=== PATIENT | female | born 1935 | race Caucasian/White ===

== ENCOUNTER → 2018-01-02 14:50 | Outpatient (CLI) | payer MEDICARE, SELFPAY ==
--- NOTE | 2018-01-02 14:55 | RAD_ITS ---
STUDY: X-RAY CHEST REASON FOR EXAM: Female, 82 years old. Weight loss. TECHNIQUE: 2 views COMPARISON: Prior PA and lateral chest August 14, 2013. FINDINGS: Pectus excavatum. The lung gray are mildly to moderately hyperexpanded without consolidation, focal atelectasis or a substantial pleural effusion. Negative for pulmonary mass or nodules. Normal size heart. Normal mediastinum and agata. Normal visualized pulmonary arteries. There is atherosclerotic calcification of the aortic arch with tortuosity. There are diffuse degenerative changes of the visualized thoracic spine with demineralized osseous structures. Normal visualized ribs, clavicles, and shoulders. There is no demonstrated abnormality of the visualized soft tissue structures of the upper abdomen. RAD/Chest PA and Lateral IMPRESSION: Mild to moderate hyperexpansion without other acute findings or changes. Negative for major consolidation, focal atelectasis or a substantial pleural effusion. Negative for pulmonary masses or nodules. Normal cardiac size. Atherosclerosis. Demineralized osseous structures with mild degenerative changes. Electronically Signed: Saira Estevez MD at 16:42 EST , Service support ,
== END ==
PROVIDERS: Family Provider Nurse Practitioner; PCP Nurse Practitioner; Visit Provider Nurse Practitioner
DX: R63.4 Abnormal weight loss (principal)
CPT/HCPCS: 71046

== ENCOUNTER → 2018-10-23 12:46 | Outpatient (CLI) | payer MEDICARE, SELFPAY ==
--- NOTE | 2018-10-23 13:00 | BI_ITS ---
MAMMOGRAPHY - BILATERAL SCREENING REASON FOR EXAM: Female, 83 years old. Routine annual screening examination. PERTINENT HISTORY: Non-contributory. TECHNIQUE: Digital bilateral breast jae (3D mammographic acquisition) in the CC and MLO projections. 2-D mediolateral oblique (MLO) and craniocaudad (CC) views of both breasts were obtained. CAD: Full Field Digital Mammography with Computer Added Detection was performed. COMPARISON: Comparison is made with prior study dated September 10, 2017 and August 14, 2016. FINDINGS: Breast Composition: The breasts are heterogeneously dense, which may obscure small masses. There are no dominant masses or suspicious calcifications. No other significant abnormalities are identified. There has been no significant change since the prior study. BI/SCREEN MAMM (CAD) W/JAE BILAT IMPRESSION: Stable bilateral screening mammogram. Yearly follow-up mammogram recommended. (A) ASSESSMENT CATEGORY: BIRADS Category 1: Negative. A letter regarding these results will be sent to the patient by the facility within 30 days. Approximately 10% of breast cancers are not detected by mammography. A normal mammogram should not delay biopsy of a clinically suspicious abnormality. [id number] Electronically Signed: Hayder Bustamante MD at 14:28 EST Tel [phone], Service support ,
--- OUTSIDE RECORDS SUMMARY | 2019-01-24 18:01 | XMS RPT_ITS | Continuity of Care Document ---
:1935 Author Organization [facility] Address [address] [facility] [address] [place] [address] Phone Care Team Providers Name Role Phone Ifeanyi HEENALuiza Unavailable Dr. Vitaly Pettit Unavailable Dr. Melchor Schaefer Unavailable Kapil Whittington Unavailable Unavailable Gisselle Morrissey LPN Unavailable Unavailable Valerie Kumari Unavailable Unavailable Kristina Carr Unavailable Unavailable Unavailable Unavailable Problems Name Dates Details Abnormal urine (R82.90, 791.9) Status: Active Allergic rhinitis (J30.9, 477.9) Status: Active Benign essential HTN (I10, 401.1) Comments: chronic stable-continue present regimenEKG: No acute changes , NSR as compared to 01/15/15on lisinopril with cough so stopped lisinopril on losartan Status: Active BMI 20.0-20.9, adult (Z68.20, V85.1) Status: Active Body mass index (BMI) of 19.0-19.9 in adult (Z68.1, V85.1) Status: Active Cervical radiculopathy, chronic (M54.12, 723.4) Status: Active Deliveries (Parity) Comments: 4 Status: Active Ectopic atrial tachycardia (I47.1, 427.89) Comments: monitor Status: Active Encounter for screening mammogram for breast cancer (Renamed from Screening mammogram, encounter for) (Z12.31, V76.12) Status: Active History of tobacco abuse (Z87.891, V15.82) Status: Active Hypercholesteremia (E78.00, 272.0) Comments: chronic stable-continue present regimen, continue crestor 5mg qod Status: Active Insomnia (G47.00, 780.52) Comments: tylenol pm not helping, try melatonin Status: Active Low back pain potentially associated with radiculopathy (M54.5, 724.2) Status: Active Need for prophylactic vaccination and inoculation against influenza (Renamed from Need for immunization against influenza) (Z23, V04.81) Status: Active Nonsmoker (Z78.9, V49.89) Status: Active Nonsmoker (Z78.9, V49.89) Status: Active Osteoarthritis (M19.90, 715.90) Status: Active Osteopenia (M85.80, 733.90) Comments: not using prolia .Used boniva and evista in the pastBD 08/19 Osteopeniatook 3 shots of prolia.01/18: hives and itching right after recieved prolia. diffrent places in body have hives. Status: Active Paresthesia (R20.2, 782.0) Status: Active Pregnancies () Comments: 4 Status: Active PVC (premature ventricular contraction) (I49.3, 427.69) Status: Active Screening mammogram, encounter for (Z12.31, V76.12) Status: Active Skin lesion (L98.9, 709.9) Status: Active Vitamin D deficiency, unspecified (E55.9, 268.9) Comments: will back down a bit to one daily and repeat next Ov Status: Active Weight loss (R63.4, 783.21) Comments: wt loss continues despite being off of crestor which she thought was problem will work upCBC, labs, all good, chest 01-02-18 normal, mammogram 09-10-17 normal, 15 normal Status: Active Weight Loss (Renamed from Decreased body weight) (R63.4, 783.21) Comments: she adding protein back in this has stablized her past all her cancer screening up to date- thyroid normal Status: Active Medications Name Dates Details Caltrate 600+D 600-400 MG-UNIT Oral Tablet Chewable 2 (two) Tablet Chewable qd for 0 days Quantity: 30 {Tablet} Refills: 3 Ordered:18-Jul-2016 Eugene Vides MD Start : 18-Jul-2016 Active Crestor 5 MG Oral Tablet 1 (one) Tablet qod for 30 days Quantity: 30 {Tablet} Refills: 5 Ordered:14-May-2018 Goldiekrysta NAIK, Luiza Allredkrysta NAIK, Luiza Centeno Start : 14-May-2018 Active FLONASE, 50MCG/ACT (Nasal Suspension) 2 (two) sprays sprays each nostril qd for 0 days Quantity: 1 {Suspension} Refills: 3 Ordered:19-Jan-2016 Anthony Joann TORRES Start : 19-Jan-2016 Active Losartan Potassium 25 MG Oral Tablet 1 (one) Tablet Tablet daily for 0 days Quantity: 90 {Tablet} Refills: 3 Ordered:06-Mar-2018 Ifeanyi NAIK, Luiza MELVINautumn NAIK, Luiza Centeno Start : 06-Mar-2018 Active MULTIVITAMIN (PO Chew Tab) 1 tab qd for 0 days Refills: 0 Ordered:24-Oct-2011 Myah WarrenActive ProAir HFA 108 (90 Base) MCG/ACT Inhalation Aerosol Solution 2 puffs Aerosol Soln qid, prn for 30 days Quantity: 1 {Inhaler} Refills: 3 Ordered:18-Jul-2016 Eugene Vides MD Start : 18-Jul-2016 Active Vitamin D3 1000 UNIT Oral Capsule 1 cap Capsule daily for 0 days Quantity: 90 {Capsule} Refills: 2 Ordered:26-Dec-2017 Ifeanyi NAIK, Luiza Allredkrysta NAIK, Luiza Centeno Start : 26-Dec-2017 Active AVELOX, 400MG (Oral Tablet) 1 (one) Tablet qd for 0 days Quantity: 5 {Tablet} Refills: 0 Ordered:24-Aug-2010 Myah Warren Start : 14-Sep-2009 End : 24-Aug-2010 Inactive CALCIUM, 500MG (Oral Tablet) 1 tab bid for 0 days Refills: 0 Ordered:20-Feb-2012 Long CHIP BIN CONVEYOR TENDER, Rody L End : 20-Feb-2012 Inactive CLARINEX, 5MG (Oral Tablet) 1 tab qd,prn for 0 days Refills: 0 Ordered:24-Aug-2010 Myah Warren End : 24-Aug-2010 Inactive ERGOCALCIFEROL, [id number] (Oral Capsule) 1 (one) Capsule q week for 0 days Quantity: 12 {Capsule} Refills: 0 Ordered:24-Aug-2010 Myah Warren Start : 17-May-2009 End : 24-Aug-2010 Inactive EVISTA, 60MG (Oral Tablet) 1 (one) Tablet qd for 0 days Quantity: 90 {Tablet} Refills: 3 Ordered:20-Feb-2012 Rody Alejandre LPN Start : 24-Aug-2010 End : 20-Feb-2012 Inactive Lisinopril 10 MG Oral Tablet 1 (one) Tablet daily for 90 days Quantity: 90 {Tablet} Refills: 1 Ordered:25-Jun-2017 Gisselle Morrissey LPN Start : 22-Nov-2016 End : 25-Jun-2017 Inactive Melatonin 2.5 MG Oral Capsule 1-2 Capsule qhs prn for insomnia for 0 days Quantity: 60 {Capsule} Refills: 0 Ordered:26-Dec-2017 Gisselle Morrissey LPN Start : 25-Jun-2017 End : 26-Dec-2017 Inactive NASACORT AQ, 55MCG/ACT (Nasal Aerosol Solution) 2 sprays Aerosol Soln qd for 0 days Quantity: 1 {Aerosol_Soln} Refills: 3 Ordered:04-Aug-2013 Rody Alejandre LPN Start : 26-Mar-2013 End : 04-Aug-2013 Inactive NASONEX, 50MCG/ACT (Nasal Suspension) 2 (two) Suspension each nostril qd for 0 days Quantity: 1 {Suspension} Refills: 3 Ordered:04-Aug-2013 Rody Alejandre LPN Start : 28-Jul-2013 End : 04-Aug-2013 Inactive NIASPAN, 500MG (Oral Tablet Extended Release) 1 Tablet ER qhs for 0 days Quantity: 30 {Tablet_ER} Refills: 3 Ordered:20-Feb-2012 Rody Alejandre LPN Start : 06-Feb-2011 End : 20-Feb-2012 Inactive Prolia 60 MG/ML Subcutaneous Solution 1 (one) Milliliter Milliliter SC q 6 months for 0 days Quantity: 1 {Pre-filled_Pen_Syringe} Refills: 1 Ordered:22-Nov-2016 Rody Alejandre LPN Start : 18-Jul-2016 End : 22-Nov-2016 Inactive Pulmicort Flexhaler 180 MCG/ACT Inhalation Aerosol Powder Breath Activated 1 puff Aero Pow Br Act qd for 0 days Quantity: 1 {Inhaler} Refills: 3 Ordered:18-Jul-2016 Long Rody DOWELL Start : 08-Jul-2014 End : 18-Jul-2016 Inactive SIMVASTATIN, 20MG (Oral Tablet) 1/2 tab Tablet qhs / HS for 90 days Quantity: 45 {Tablet} Refills: 3 Ordered:15-Nov-2011 Myah Warren Start : 24-Oct-2011 End : 15-Nov-2011 Inactive Tylenol PM Extra Strength 500-25 MG Oral Tablet 1/2 (one half) Tablet hs prn for 0 days Quantity: 30 {Tablet} Refills: 0 Ordered:25-Jun-2017 Slarb Gisselle DOWELL Start : 21-Feb-2017 End : 25-Jun-2017 Inactive VICODIN, 5-300MG (ORAL TABLET), 5-300mgmg (Oral Tablet) (Free Text) 1 (one) Tablet Tablet q 6 hours prn for 0 days Quantity: 45 {Tablet} Refills: 0 Ordered:08-Sep-2015 ANATOLY Joshua Start : 06-Jan-2014 End : 08-Sep-2015 Inactive Comments:forty five VITAMIN D, 400UNIT (Oral Tablet) 1 tab qd for 0 days Refills: 0 Ordered:08-Sep-2015 ANATOLY Joshua End : 08-Sep-2015 Inactive ALBUTEROL SULFATE HFA, 108 (90 Base)MCG/ACT (Inhalation Aerosol Solution) 2 puffs Aerosol Soln qid, prn for 0 days Quantity: 3 {Aerosol_Soln} Refills: 3 Ordered:23-Aug-2009 Myah Warren Start : 23-Aug-2009 End : 18-May-2010 Discontinued Comments:This order discontinued per [facility]. ALBUTEROL SULFATE HFA, 108MCG/ACT (Inhalation Aerosol Soln) 2 (two) Aerosol Soln 4x a day as needed for 0 days Quantity: 1 {Aerosol_Soln} Refills: 3 Ordered:10-Nov-2008 Fast DO, Joann A Start : 10-Nov-2008 End : 10-Nov-2008 Discontinued Comments:Medication taken as needed. This order discontinued per [facility]. BONIVA, 150MG (Oral Tablet) 1 (one) Tablet Tablet q month for 0 days Quantity: 3 {Tablet} Refills: 4 Ordered:21-Apr-2014 Long Rody DOWELL Start : 15-Dec-2013 End : 21-Apr-2014 Discontinued NIACIN, 500MG (Oral Tablet) 1 (one) Tablet q hs for 30 days Quantity: 30 {Tablet} Refills: 3 Ordered:24-Oct-2011 Anthony Joann TORRES Start : 24-Oct-2011 End : 24-Oct-2011 Discontinued PULMICORT TURBUHALER, 200MCG/INH (Inhalation Aerosol Powder Breath Activated) 2 (two) Aero Pow Br Act qd for 0 days Quantity: 1 {Aero_Pow_Br_Act} Refills: 3 Ordered:05-Jan-2010 Myah Warren Start : 17-Jun-2007 End : 24-Aug-2010 Discontinued Comments:This order discontinued per [facility]. PULMICORT, 0.5MG/2ML (Inhalation Suspension) 2 QD for 0 days Refills: 0 Ordered:11-Dec-2007 Rox Marcus End : 17-Jun-2007 Discontinued ZETIA, 10MG (Oral Tablet) 1 (one) Tablet Daily for 0 days Quantity: 30 {Tablet} Refills: 6 Ordered:17-May-2009 Joann Motley DO Start : 17-May-2009 End : 17-May-2009 Discontinued Allergies and Adverse Reactions Name Dates Details Augmentin (Allergy) Status: Active Boniva *ENDOCRINE AND METABOLIC AGENTS - Reaction: Nausea, Abdominal pain MISC.* (Allergy) Status: Active Comments: body aches Erythromycins (Allergy) Status: Active Niacin (Antihyperlipidemic) Status: Active *ANTIHYPERLIPIDEMICS* (Allergy) Comments: itching Penicillins (Allergy) Status: Active Sulfa Drugs (Allergy) Status: Active Vibramycin (Allergy) Status: Active Past Medical History Name Dates Details Abdominal pain, acute, right lower quadrant (R10.31, 789.03) 24-Aug-2010 Status: Resolved as of 06-Feb-2011 Abdominal ultrasound, abnormal (R93.5, 793.6) Status: Inactive as of 21-Feb-2017 Asthma (J45.909, 493.90) Comments: chronic stable-continue present regimen Status: Inactive as of 21-Feb-2017 biopsy site infection Status: Resolved as of 06-Feb-2011 BMI 20.0-20.9, adult (Z68.20, V85.1) Status: Inactive as of 26-Dec-2017 Body mass index (BMI) of 20 to 24 (V85.1) Status: Inactive as of 26-Dec-2017 Chest pain (R07.9, 786.59) Status: Resolved as of 17-May-2009 Chest X-Ray Comments: PPD pos,multiple chest x-ray neg Status: Inactive as of 25-Jun-2017 Cough (R05, 786.2) Comments: from lisnopril change to losartan Status: Inactive as of 25-Jun-2017 Depression (F32.9, 311) Comments: chronic stable-continue present regimenPHQ 9: 1(07/20/16) Status: Inactive as of 21-Feb-2017 Elevated blood-pressure reading without diagnosis of hypertension (R03.0, 796.2) Status: Inactive as of 23-Aug-2009 Fibromyalgia (M79.7, 729.1) Comments: chronic stable-continue present regimen Status: Inactive as of 21-Feb-2017 Gastroesophageal reflux disease without esophagitis (K21.9, 530.81) Comments: no gerd Status: Inactive as of 21-Feb-2017 Lesion (238.2) Status: Inactive as of 21-Jan-2016 lesion left cheek Status: Inactive as of 21-Jan-2016 Medicare annual wellness visit, initial (Z00.00, V70.0) Status: Inactive as of 21-Jan-2016 Nausea (R11.0, 787.02) Status: Resolved as of 23-Aug-2009 Need for prophylactic vaccination and inoculation against influenza (Z23, V04.81) Status: Inactive as of 15-Dec-2013 Osteopenia (M85.80, 733.90) Status: Inactive as of 21-Jan-2016 Other seborrheic keratosis (L82.1, 702.19) Comments: reassurance Status: Resolved as of 23-Aug-2009 Pharyngitis, acute (J02.9, 462) Status: Resolved as of 23-Aug-2009 Pneumococcal vaccination administered during current admission (Z23, V03.82) Status: Inactive as of 28-Jul-2013 screening Status: Inactive as of 21-Jan-2016 screening Status: Inactive as of 21-Jan-2016 screening Status: Inactive as of 28-Jul-2013 screening Status: Inactive as of 15-May-2011 screening Status: Inactive as of 15-Dec-2013 screening Status: Inactive as of 06-Feb-2011 Screening for breast cancer (Z12.39, V76.10) Status: Inactive as of 28-Jul-2013 Unspecified Diagnosis Status: Inactive as of 15-Dec-2013 Unspecified Diagnosis Status: Inactive as of 06-Feb-2011 Unspecified Diagnosis Status: Inactive as of 15-Dec-2013 Procedures Date Value Details 02-Jan-2018 Chest PA and Lateral Result: Comments: See Note; NOTES: [facility] Imaging Services [address] [place] [address] Chest PA and Lateral MR#: [id number] Acct: [id number] Name: DANNIE VILLASENOR Rep #: [id number] : 1935 F 82 From: Saira Estevez MD PCP: Luiza Suggs NP Status: REG CLI Study: Chest PA and Lateral Date of Exam: 01/02/18 Exam# [id number] Ordering Dr: Luiza Suggs STUDY: X-RAY CHEST REASON FOR EXAM: Female, 82 years old. Weight loss. TECHNIQUE: 2 views COMPARISON: Prior PA and lateral chest August 14, 2013. FINDINGS: Pectus excavatum. The l rashid gray are mildly to moderately hyperexpanded without consolidation, focal atelectasis or a substantial pleural effusion. Negative for pulmonary mass or nodules. Normal size heart. Normal mediastin um and agata. Normal visualized pulmonary arteries. There is atherosclerotic calcification of the aortic arch with tortuosity. There are diffuse degenerative changes of the visualized thoracic spine wit h demineralized osseous structures. Normal visualized ribs, clavicles, and shoulders. There is no demonstrated abnormality of the visualized soft tissue structures of the upper abdomen. RAD/Chest PA and Lateral IMPRESSION: Mild to moderate hyperexpansion without other acute findings or changes. Negative for major consolidation, focal atelectasi s or a substantial pleural effusion. Negative for pulmonary masses or nodules. Normal cardiac size. Atherosclerosis. Demineralized osseous structures with mild degenerative changes. Electronically Sig alexis: Saira Estevez MD at 16:42 EST , Service support , CC: Luiza Suggs WATER RESOURCES PROGRAM DIRECTOR Wind Turbine Engineer: Signed 10-Sep-2017 SCREENING MAMM (CAD), BILAT Result: Comments: See Note; NOTES: [facility] Imaging Services [address] [place] [address] SCREENING MAMM (CAD), BILAT MR#: [id number] Acct: [id number] Name: DANNIE VILLASENOR Rep #: [id number] : 1935 F 81 From: Hayder Elkins MD PCP: Luiza Suggs Status: REG CLI Study: SCREENING MAMM (CAD), BILAT Date of Exam: 09/10/17 Exam# [id number] Ordering Dr: Luiza Suggs MAMM OGRAPHY - BILATERAL SCREENING REASON FOR EXAM: Female, 81 years old. Routine annual screening examination. PERTINENT HISTORY: Non-contributory. TECHNIQUE: Digital bilateral breast scar (3D mammograph ic acquisition) in the CC and MLO projections. 2-D mediolateral oblique (MLO) and craniocaudad (CC) views of both breasts were obtained. CAD: Full Field Digital Mammography with Computer Added Detection was performed. COMPARISON: Comparison is made with prior study dated August 14, 2016 and August 10, 2015. FINDINGS: Breast Composition: The breasts are heterogene ously dense, which may obscure small masses. There are no dominant masses or suspicious calcifications. No other significant abnormalities are identified. There has been no significant change since prior study. HPBI/SCREENING MAMM (CAD), BILAT IMPRESSION: Stable bilateral screening mammogram. Yearly follow-up mammogram recommended. (A) __ ASSESSMENT CATEGORY: BIRADS Category 1: Negative. A letter regarding these results will be sent to the patient by the facility within 30 days. Approximately 10% of br east cancers are not detected by mammography. A normal mammogram should not delay biopsy of a clinically suspicious abnormality. [id number] Electronically Signed: Hayder Elkins MD at 15:3 3 EST Tel [phone], Service support , CC: Luiza Suggs Wind Turbine Engineer: Signed 14-Aug-2016 Bilat Scrn Digital AND CAD Result: Comments: See Note; NOTES: [facility] Imaging Services [address] [place] [id number] Verdana 4d Bilat Scrn Digital AND CAD MR#: [id number] Acct: [id number] Name: MONSERRAT VILLASENOR Rep #: [id number] : 1935 F 80 From: Celena Sierra MD PCP: Eugene Vides Status: REG CLI Study: Bilat Scrn Digital AND CAD Date of Exam: 08/14/16 Exam# [id number] Ordering Dr: Eugene Vides MAMMOGRAPHY - BILATERAL SCREENING REASON FOR EXAM: Female, 80 years old. Routine annual screening examination. PERTINENT HISTORY: NO FM HX, LT HEMANGIOMA AND MOLE MARKED MARKED TECHNIQUE: Digital bilateral breast scar (3D mammographic acquisition) in the CC and MLO projections. 2-D mediolateral oblique (MLO) and craniocaudad (CC) views of both breasts were obtained. CAD: Full Field Digital Mammo graphy with Computer Added Detection was performed. COMPARISON: MG - Breast Bilateral - 11:00, MG - Breast Bilateral - 13:59 FINDINGS: Breast Composition: The breasts are heterogeneously dense, which may obscure small masses. There are no dominant masses or suspicious calcifications. No other significant abnormalities are identified. HPBI/Bilat Scrn Digital AND CAD IMPRESSION: Stable bilateral screening mammogram. Yearly follow-up mammogram recommended. (A) ASSESSMENT CATEGORY: BIRADS Category 2: Benign. A letter regarding these results will be sent to the patient by the facility within 30 days. Approximately 10% of breast cancers are not d etected by mammography. A normal mammogram should not delay biopsy of a clinically suspicious abnormality. [id number] Electronically Signed: Celena Sierra MD at 17:07 EDT Tel , S peggy support [phone], CC: Eugene Vides Wind Turbine Engineer: Signed 10-Aug-2015 Bilat Scrn Digital AND CAD Result: Comments: See Note; NOTES: [facility] Imaging Services [address] [place] [id number] Breast Imaging Report MR#: [id number] Acct: [id number] Name: DANNIE VILLASENOR Jere Wagner p #: [id number] : 1935 F 79 From: Hayder Elkins MD PCP: Joann Motley DO Status: REG CLI Study: Bilat Scrn Digital AND CAD Date of Exam: 08/10/15 Exam# [id number] Ordering Dr: Joann Motley DO MAMMOGRAPHY - BILATERAL SCREENING REASON FOR EXAM: Female, 79 years old. Routine annual screening examination. PERTINENT HISTORY: Non-contributory. TECHNIQUE: Digital examination. Mediolat eral oblique (MLO) and craniocaudad (CC) views of both breasts were obtained. CAD: CAD was performed on this study. COMPARISON: Comparison is made with prior study dated November 27, 2013 and June 25, 2012 FINDINGS: Breast Composition: The breasts are heterogeneously dense, which may obscure small masses. There are no dominant masses or suspicious calci fications. No other significant abnormalities are identified. There has been no significant change since the prior study. IMPRESSION: Stable bilateral screenin g mammogram. Yearly follow-up recommended. (A) ASSESSMENT CATEGORY: BIRADS Category 1: Negative. A letter regarding these results will be sent to the patient by the facility within 30 days. Approximately 10% of breast cancers are not detected by mammography. A normal mammogram should not delay biopsy of a clinically suspicious abnormality. Electronically Signed: Hayder Elkins MD at 11:05 EDT Tel [phone], Service support [phone], CC: Joann Motley DO Wind Turbine Engineer: Signed 10-Aug-2015 Dexa Bone Density Study (HP) Result: Comments: See Note; NOTES: [facility] Imaging Services [address] [place] [address] Bone Density Report MR#: [id number] Acct: [id number] Name: DANNIE VILLASENOR Rep #: [id number] : 1935 F 79 From: Hayder Elkins MD PCP: Joann Motley DO Status: [facility] CLI Study: Dexa Bone Density Study (HP) Date of Exam: 08/10/15 Exam# [id number] Ordering Dr: Joann Motley DO STUDY: DUAL ENERGY X-RAY ABSORPTIOMETRY / DXA REASON FOR EXAM: Female, 79 years old. The patient is postmenopausal. Loss of height. TECHNIQUE: Bone Mineral Density (BMD) measurements of lumb ar spine and bilateral hips were obtained. COMPARISON: Comparison is made with prior study dated June 10, 2013. FINDINGS: Lumbar Spine (L1-L4): g/cm2 (0.978) / T-score (-1.7) / Z-score (0.1) Findings are suggestive of osteopenia with a moderate fracture risk. Left Femur Total: g/cm2 (0.841) / T-score (-1.3) / Z-score (0.6) Left Femoral Neck: g/cm2 (0.77 4) / T-score (-1.9) / Z-score (0.1) Right Femur Total: g/cm2 (0.764) / T-score (-1.9) / Z-score (-0.1) Right Femoral Neck: g/cm2 (0.724) / T-score (-2.3) / Z-score (-0.2) The T-Scores on the most re cent prior examination were: Lumbar Spine (L1-L4): There has been improvement of bone density since the previous examination. Left Femur Total: which represents an improvement of 1.9%. Right Femur Total: which represents a worsening of 0.8%. IMPRESSION: The patient is considered osteopenic as outlined below according to World Edwin Organization (WHO) rajat steel with a moderate fracture risk. There has been improvement of bone density since the previous examination. Reference Information: The T-score is the number of standard deviations above or below the standard which is normal for young adults at their peak bone mineral density. The World Health Organization (WHO) interprets the T-scores as follows: Above -1 Normal bone density Between -1 and -2.5 Osteopenia Equal to / or below - 2.5 Osteoporosis As a practical clinical guideline, osteopenia may be graded as follows: Mild -1 through -1.5 Moderate - 1.6 through -2.0 Severe -2.1 through -2.4 The Z-score is the number of standard deviations above or below age-matched controls. A Z-score of less than -1.5 would be considered abnormal. References : 1. NIH Osteoporosis and Related Bone Diseases http://www.osteo.org 2. International Society for Clinical Densitometry http://www.iscd.org 3. National Osteoporosis Foundation http://www.nof.org El ectronically Signed: Hayder Elkins MD at 11:21 EDT Tel [phone], Service support [phone], CC: Joann Motley DO Wind Turbine Engineer: Signed 02-Mar-2015 Echocardiogram Complete Result: Comments: See Note; NOTES: [facility] Cardiovascular Services [address] [place] [address] Echo Complete 03/02/15 1057 MR#: [id number] Acct: [id number] Name: DANNIE VILLASENOR Rep #: [id number] : 1935 79 From: Neal Lr MD Attending Dr: Joann Motley DO Status: REG CLI Ordering Dr: Joann Motley DO Date: 03/02/15 Location: [facility] Sex: F C Admitted: P [facility] This was a 2D Doppler, Color Flow transthoracic echocardiogram. The exam was of fair technical quality due to diminished acoustic windows. Exam performed in department. Left Ventricle Norm al LV size. Left ventricular systolic function is normal. The estimated ejection fraction is 60 %. No regional wall motion abnormalities noted. Right Ventricle Normal RV size. Normal systolic funct ion. Atria Normal left atrium. Normal right atrium. No doppler evidence for ASD. Mitral Valve There is no mitral annular calcification. Normal mitral valve. Trivial mitral valve insufficiency. Tricuspid Valve Normal tricuspid valve. Mild tricuspid valve insufficiency. Right ventricular systolic pressure estimated to be 29 mmHg. Aortic Valve Trisinus/trileaflet aortic valve. Mild focal a ortic valve thickening. Pulmonic Valve The pulmonic valve is not well visualized. Great Vessels Normal sized aortic root. Pericardium/Pleural No pericardial effusion. MMode/2D Measurements AN D Calculations LVIDd: 3.2 cm IVSd: 1.1 cm Ao root diam: 2.9 cm LAV(MOD-bp): 20.4 ml LVIDs: 2.2 cm LVPWd: 1.1 cm Ao root area: 6.7 cm2 LAV(MOD-bp) Indexed: 13.0 ml/m2 RVDd: 2.6 cm FS: 29.9 % LA dime nsion: 2.8 cm LAV(MOD-sp2): 13.3 ml LAV(MOD-sp4): 23.4 ml LA A4 area: 11.1 cm2 RA A4 area: 9.7 cm2 Doppler Whit urements AND Calculations MV E max juan daniel: Lat Peak E' Juan Daniel: Med Peak E' Juan Daniel: Ao V2 max: 60.3 cm/sec 7.5 cm/sec 7.8 cm/sec 124.1 cm/sec MV A max juan daniel: Ao max P.2 mmHg 77.0 cm/sec MV E/A: 0.78 ___ LV V1 max: 94.8 cm/sec PA V2 max: 86.4 cm/sec TR max juan daniel: 242.7 cm/sec E/ E' lat: 8.1 LV V1 max P.6 mmHg PA max P.0 mmHg TR max P.6 mmHg E/E' med: 7.7 Interpretation Summary Left ventricular systolic function is normal. The estimated ejection fraction is 60 %. Trivial mitral valve insufficiency. Mild tricuspid valve insufficiency. Mild focal aortic valve thickening. Right ventricular systolic pressure estimated t o be 29 mmHg. Echolucency measuring approximately 4.6 cm x 5.3 cm potentially c/w an hepatic cyst: consider further evaluation with additonal radiologic studies as clinically indicated. Ordering Physician: Joann Motley Performed By: Carolyne Solano RVT 03/02/151837 Date Neal Lr MD CC: Joann Motley DO Date Dictated: 03/02/151056 Date Transcribed: 03/02/151837 Wind Turbine Engineer: Signed 15-Feb-2015 12 Lead Electrocardiogram Result: Comments: See Note; NOTES: [facility] Cardiovascular Services [address] [place] [address] 12 Lead EKG 02/12/15 1220 MR#: [id number] Acct: [id number] Name: LEYDI VILLASENOR RGARET C Rep #: [id number] : 1935 79 From: Kyler Carroll MD Attending Dr: Status: DEP ER Ordering Dr: Joselo Henning MD Date: 02/12/15 Location: ED Sex: F C Admitted: Test Reason : Bloo d Pressure : / mmHG Vent. Rate : 081 BPM Atrial Rate : 081 BPM P-R Int : 166 ms QRS Dur : 088 ms QT Int : 378 ms P-R-T Axes : 079 056 063 degrees QTc Int : 439 ms Sinus rhythm with freque nt Premature ventricular complexes Otherwise normal ECG Confirmed by KYLER CARROLL ([id number]), offline editor PROSPER QUINONES ([id number]) on 02/15/2015 12 :01:17 PM Referred By: SHERRY Confirmed By:KYLER CARROLL 02/15 1201 Date Kyler Carroll MD CC: Joann DO Date Dictated: 02/12/15 1220 Date Transcribed: 02/12/151219 Wind Turbine Engineer: Signed 15-Feb-2015 12 Lead Electrocardiogram Result: Comments: See Note; NOTES: [facility] Cardiovascular Services [address] [place] [address] 12 Lead EKG 02/12/151203 MR#: [id number] Acct: [id number] Name: LEYDI VILLASENOR RGARET C Rep #: [id number] : 1935 79 From: Kyler Carroll MD Attending Dr: Status: DEP ER Ordering Dr: Joselo Henning MD Date: 02/12/15 Location: ED Sex: F C Admitted: Test Reason : CP B lood Pressure : / mmHG Vent. Rate : 071 BPM Atrial Rate : 071 BPM P-R Int : 168 ms QRS Dur : 094 ms QT Int : 394 ms P-R-T Axes : 086 081 078 degrees QTc Int : 428 ms Normal sinus rhythm Normal ECG Confirmed by KYLER CARROLL ([id number]), offline editor PROSPER QUINONES ([id number]) on 02/15/2015 12 :01:27 PM Referred By: SHERRY Confirmed By:KYLER CARROLL 02/15/15 1201 Date Kyler Carroll MD CC: Joann Motley DO Date Dictated: 02/12/15 1204 Date Transcribed: 02/12/15 1204 Wind Turbine Engineer: Signed 13-Feb-2015 Emergency Department Summary Result: Comments: See Note; NOTES: [facility] Medical Records Department [address] [place] [address] Emergency Department Summary MR#: [id number] Acct: [id number] Name: DANNIE BOSTON Rep #: [id number] : 1935 79 From: Joselo Henning MD PCP: Joann Motley DO Status: [facility] ER DATE OF SERVICE: 02/12/2015 METHOD OF ARRIVAL: By private car. CHIEF COMPLAINT: Palp itations. PRIMARY CARE: Joann Motley D.O. LANG HISTORY: This is a 79-year-old female with a history of hypertension, high cholesterol. The patient comes in with palpitations going on for about 2 h ours, has been continuous. She describes as skipping sensation. She states she took her blood pressure at home , which showed a low heart rate in the 40s. She got concerned and came in. She denies c hest pain, shortness of breath, nausea, vomiting, or dizziness or syncope symptoms. She does state she feels a little bit weak. REVIEW OF SYSTEMS: Otherwise, unremarkable. ALLERGIES: Include Me rrem. She states this was years ago related to treatment with her asthma that she had when she was younger and was on antibiotic. PHYSICAL EXAMINATION: VITAL SIGNS: Stable. Heart rate in triage rec orded 46. My exam, she is in the 70s to 80s. HEENT: Unremarkable. NECK: Supple. HEART: Regular. She is showing frequent PVCs on monitor. No murmur, rub, or gallop. LUNGS: Clear. ABDOMEN: Soft, no ntender. NEUROLOGIC: She is awake and alert with no focal findings. TESTS: Chest x-ray shows a COPD like pattern. EKG is sinus at 71. Initial EKG did not show any PVCs. Repeat EKG continues to be s inus, but shows PVCs. At times on monitor, she will go into bigeminy, but other times just be PVCs like every 7-8 beats. CBC: Her white count is normal, hemoglobin is stable, 77% neutrophils. Chemis try panel is unremarkable. Troponin is negative. TSH is normal. EMERGENCY DEPARTMENT COURSE: The patient was started on IV fluids and monitor. The patient was simply observed here. At this time, the patient continues to have the PVCs. I spoke with Dr. Carroll. He recommended placing the patient on Toprol 25 mg and have her followup with Dr. Motley. The patient is agreeable with this plan. She was given precautions about the Toprol with side effects. CLINICAL IMPRESSION: 1. Palpitations. 2. PVCs. DISPOSITION: Home. MD Jere Garcia C: Joann Motley DO T: NTS JOB: [id number] <Electronically signed by Joselo Henning MD> Date Joselo Henning MD CC: Joann Motley DO Date Dictated: 02/12/15 134 Date Transcribed: 02/12/151340 Wind Turbine Engineer: Signed 12-Feb-2015 Discharge Instruction Result: Comments: See Note; NOTES: [facility] Medical Records Department [address] [place] [address] Discharge Instruction 02/12/151335 MR#: [id number] Acct: [id number] Name: DANNIE VILLASENOR Rep #: [id number] : 1935 79 From: Joselo Henning MD PCP: Joann Motley DO Status: REG ER ED Disposition - Plan for ED Patient: Disposition: Home Chief Complaint: Palpit ations Instructions: ED Palpitations, Premature Ventricular Contractions Prescriptions: Metoprolol(XL)Succ [Toprol Xl (Beta Amarilis)] 25 mg PO DAILY #30 tablet Referrals: Joann Motley DO [Primary Ca re Provider] - 3-5 Days Additional Instructions: follow up with Dr Motley. return with problems/worsening. avoid caffeine. What to do if you have Problems For any increased pain, shortness of suzy th, bleeding, nausea or vomiting, chest pain, or any unexpected problems, contact your doctor. Call [facility] ) or report to the closest Emergency Room. Call 911 if necessary. 02/12/158 <Electronically signed by Joselo Henning MD> Date Joselo Henning MD Cosigner Signature (If Indicated): Date CC: Joann Motley DO 12-Feb-2015 Chest 1 View (Portable) Result: Comments: See Note; NOTES: [facility] Imaging Services [address] [place] [address] Radiology Report MR#: [id number] Acct: [id number] Name: DANNIE VILLASENOR Rep #: [id number] : 1935 F 79 From: Ross Robert DO PCP: Joann Motley DO Status: REG ER Study: Chest 1 View (Portable) Date of Exam: 02/12/15 Exam# [id number] Ordering Dr: Joselo Henning MD STUDY: X- RAY CHEST REASON FOR EXAM: Female, 79 years old. Palpitations TECHNIQUE: Single AP portable view of the chest. COMPARISON: August 14, 2013. FINDINGS: Telem etry wires overlie the chest. There is hyperinflation of the lungs consistent with chronic obstructive lung disease (COPD). There is no demonstrated pleural abnormality. Normal size heart. Normal m ediastinum and agata. Normal visualized pulmonary arteries. Normal visualized aortic arch and descending thoracic aorta. No visualized osseous changes. There is no demonstrated abnormality of the v isualized soft tissue structures of the upper abdomen. IMPRESSION: Question COPD. There is no acute cardiopulmonary disease or change from the prior study. El ectronically Signed: Ross Robert DO at 12:40 EDT Tel [phone], Service support [phone], RAD/Chest 1 View (Portable) IMPRESSION: Question C OPD. There is no acute cardiopulmonary disease or change from the prior study. Electronically Signed: Ross Robert DO at 12:40 EDT Tel [phone], Service support [phone], Fax CC: Joann Motley DO; Joselo Henning MD Wind Turbine Engineer: Signed 27-Nov-2013 [facility] Result: Comments: See Note; NOTES: [facility] Imaging Services [address] [place] [address] Breast Imaging Report MR#: [id number] Acct: [id number] Name: DANNIE VILLASENOR Rep #: [id number] : 1935 F 78 From: Hayder Elkins MD PCP: Joann Motley DO Status: REG CLI Exam# [id number] Ordering Dr: Joann Motley DO MAMMOGRAPHY - BILATERAL SCREENING REASON FOR EXAM : Female, 78 years old. Routine annual screening examination. PERTINENT HISTORY: Non-contributory. TECHNIQUE: Digital examination. Mediolateral oblique (MLO) and craniocaudad (CC) views of both br easts were obtained. CAD: CAD was performed on this study. COMPARISON: Comparison is made with prior examination dated June 25, 2012 and May 04, 2011. FINDI NGS: The breast composition is heterogeneously dense - ranging from 51% to 75% of the breast tissue. There are no dominant masses or suspicious calcifications. No other significant abnormalities a re identified. There has been no significant change since the prior study. IMPRESSION: Stable bilateral screening mammogram. Yearly follow-up recommended. (A) _ ASSESSMENT CATEGORY: BIRADS Category 2: Benign finding(s). A letter regarding these results will be sent to the patient by the facility within 30 days. Approxima tely 10% of breast cancers are not detected by mammography. A normal mammogram should not delay biopsy of a clinically suspicious abnormality. Electronically Signed: Hayder Elkins M.D. 11/28 at 7:55 EST , Service support [phone], CC: Joann Motley DO Wind Turbine Engineer: Signed 14-Aug-2013 Chest PA and Lateral Result: Comments: See Note; NOTES: [facility] Imaging Services [address] [place] [address] Radiology Report MR#: [id number] Acct: [id number] Name: DANNIE VILLASENOR Rep #: [id number] : 1935 F 77 From: Ross Robert DO PCP: Joann Motley DO Status: REG CLI Study: Chest PA and Lateral Date of Exam: 08/14/13 Exam# [id number] Ordering Dr: Joann Motley DO STUDY: X-RAY CHEST REASON FOR EXAM: Female, 77 years old. Asthma. TECHNIQUE: PA and lateral views of the chest. COMPARISON: None. FINDINGS: Lungs are hyperexpanded but without mass or infiltrate. There is no demonstrated pleural abnormality. Normal size heart. Normal mediastinum and agata. Normal visualized pulmonary arteries. Normal visualized aortic arch and felisha cending thoracic aorta. There are very mild degenerative changes of the upper thoracic spine. There is degenerative osteoarthritis of the bilateral shoulders. There is no demonstrated abnormality of the visualized soft tissue structures of the upper abdomen. IMPRESSION: No acute cardiopulmonary disease. Signed: Ross Robert D.O. August 14, 2013 at 7: 14:19 PM EDT [phone] Electronically Signed HH/HH If you are the referring physician and would like to consult with the radiologist who provided this interpretation, please contact Ross lilly D.O. at [phone]. If this radiologist is unavailable, you will be directed to another radiologist to assist. If you are a patient with a question regarding this report, please contact your [facility] physician directly. Professional Interpretation Provided By: [place], Phone , These documents contain legally protected and confidential health informati on intended only for the use of the individual or entity named above. If you are not the intended recipient, you are hereby notified that any disclosure, copying, distribution, or other use of these d ocuments is strictly prohibited. If you have received this information in error, please notify the sender immediately and arrange for the return or destruction of these documents. CC: Joann Motley DO Wind Turbine Engineer: Signed Family History Unknown Family Member Name Dates Details Father Comments: Father choked at 80 Status: Active Mother Comments: Thyroid disease & DM, at 57 from kind of female cancer Status: Active Social History Name Dates Details Caffeine Use Status: Active No Drug Use Status: Active Non Drinker/No Alcohol Use Status: Active Non Smoker/No Tobacco Use Status: Active Tobacco use: Former smoker. Status: Active Smoking Status Name Dates Details Former smoker Vital Signs Date Test Result Details :03 Temperature 97 f Pulse 70 /min Comments: Pattern: Regular Respiration Rate 17 /min Comments: Pattern: Unlabored O2 SAT 98 % Comments: Room air BP Systolic 102 mm[Hg] Comments: Patient Position: Sitting; Cuff Location: Left Arm; Cuff Size: Standard BP Diastolic 74 mm[Hg] Comments: Patient Position: Sitting; Cuff Location: Left Arm; Cuff Size: Standard Weight 111 lb Height 63.25 in Body Mass Index Calculated 19.51 kg/m2 Body Surface Area Calculated 1.51 m2 [id number]:15 Temperature 97.5 f Pulse 71 /min Comments: Pattern: Regular Respiration Rate 18 /min Comments: Pattern: Unlabored O2 SAT 99 % Comments: Room air BP Systolic 122 mm[Hg] Comments: Patient Position: Sitting; Cuff Location: Left Arm; Cuff Size: Standard BP Diastolic 78 mm[Hg] Comments: Patient Position: Sitting; Cuff Location: Left Arm; Cuff Size: Standard Weight 115.25 lb Height 63.25 in Body Mass Index Calculated 20.25 kg/m2 Body Surface Area Calculated 1.53 m2 :04 Temperature 97.6 f Pulse 91 /min Comments: Pattern: Regular Respiration Rate 16 /min Comments: Pattern: Unlabored O2 SAT 94 % Comments: Room air BP Systolic 122 mm[Hg] Comments: Patient Position: Sitting; Cuff Location: Left Arm; Cuff Size: Standard BP Diastolic 78 mm[Hg] Comments: Patient Position: Sitting; Cuff Location: Left Arm; Cuff Size: Standard Weight 115 lb Height 63.25 in Body Mass Index Calculated 20.21 kg/m2 Body Surface Area Calculated 1.53 m2 :13 Temperature 97.5 f Pulse 76 /min Comments: Pattern: Regular Respiration Rate 17 /min Comments: Pattern: Unlabored O2 SAT 98 % Comments: Room air BP Systolic 112 mm[Hg] Comments: Patient Position: Sitting; Cuff Location: Left Arm; Cuff Size: Standard BP Diastolic 72 mm[Hg] Comments: Patient Position: Sitting; Cuff Location: Left Arm; Cuff Size: Standard Weight 118.25 lb Height 63.25 in Body Mass Index Calculated 20.78 kg/m2 Body Surface Area Calculated 1.55 m2 :35 Temperature 98.4 f Pulse 91 /min Comments: Pattern: Regular Respiration Rate 17 /min Comments: Pattern: Unlabored O2 SAT 97 % Comments: Room air BP Systolic 114 mm[Hg] Comments: Patient Position: Sitting; Cuff Location: Left Arm; Cuff Size: Standard BP Diastolic 72 mm[Hg] Comments: Patient Position: Sitting; Cuff Location: Left Arm; Cuff Size: Standard Weight 118.25 lb Height 63.25 in Body Mass Index Calculated 20.78 kg/m2 Body Surface Area Calculated 1.55 m2 :35 Temperature 98.1 f Comments: Method: Temporal Pulse 70 /min Comments: Pattern: Regular Respiration Rate 16 /min Comments: Pattern: Unlabored BP Systolic 120 mm[Hg] Comments: Patient Position: Sitting; Cuff Location: Left Arm; Cuff Size: Standard BP Diastolic 72 mm[Hg] Comments: Patient Position: Sitting; Cuff Location: Left Arm; Cuff Size: Standard Weight 117 lb Height 63.25 in Body Mass Index Calculated 20.56 kg/m2 Body Surface Area Calculated 1.54 m2 :51 Temperature 97.1 f Comments: Method: Temporal Pulse 60 /min Comments: Pattern: Regular Respiration Rate 16 /min Comments: Pattern: Unlabored BP Systolic 122 mm[Hg] Comments: Patient Position: Sitting; Cuff Location: Left Arm; Cuff Size: Standard BP Diastolic 70 mm[Hg] Comments: Patient Position: Sitting; Cuff Location: Left Arm; Cuff Size: Standard Weight 118 lb Height 63.25 in Body Mass Index Calculated 20.74 kg/m2 Body Surface Area Calculated 1.55 m2 :05 Temperature 98.8 f Comments: Method: Temporal Pulse 56 /min Comments: Pattern: Regular Respiration Rate 15 /min Comments: Pattern: Unlabored O2 SAT 97 % Comments: Room air BP Systolic 128 mm[Hg] Comments: Patient Position: Sitting; Cuff Location: Left Arm; Cuff Size: Standard BP Diastolic 70 mm[Hg] Comments: Patient Position: Sitting; Cuff Location: Left Arm; Cuff Size: Standard Weight 117 lb Height 63.25 in Body Mass Index Calculated 20.56 kg/m2 Body Surface Area Calculated 1.54 m2 :39 Temperature 99.1 f Comments: Method: Temporal Pulse 74 /min Comments: Pattern: Regular Respiration Rate 16 /min Comments: Pattern: Unlabored O2 SAT 97 % Comments: Room air BP Systolic 114 mm[Hg] Comments: Patient Position: Sitting; Cuff Location: Left Arm; Cuff Size: Standard BP Diastolic 64 mm[Hg] Comments: Patient Position: Sitting; Cuff Location: Left Arm; Cuff Size: Standard Weight 123 lb Height 63.25 in Body Mass Index Calculated 21.62 kg/m2 Body Surface Area Calculated 1.58 m2 :43 BP Systolic 138 mm[Hg] Comments: Patient Position: Sitting BP Diastolic 78 mm[Hg] Comments: Patient Position: Sitting Weight 119 lb :05 Temperature 98.3 f Comments: Method: Temporal Pulse 68 /min Comments: Pattern: Regular Respiration Rate 16 /min Comments: Pattern: Unlabored O2 SAT 96 % Comments: Room air BP Systolic 152 mm[Hg] Comments: Patient Position: Sitting; Cuff Location: Left Arm; Cuff Size: Standard BP Diastolic 76 mm[Hg] Comments: Patient Position: Sitting; Cuff Location: Left Arm; Cuff Size: Standard Weight 116 lb Height 63.25 in Body Mass Index Calculated 20.39 kg/m2 Body Surface Area Calculated 1.54 m2 :51 Temperature 97.9 f Comments: Method: Oral Pulse 70 /min Comments: Pattern: Regular Respiration Rate 16 /min Comments: Pattern: Unlabored BP Systolic 110 mm[Hg] Comments: Patient Position: Sitting; Cuff Location: Left Arm; Cuff Size: Standard BP Diastolic 74 mm[Hg] Comments: Patient Position: Sitting; Cuff Location: Left Arm; Cuff Size: Standard Weight 119 lb Height 63.25 in Body Mass Index Calculated 20.91 kg/m2 Body Surface Area Calculated 1.56 m2 :02 Temperature 97.7 f Comments: Method: Oral Pulse 54 /min Comments: Pattern: Regular Respiration Rate 16 /min Comments: Pattern: Unlabored BP Systolic 122 mm[Hg] Comments: Patient Position: Sitting; Cuff Location: Left Arm; Cuff Size: Standard BP Diastolic 66 mm[Hg] Comments: Patient Position: Sitting; Cuff Location: Left Arm; Cuff Size: Standard Weight 120 lb Height 63.25 in Body Mass Index Calculated 21.09 kg/m2 Body Surface Area Calculated 1.56 m2 :08 Temperature 97.9 f Pulse 48 /min Comments: Pattern: Regular Respiration Rate 16 /min Comments: Pattern: Unlabored BP Systolic 124 mm[Hg] Comments: Patient Position: Sitting; Cuff Location: Left Arm; Cuff Size: Standard BP Diastolic 70 mm[Hg] Comments: Patient Position: Sitting; Cuff Location: Left Arm; Cuff Size: Standard Weight 118 lb Height 63.25 in Body Mass Index Calculated 20.74 kg/m2 Body Surface Area Calculated 1.55 m2 :28 Temperature 97.9 f Pulse 76 /min Comments: Pattern: Regular Respiration Rate 16 /min Comments: Pattern: Unlabored BP Systolic 128 mm[Hg] Comments: Patient Position: Sitting; Cuff Location: Left Arm; Cuff Size: Standard BP Diastolic 64 mm[Hg] Comments: Patient Position: Sitting; Cuff Location: Left Arm; Cuff Size: Standard Weight 119 lb Height 63.25 in Body Mass Index Calculated 20.91 kg/m2 Body Surface Area Calculated 1.56 m2 :45 Temperature 97.4 f Pulse 84 /min Comments: Pattern: Regular Respiration Rate 18 /min Comments: Pattern: Unlabored BP Systolic 120 mm[Hg] Comments: Patient Position: Sitting; Cuff Location: Left Arm; Cuff Size: Standard BP Diastolic 76 mm[Hg] Comments: Patient Position: Sitting; Cuff Location: Left Arm; Cuff Size: Standard Weight 118 lb Height 63.25 in Body Mass Index Calculated 20.74 kg/m2 Body Surface Area Calculated 1.55 m2 :00 Temperature 98.2 f Pulse 68 /min Comments: Pattern: Regular Respiration Rate 16 /min Comments: Pattern: Unlabored BP Systolic 128 mm[Hg] Comments: Patient Position: Sitting; Cuff Location: Left Arm; Cuff Size: Standard BP Diastolic 64 mm[Hg] Comments: Patient Position: Sitting; Cuff Location: Left Arm; Cuff Size: Standard Weight 119 lb Height 63.25 in Body Mass Index Calculated 20.91 kg/m2 Body Surface Area Calculated 1.56 m2 :43 Temperature 96.1 f Pulse 60 /min Comments: Pattern: Regular Respiration Rate 16 /min Comments: Pattern: Unlabored BP Systolic 140 mm[Hg] Comments: Patient Position: Sitting; Cuff Location: Left Arm; Cuff Size: Large BP Diastolic 64 mm[Hg] Comments: Patient Position: Sitting; Cuff Location: Left Arm; Cuff Size: Large Weight 122 lb Height 63.25 in Body Mass Index Calculated 21.44 kg/m2 Body Surface Area Calculated 1.57 m2 :06 Temperature 96.5 f Pulse 60 /min Comments: Pattern: Regular Respiration Rate 16 /min Comments: Pattern: Unlabored BP Systolic 122 mm[Hg] Comments: Patient Position: Sitting; Cuff Location: Left Arm; Cuff Size: Standard BP Diastolic 82 mm[Hg] Comments: Patient Position: Sitting; Cuff Location: Left Arm; Cuff Size: Standard Weight 123 lb Height 63.25 in Body Mass Index Calculated 21.62 kg/m2 Body Surface Area Calculated 1.58 m2 :04 Temperature 97.5 f Pulse 52 /min Comments: Pattern: Regular Respiration Rate 16 /min Comments: Pattern: Unlabored BP Systolic 140 mm[Hg] Comments: Patient Position: Sitting; Cuff Location: Left Arm; Cuff Size: Standard BP Diastolic 76 mm[Hg] Comments: Patient Position: Sitting; Cuff Location: Left Arm; Cuff Size: Standard Weight 125 lb Height 63.25 in Body Mass Index Calculated 21.97 kg/m2 Body Surface Area Calculated 1.59 m2 :57 Temperature 98.3 f Pulse 76 /min Comments: Pattern: Regular Respiration Rate 16 /min Comments: Pattern: Unlabored BP Systolic 100 mm[Hg] Comments: Patient Position: Sitting; Cuff Location: Left Arm; Cuff Size: Standard BP Diastolic 70 mm[Hg] Comments: Patient Position: Sitting; Cuff Location: Left Arm; Cuff Size: Standard Weight 123 lb Height 63.25 in Body Mass Index Calculated 21.62 kg/m2 Body Surface Area Calculated 1.58 m2 :01 Temperature 98.2 f Comments: Method: Oral Pulse 62 /min Comments: Pattern: Regular Respiration Rate 16 /min Comments: Pattern: Unlabored BP Systolic 130 mm[Hg] Comments: Patient Position: Sitting; Cuff Location: Left Arm; Cuff Size: Standard BP Diastolic 60 mm[Hg] Comments: Patient Position: Sitting; Cuff Location: Left Arm; Cuff Size: Standard Weight 126 lb Height 63.25 in Body Mass Index Calculated 22.14 kg/m2 Body Surface Area Calculated 1.59 m2 :33 Temperature 97.8 f Pulse 72 /min Comments: Pattern: Regular Respiration Rate 16 /min Comments: Pattern: Unlabored BP Systolic 112 mm[Hg] Comments: Patient Position: Sitting; Cuff Location: Left Arm; Cuff Size: Large BP Diastolic 80 mm[Hg] Comments: Patient Position: Sitting; Cuff Location: Left Arm; Cuff Size: Large Weight 126 lb Height 63.25 in Body Mass Index Calculated 22.14 kg/m2 Body Surface Area Calculated 1.59 m2 :21 Temperature 98.5 f Pulse 66 /min Comments: Pattern: Regular Respiration Rate 16 /min Comments: Pattern: Unlabored BP Systolic 128 mm[Hg] Comments: Patient Position: Sitting; Cuff Location: Left Arm; Cuff Size: Standard BP Diastolic 82 mm[Hg] Comments: Patient Position: Sitting; Cuff Location: Left Arm; Cuff Size: Standard Weight 125 lb Height 63.25 in Body Mass Index Calculated 21.97 kg/m2 Body Surface Area Calculated 1.59 m2 :50 Temperature 97 f Pulse 66 /min Comments: Pattern: Regular Respiration Rate 16 /min Comments: Pattern: Unlabored BP Systolic 140 mm[Hg] Comments: Patient Position: Sitting; Cuff Location: Left Arm; Cuff Size: Standard BP Diastolic 80 mm[Hg] Comments: Patient Position: Sitting; Cuff Location: Left Arm; Cuff Size: Standard Weight 127 lb Height 63.25 in Body Mass Index Calculated 22.32 kg/m2 Body Surface Area Calculated 1.6 m2 :19 Temperature 98.6 f Pulse 72 /min Comments: Pattern: Regular Respiration Rate 16 /min Comments: Pattern: Unlabored BP Systolic 134 mm[Hg] Comments: Patient Position: Sitting; Cuff Location: Left Arm; Cuff Size: Large BP Diastolic 74 mm[Hg] Comments: Patient Position: Sitting; Cuff Location: Left Arm; Cuff Size: Large Weight 126 lb Height 63.25 in Body Mass Index Calculated 22.14 kg/m2 Body Surface Area Calculated 1.59 m2 :20 Temperature 97.9 f Pulse 68 /min Comments: Pattern: Regular Respiration Rate 18 /min Comments: Pattern: Unlabored BP Systolic 146 mm[Hg] Comments: Patient Position: Sitting; Cuff Location: Left Arm; Cuff Size: Standard BP Diastolic 78 mm[Hg] Comments: Patient Position: Sitting; Cuff Location: Left Arm; Cuff Size: Standard Weight 126 lb Height 63.5 in Body Mass Index Calculated 21.97 kg/m2 Body Surface Area Calculated 1.6 m2 :31 Temperature 98.4 f Pulse 56 /min Comments: Pattern: Regular Respiration Rate 16 /min Comments: Pattern: Unlabored BP Systolic 138 mm[Hg] Comments: Patient Position: Sitting; Cuff Location: Left Arm; Cuff Size: Large BP Diastolic 78 mm[Hg] Comments: Patient Position: Sitting; Cuff Location: Left Arm; Cuff Size: Large Weight 129 lb :41 Temperature 98.1 f Comments: Method: Undefined Pulse 68 /min Comments: Pattern: Regular Respiration Rate 16 /min Comments: Pattern: Undefined BP Systolic 138 mm[Hg] Comments: Patient Position: Sitting; Cuff Location: Right Arm; Cuff Size: Standard BP Diastolic 78 mm[Hg] Comments: Patient Position: Sitting; Cuff Location: Right Arm; Cuff Size: Standard Weight 0 lb Height 0 in Head Circumference 0.00 cm :06 Pulse 68 /min Comments: Pattern: Regular Respiration Rate 16 /min Comments: Pattern: Undefined BP Systolic 134 mm[Hg] Comments: Patient Position: Sitting; Cuff Location: Right Arm; Cuff Size: Standard BP Diastolic 80 mm[Hg] Comments: Patient Position: Sitting; Cuff Location: Right Arm; Cuff Size: Standard Weight 0 lb Height 0 in Head Circumference 0.00 cm :07 Temperature 98 f Comments: Method: Undefined Pulse 68 /min Comments: Pattern: Regular Respiration Rate 18 /min Comments: Pattern: Undefined BP Systolic 144 mm[Hg] Comments: Patient Position: Sitting; Cuff Location: Left Arm; Cuff Size: Standard BP Diastolic 82 mm[Hg] Comments: Patient Position: Sitting; Cuff Location: Left Arm; Cuff Size: Standard Weight 128 lb Height 0 in Head Circumference 0.00 cm :42 Pulse 60 /min Comments: Pattern: Regular Respiration Rate 16 /min Comments: Pattern: Unlabored BP Systolic 140 mm[Hg] Comments: Patient Position: Supine; Cuff Location: Right Leg; Cuff Size: Standard BP Diastolic 84 mm[Hg] Comments: Patient Position: Supine; Cuff Location: Right Leg; Cuff Size: Standard Weight 127.25 lb Height 64 in Body Mass Index Calculated 21.84 kg/m2 Body Surface Area Calculated 1.61 m2 Head Circumference 0.00 cm :08 Pulse 60 /min Comments: Pattern: Regular Respiration Rate 16 /min Comments: Pattern: Unlabored BP Systolic 154 mm[Hg] Comments: Patient Position: Supine; Cuff Location: Left Arm; Cuff Size: Standard BP Diastolic 88 mm[Hg] Comments: Patient Position: Supine; Cuff Location: Left Arm; Cuff Size: Standard Weight 125 lb Height 64 in Body Mass Index Calculated 21.46 kg/m2 Body Surface Area Calculated 1.6 m2 Head Circumference 0.00 cm :05 Temperature 97.5 f Comments: Method: Undefined Pulse 76 /min Comments: Pattern: Regular Respiration Rate 16 /min Comments: Pattern: Undefined BP Systolic 138 mm[Hg] Comments: Patient Position: Sitting; Cuff Location: Right Arm; Cuff Size: Standard BP Diastolic 86 mm[Hg] Comments: Patient Position: Sitting; Cuff Location: Right Arm; Cuff Size: Standard Weight 131 lb Height 0 in Head Circumference 0.00 cm :04 Temperature 98.1 f Comments: Method: Oral Pulse 76 /min Comments: Pattern: Regular Respiration Rate 18 /min Comments: Pattern: Unlabored BP Systolic 138 mm[Hg] Comments: Patient Position: Sitting; Cuff Location: Right Arm; Cuff Size: Standard BP Diastolic 80 mm[Hg] Comments: Patient Position: Sitting; Cuff Location: Right Arm; Cuff Size: Standard Weight 135.125 lb Height 64 in Body Mass Index Calculated 23.19 kg/m2 Body Surface Area Calculated 1.66 m2 Head Circumference 0.00 cm :01 Temperature 97.8 f Comments: Method: Oral Pulse 64 /min Comments: Pattern: Regular Respiration Rate 16 /min Comments: Pattern: Unlabored BP Systolic 124 mm[Hg] Comments: Patient Position: Sitting; Cuff Location: Right Arm; Cuff Size: Standard BP Diastolic 72 mm[Hg] Comments: Patient Position: Sitting; Cuff Location: Right Arm; Cuff Size: Standard Weight 127 lb Height 0 in Head Circumference 0.00 cm :25 Temperature 96.5 f Comments: Method: Oral Pulse 64 /min Comments: Pattern: Regular Respiration Rate 16 /min Comments: Pattern: Unlabored BP Systolic 142 mm[Hg] Comments: Patient Position: Sitting; Cuff Location: Right Arm; Cuff Size: Standard BP Diastolic 80 mm[Hg] Comments: Patient Position: Sitting; Cuff Location: Right Arm; Cuff Size: Standard Weight 130 lb Height 0 in Head Circumference 0.00 cm :33 Temperature 98.4 f Comments: Method: Oral Pulse 68 /min Comments: Pattern: Regular Respiration Rate 16 /min Comments: Pattern: Unlabored BP Systolic 144 mm[Hg] Comments: Patient Position: Sitting; Cuff Location: Left Arm; Cuff Size: Standard BP Diastolic 82 mm[Hg] Comments: Patient Position: Sitting; Cuff Location: Left Arm; Cuff Size: Standard Weight 131.5 lb Height 0 in Head Circumference 0.00 cm :26 Temperature 98.4 f Comments: Method: Oral Pulse 68 /min Comments: Pattern: Regular Respiration Rate 18 /min Comments: Pattern: Unlabored BP Systolic 130 mm[Hg] Comments: Patient Position: Sitting; Cuff Location: Right Arm; Cuff Size: Standard BP Diastolic 82 mm[Hg] Comments: Patient Position: Sitting; Cuff Location: Right Arm; Cuff Size: Standard Weight 131 lb Height 0 in Head Circumference 0.00 cm :20 Temperature 97.6 f Comments: Method: Oral Pulse 68 /min Comments: Pattern: Regular Respiration Rate 16 /min Comments: Pattern: Unlabored BP Systolic 140 mm[Hg] Comments: Patient Position: Sitting; Cuff Location: Right Arm; Cuff Size: Standard BP Diastolic 76 mm[Hg] Comments: Patient Position: Sitting; Cuff Location: Right Arm; Cuff Size: Standard Weight 132 lb Height 63 in Body Mass Index Calculated 23.38 kg/m2 Body Surface Area Calculated 1.62 m2 Head Circumference 0.00 cm :48 Temperature 96.9 f Comments: Method: Oral Pulse 68 /min Comments: Pattern: Regular Respiration Rate 16 /min Comments: Pattern: Unlabored BP Systolic 146 mm[Hg] Comments: Patient Position: Standing; Cuff Location: Left Arm; Cuff Size: Standard BP Diastolic 84 mm[Hg] Comments: Patient Position: Standing; Cuff Location: Left Arm; Cuff Size: Standard Weight 135 lb Height 63 in Body Mass Index Calculated 23.91 kg/m2 Body Surface Area Calculated 1.64 m2 Head Circumference 0.00 cm Results Date Description Value Details :15 Microscopic Examination Comments: PATIENT NOT FASTINGPERFORMED BY: [facility] [id number] Bacteria Few (Normal) Epithelial Cells (non renal) None seen {/hpf} (Normal) Range: 0 - 10 RBC None seen {/hpf} (Normal) Range: 0 - 2 WBC 0-5 {/hpf} (Normal) Range: 0 - 5 98-Atk-833680:15 URINALYSIS, W/ MICRO (37788) Comments: PATIENT NOT FASTINGPERFORMED BY: [facility] [id number] Microscopic Examination See below: (Normal) Comments: Microscopic was indicated and was performed. Microscopic Examination MICRON (Normal) Comments: Microscopic follows if indicated. Nitrite, Urine Negative (Normal) Urobilinogen,Semi-Qn 0.2 mg/dL (Normal) Range: 0.2-1.0 Bilirubin Negative (Normal) Occult Blood Negative (Normal) Ketones Negative (Normal) Glucose Negative (Normal) Protein Negative (Normal) WBC Esterase Negative (Normal) Appearance Clear (Normal) Urine-Color Yellow (Normal) pH 7.5 (Normal) Range: 5.0-7.5 Specific [place] 1.007 (Normal) Range: 1.005-1.030 36-Bxg-260635:15 MICROALBUMIN: CREATININE RATIO Comments: PATIENT NOT FASTINGPERFORMED BY: [employer] Meedja6988 [facility] [id number] ([id number]) AND (54376) Alb/Creat Ratio <19.0 {mg/g_creat} (Normal) Range: 0.0-30.0 Albumin, Urine <3.0 ug/mL (Normal) Creatinine, Urine 15.8 mg/dL (Normal) 73-Bum-933365:15 T4, FREE (THYROXINE) (88188) Comments: PATIENT NOT FASTINGPERFORMED BY: [employer] [facility] [id number] T4,Free(Direct) 1.12 ng/dL (Normal) Range: 0.82-1.77 55-Pgc-557062:15 T3, FREE (TRIDOTHYRONINE) (69596) Comments: PATIENT NOT FASTINGPERFORMED BY: [facility] [id number] Triiodothyronine (T3), Free 2.7 pg/mL (Normal) Range: 2.0-4.4 92-Mck-745167:15 TSH (THYROID STIMULATING Comments: PATIENT NOT FASTINGPERFORMED BY: [facility] [id number] HORMONE) (78134) TSH 2.650 {uIU/mL} (Normal) Range: 0.450-4.500 41-Zlo-180325:59 FECAL OCCULT- Tubes sent home (65010) FECAL OCCULT HGB ASSAY, QUAL, 1-3 SIMULTANEOU negative (Normal) 6-Uvg-566309:10 CBC, Platelet, No Differential Comments: PATIENT WAS FASTINGPERFORMED BY: [facility] [id number] Platelets 218 {x10E3/uL} (Normal) Range: 150-379 RDW 14.0 % (Normal) Range: 12.3-15.4 MCHC 33.3 g/dL (Normal) Range: 31.5-35.7 MCH 29.5 pg (Normal) Range: 26.6-33.0 MCV 89 fL (Normal) Range: 79-97 Hematocrit 36.3 % (Normal) Range: 34.0-46.6 Hemoglobin 12.1 g/dL (Normal) Range: 11.1-15.9 RBC 4.10 {x10E6/uL} (Normal) Range: 3.77-5.28 WBC 5.1 {x10E3/uL} (Normal) Range: 3.4-10.8 2-Vqs-862547:10 LIPID PANEL (92220) Comments: PATIENT WAS FASTINGPERFORMED BY: [facility] [id number] LDL/HDL Ratio 2.2 {ratio} (Normal) Range: 0.0-3.2 Comments: LDL/HDL Ratio Men Women 1/2 Avg.Risk 1.0 1.5 Av g.Risk 3.6 3.2 2X Avg.Risk 6.2 5.0 3X Avg.Risk 8.0 6.1 LDL Cholesterol Calc 114 mg/dL (Abnormal) Range: 0-99 VLDL Cholesterol Jorge 14 mg/dL (Normal) Range: 5-40 HDL Cholesterol 52 mg/dL (Normal) Triglycerides 71 mg/dL (Normal) Range: 0-149 Cholesterol, Total 180 mg/dL (Normal) Range: 100-199 9-Exh-105222:10 METABOLIC PANEL, COMPREHENSIVE Comments: PATIENT WAS FASTINGPERFORMED BY: [facility]CoSh[facility] HospitalRgpsfa7889 [facility] [id number]; OV 05/13 (16730) ALT (SGPT) 14 [iU]/L (Normal) Range: 0-32 AST (SGOT) 28 [iU]/L (Normal) Range: 0-40 Alkaline Phosphatase 65 [iU]/L (Normal) Range: 39-117 Bilirubin, Total 0.8 mg/dL (Normal) Range: 0.0-1.2 A/G Ratio 1.9 (Normal) Range: 1.2-2.2 Globulin, Total 2.3 g/dL (Normal) Range: 1.5-4.5 Albumin 4.3 g/dL (Normal) Range: 3.5-4.7 Protein, Total 6.6 g/dL (Normal) Range: 6.0-8.5 Calcium 9.0 mg/dL (Normal) Range: 8.7-10.3 Carbon Dioxide, Total 26 mmol/L (Normal) Range: 20-29 Comments: Please note reference interval change Chloride 103 mmol/L (Normal) Range: 96-106 Potassium 4.3 mmol/L (Normal) Range: 3.5-5.2 Sodium 141 mmol/L (Normal) Range: 134-144 BUN/Creatinine Ratio 22 (Normal) Range: 12-28 eGFR If Africn Am 75 mL/min/1.73 (Normal) eGFR If NonAfricn Am 65 mL/min/1.73 (Normal) Creatinine 0.85 mg/dL (Normal) Range: 0.57-1.00 BUN 19 mg/dL (Normal) Range: 8-27 Glucose 81 mg/dL (Normal) Range: 65-99 93-Uux-600593:31 CALCIFEDIOL (21415) Comments: PATIENT WAS FASTINGPERFORMED BY: [facility]10[facility] [id number] Vitamin D, 25-Hydroxy 87.7 ng/mL (Normal) Range: 30.0-100.0 Comments: Vitamin D deficiency has been defined by the Angie ofUpper [facility] Medical Centercine and an Endocrine Society practice guideline as alevel of serum 25-OH vitamin D less than 20 ng/mL (1,2).The Endocrine Society went on to further define vitamin Dinsufficiency as a level between 21 and 29 ng/mL (2).1. IOM (Angie of Medicine). 2010. Dietary reference intakes for calcium and D. [place]: The National Academies Press.2. Maria Isabel MF, [place] MANSFIELD, Fredy TUCKER, et al. Evaluation, treatment, and prevention of vitamin D deficiency: an Endocrine Society clinical practice guideline. JCEM. 2010; 96(7):1911-30. 06-Lmh-813550:31 METABOLIC PANEL, COMPREHENSIVE Comments: PATIENT WAS FASTINGPERFORMED BY: LabC[facility]6370 [facility] [id number] ([id number]) ALT (SGPT) 9 [iU]/L (Normal) Range: 0-32 AST (SGOT) 24 [iU]/L (Normal) Range: 0-40 Alkaline Phosphatase, S 67 [iU]/L (Normal) Range: 39-117 Bilirubin, Total 0.8 mg/dL (Normal) Range: 0.0-1.2 A/G Ratio 2.0 (Normal) Range: 1.2-2.2 Globulin, Total 2.2 g/dL (Normal) Range: 1.5-4.5 Albumin, Serum 4.5 g/dL (Normal) Range: 3.5-4.7 Protein, Total, Serum 6.7 g/dL (Normal) Range: 6.0-8.5 Calcium, Serum 9.2 mg/dL (Normal) Range: 8.7-10.3 Carbon Dioxide, Total 25 mmol/L (Normal) Range: 18-29 Chloride, Serum 101 mmol/L (Normal) Range: 96-106 Potassium, Serum 4.4 mmol/L (Normal) Range: 3.5-5.2 Sodium, Serum 143 mmol/L (Normal) Range: 134-144 BUN/Creatinine Ratio 23 (Normal) Range: 12-28 eGFR If Africn Am 78 mL/min/1.73 (Normal) eGFR If NonAfricn Am 68 mL/min/1.73 (Normal) Creatinine, Serum 0.82 mg/dL (Normal) Range: 0.57-1.00 BUN 19 mg/dL (Normal) Range: 8-27 Glucose, Serum 87 mg/dL (Normal) Range: 65-99 49-Efn-295431:31 CBC, PLATELETS & MANUAL DIFF Comments: PATIENT WAS FASTINGPERFORMED BY: [facility]CoSh[facility] HospitalIpsuol2457 [facility] [id number] ([id number]) Immature Grans (Abs) 0.0 {x10E3/uL} (Normal) Range: 0.0-0.1 Immature Granulocytes 0 % (Normal) Baso (Absolute) 0.0 {x10E3/uL} (Normal) Range: 0.0-0.2 Eos (Absolute) 0.1 {x10E3/uL} (Normal) Range: 0.0-0.4 Monocytes(Absolute) 0.4 {x10E3/uL} (Normal) Range: 0.1-0.9 Lymphs (Absolute) 1.0 {x10E3/uL} (Normal) Range: 0.7-3.1 Neutrophils (Absolute) 3.7 {x10E3/uL} (Normal) Range: 1.4-7.0 Basos 0 % (Normal) Eos 2 % (Normal) Monocytes 7 % (Normal) Lymphs 20 % (Normal) Neutrophils 71 % (Normal) Platelets 220 {x10E3/uL} (Normal) Range: 150-379 RDW 14.3 % (Normal) Range: 12.3-15.4 MCHC 34.7 g/dL (Normal) Range: 31.5-35.7 MCH 30.4 pg (Normal) Range: 26.6-33.0 MCV 88 fL (Normal) Range: 79-97 Hematocrit 39.2 % (Normal) Range: 34.0-46.6 Hemoglobin 13.6 g/dL (Normal) Range: 11.1-15.9 RBC 4.47 {x10E6/uL} (Normal) Range: 3.77-5.28 WBC 5.2 {x10E3/uL} (Normal) Range: 3.4-10.8 39-Nvu-868645:04 Urinalysis, Office (26818) UA - LEUKOCYTE ESTERASE Negative (Normal) UA - NITRITE Negative (Normal) URINE UROBILINGN IVAN TIMED Normal mg/dL (Normal) UA - PROTEIN Negative mg/dL (Normal) UA - PH 6.5 (Normal) UA - BLOOD Negative (Normal) UA - SPECIFIC GRAVITY 1.010 (Normal) UA - KETONES Negative mg/dL (Normal) UA - BILIRUBIN Negative (Normal) UA - GLUCOSE Negative (Normal) 5-Akt-366808:59 Comprehensive Metabolic Profil Comments: [facility] [address] [place], [address] ; OV 06/25 GAP 6 (Normal) Range: 5-15 CO2 30.0 mmol/L (Normal) Range: 21.0-32.0 CL 103 mmol/L (Normal) Range: 98-107 K 4.1 mmol/L (Normal) Range: 3.5-5.1 NA 139 mmol/L (Normal) Range: 136-145 T BILI 1.00 mg/dL (Normal) Range: 0.20-1.00 ALT 19 U/L (Normal) Range: 12-78 ALK P 75 U/L (Normal) Range: 45-117 AST 28 U/L (Normal) Range: 15-37 CA 9.0 mg/dL (Normal) Range: 8.5-10.1 A/G 1.2 {RATIO} (Normal) Range: 0.9-2.4 GLOB 3.3 g/dL (Normal) Range: 2.3-3.5 ALB 3.9 g/dL (Normal) Range: 3.4-5.0 T PROT 7.2 g/dL (Normal) Range: 6.4-8.2 BUN/CRE 24.9 {RATIO} (Abnormal) Range: 10-20 EST GFR - AA 94 mL/min (Normal) Comments: GFR Calc EST GFR 77 mL/min (Normal) Comments: Non- GFR Calc CREAT,SERUM 0.76 mg/dL (Normal) Range: 0.55-1.02 Comments: The validity of the calculated GFR AND GFRAA in patients over70 years has not been determined. Clinical correlation isessential. BUN 19 mg/dL (Abnormal) Range: 7-18 GLU 82 mg/dL (Normal) Range: 70-110 0-Hfa-746169:59 Microalb:Creat Ratio,Random UR Comments: [facility] [address] [place], [address] MALB:CREAT 6.9 {mg/g_CRE} (Normal) MICROALBUMIN,UR 10.0 mg/L (Normal) UR CREAT 144.00 mg/dL (Normal) 9-Rcs-473829:59 Thyroid Stim Hormone (TSH) Comments: [facility] [address] [place], [address] TSH 2.20 {uIU/mL} (Normal) Range: 0.358-3.74 8-Nyt-818541:59 Urinalysis, Routine (Dipstick) Comments: How was Urine Obtained? CLEAN [facility] [address] [place], [address] LEUK ESTERASE 25 /ul (Abnormal) OCCULT BLOOD-UR 10 /ul (Abnormal) NITRITE UR Negative (Normal) UROBILI Normal mg/dL (Normal) PROT DIPSTX Negative mg/dL (Normal) pH UR 6.0 (Normal) Range: 5.0 - 8.0 SP.GR. DIPSTX 1.020 (Normal) Range: 1.002-1.030 KETONE UR Negative mg/dL (Normal) BILIRUBIN URINE Negative mg/dL (Normal) GLUCOSE, UR Normal mg/dL (Normal) CLARITY Clear (Normal) COLOR Yellow (Normal) 9-Lhk-877340:59 Vitamin D,25 Hydroxy Comments: [facility] [address] [place], [address] Vitamin D 25-OH 55.4 ng/mL (Normal) Comments: Vitamin D 25(OH) Status Range Deficiency <20 ng/mL (50nmol/L) Insuffciency 20 - 30 ng/mL (50 - 75 nmol/L) Sufficiency 30 - 100 ng/mL (75 - 250 nmol/L) Toxicity >100 ng/mL (>250 nmol/L); ADDENDA: OV 13-Feb-201710:33 LIPID PANEL (18373) Comments: PATIENT WAS FASTINGPERFORMED BY: EmpowrNetGallup Indian Medical CenterDzdcsm2898 [facility] [id number]; fu 4-19 [facility] LDL/HDL Ratio 1.7 {ratio_units} (Normal) Range: 0.0-3.2 Comments: LDL/HDL Ratio Men Women 1/2 Avg.Risk 1.0 1.5 Av g.Risk 3.6 3.2 2X Avg.Risk 6.2 5.0 3X Avg.Risk 8.0 6.1 LDL Cholesterol Calc 96 mg/dL (Normal) Range: 0-99 VLDL Cholesterol Jorge 13 mg/dL (Normal) Range: 5-40 HDL Cholesterol 58 mg/dL (Normal) Triglycerides 67 mg/dL (Normal) Range: 0-149 Cholesterol, Total 167 mg/dL (Normal) Range: 100-199 86-Btx-609228:29 MICROALBUMIN: CREATININE RATIO Comments: PATIENT WAS FASTINGPERFORMED BY: [employer] [facility] [id number] ([id number]) AND (03900) Microalb/Creat Ratio <11.5 {mg/g_creat} (Normal) Range: 0.0-30.0 Microalbumin, Urine <3.0 ug/mL (Normal) Creatinine, Urine 26.2 mg/dL (Normal) 91-Thp-605074:29 VITAMIN B12 AND FOLATES Comments: PATIENT WAS FASTINGPERFORMED BY: [employer] Icntxg2039 [facility] [id number] (17330) Folate (Folic Acid), Serum 14.1 ng/mL (Normal) Comments: A serum folate concentration of less than 3.1 ng/mL isconsidered to represent clinical deficiency. Vitamin B12 610 pg/mL (Normal) Range: 211-946 :29 CALCIFEDIOL (02450) Comments: PATIENT WAS FASTINGPERFORMED BY: [employer] Fuvmqm2010 [facility] [id number] Vitamin D, 25-Hydroxy 78.3 ng/mL (Normal) Range: 30.0-100.0 Comments: Vitamin D deficiency has been defined by the Angie ofMedicine and an Endocrine Society practice guideline as alevel of serum 25-OH vitamin D less than 20 ng/mL (1,2).The Endocrine Society went on to further define vitamin Dinsufficiency as a level between 21 and 29 ng/mL (2).1. IOM (Angie of Medicine). 2010. Dietary reference intakes for calcium and D. [place]: The National Academies Press.2. Maria Isabel MF, [place] MANSFIELD, Fredy TUCKER, et al. Evaluation, treatment, and prevention of vitamin D deficiency: an Endocrine Society clinical practice guideline. JCEM. 2010; 96(7):1911-30. 99-Yje-513171:29 TSH (THYROID STIMULATING Comments: PATIENT WAS FASTINGPERFORMED BY: [employer]6370 [facility] [id number] HORMONE) (30516) TSH 2.630 {uIU/mL} (Normal) Range: 0.450-4.500 :29 METABOLIC PANEL, COMPREHENSIVE Comments: PATIENT WAS FASTINGPERFORMED BY: [employer] LabSOMNIUM Technologies6370 [facility] [id number] (27640) ALT (SGPT) 6 [iU]/L (Normal) Range: 0-32 AST (SGOT) 21 [iU]/L (Normal) Range: 0-40 Alkaline Phosphatase, S 49 [iU]/L (Normal) Range: 39-117 Bilirubin, Total 0.7 mg/dL (Normal) Range: 0.0-1.2 A/G Ratio 2.0 (Normal) Range: 1.1-2.5 Globulin, Total 2.3 g/dL (Normal) Range: 1.5-4.5 Albumin, Serum 4.5 g/dL (Normal) Range: 3.5-4.8 Protein, Total, Serum 6.8 g/dL (Normal) Range: 6.0-8.5 Calcium, Serum 9.6 mg/dL (Normal) Range: 8.7-10.3 Carbon Dioxide, Total 24 mmol/L (Normal) Range: 18-29 Chloride, Serum 100 mmol/L (Normal) Range: 96-106 Potassium, Serum 4.2 mmol/L (Normal) Range: 3.5-5.2 Sodium, Serum 141 mmol/L (Normal) Range: 134-144 BUN/Creatinine Ratio 29 (Abnormal) Range: 11-26 eGFR If Africn Am 92 mL/min/1.73 (Normal) eGFR If NonAfricn Am 80 mL/min/1.73 (Normal) Creatinine, Serum 0.72 mg/dL (Normal) Range: 0.57-1.00 BUN 21 mg/dL (Normal) Range: 8-27 Glucose, Serum 81 mg/dL (Normal) Range: 65-99 39-Dfi-063911:29 CBC, PLATELETS & AUT DIFF Comments: PATIENT WAS FASTINGPERFORMED BY: LabCoSh[facility] HospitalZgkyfw5989 [facility] [id number] ([id number]) Immature Grans (Abs) 0.0 {x10E3/uL} (Normal) Range: 0.0-0.1 Immature Granulocytes 0 % (Normal) Baso (Absolute) 0.0 {x10E3/uL} (Normal) Range: 0.0-0.2 Eos (Absolute) 0.2 {x10E3/uL} (Normal) Range: 0.0-0.4 Monocytes(Absolute) 0.4 {x10E3/uL} (Normal) Range: 0.1-0.9 Lymphs (Absolute) 0.9 {x10E3/uL} (Normal) Range: 0.7-3.1 Neutrophils (Absolute) 3.7 {x10E3/uL} (Normal) Range: 1.4-7.0 Basos 0 % (Normal) Eos 3 % (Normal) Monocytes 7 % (Normal) Lymphs 18 % (Normal) Neutrophils 72 % (Normal) Platelets 234 {x10E3/uL} (Normal) Range: 150-379 RDW 14.4 % (Normal) Range: 12.3-15.4 MCHC 34.4 g/dL (Normal) Range: 31.5-35.7 MCH 30.6 pg (Normal) Range: 26.6-33.0 MCV 89 fL (Normal) Range: 79-97 Hematocrit 38.1 % (Normal) Range: 34.0-46.6 Hemoglobin 13.1 g/dL (Normal) Range: 11.1-15.9 RBC 4.28 {x10E6/uL} (Normal) Range: 3.77-5.28 WBC 5.2 {x10E3/uL} (Normal) Range: 3.4-10.8 :35 Microscopic Examination Comments: PATIENT WAS FASTINGPERFORMED BY: [employer] Exnuzj5813 [facility] [id number] Bacteria Few (Normal) Mucus Threads Present (Normal) Epithelial Cells (non renal) None seen {/hpf} (Normal) Range: 0 - 10 RBC None seen {/hpf} (Normal) Range: 0 - 2 WBC 0-5 {/hpf} (Normal) Range: 0 - 5 :35 TSH (99250) Comments: PATIENT WAS FASTINGPERFORMED BY: [employer] Nvavnp4381 [facility] [id number] TSH 2.470 {uIU/mL} (Normal) Range: 0.450-4.500 :35 URINALYSIS, W/ MICRO (39294) Comments: PATIENT WAS FASTINGPERFORMED BY: [employer] Dgewoz9922 [facility] [id number] Microscopic Examination See below: (Normal) Comments: Microscopic was indicated and was performed. Microscopic Examination MICRON (Normal) Comments: Microscopic follows if indicated. Nitrite, Urine Negative (Normal) Urobilinogen,Semi-Qn 0.2 mg/dL (Normal) Range: 0.2-1.0 Bilirubin Negative (Normal) Occult Blood Negative (Normal) Ketones Negative (Normal) Glucose Negative (Normal) Protein Negative (Normal) WBC Esterase Negative (Normal) Appearance Clear (Normal) Urine-Color Yellow (Normal) pH 6.5 (Normal) Range: 5.0-7.5 Specific [place] 1.018 (Normal) Range: 1.005-1.030 :35 CBC W/AUTO DIFF WBC (22959) Comments: PATIENT WAS FASTINGPERFORMED BY: EmpowrNetShore Memorial HospitalQfzoje7736 [facility] [id number] Immature Grans (Abs) 0.0 {x10E3/uL} (Normal) Range: 0.0-0.1 Immature Granulocytes 0 % (Normal) Baso (Absolute) 0.0 {x10E3/uL} (Normal) Range: 0.0-0.2 Eos (Absolute) 0.2 {x10E3/uL} (Normal) Range: 0.0-0.4 Monocytes(Absolute) 0.3 {x10E3/uL} (Normal) Range: 0.1-0.9 Lymphs (Absolute) 0.9 {x10E3/uL} (Normal) Range: 0.7-3.1 Neutrophils (Absolute) 3.2 {x10E3/uL} (Normal) Range: 1.4-7.0 Basos 0 % (Normal) Eos 3 % (Normal) Monocytes 7 % (Normal) Lymphs 20 % (Normal) Neutrophils 70 % (Normal) Platelets 196 {x10E3/uL} (Normal) Range: 150-379 RDW 14.6 % (Normal) Range: 12.3-15.4 MCHC 34.3 g/dL (Normal) Range: 31.5-35.7 MCH 30.4 pg (Normal) Range: 26.6-33.0 MCV 89 fL (Normal) Range: 79-97 Hematocrit 37.0 % (Normal) Range: 34.0-46.6 Hemoglobin 12.7 g/dL (Normal) Range: 11.1-15.9 RBC 4.18 {x10E6/uL} (Normal) Range: 3.77-5.28 WBC 4.6 {x10E3/uL} (Normal) Range: 3.4-10.8 64-Djy-476725:35 METABOLIC PANEL, COMPREHENSIVE Comments: PATIENT WAS FASTINGPERFORMED BY: [facility]Co[facility] HospitalFnkrvh7877 [facility] [id number]; non- emergent till apt ([id number]) ALT (SGPT) 9 [iU]/L (Normal) Range: 0-32 AST (SGOT) 21 [iU]/L (Normal) Range: 0-40 Alkaline Phosphatase, S 37 [iU]/L (Abnormal) Range: 39-117 Bilirubin, Total 0.7 mg/dL (Normal) Range: 0.0-1.2 A/G Ratio 1.8 (Normal) Range: 1.1-2.5 Globulin, Total 2.4 g/dL (Normal) Range: 1.5-4.5 Albumin, Serum 4.2 g/dL (Normal) Range: 3.5-4.8 Protein, Total, Serum 6.6 g/dL (Normal) Range: 6.0-8.5 Calcium, Serum 9.0 mg/dL (Normal) Range: 8.7-10.3 Carbon Dioxide, Total 22 mmol/L (Normal) Range: 18-29 Chloride, Serum 102 mmol/L (Normal) Range: 97-108 Potassium, Serum 4.2 mmol/L (Normal) Range: 3.5-5.2 Sodium, Serum 141 mmol/L (Normal) Range: 134-144 BUN/Creatinine Ratio 27 (Abnormal) Range: 11-26 eGFR If Africn Am 84 mL/min/1.73 (Normal) eGFR If NonAfricn Am 73 mL/min/1.73 (Normal) Creatinine, Serum 0.78 mg/dL (Normal) Range: 0.57-1.00 BUN 21 mg/dL (Normal) Range: 8-27 Glucose, Serum 81 mg/dL (Normal) Range: 65-99 [id number] LIPID PANEL ([id number]) Comments: PATIENT WAS FASTINGPERFORMED BY: [employer] [id number] LDL/HDL Ratio 1.6 {ratio_units} (Normal) Range: 0.0-3.2 Comments: LDL/HDL Ratio Men Women 1/2 Avg.Risk 1.0 1.5 Av g.Risk 3.6 3.2 2X Avg.Risk 6.2 5.0 3X Avg.Risk 8.0 6.1 LDL Cholesterol Calc 85 mg/dL (Normal) Range: 0-99 VLDL Cholesterol Jorge 13 mg/dL (Normal) Range: 5-40 HDL Cholesterol 53 mg/dL (Normal) Comments: According to ATP-III Guidelines, HDL-C >59 mg/dL is considered anegative risk factor for CHD. Triglycerides 64 mg/dL (Normal) Range: 0-149 Cholesterol, Total 151 mg/dL (Normal) Range: 100-199 [id number] Vitamin D Hydroxy ([id number]) Comments: PATIENT WAS FASTINGPERFORMED BY: [employer]70 Smokazon.comFirst[facility] [place] [id number] Vitamin D, 25-Hydroxy 80.0 ng/mL (Normal) Range: 30.0-100.0 Comments: Vitamin D deficiency has been defined by the Angie ofMedicine and an Endocrine Society practice guideline as alevel of serum 25-OH vitamin D less than 20 ng/mL (1,2).The Endocrine Society went on to further define vitamin Dinsufficiency as a level between 21 and 29 ng/mL (2).1. IOM (Angie of Medicine). 2010. Dietary reference intakes for calcium and D. [place]: The National Academies Press.2. Maria Isabel MF, [place] MANSFIELD, Fredy TUCKER, et al. Evaluation, treatment, and prevention of vitamin D deficiency: an Endocrine Society clinical practice guideline. JCEM. 2010; 96(7):1911-30. 6-Zod-500011:05 CBC W/AUTO DIFF WBC Comments: PATIENT WAS FASTINGPERFORMED BY: [facility] Hjmxha6981 [facility] [id number] Information: [id number] ([id number]) Immature Grans (Abs) 0.0 {x10E3/uL} (Normal) Range: 0.0-0.1 Immature Granulocytes 0 % (Normal) Baso (Absolute) 0.0 {x10E3/uL} (Normal) Range: 0.0-0.2 Eos (Absolute) 0.2 {x10E3/uL} (Normal) Range: 0.0-0.4 Monocytes(Absolute) 0.5 {x10E3/uL} (Normal) Range: 0.1-0.9 Lymphs (Absolute) 1.0 {x10E3/uL} (Normal) Range: 0.7-3.1 Neutrophils (Absolute) 3.4 {x10E3/uL} (Normal) Range: 1.4-7.0 Basos 0 % (Normal) Eos 4 % (Normal) Monocytes 9 % (Normal) Lymphs 19 % (Normal) Neutrophils 68 % (Normal) Platelets 212 {x10E3/uL} (Normal) Range: 150-379 RDW 14.3 % (Normal) Range: 12.3-15.4 MCHC 34.2 g/dL (Normal) Range: 31.5-35.7 MCH 30.3 pg (Normal) Range: 26.6-33.0 MCV 89 fL (Normal) Range: 79-97 Hematocrit 38.6 % (Normal) Range: 34.0-46.6 Hemoglobin 13.2 g/dL (Normal) Range: 11.1-15.9 RBC 4.35 {x10E6/uL} (Normal) Range: 3.77-5.28 WBC 5.0 {x10E3/uL} (Normal) Range: 3.4-10.8 :05 METABOLIC PANEL, COMPREHENSIVE Comments: PATIENT WAS FASTINGPERFORMED BY: [facility]CoSh[facility] HospitalFnflrx8473 [facility] [id number] ([id number]) ALT (SGPT) 13 [iU]/L (Normal) Range: 0-32 AST (SGOT) 24 [iU]/L (Normal) Range: 0-40 Alkaline Phosphatase, S 40 [iU]/L (Normal) Range: 39-117 Bilirubin, Total 0.7 mg/dL (Normal) Range: 0.0-1.2 A/G Ratio 1.7 (Normal) Range: 1.1-2.5 Globulin, Total 2.4 g/dL (Normal) Range: 1.5-4.5 Albumin, Serum 4.1 g/dL (Normal) Range: 3.5-4.8 Protein, Total, Serum 6.5 g/dL (Normal) Range: 6.0-8.5 Calcium, Serum 9.2 mg/dL (Normal) Range: 8.7-10.3 Carbon Dioxide, Total 25 mmol/L (Normal) Range: 18-29 Chloride, Serum 102 mmol/L (Normal) Range: 97-108 Potassium, Serum 4.7 mmol/L (Normal) Range: 3.5-5.2 Sodium, Serum 142 mmol/L (Normal) Range: 134-144 BUN/Creatinine Ratio 24 (Normal) Range: 11-26 eGFR If Africn Am 82 mL/min/1.73 (Normal) eGFR If NonAfricn Am 71 mL/min/1.73 (Normal) Creatinine, Serum 0.80 mg/dL (Normal) Range: 0.57-1.00 BUN 19 mg/dL (Normal) Range: 8-27 Glucose, Serum 81 mg/dL (Normal) Range: 65-99 2-Fls-932069:05 Vitamin D Hydroxy (25588) Comments: PATIENT WAS FASTINGPERFORMED BY: [employer] [facility] Xvjost0856 [address] [facility] [place] [id number] Vitamin D, 25-Hydroxy 90.1 ng/mL (Normal) Range: 30.0-100.0 Comments: Vitamin D deficiency has been defined by the Angie ofMedicine and an Endocrine Society practice guideline as alevel of serum 25-OH vitamin D less than 20 ng/mL (1,2).The Endocrine Society went on to further define vitamin Dinsufficiency as a level between 21 and 29 ng/mL (2).1. IOM (Angie of Medicine). 2010. Dietary reference intakes for calcium and D. [place]: The National Academies Press.2. Maria Isabel MF, [place] MANSFIELD, Fredy TUCKER, et al. Evaluation, treatment, and prevention of vitamin D deficiency: an Endocrine Society clinical practice guideline. JCEM. 2010; 96(7):1911-30. 5-Sop-696998:05 LIPID PANEL (84197) Comments: PATIENT WAS FASTINGPERFORMED BY: CB [facility] Houitk0837 [address] [facility]in [place] [id number]; non-emergent till apt LDL/HDL Ratio 1.8 {ratio_units} (Normal) Range: 0.0-3.2 Comments: LDL/HDL Ratio Men Women 1/2 Avg.Risk 1.0 1.5 Av g.Risk 3.6 3.2 2X Avg.Risk 6.2 5.0 3X Avg.Risk 8.0 6.1 LDL Cholesterol Calc 101 mg/dL (Abnormal) Range: 0-99 VLDL Cholesterol Jorge 13 mg/dL (Normal) Range: 5-40 HDL Cholesterol 57 mg/dL (Normal) Comments: According to ATP-III Guidelines, HDL-C >59 mg/dL is considered anegative risk factor for CHD. Triglycerides 66 mg/dL (Normal) Range: 0-149 Cholesterol, Total 171 mg/dL (Normal) Range: 100-199 25-Zri-132208:23 CALCIFEDIOL (99354) Comments: PATIENT WAS FASTINGPERFORMED BY: [facility] Lgnlto8082 [address] [facility] [place] [id number] Vitamin D, 25-Hydroxy 83.0 ng/mL (Normal) Range: 30.0-100.0 Comments: Vitamin D deficiency has been defined by the Angie ofMedicine and an Endocrine Society practice guideline as alevel of serum 25-OH vitamin D less than 20 ng/mL (1,2).The Endocrine Society went on to further define vitamin Dinsufficiency as a level between 21 and 29 ng/mL (2).1. IOM (Angie of Medicine). 2010. Dietary reference intakes for calcium and D. [place]: The National Academies Press.2. Maria Isabel MF, [place] MANSFIELD, Fredy TUCKER, et al. Evaluation, treatment, and prevention of vitamin D deficiency: an Endocrine Society clinical practice guideline. JCEM. 2010; 96(7):1911-30. 18-Ejx-021045:23 URINALYSIS (66853) Comments: PATIENT WAS FASTINGPERFORMED BY: [employer] [place] [id number] Microscopic Examination MICNIP (Normal) Comments: Microscopic not indicated and not performed. Nitrite, Urine Negative (Normal) Urobilinogen,Semi-Qn 0.2 mg/dL (Normal) Range: 0.0-1.9 Bilirubin Negative (Normal) Occult Blood Negative (Normal) Ketones Negative (Normal) Glucose Negative (Normal) Protein Negative (Normal) WBC Esterase Negative (Normal) Appearance Clear (Normal) Urine-Color Yellow (Normal) pH 7.0 (Normal) Range: 5.0-7.5 Specific [place] 1.009 (Normal) Range: 1.005-1.030 80-Npy-187151:23 TSH (THYROID STIMULATING Comments: PATIENT WAS FASTINGPERFORMED BY: [facility]First[facility] [id number] HORMONE) ([id number]) TSH 2.240 {uIU/mL} (Normal) Range: 0.450-4.500 44-Jja-309299:23 LIPID PANEL (96981) Comments: PATIENT WAS FASTINGPERFORMED BY: [facility] [id number]; non-emergent till apt LDL/HDL Ratio 1.8 {ratio_units} (Normal) Range: 0.0-3.2 Comments: LDL/HDL Ratio Men Women 1/2 Avg.Risk 1.0 1.5 Av g.Risk 3.6 3.2 2X Avg.Risk 6.2 5.0 3X Avg.Risk 8.0 6.1 LDL Cholesterol Calc 101 mg/dL (Abnormal) Range: 0-99 VLDL Cholesterol Jorge 17 mg/dL (Normal) Range: 5-40 HDL Cholesterol 56 mg/dL (Normal) Comments: According to ATP-III Guidelines, HDL-C >59 mg/dL is considered anegative risk factor for CHD. Triglycerides 84 mg/dL (Normal) Range: 0-149 Cholesterol, Total 174 mg/dL (Normal) Range: 100-199 99-Ouu-671436:23 CBC, PLATELETS & MANUAL Comments: PATIENT WAS FASTINGPERFORMED BY: [facility]CoSh[facility] HospitalEhloci7845 [facility] [id number] Information: [id number] DIFF (28552) Immature Grans (Abs) 0.0 {x10E3/uL} (Normal) Range: 0.0-0.1 Immature Granulocytes 0 % (Normal) Baso (Absolute) 0.0 {x10E3/uL} (Normal) Range: 0.0-0.2 Eos (Absolute) 0.2 {x10E3/uL} (Normal) Range: 0.0-0.4 Monocytes(Absolute) 0.4 {x10E3/uL} (Normal) Range: 0.1-0.9 Lymphs (Absolute) 1.0 {x10E3/uL} (Normal) Range: 0.7-3.1 Neutrophils (Absolute) 3.5 {x10E3/uL} (Normal) Range: 1.4-7.0 Basos 0 % (Normal) Eos 4 % (Normal) Monocytes 8 % (Normal) Lymphs 19 % (Normal) Neutrophils 69 % (Normal) Platelets 198 {x10E3/uL} (Normal) Range: 150-379 RDW 14.2 % (Normal) Range: 12.3-15.4 MCHC 34.0 g/dL (Normal) Range: 31.5-35.7 MCH 30.0 pg (Normal) Range: 26.6-33.0 MCV 88 fL (Normal) Range: 79-97 Hematocrit 39.1 % (Normal) Range: 34.0-46.6 Hemoglobin 13.3 g/dL (Normal) Range: 11.1-15.9 RBC 4.44 {x10E6/uL} (Normal) Range: 3.77-5.28 WBC 5.1 {x10E3/uL} (Normal) Range: 3.4-10.8 :23 METABOLIC PANEL, BASIC Comments: PATIENT WAS FASTINGPERFORMED BY: [facility]CoSh[facility] HospitalZwzjvn2937 [facility] [id number] ([id number]) Calcium, Serum 8.9 mg/dL (Normal) Range: 8.7-10.3 Carbon Dioxide, Total 27 mmol/L (Normal) Range: 18-29 Chloride, Serum 101 mmol/L (Normal) Range: 97-108 Potassium, Serum 4.4 mmol/L (Normal) Range: 3.5-5.2 Sodium, Serum 141 mmol/L (Normal) Range: 134-144 BUN/Creatinine Ratio 26 (Normal) Range: 11-26 eGFR If Africn Am 81 mL/min/1.73 (Normal) eGFR If NonAfricn Am 70 mL/min/1.73 (Normal) Creatinine, Serum 0.81 mg/dL (Normal) Range: 0.57-1.00 BUN 21 mg/dL (Normal) Range: 8-27 Glucose, Serum 82 mg/dL (Normal) Range: 65-99 80-Qhh-214238:30 Basic Metabolic Profile (BMP) Comments: 'TROP' Serial specimen #1, #2, #3, or #4: 1Test performed at:[facility] [address] [place], [place] [id number] GAP 2 (Abnormal) Range: 5-15 CO2 30.0 mmol/L (Normal) Range: 21.0-32.0 CL 107 mmol/L (Normal) Range: 98-107 K 4.1 mmol/L (Normal) Range: 3.5-5.1 NA 139 mmol/L (Normal) Range: 136-145 CA 9.1 mg/dL (Normal) Range: 8.5-10.1 BUN/CRE 22.5 {RATIO} (Abnormal) Range: 10-20 Estimated CRCL 48.72 ml/min (Normal) CREAT,SERUM 0.8 mg/dL (Normal) Range: 0.6-1.0 BUN 18 mg/dL (Normal) Range: 7-18 GLU 83 mg/dL (Normal) Range: 70-110 02-Lym-491782:30 CBC W/Diff, Automated Comments: Test performed at:[facility] [address] [place] [address] Absolute Lymph 1.12 {X10_3/ul} (Normal) Range: 0.83-4.51 Absolute Neut 6.2 {X10_3/uL} (Normal) Range: 2.0-7.7 IM GRAN % 0.200 % (Normal) Range: 0.0-0.9 Comments: IG% - Immature Granulocytes (promyelocytes, myelocytes andmetamyelocytes) > 1% indicates that a LEFT SHIFT is Present. BASO% 0.2 % (Normal) Range: 0-1 EO% 1.5 % (Normal) Range: 0-5 MONO% 6.8 % (Normal) Range: 0-10 LY% 13.9 % (Abnormal) Range: 19-41 NEUT% 77.4 % (Abnormal) Range: 47-70 MPV 10.2 fL (Normal) Range: 6.2-12.0 PLT 232 K/mm3 (Normal) Range: 150-450 RDW SD 42.5 fL (Normal) Range: 35.1-43.9 RDW CV 13.3 % (Normal) Range: 11.6-14.6 MCHC 34.1 {g/gl} (Normal) Range: 32-36 MCH 29.5 pg (Normal) Range: 27.0-32.0 MCV 86.5 fL (Normal) Range: 81-99 HCT 40.5 % (Normal) Range: 37-47 HGB 13.8 g/dL (Normal) Range: 12.0-15.0 RBC 4.68 {M/mm3} (Normal) Range: 4.2-5.4 WBC 8.0 K/mm3 (Normal) Range: 4.4-11.0 44-Mic-848240:30 Thyroid Stim Hormone (TSH) Comments: 'TROP' Serial specimen #1, #2, #3, or #4: 1Test performed at:[facility] Ikdbotmlmo1717 [facility] [place] [address] TSH 2.61 {uIU/mL} (Normal) Range: 0.358-3.74 03-Hsb-567710:30 Troponin-I Comments: 'TROP' Serial specimen #1, #2, #3, or #4: 1Test performed at:[facility] [address] [place], [place] [address] TROPONIN-I < 0.02 ng/mL (Normal) Comments: TROPONIN-I EXPECTED VALUES <0.05 NEGATIVE 0.06 - 0.59 AT RISK OF [place] > OR = 0.60 SUGGEST [place] 19-Wvt-304494:51 C-REACTIVE PROTEIN (76445) Comments: PATIENT WAS FASTINGPERFORMED BY: [facility] Qnbzfs2821 [address] RoadDublin [place] [id number] C-Reactive Protein, Quant 0.8 mg/L (Normal) Range: 0.0-4.9 08-Kji-616246:51 SED RATE ERYTHROCYTE (33379) Comments: PATIENT WAS FASTINGPERFORMED BY: [facility] Ndeoii0025 [address]ieves RoadDublin [place] [id number] Sedimentation Rate-Westergren 2 mm/h (Normal) Range: 0-40 97-Ylt-072919:51 Vitamin D Hydroxy (27219) Comments: PATIENT WAS FASTINGPERFORMED BY: [facility] Byqpwp0083 [address] RoadDublin [place] [id number] Vitamin D, 25-Hydroxy 86.1 ng/mL (Normal) Range: 30.0-100.0 Comments: Vitamin D deficiency has been defined by the Angie ofUpper Valley Medical Centercine and an Endocrine Society practice guideline as alevel of serum 25-OH vitamin D less than 20 ng/mL (1,2).The Endocrine Society went on to further define vitamin Dinsufficiency as a level between 21 and 29 ng/mL (2).1. IOM (Angie of Medicine). 2010. Dietary reference intakes for calcium and D. [place]: The National Academies Press.2. Maria Isabel MF, [place] MANSFIELD, Fredy TUCKER, et al. Evaluation, treatment, and prevention of vitamin D deficiency: an Endocrine Society clinical practice guideline. JCEM. 2010; 96(7):1911-30. 49-Lmp-551453:51 CBC W/AUTO DIFF WBC Comments: PATIENT WAS FASTINGPERFORMED BY: [facility]CoSh[facility] HospitalBpjhmt6373 [facility] [id number] Information: [id number] (73857) Immature Grans (Abs) 0.0 {x10E3/uL} (Normal) Range: 0.0-0.1 Immature Granulocytes 0 % (Normal) Baso (Absolute) 0.0 {x10E3/uL} (Normal) Range: 0.0-0.2 Eos (Absolute) 0.1 {x10E3/uL} (Normal) Range: 0.0-0.4 Monocytes(Absolute) 0.4 {x10E3/uL} (Normal) Range: 0.1-0.9 Lymphs (Absolute) 0.9 {x10E3/uL} (Normal) Range: 0.7-3.1 Neutrophils (Absolute) 4.3 {x10E3/uL} (Normal) Range: 1.4-7.0 Basos 0 % (Normal) Eos 2 % (Normal) Monocytes 7 % (Normal) Lymphs 16 % (Normal) Neutrophils 75 % (Normal) Platelets 217 {x10E3/uL} (Normal) Range: 150-379 RDW 14.0 % (Normal) Range: 12.3-15.4 MCHC 33.7 g/dL (Normal) Range: 31.5-35.7 MCH 29.7 pg (Normal) Range: 26.6-33.0 MCV 88 fL (Normal) Range: 79-97 Hematocrit 39.2 % (Normal) Range: 34.0-46.6 Hemoglobin 13.2 g/dL (Normal) Range: 11.1-15.9 RBC 4.45 {x10E6/uL} (Normal) Range: 3.77-5.28 WBC 5.7 {x10E3/uL} (Normal) Range: 3.4-10.8 85-Qgf-366702:51 TSH (42284) Comments: PATIENT WAS FASTINGPERFORMED BY: LabCoSh[facility] HospitalKehhcl8671 [facility] [id number] TSH 3.080 {uIU/mL} (Normal) Range: 0.450-4.500 26-Rmb-361196:51 METABOLIC PANEL, COMPREHENSIVE Comments: PATIENT WAS FASTINGPERFORMED BY: [employer] Dazuzf7437 [facility] [id number] (19252) ALT (SGPT) 5 [iU]/L (Normal) Range: 0-32 AST (SGOT) 18 [iU]/L (Normal) Range: 0-40 Alkaline Phosphatase, S 49 [iU]/L (Normal) Range: 39-117 Bilirubin, Total 0.5 mg/dL (Normal) Range: 0.0-1.2 A/G Ratio 2.0 (Normal) Range: 1.1-2.5 Globulin, Total 2.3 g/dL (Normal) Range: 1.5-4.5 Albumin, Serum 4.5 g/dL (Normal) Range: 3.5-4.8 Protein, Total, Serum 6.8 g/dL (Normal) Range: 6.0-8.5 Calcium, Serum 9.3 mg/dL (Normal) Range: 8.6-10.2 Carbon Dioxide, Total 26 mmol/L (Normal) Range: 18-29 Chloride, Serum 101 mmol/L (Normal) Range: 97-108 Potassium, Serum 4.8 mmol/L (Normal) Range: 3.5-5.2 Sodium, Serum 141 mmol/L (Normal) Range: 134-144 BUN/Creatinine Ratio 23 (Normal) Range: 11-26 eGFR If Africn Am 80 mL/min/1.73 (Normal) eGFR If NonAfricn Am 70 mL/min/1.73 (Normal) Creatinine, Serum 0.82 mg/dL (Normal) Range: 0.57-1.00 BUN 19 mg/dL (Normal) Range: 8-27 Glucose, Serum 85 mg/dL (Normal) Range: 65-99 65-Sfg-862690:51 LIPID PANEL (61398) Comments: PATIENT WAS FASTINGPERFORMED BY: EmpowrNetShore Memorial HospitalRyngus7310 [facility] [id number] LDL/HDL Ratio 2.0 {ratio_units} (Normal) Range: 0.0-3.2 Comments: LDL/HDL Ratio Men Women 1/2 Avg.Risk 1.0 1.5 Av g.Risk 3.6 3.2 2X Avg.Risk 6.2 5.0 3X Avg.Risk 8.0 6.1 LDL Cholesterol Calc 118 mg/dL (Abnormal) Range: 0-99 VLDL Cholesterol Jorge 16 mg/dL (Normal) Range: 5-40 HDL Cholesterol 58 mg/dL (Normal) Comments: According to ATP-III Guidelines, HDL-C >59 mg/dL is considered anegative risk factor for CHD. Triglycerides 78 mg/dL (Normal) Range: 0-149 Cholesterol, Total 192 mg/dL (Normal) Range: 100-199 88-Clp-643145:40 Protein Electro, Random Urine Comments: PATIENT WAS FASTINGPERFORMED BY: [employer]70 [facility] [id number] Please note: SPRCS (Normal) Comments: Protein electrophoresis scan will follow via computer, mail, orcourier delivery. Gamma Globulin, U 16.3 % (Normal) M-Rl, % Not Observed % (Normal) Beta Globulin, U 38.3 % (Normal) Hvspa-1-Zktgexqd, U 1.7 % (Normal) Pdlph-2-Ftdfflsc, U 22.2 % (Normal) Albumin, U 21.6 % (Normal) Protein,Total,Urine 4.2 mg/dL (Normal) Range: 0.0-15.0 77-Wjy-683009:40 Protein Electro.,S Comments: PATIENT WAS FASTINGPERFORMED BY: [employer]70 [facility] [id number] Please note: SPRCS (Normal) Comments: Protein electrophoresis scan will follow via computer, mail, orcourier delivery. A/G Ratio 1.9 (Normal) Range: 0.7-2.0 Globulin, Total 2.4 g/dL (Normal) Range: 2.0-4.5 Gamma Globulin 1.0 g/dL (Normal) Range: 0.5-1.6 M-Rl Not Observed g/dL (Normal) Beta Globulin 0.8 g/dL (Normal) Range: 0.6-1.3 Byhry-2-Kmfsajpg 0.2 g/dL (Normal) Range: 0.1-0.4 Nwzje-6-Ogtizxfr 0.4 g/dL (Normal) Range: 0.4-1.2 Albumin 4.5 g/dL (Normal) Range: 3.2-5.6 51-Fdh-319519:37 METABOLIC PANEL, COMPREHENSIVE Comments: PATIENT WAS FASTINGPERFORMED BY: [facility] Ilxpce0173 [facility] [id number] ([id number]) ALT (SGPT) 8 [iU]/L (Normal) Range: 0-32 AST (SGOT) 17 [iU]/L (Normal) Range: 0-40 Alkaline Phosphatase, S 64 [iU]/L (Normal) Range: 39-117 A/G Ratio 2.0 (Normal) Range: 1.1-2.5 Bilirubin, Total 0.7 mg/dL (Normal) Range: 0.0-1.2 Globulin, Total 2.3 g/dL (Normal) Range: 1.5-4.5 Albumin, Serum 4.6 g/dL (Normal) Range: 3.5-4.8 Calcium, Serum 9.4 mg/dL (Normal) Range: 8.6-10.2 Protein, Total, Serum 6.9 g/dL (Normal) Range: 6.0-8.5 Carbon Dioxide, Total 25 mmol/L (Normal) Range: 19-28 Chloride, Serum 104 mmol/L (Normal) Range: 97-108 Potassium, Serum 4.1 mmol/L (Normal) Range: 3.5-5.2 Sodium, Serum 143 mmol/L (Normal) Range: 134-144 BUN/Creatinine Ratio 22 (Normal) Range: 11-26 eGFR If Africn Am 82 mL/min/1.73 (Normal) Creatinine, Serum 0.81 mg/dL (Normal) Range: 0.57-1.00 eGFR If NonAfricn Am 71 mL/min/1.73 (Normal) BUN 18 mg/dL (Normal) Range: 8-27 Glucose, Serum 88 mg/dL (Normal) Range: 65-99 48-Mjb-795843:37 LIPID PANEL (43518) Comments: PATIENT WAS FASTINGPERFORMED BY: [facility] Crsoqo8307 [facility] [id number] LDL/HDL Ratio 1.5 {ratio_units} (Normal) Range: 0.0-3.2 LDL Cholesterol Calc 92 mg/dL (Normal) Range: 0-99 VLDL Cholesterol Jorge 13 mg/dL (Normal) Range: 5-40 Cholesterol, Total 168 mg/dL (Normal) Range: 100-199 HDL Cholesterol 63 mg/dL (Normal) Comments: According to ATP-III Guidelines, HDL-C >59 mg/dL is considered anegative risk factor for CHD. Triglycerides 67 mg/dL (Normal) Range: 0-149 74-Upb-634029:37 Vitamin D Hydroxy (21880) Comments: PATIENT WAS FASTINGPERFORMED BY: [employer]63J[address] RoadDublin [place] [id number] Vitamin D, 25-Hydroxy 61.8 ng/mL (Normal) Range: 30.0-100.0 Comments: Vitamin D deficiency has been defined by the Angie ofMedicine and an Endocrine Society practice guideline as alevel of serum 25-OH vitamin D less than 20 ng/mL (1,2).The Endocrine Society went on to further define vitamin Dinsufficiency as a level between 21 and 29 ng/mL (2).1. IOM (Angie of Medicine). 2010. Dietary reference intakes for calcium and D. [place]: The National Academies Press.2. Maria Isabel MF, [place] MANSFIELD, Fredy TUCKER, et al. Evaluation, treatment, and prevention of vitamin D deficiency: an Endocrine Society clinical practice guideline. JCEM. 2010; 96(7):1911-30. 8-Zsk-848525:12 Calcium, 24Hr Urine Comments: PERFORMED BY: [facility]raFirst[facility] [id number] Information: 08/10@720AM 08/11@7AM Calcium, Urine 24hr 159.1 {mg/24_hr} (Normal) Range: 100.0-300.0 Calcium, Urine 7.4 mg/dL (Normal) 07-Afz-740982:37 PARATHORMONE (92812) Comments: PATIENT WAS FASTINGPERFORMED BY: [employer]6[address] [place] [id number] PTH, Intact 20 pg/mL (Normal) Range: 15-65 22-Vcq-578440:37 PHOSPHORUS (59672) Comments: PATIENT WAS FASTINGPERFORMED BY: [employer]6[address]combl[address] [place] [id number] Phosphorus, Serum 4.5 mg/dL (Normal) Range: 2.5-4.5 93-Muo-747248:37 TSH (39683) Comments: PATIENT WAS FASTINGPERFORMED BY: [facility]6370 [facility] [id number] TSH 2.910 {uIU/mL} (Normal) Range: 0.450-4.500 1-Vmi-269962:11 DEXA BONE DENSITY STUDY (HP) Radiology Report See Note Comments: PROCEDURE: DUAL ENERGY X-RAY ABSORPTIOMETRY / DXA REASON FOR EXAM: Female, 77 years old. Osteopenia. TECHNIQUE: Bone Mineral Density (BMD) measurements of lumbar spine andbilateral hips were obtai (Normal) alexis. COMPARISON: Comparison is made with prior examination dated September. FINDINGS: Lumbar Spine (L1-L4): g/cm2 (0.922) / T-score (-2.1) / Z-score (-0. 4)Findings are suggestive of osteopenia with a moderate fracture risk. Left Femur Total: g/cm2 (0.825) / T-score (-1.5) / Z-score (0.3)Left Femoral Neck: g/cm2 (0.716) / T-score (-2.3) / Z-sco re (-0.4)Right Femur Total: g/cm2 (0.770) / T-score (-1.9) / Z-score (-0.1)Right Femoral Neck: g/cm2 (0.713) / T-score (-2.3) / Z-score (-0.4) The T-Scores on the most recent prior examination were: Lumbar Spine (L1-L4): There has been worsening of bone density since theprevious examination. Left Femur Total: which represents a worsening of 9%.Right Femur Total: which represents a worsening of 5.6%. IMPRESSION:The patient is considered osteopenic as outlined below according to WorldHeath Organization (WHO) criteria with a moderate fracture risk . Therehasbeen worsening of bone density since the previous examination. Reference Information:The T-score is the number of standard deviations above or below thesta ndard which is normal for young adults at their peak bone mineraldensity. The World Health Organization (WHO) interprets the T-scores asfollows: Above -1 Normal bone densityBetween -1 and -2.5 OsteopeniaEqual to / or below -2.5 Osteoporosis As a practical clinical guideline, osteopenia may be graded as follows:Mild -1 through -1.5Moderate - 1.6 through -2.0Severe -2.1 through -2.4 The Z-score is the number of standard deviations above or below age-matchedcontrols. A Z-score of less than -1.5 would be considered abnormal. References:1. NIH Osteoporosis and Related Bone Diseases http: //www.osteo.org2. International Society for Clinical Densitometry http://www.iscd.org3. National Osteoporosis Foundation http://www.nof.org Signed:Hayder Elkins M.D.June 10, 2013 at 11:05:54 AM [id number] Signed GP/GP If you are the referring physician and would like to consult with theradiologist who provided this interpretation, please contact Caitlin Schmitz at . If this radiologist is unavailable, youwill be directed to another radiologist to assist. If you are a patient with a question regarding this report, pleasecontactyour referring physician neisha coppola. Professional Interpretation Provided By: [place], Phone , These documents contain legally protected and confidential healthinformation intended only for the us e of the individual or entity namedabove. If you are not the intended recipient, you are hereby notifiedthatany disclosure, copying, distribution, or other use of these documents isstrictly prohibited. If you have received this information in error,pleasenotify the sender immediately and arrange for the return or destructionofthese documents. Dictated on 06/10/13 1105 by Robby RO,Hollie ribed on 06/10/13 1355 by ITS IMPORTSign by Robby RO,Hayder on 06/10/13 1356 Sign by: Hayder Elkins MD [id number] Vitamin D Hydroxy (13574) Comments: PATIENT NOT FASTINGPERFORMED BY: [facility] [facility] [id number] Vitamin D, 25-Hydroxy 47.7 ng/mL (Normal) Range: 30.0-100.0 Comments: Vitamin D deficiency has been defined by the Ang[employer] ofMedicine and an Endocrine Society practice guideline as alevel of serum 25-OH vitamin D less than 20 ng/mL (1,2).The Endocrine Society went on to further define vitamin Dinsufficiency as a level between 21 and 29 ng/mL (2).1. IOM ([employer]gie of Medicine). 2010. Dietary reference intakes for calcium and D. [place]: The National Academies Press.2. Maria Isabel MF, [place], Rufina-Sawyer TUCKER, et al. Evaluation, treatment, and prevention of vitamin D deficiency: an Endocrine Society clinical practice guideline. JCEM. 2010; 96(7):1911-30. [id number] METABOLIC PANEL, Comments: PATIENT NOT FASTINGPERFORMED BY: [id number] [facility] [id number] Information: ADD [id number] AND DRAW FEE 99 1991 COMPREHENSIVE (98663) ALT (SGPT) 10 [iU]/L (Normal) Range: 0-32 AST (SGOT) 23 [iU]/L (Normal) Range: 0-40 Alkaline Phosphatase, S 68 [iU]/L (Normal) Range: 45-108 Bilirubin, Total 0.8 mg/dL (Normal) Range: 0.0-1.2 A/G Ratio 2.1 (Normal) Range: 1.1-2.5 Globulin, Total 2.1 g/dL (Normal) Range: 1.5-4.5 Albumin, Serum 4.4 g/dL (Normal) Range: 3.5-4.8 Protein, Total, Serum 6.5 g/dL (Normal) Range: 6.0-8.5 Calcium, Serum 9.1 mg/dL (Normal) Range: 8.6-10.2 Carbon Dioxide, Total 24 mmol/L (Normal) Range: 19-28 Chloride, Serum 105 mmol/L (Normal) Range: 97-108 Potassium, Serum 4.0 mmol/L (Normal) Range: 3.5-5.2 BUN/Creatinine Ratio 26 (Normal) Range: 11-26 Sodium, Serum 140 mmol/L (Normal) Range: 134-144 eGFR If Africn Am 82 mL/min/1.73 (Normal) eGFR If NonAfricn Am 71 mL/min/1.73 (Normal) BUN 21 mg/dL (Normal) Range: 8-27 Creatinine, Serum 0.81 mg/dL (Normal) Range: 0.57-1.00 Glucose, Serum 82 mg/dL (Normal) Range: 65-99 56-Gvn-940205:22 LIPID PANEL (24242) Comments: PATIENT NOT FASTINGPERFORMED BY: [facility] [id number] LDL/HDL Ratio 1.7 {ratio_units} (Normal) Range: 0.0-3.2 LDL Cholesterol Calc 96 mg/dL (Normal) Range: 0-99 VLDL Cholesterol Jorge 10 mg/dL (Normal) Range: 5-40 HDL Cholesterol 58 mg/dL (Normal) Comments: According to ATP-III Guidelines, HDL-C >59 mg/dL is considered anegative risk factor for CHD. Triglycerides 49 mg/dL (Normal) Range: 0-149 Cholesterol, Total 164 mg/dL (Normal) Range: 100-199 84-Rbd-168386:45 TSH (91634) Comments: PATIENT WAS FASTINGPERFORMED BY: [facility] [id number] TSH 3.910 {uIU/mL} (Normal) Range: 0.450-4.500 26-Nta-107217:45 Vitamin D Hydroxy (36577) Comments: PATIENT WAS FASTINGPERFORMED BY: [facility] [place] [id number] Vitamin D, 25-Hydroxy 54.3 ng/mL (Normal) Range: 30.0-100.0 Comments: Vitamin D deficiency has been defined by the Angie ofMedicine and an Endocrine Society practice guideline as alevel of serum 25-OH vitamin D less than 20 ng/mL (1,2).The Endocrine Society went on to further define vitamin Dinsufficiency as a level between 21 and 29 ng/mL (2).1. IOM (Angie of Medicine). 2010. Dietary reference intakes for calcium and D. [place]: The National Academies Press.2. Maria Isabel MF, [place] MANSFIELD, Fredy TUCKER, et al. Evaluation, treatment, and prevention of vitamin D deficiency: an Endocrine Society clinical practice guideline. JCEM. 2010; 96(7):1911-30. 06-Esa-094799:45 METABOLIC PANEL, Comments: PATIENT WAS FASTINGPERFORMED BY: [facility] HospitalAxdwqt2483 [facility] [id number] Information: [id number] COMPREHENSIVE (69179) ALT (SGPT) 9 [iU]/L (Normal) Range: 0-32 AST (SGOT) 21 [iU]/L (Normal) Range: 0-40 Alkaline Phosphatase, S 74 [iU]/L (Normal) Range: 25-165 Bilirubin, Total 0.6 mg/dL (Normal) Range: 0.0-1.2 A/G Ratio 1.8 (Normal) Range: 1.1-2.5 Globulin, Total 2.4 g/dL (Normal) Range: 1.5-4.5 Albumin, Serum 4.4 g/dL (Normal) Range: 3.5-4.8 Protein, Total, Serum 6.8 g/dL (Normal) Range: 6.0-8.5 Calcium, Serum 9.3 mg/dL (Normal) Range: 8.6-10.2 Carbon Dioxide, Total 22 mmol/L (Normal) Range: 20-32 Chloride, Serum 107 mmol/L (Normal) Range: 97-108 Potassium, Serum 4.6 mmol/L (Normal) Range: 3.5-5.2 Sodium, Serum 143 mmol/L (Normal) Range: 134-144 BUN/Creatinine Ratio 21 (Normal) Range: 11-26 eGFR If Africn Am 79 mL/min/1.73 (Normal) eGFR If NonAfricn Am 68 mL/min/1.73 (Normal) Creatinine, Serum 0.84 mg/dL (Normal) Range: 0.57-1.00 BUN 18 mg/dL (Normal) Range: 8-27 Glucose, Serum 91 mg/dL (Normal) Range: 65-99 36-Dik-052239:45 LIPID PANEL (96963) Comments: PATIENT WAS FASTINGPERFORMED BY: [employer]70 [facility] [id number] LDL Cholesterol Calc 84 mg/dL (Normal) Range: 0-99 LDL/HDL Ratio 1.4 {ratio_units} (Normal) Range: 0.0-3.2 HDL Cholesterol 61 mg/dL (Normal) Comments: According to ATP-III Guidelines, HDL-C >59 mg/dL is considered anegative risk factor for CHD. VLDL Cholesterol Jorge 8 mg/dL (Normal) Range: 5-40 Cholesterol, Total 153 mg/dL (Normal) Range: 100-199 Triglycerides 40 mg/dL (Normal) Range: 0-149 7-Vsm-980085:06 Vitamin D Hydroxy (77383) Comments: PATIENT WAS FASTINGPERFORMED BY: [employer] [facility] [id number] Vitamin D, 25-Hydroxy 58.0 ng/mL (Normal) Range: 30.0-100.0 Comments: Vitamin D deficiency has been defined by the Angie ofMedicine and an Endocrine Society practice guideline as alevel of serum 25-OH vitamin D less than 20 ng/mL (1,2).The Endocrine Society went on to further define vitamin Dinsufficiency as a level between 21 and 29 ng/mL (2).1. IOM (Angie of Medicine). 2010. Dietary reference intakes for calcium and D. [place]: The National Academies Press.2. Maria Isabel MF, [place] MANSFIELD, Fredy TUCKER, et al. Evaluation, treatment, and prevention of vitamin D deficiency: an Endocrine Society clinical practice guideline. JCEM. 2010; 96(7):1911-30. 0-Pgu-857485:06 LIPID PANEL (34312) Comments: PATIENT WAS FASTINGPERFORMED BY: [employer]6370 [facility] [id number] LDL Cholesterol Calc 99 mg/dL (Normal) Range: 0-99 LDL/HDL Ratio 1.7 {ratio_units} (Normal) Range: 0.0-3.2 HDL Cholesterol 60 mg/dL (Normal) Comments: According to ATP-III Guidelines, HDL-C >59 mg/dL is considered anegative risk factor for CHD. VLDL Cholesterol Jorge 15 mg/dL (Normal) Range: 5-40 Triglycerides 77 mg/dL (Normal) Range: 0-149 Cholesterol, Total 174 mg/dL (Normal) Range: 100-199 0-Clm-297860:06 METABOLIC PANEL, Comments: PATIENT WAS FASTINGPERFORMED BY: [facility] Vadtoc4900 [facility] [id number] Information: [id number] COMPREHENSIVE (03621) ALT (SGPT) 11 [iU]/L (Normal) Range: 0-32 Alkaline Phosphatase, S 69 [iU]/L (Normal) Range: 25-165 AST (SGOT) 26 [iU]/L (Normal) Range: 0-40 Bilirubin, Total 0.8 mg/dL (Normal) Range: 0.0-1.2 A/G Ratio 2.3 (Normal) Range: 1.1-2.5 Globulin, Total 2.0 g/dL (Normal) Range: 1.5-4.5 Albumin, Serum 4.5 g/dL (Normal) Range: 3.5-4.8 Protein, Total, Serum 6.5 g/dL (Normal) Range: 6.0-8.5 Calcium, Serum 9.5 mg/dL (Normal) Range: 8.6-10.2 Carbon Dioxide, Total 24 mmol/L (Normal) Range: 20-32 Chloride, Serum 104 mmol/L (Normal) Range: 97-108 Potassium, Serum 4.3 mmol/L (Normal) Range: 3.5-5.2 Sodium, Serum 139 mmol/L (Normal) Range: 134-144 BUN/Creatinine Ratio 20 (Normal) Range: 11-26 eGFR If Africn Am 82 mL/min/1.73 (Normal) eGFR If NonAfricn Am 71 mL/min/1.73 (Normal) Creatinine, Serum 0.81 mg/dL (Normal) Range: 0.57-1.00 BUN 16 mg/dL (Normal) Range: 8-27 Glucose, Serum 79 mg/dL (Normal) Range: 65-99 25-Fbg-873621:00 BILAT CHAD DIGITAL & CAD Radiology Report See Note (Normal) Comments: MAMMOGRAPHY - BILATERAL SCREENING REASON FOR EXAM: Female, 76 years old. Routine annual screeningexamination. PERTINENT HISTORY: TECHNIQUE: Digital examination. Mediolateral oblique ( MLO) andcran iocaudad (CC) views of both breasts were obtained. CAD: CAD wasperformed on this study. COMPARISON: May 04, 2011. FINDINGS:The breast composition is heterogeneously dense. There are no dominant fam s or suspicious calcifications. No other significant abnormalities are identified. IMPRESSION:Stable bilateral screening mammogram. Yearly follow-up recommended. (A) ASSESSMENT CATEGORY:BIRADS Catego ry 1: Negative. A letter regarding these results will besent to the patient by the facility within 30 days. Approximately 10% of breast cancers are not detected by mammography. Anormal mammogram shou ld not delay biopsy of a clinically suspiciousabnormality. Signed:Capri Royal M.D.June 26, 2012 at 8:47:04 AM [phone] Signed MV/MV If you are the referring physician and would like to consult with theradiologist who provided this interpretation, please contact Capri Bean M.D. at . If this radiologist is unavailable, youwillbe directed to another ra diologist to assist. If you are a patient with a question regarding this report, pleasecontactyour referring physician directly. Professional Interpretation Provided By: [place], Phone [phone], These documents contain legally protected and confidential healthinformation intended only for the use of the individual or entity namedabove. If you are not the intended recipient, y ou are hereby notifiedthatany disclosure, copying, distribution, or other use of these documents isstrictly prohibited. If you have received this information in error,pleasenotify the sender immediately and arrange for the return or destructionofthese documents. Dictated on 06/25/121599 by ELVIS ROMARYKhoaDreanscribed on 06/26/12 1629 by ITS IMPORTSign by ELVIS ROMARYKhoa on 06/26/12 1630 Sign by: ELVIS ROMARYPRIETO 88-Ygs-19089:14 Vitamin D Hydroxy (70739) Comments: PATIENT WAS FASTINGPERFORMED BY: [facility] HospitalXlwkpr3290 [facility] [id number] Vitamin D, 25-Hydroxy 44.4 ng/mL (Normal) Range: 30.0-100.0 Comments: Vitamin D deficiency has been defined by the Angie ofMedicine and an Endocrine Society practice guideline as alevel of serum 25-OH vitamin D less than 20 ng/mL (1,2).The Endocrine Society went on to further define vitamin Dinsufficiency as a level between 21 and 29 ng/mL (2).1. IOM (Angie of Medicine). 2010. Dietary reference intakes for calcium and D. [place]: The National Academies Press.2. Maria Isabel MF, [place] MANSFIELD, Fredy TUCKER, et al. Evaluation, treatment, and prevention of vitamin D deficiency: an Endocrine Society clinical practice guideline. JCEM. 2010; 96(7):1911-30. 94-Qot-78820:14 LIPID PANEL (20155) Comments: PATIENT WAS FASTINGPERFORMED BY: [facility] Arslfr5128 [facility] [id number] LDL/HDL Ratio 2.4 {ratio_units} (Normal) Range: 0.0-3.2 LDL Cholesterol Calc 141 mg/dL (Abnormal) Range: 0-99 Comments: Effective July 15, 2012, the reference interval for LDL Cholesterol Calc will be changing to: 0 - 19 years 0 - 109 20 - 24 years 0 - 119 > 24 years 0 - 99 VLDL Cholesterol Jorge 15 mg/dL (Normal) Range: 5-40 HDL Cholesterol 59 mg/dL (Normal) Comments: According to ATP-III Guidelines, HDL-C >59 mg/dL is considered anegative risk factor for CHD. Triglycerides 75 mg/dL (Normal) Range: 0-149 Comments: Effective July 15, 2012, the reference interval for Triglycerides will be changing to: 0 - 9 years 0 - 74 10 - 19 years 0 - 89 20 - 24 years 0 - 114 > 24 years 0 - 149 Cholesterol, Total 215 mg/dL (Abnormal) Range: 100-199 Comments: Effective July 15, 2012, the reference interval for Cholesterol, Total will be changing to: 0 - 19 years 100 - 169 20 - 24 years 100 - 189 > 24 years 100 - 199 74-Rwo-90516:14 CBC WITH MANUAL DIFF Comments: PATIENT WAS FASTINGPERFORMED BY: [facility] HospitalRwxcab7672 [facility] [id number] Information: [id number] (39504) Immature Grans (Abs) 0.0 {x10E3/uL} (Normal) Range: 0.0-0.1 Immature Granulocytes 0 % (Normal) Range: 0-2 Baso (Absolute) 0.0 {x10E3/uL} (Normal) Range: 0.0-0.2 Eos (Absolute) 0.1 {x10E3/uL} (Normal) Range: 0.0-0.4 Monocytes(Absolute) 0.3 {x10E3/uL} (Normal) Range: 0.1-1.0 Lymphs (Absolute) 1.0 {x10E3/uL} (Normal) Range: 0.7-4.5 Neutrophils (Absolute) 3.1 {x10E3/uL} (Normal) Range: 1.8-7.8 Basos 0 % (Normal) Range: 0-3 Eos 3 % (Normal) Range: 0-7 Monocytes 7 % (Normal) Range: 4-13 Lymphs 22 % (Normal) Range: 14-46 Neutrophils 68 % (Normal) Range: 40-74 Platelets 219 {x10E3/uL} (Normal) Range: 140-415 RDW 14.2 % (Normal) Range: 12.3-15.4 MCHC 34.5 g/dL (Normal) Range: 31.5-35.7 MCH 30.8 pg (Normal) Range: 26.6-33.0 MCV 89 fL (Normal) Range: 79-97 Hematocrit 38.0 % (Normal) Range: 34.0-46.6 Hemoglobin 13.1 g/dL (Normal) Range: 11.1-15.9 RBC 4.26 {x10E6/uL} (Normal) Range: 3.77-5.28 WBC 4.6 {x10E3/uL} (Normal) Range: 4.0-10.5 :14 METABOLIC PANEL, COMPREHENSIVE Comments: PATIENT WAS FASTINGPERFORMED BY: [facility] HospitalWiqzdn1009 [facility] [id number] ([id number]) ALT (SGPT) 9 [iU]/L (Normal) Range: 0-40 AST (SGOT) 18 [iU]/L (Normal) Range: 0-40 Alkaline Phosphatase, S 77 [iU]/L (Normal) Range: 25-165 Bilirubin, Total 0.6 mg/dL (Normal) Range: 0.0-1.2 A/G Ratio 2.0 (Normal) Range: 1.1-2.5 Globulin, Total 2.2 g/dL (Normal) Range: 1.5-4.5 Albumin, Serum 4.3 g/dL (Normal) Range: 3.5-4.8 Protein, Total, Serum 6.5 g/dL (Normal) Range: 6.0-8.5 Calcium, Serum 9.3 mg/dL (Normal) Range: 8.6-10.2 Carbon Dioxide, Total 25 mmol/L (Normal) Range: 20-32 Chloride, Serum 104 mmol/L (Normal) Range: 97-108 Potassium, Serum 4.6 mmol/L (Normal) Range: 3.5-5.2 Sodium, Serum 143 mmol/L (Normal) Range: 134-144 BUN/Creatinine Ratio 20 (Normal) Range: 11-26 eGFR If Africn Am 89 mL/min/1.73 (Normal) eGFR If NonAfricn Am 78 mL/min/1.73 (Normal) Creatinine, Serum 0.76 mg/dL (Normal) Range: 0.57-1.00 BUN 15 mg/dL (Normal) Range: 8-27 Glucose, Serum 90 mg/dL (Normal) Range: 65-99 9-Azg-867266:23 METABOLIC PANEL, COMPREHENSIVE Comments: PATIENT WAS FASTINGPERFORMED BY: [facility] HospitalNxyelg2890 [facility] [id number] ([id number]) ALT (SGPT) 11 [iU]/L (Normal) Range: 0-40 AST (SGOT) 21 [iU]/L (Normal) Range: 0-40 Alkaline Phosphatase, S 75 [iU]/L (Normal) Range: 25-165 Bilirubin, Total 0.7 mg/dL (Normal) Range: 0.0-1.2 A/G Ratio 1.8 (Normal) Range: 1.1-2.5 Globulin, Total 2.3 g/dL (Normal) Range: 1.5-4.5 Albumin, Serum 4.2 g/dL (Normal) Range: 3.5-4.8 Protein, Total, Serum 6.5 g/dL (Normal) Range: 6.0-8.5 Calcium, Serum 9.1 mg/dL (Normal) Range: 8.6-10.2 Carbon Dioxide, Total 25 mmol/L (Normal) Range: 20-32 Chloride, Serum 104 mmol/L (Normal) Range: 97-108 Potassium, Serum 4.0 mmol/L (Normal) Range: 3.5-5.2 Sodium, Serum 141 mmol/L (Normal) Range: 134-144 BUN/Creatinine Ratio 22 (Normal) Range: 11-26 eGFR If Africn Am 92 mL/min/1.73 (Normal) Comments: Note: A persistent eGFR <60 mL/min/1.73 m2 (3 months or more) mayindicate chronic kidney disease. An eGFR >59 mL/min/1.73 m2 with anelevated urine protein also may indicate chronic kidney disease.Calculated using CKD-EPI formula. eGFR If NonAfricn Am 80 mL/min/1.73 (Normal) Creatinine, Serum 0.74 mg/dL (Normal) Range: 0.57-1.00 BUN 16 mg/dL (Normal) Range: 8-27 Glucose, Serum 78 mg/dL (Normal) Range: 65-99 6-Kos-130310:23 CBC WITH MANUAL DIFF Comments: PATIENT WAS FASTINGPERFORMED BY: [facility] HospitalLkarpb9847 [facility] [id number] Information: [id number] ([id number]) Immature Grans (Abs) 0.0 {x10E3/uL} (Normal) Range: 0.0-0.1 Immature Granulocytes 0 % (Normal) Range: 0-2 Baso (Absolute) 0.0 {x10E3/uL} (Normal) Range: 0.0-0.2 Eos (Absolute) 0.1 {x10E3/uL} (Normal) Range: 0.0-0.4 Monocytes(Absolute) 0.3 {x10E3/uL} (Normal) Range: 0.1-1.0 Lymphs (Absolute) 1.1 {x10E3/uL} (Normal) Range: 0.7-4.5 Neutrophils (Absolute) 3.8 {x10E3/uL} (Normal) Range: 1.8-7.8 Basos 0 % (Normal) Range: 0-3 Eos 2 % (Normal) Range: 0-7 Monocytes 6 % (Normal) Range: 4-13 Lymphs 20 % (Normal) Range: 14-46 Neutrophils 72 % (Normal) Range: 40-74 Platelets 220 {x10E3/uL} (Normal) Range: 140-415 RDW 14.1 % (Normal) Range: 11.7-15.0 MCHC 34.5 g/dL (Normal) Range: 32.0-36.0 MCH 30.8 pg (Normal) Range: 27.0-34.0 MCV 89 fL (Normal) Range: 80-98 Hematocrit 37.1 % (Normal) Range: 34.0-44.0 Hemoglobin 12.8 g/dL (Normal) Range: 11.5-15.0 RBC 4.16 {x10E6/uL} (Normal) Range: 3.80-5.10 WBC 5.3 {x10E3/uL} (Normal) Range: 4.0-10.5 3-Ftl-564480:23 TSH (62708) Comments: PATIENT WAS FASTINGPERFORMED BY: [facility] Nyybpv8471 [facility] [place] [id number] TSH 2.860 {uIU/mL} (Normal) Range: 0.450-4.500 9-Gyo-115803:23 Vitamin D Hydroxy (88650) Comments: PATIENT WAS FASTINGPERFORMED BY: [facility] Psdqtb5184 [facility] [place] [id number] Vitamin D, 25-Hydroxy 51.4 ng/mL (Normal) Range: 30.0-100.0 Comments: Vitamin D deficiency has been defined by the Angie ofMedicine and an Endocrine Society practice guideline as alevel of serum 25-OH vitamin D less than 20 ng/mL (1,2).The Endocrine Society went on to further define vitamin Dinsufficiency as a level between 21 and 29 ng/mL (2).1. IOM (Angie of Medicine). 2010. Dietary reference intakes for calcium and D. [place]: The National Academraksul Press.2. Maria Isabel KABA, [place] MANSFIELD, Fredy TUCKER, et al. Evaluation, treatment, and prevention of vitamin D deficiency: an Endocrine Society clinical practice guideline. JCEM. 2010; 96(7):1911-30. 8-Ixx-594650:23 LIPID PANEL (53659) Comments: PATIENT WAS FASTINGPERFORMED BY: [employer]70 PPTV [facility] [id number] LDL/HDL Ratio 2.1 {ratio_units} (Normal) Range: 0.0-3.2 LDL Cholesterol Calc 119 mg/dL (Abnormal) Range: 0-99 HDL Cholesterol 56 mg/dL (Normal) Comments: According to ATP-III Guidelines, HDL-C >59 mg/dL is considered anegative risk factor for CHD. VLDL Cholesterol Jorge 15 mg/dL (Normal) Range: 5-40 Cholesterol, Total 190 mg/dL (Normal) Range: 100-199 Triglycerides 73 mg/dL (Normal) Range: 0-149 59-Pzs-144657:01 Vitamin D Hydroxy (22479) Comments: PATIENT WAS FASTINGPERFORMED BY: [employer] [facility] [id number]; appt 10/24/11 Vitamin D, 25-Hydroxy 50.9 ng/mL (Normal) Range: 30.0-100.0 Comments: Vitamin D deficiency has been defined by the Angie ofMedicine and an Endocrine Society practice guideline as alevel of serum 25-OH vitamin D less than 20 ng/mL (1,2).The Endocrine Society went on to further define vitamin Dinsufficiency as a level between 21 and 29 ng/mL (2).1. IOM (Angie of Medicine). 2010. Dietary reference intakes for calcium and D. [place]: The National Academraksul Press.2. [place] Camejo, Fredy TUCKER, et al. Evaluation, treatment, and prevention of vitamin D deficiency: an Endocrine Society clinical practice guideline. JCEM. 2010; 96(7): 1911-30. Please note reference interval change :01 CBC WITH MANUAL DIFF Comments: PATIENT WAS FASTINGPERFORMED BY: [facility] Lwvvid2552 [facility] [id number] Information: [id number] ([id number]) Immature Grans (Abs) 0.0 {x10E3/uL} (Normal) Range: 0.0-0.1 Immature Granulocytes 0 % (Normal) Range: 0-2 Baso (Absolute) 0.0 {x10E3/uL} (Normal) Range: 0.0-0.2 Eos (Absolute) 0.2 {x10E3/uL} (Normal) Range: 0.0-0.4 Monocytes(Absolute) 0.3 {x10E3/uL} (Normal) Range: 0.1-1.0 Lymphs (Absolute) 0.9 {x10E3/uL} (Normal) Range: 0.7-4.5 Neutrophils (Absolute) 4.2 {x10E3/uL} (Normal) Range: 1.8-7.8 Basos 1 % (Normal) Range: 0-3 Eos 3 % (Normal) Range: 0-7 Monocytes 5 % (Normal) Range: 4-13 Lymphs 16 % (Normal) Range: 14-46 Neutrophils 75 % (Abnormal) Range: 40-74 Platelets 215 {x10E3/uL} (Normal) Range: 140-415 RDW 13.9 % (Normal) Range: 11.7-15.0 MCHC 33.6 g/dL (Normal) Range: 32.0-36.0 MCH 31.4 pg (Normal) Range: 27.0-34.0 MCV 93 fL (Normal) Range: 80-98 Hematocrit 37.8 % (Normal) Range: 34.0-44.0 Hemoglobin 12.7 g/dL (Normal) Range: 11.5-15.0 RBC 4.05 {x10E6/uL} (Normal) Range: 3.80-5.10 WBC 5.5 {x10E3/uL} (Normal) Range: 4.0-10.5 :01 METABOLIC PANEL, COMPREHENSIVE Comments: PATIENT WAS FASTINGPERFORMED BY: [facility] HospitalAaqtnq0941 [facility] [id number] ([id number]) ALT (SGPT) 15 [iU]/L (Normal) Range: 0-40 AST (SGOT) 28 [iU]/L (Normal) Range: 0-40 Alkaline Phosphatase, S 69 [iU]/L (Normal) Range: 25-165 Bilirubin, Total 0.8 mg/dL (Normal) Range: 0.0-1.2 A/G Ratio 1.9 (Normal) Range: 1.1-2.5 Globulin, Total 2.3 g/dL (Normal) Range: 1.5-4.5 Albumin, Serum 4.3 g/dL (Normal) Range: 3.5-4.8 Protein, Total, Serum 6.6 g/dL (Normal) Range: 6.0-8.5 Calcium, Serum 9.1 mg/dL (Normal) Range: 8.6-10.2 Carbon Dioxide, Total 24 mmol/L (Normal) Range: 20-32 Chloride, Serum 104 mmol/L (Normal) Range: 97-108 Potassium, Serum 4.4 mmol/L (Normal) Range: 3.5-5.2 Sodium, Serum 143 mmol/L (Normal) Range: 135-145 Comments: Effective October 23, 2011 Sodium, Serum reference interval will be changing to: 134 - 144 mmol/L BUN/Creatinine Ratio 18 (Normal) Range: 11-26 eGFR If Africn Am 86 mL/min/1.73 (Normal) Comments: Note: A persistent eGFR <60 mL/min/1.73 m2 (3 months or more) mayindicate chronic kidney disease. An eGFR >59 mL/min/1.73 m2 with anelevated urine protein also may indicate chronic kidney disease.Calculated using CKD-EPI formula. eGFR If NonAfricn Am 74 mL/min/1.73 (Normal) Creatinine, Serum 0.79 mg/dL (Normal) Range: 0.57-1.00 BUN 14 mg/dL (Normal) Range: 8-27 Glucose, Serum 78 mg/dL (Normal) Range: 65-99 83-Epe-433491:01 LIPID PANEL (34849) Comments: PATIENT WAS FASTINGPERFORMED BY: [facility] Eahnqi6803 [address] [facility] [id number] LDL/HDL Ratio 1.3 {ratio_units} (Normal) Range: 0.0-3.2 LDL Cholesterol Calc 77 mg/dL (Normal) Range: 0-99 VLDL Cholesterol Jorge 12 mg/dL (Normal) Range: 5-40 HDL Cholesterol 61 mg/dL (Normal) Comments: According to ATP-III Guidelines, HDL-C >59 mg/dL is considered anegative risk factor for CHD. Triglycerides 58 mg/dL (Normal) Range: 0-149 Cholesterol, Total 150 mg/dL (Normal) Range: 100-199 :54 BILAT SCRN DIGITAL & CAD Radiology Report See Note (Normal) Comments: MAMMOGRAPHY - BILATERAL SCREENING REASON FOR EXAM: Female, 75 years old. Routine annual screeningexamination. PERTINENT HISTORY: Non-contributory. TECHNIQUE: Digital examination. Me diolateral o blique (MLO) andcraniocaudad (CC) views of both breasts were obtained. CAD: CAD wasperformed on this study. COMPARISON: Comparison is made with prior study dated November 22, 2009. FINDINGS:The breast composition is heterogeneously dense. There are no masses or suspicious microcalcifications. No other significant abnormalities are identified. There has been nosignificant change since the prior study . IMPRESSION:Normal bilateral screening mammogram. One year follow-up recommended. (A) ASSESSMENT CATEGORY:BIRADS Category 2: Benign finding(s). A letter regarding these resultswill be sent to the pa tient by the facility within 30 days. Approximately 10% of breast cancers are not detected by mammography. Anormal mammogram should not delay biopsy of a clinically suspiciousabnormality. Dictated o n 05/04/11 0709 by Suzette Elkins MDranscribed on 05/04/11 0856 by ITS IMPORTSign by Hayder Elkins MD on 05/04/11 0857 Sign by: Hayder Elkins MD 91-Jgu-287223:31 L/S SPINE,MIN 4 VIEWS Radiology Report See Note (Normal) Comments: CLINICAL:Female, 75 years old. The patient presents with chronic low back andrighthip pain. X-RAY EXAMINATION - LUMBAR SPINE TECHNIQUE:Five views of the lumbar spine were obtained. COMPARIS ON:None FIND INGS:Normal lumbar lordosis. There is a mild degree of dextroscoliosis of thelumbar spine. Normal lumbar vertebrae. There is a moderate degree of disk space narrowing at the L4, L5, and L5-Z5vtziva. 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 There is atherosclerotic calcification of the abdominal aorta. IMPRESSION:Degenerative ch anges of the spine, as detailed above. Dictated on 02/20/11 1640 by Robby RO,MunaeleTranscribed on 02/21/11 1258 by ITS IMPORTSign by Hayder Elkins MD on 02/21/111257 Sign by: Hayder Elkins MD :36 Vitamin D Hydroxy (37325) Comments: PATIENT WAS FASTINGPERFORMED BY: [facility] [id number] Vitamin D, 25-Hydroxy 48.5 ng/mL (Normal) Range: 32.0-100.0 Comments: Recent studies consider the lower limit of 32.0 ng/mL to be athreshold for optimal health.Mike CABAN. J Nutr. 2004;135(2):317-22. :36 METABOLIC PANEL, Comments: PATIENT WAS FASTINGPERFORMED BY: [employer] [facility] Oupcih1025 [facility] [id number] Information: ADD [id number] AND DRAW FEE 99 6020 COMPREHENSIVE (29145) Alkaline Phosphatase, S 73 [iU]/L (Normal) Range: 25-165 ALT (SGPT) 11 [iU]/L (Normal) Range: 0-40 AST (SGOT) 22 [iU]/L (Normal) Range: 0-40 Bilirubin, Total 0.7 mg/dL (Normal) Range: 0.0-1.2 A/G Ratio 1.9 (Normal) Range: 1.1-2.5 Albumin, Serum 4.4 g/dL (Normal) Range: 3.5-4.8 Globulin, Total 2.3 g/dL (Normal) Range: 1.5-4.5 Calcium, Serum 9.2 mg/dL (Normal) Range: 8.6-10.2 Carbon Dioxide, Total 26 mmol/L (Normal) Range: 20-32 Chloride, Serum 104 mmol/L (Normal) Range: 97-108 Protein, Total, Serum 6.7 g/dL (Normal) Range: 6.0-8.5 BUN/Creatinine Ratio 16 (Normal) Range: 11-26 Potassium, Serum 4.0 mmol/L (Normal) Range: 3.5-5.2 Sodium, Serum 142 mmol/L (Normal) Range: 135-145 eGFR If Africn Am 71 mL/min/1.73 (Normal) Comments: Note: A persistent eGFR <60 mL/min/1.73 m2 (3 months or more) mayindicate chronic kidney disease. An eGFR >59 mL/min/1.73 m2 with anelevated urine protein also may indicate chronic kidney disease.Calculated using CKD-EPI formula. eGFR If NonAfricn Am 62 mL/min/1.73 (Normal) BUN 15 mg/dL (Normal) Range: 8-27 Creatinine, Serum 0.92 mg/dL (Normal) Range: 0.57-1.00 Glucose, Serum 94 mg/dL (Normal) Range: 65-99 66-Zic-71539:36 LIPID PANEL (90393) Comments: PATIENT WAS FASTINGPERFORMED BY: [employer] Czrytw7820 [facility] [id number] LDL Cholesterol Calc 70 mg/dL (Normal) Range: 0-99 LDL/HDL Ratio 1.0 {ratio_units} (Normal) Range: 0.0-3.2 VLDL Cholesterol Jorge 11 mg/dL (Normal) Range: 5-40 Cholesterol, Total 148 mg/dL (Normal) Range: 100-199 HDL Cholesterol 67 mg/dL (Normal) Comments: According to ATP-III Guidelines, HDL-C >59 mg/dL is considered anegative risk factor for CHD. Triglycerides 57 mg/dL (Normal) Range: 0-149 65-Niz-706596:11 CBC+Platelet+Hem Review Comments: PATIENT WAS FASTINGPERFORMED BY: [employer]6370 [facility] [id number] Differential Comment RBC's appear normal. (Normal) Baso(Absolute) 0.0 {X10E3/uL} Range: 0.0-0.2 (Normal) Eos (Absolute Value) 0.0 {X10E3/uL} Range: 0.0-0.4 (Normal) Lymphs (Absolute) 0.5 {X10E3/uL} Range: 0.7-4.5 (Abnormal) Monocytes(Absolute) 0.4 {X10E3/uL} Range: 0.1-1.0 (Normal) Neutrophils Absolute 3.8 {X10E3/uL} Range: 1.8-7.8 (Normal) Basos 0 % (Normal) Range: 0-3 Eos 1 % (Normal) Range: 0-7 Lymphs 11 % (Abnormal) Range: 14-46 Monocytes 8 % (Normal) Range: 4-13 Neutrophils 80 % (Abnormal) Range: 40-74 Platelets 204 {x10E3/uL} Range: 140-415 (Normal) MCH 31.4 pg (Normal) Range: 27.0-34.0 MCHC 34.2 g/dL (Normal) Range: 32.0-36.0 RDW 14.3 % (Normal) Range: 11.7-15.0 MCV 92 fL (Normal) Range: 80-98 Hematocrit 40.4 % (Normal) Range: 34.0-44.0 Hemoglobin 13.8 g/dL (Normal) Range: 11.5-15.0 RBC 4.39 {x10E6/uL} Range: 3.80-5.10 (Normal) WBC 4.7 {x10E3/uL} Range: 4.0-10.5 (Normal) Written Authorization WAR (Normal) Comments: PATIENT WAS FASTINGPERFORMED BY: [facility]6370 [facility] [id number] 0:11 Comments: Written Authorization Received.Authorization received from DR MOTLEY [phone] by Alda Rosas 77-Xon-895197:11 CALCIFEDIOL ([id number]) Comments: PATIENT WAS FASTINGPERFORMED BY: [facility]6370 [facility] [id number] Vitamin D, 25-Hydroxy 54.9 ng/mL (Normal) Range: 32.0-100.0 Comments: Recent studies consider the lower limit of 32.0 ng/mL to be athreshold for optimal health.Mike CABAN. J Nutr. 2004;135(2):317-22. 21-Wra-336389:11 Metabolic Panel, Comprehensive Comments: PATIENT WAS FASTINGPERFORMED BY: [facility]CoSh[facility] HospitalMhwhby5886 [facility] [id number] (08076) ALT (SGPT) 9 [iU]/L (Normal) Range: 0-40 AST (SGOT) 23 [iU]/L (Normal) Range: 0-40 Alkaline Phosphatase, S 65 [iU]/L (Normal) Range: 25-165 Bilirubin, Total 0.7 mg/dL (Normal) Range: 0.0-1.2 A/G Ratio 1.8 (Normal) Range: 1.1-2.5 Albumin, Serum 4.4 g/dL (Normal) Range: 3.5-4.8 Globulin, Total 2.4 g/dL (Normal) Range: 1.5-4.5 Calcium, Serum 9.3 mg/dL (Normal) Range: 8.6-10.2 Carbon Dioxide, Total 25 mmol/L (Normal) Range: 20-32 Chloride, Serum 105 mmol/L (Normal) Range: 97-108 Protein, Total, Serum 6.8 g/dL (Normal) Range: 6.0-8.5 Potassium, Serum 4.4 mmol/L (Normal) Range: 3.5-5.2 BUN/Creatinine Ratio 18 (Normal) Range: 11-26 eGFR AfricanAmerican >59 mL/min/1.73 Comments: Note: Persistent reduction for 3 months or more in an eGFR<60 mL/min/1.73 m2 defines CKD. Patients with eGFR values>/=60 mL/min/1.73 m2 may also have CKD if evidence of persistentproteinuria is (Normal) present. Additional information may be found atwww.kdoqi.org. Sodium, Serum 142 mmol/L (Normal) Range: 135-145 BUN 16 mg/dL (Normal) Range: 8-27 Creatinine, Serum 0.88 mg/dL (Normal) Range: 0.57-1.00 eGFR >59 mL/min/1.73 (Normal) Glucose, Serum 94 mg/dL (Normal) Range: 65-99 39-Wsz-827160:11 Lipid Panel (59844) Comments: PATIENT WAS FASTINGPERFORMED BY: [facility]CoSh[facility] HospitalYiqtir3041 [facility] [id number] LDL Cholesterol Calc 136 mg/dL (Abnormal) Range: 0-99 LDL/HDL Ratio 2.2 {ratio_units} (Normal) Range: 0.0-3.2 HDL Cholesterol 63 mg/dL (Normal) Comments: According to ATP-III Guidelines, HDL-C >59 mg/dL is considered anegative risk factor for CHD. VLDL Cholesterol Jorge 13 mg/dL (Normal) Range: 5-40 Triglycerides 66 mg/dL (Normal) Range: 0-149 Cholesterol, Total 212 mg/dL (Abnormal) Range: 100-199 18-Aiw-68363:00 DEXA BONE DENSITY STUDY () Radiology Report See Note (Normal) Comments: CLINICAL:This is a 74-year-old female patient for a postmenopausal screening. EXAMINATION:DUAL ENERGY X-RAY ABSORPTIOMETRY / DEXA. TECHNIQUE: COMPARISON:Comparison is made with prior study dated 2007. FINDINGS: Lumbar Spine (L1-L4): g/cm2 (1.004) / T-score (- 1.5) / Z-score (0.5)Left Femur Total: g/cm2 (0.854) / T-score (-1.2) / Z- score (0.6)Right Femur Total: g/cm2 (0.832) / T-score (-1.4) / Z-score (0.4) Since prior examination, there has been a loss of 1% in the bonedensity. IMPRESSION: Reference Information: Above -1 Normal bone densityBetween -1 and -2.5 OsteopeniaEqual to / or below -2.5 Osteoporosis As a practical clinical guideline, osteopenia may be graded as follows:Mild -1 through - 1.5Moderate -1.6 through -2.0Severe -2.1 throu gh -2.4 References:1. NIH Osteoporosis and Related Bone Diseases http://www.osteo.org2. International Society for Clinical Densitometry http://www.iscd.org3. National Osteoporosis Foundation http ://www.nof.org Dictated on 09/20/10 153 by Muna ElkinseleTranscribed on 09/20/10 153 by BELINDA YIPSONSign by Hayder Elkins on 09/20/10 1732 Sign by: Hayder Elkins 40-Ffj-17544:00 DEXA BONE DENSITY STUDY (HP) Radiology Report See Note (Normal) Comments: CLINICAL:This is a 74-year-old female patient for a postmenopausal screening. EXAMINATION:DUAL ENERGY X-RAY ABSORPTIOMETRY / DEXA. TECHNIQUE:Bone Density Measurements (BMD) of lumbar spine and bilateral hips wereobtained using a TwentyFour6 scanner.. COMPARISON:Comparison is made with prior study dated August 04, 2008. FINDINGS: Lumbar Spine (L1- L4): g/cm2 (1.004) / T-score (-1.5) / Z-score (0.5)Left Femur Total: g/cm2 (0.854) / T-score (-1.2) / Z- score (0.6)Right Femur Total: g/cm2 (0.832) / T-score (-1.4) / Z-score (0.4) Since prior examination, there has been a loss of 1% in the bonedensity. IMPRESSION:The patient is considered osteopenic, as outlined above, according toWorldHealth Organization (WHO) criteria. Fracture risk is moderate. Reference Information:The T-score is the number of standard deviations above or below thestandard which is normal for young adults at their peak bone mineraldensity. The World Health Organization (WHO) interprets the T-scores as follows: Above -1 Normal bone densityBetween -1 and -2.5 OsteopeniaEqual to / or below -2.5 Osteoporosis As a practical clinical guideline, osteopenia may be graded as follows:Mild -1 through -1.5Moderate -1.6 through -2.0Severe -2.1 through -2.4 The Z-score is the number of standard deviations above or below age- matchedcontrols. A Z-score of less than -1.5 would be cons idered abnormal. References:1. NIH Osteoporosis and Related Bone Diseases http://www.osteo.org2. International Society for Clinical Densitometry http://www.iscd.org3. National Osteoporosis Foundation http://www.nof.org Dictated on 09/20/10 1532 by Muna ElkinseleTranscribed on 09/20/10 1532 by THEODORAMCKESSONSign by Hayder Elkins on 09/23/10 1437 Sign by: Hayder Elkins 60-Ddg-933536:27 ABDOMEN/PELVIS WITH CONTRAST Radiology Report See Note (Normal) Comments: Exam Number: [id number] LINICAL:This is a 74-year-old female patient with history of right lower quadrant tenderness and hypertension. CT ABDOMEN AND PELVIS WITH CONTRAST TECHNIQUE:Transaxial images wer e obtained from the dome of the diaphragm to the symphysis pubis with oral contrast. 100 ml of Isovue-300 contrast was administered intravenously. COMPARISON:Comparison is made with prior study dated N 2004. FINDINGS:There is evidence of scarring of both lung bases. There are multiple benign hepatic cysts. These are unchanged. Normal gallbladder and biliary system. Normal enhanced spleen. Normal pancreas. Normal bilateral adrenal glands. Normal size of the right kidney. There is no right renal mass. There are no right renal calculi. There is no right hydronephrosis. Normal visualize d right ureter. Normal size of the left kidney. There is no left renal mass. There are no left renal calculi. There is no left hydronephrosis. Normal visualized left ureter. Normal visualized stomac h. Normal small intestine. Normal colon. The appendix is visualized and appears normal. Normal retroperitoneum. There is diffuse atherosclerotic calcification of the abdominal aorta. Normal inferior vena cava. Normal urinary bladder. There is no pelvic fluid. There is evidence of an enlarged fibroid uterus. Normal abdominal wall. There are diffuse degenerative changes of the visualized lumbar sp ine. IMPRESSION:Multiple hepatic cysts. These are unchanged. Fibroid uterus. Reported By: HAYDER ELKINS 01-Cxs-641598:51 METABOLIC PANEL, Comments: PATIENT NOT FASTINGPERFORMED BY: [employer]6[address] [id number] Information: [id number] COMPREHENSIVE (25761) Alkaline Phosphatase, S 65 [iU]/L (Normal) Range: 25-165 ALT (SGPT) 10 [iU]/L (Normal) Range: 0-40 AST (SGOT) 22 [iU]/L (Normal) Range: 0-40 Bilirubin, Total 0.5 mg/dL (Normal) Range: 0.0-1.2 A/G Ratio 1.9 (Normal) Range: 1.1-2.5 Albumin, Serum 4.4 g/dL (Normal) Range: 3.5-4.8 Globulin, Total 2.3 g/dL (Normal) Range: 1.5-4.5 Calcium, Serum 8.8 mg/dL (Normal) Range: 8.6-10.2 Carbon Dioxide, Total 24 mmol/L (Normal) Range: 20-32 Protein, Total, Serum 6.7 g/dL (Normal) Range: 6.0-8.5 Chloride, Serum 103 mmol/L (Normal) Range: 97-108 Potassium, Serum 4.2 mmol/L (Normal) Range: 3.5-5.2 BUN/Creatinine Ratio 17 (Normal) Range: 8-27 eGFR AfricanAmerican >59 mL/min/1.73 Comments: Note: Persistent reduction for 3 months or more in an eGFR<60 mL/min/1.73 m2 defines CKD. Patients with eGFR values>/=60 mL/min/1.73 m2 may also have CKD if evidence of persistentproteinuria is (Normal) present. Additional information may be found atwww.kdoqi.org. Sodium, Serum 140 mmol/L (Normal) Range: 135-145 Creatinine, Serum 0.83 mg/dL (Normal) Range: 0.57-1.00 eGFR >59 mL/min/1.73 (Normal) BUN 14 mg/dL (Normal) Range: 5-26 Glucose, Serum 100 mg/dL (Abnormal) Range: 65-99 00-Pvy-202196:51 Vitamin D Hydroxy (70269) Comments: PATIENT NOT FASTINGPERFORMED BY: [employer]70 [facility] [id number] Vitamin D, 25-Hydroxy 29.6 ng/mL (Abnormal) Range: 32.0-100.0 Comments: Recent studies consider the lower limit of 32.0 ng/mL to be athreshold for optimal health.Mike CABAN. J Nutr. 2004;135(2):317-22. :47 LIPID PANEL (82201) Comments: PATIENT WAS FASTINGPERFORMED BY: LabCoGallup Indian Medical CenterDamwao2224 [facility] [id number] HDL Cholesterol 55 mg/dL (Normal) Comments: According to ATP-III Guidelines, HDL-C >59 mg/dL is considered anegative risk factor for CHD. LDL Cholesterol Calc 89 mg/dL (Normal) Range: 0-99 LDL/HDL Ratio 1.6 {ratio_units} (Normal) Range: 0.0-3.2 VLDL Cholesterol Jorge 14 mg/dL (Normal) Range: 5-40 Cholesterol, Total 158 mg/dL (Normal) Range: 100-199 Triglycerides 71 mg/dL (Normal) Range: 0-149 :47 METABOLIC PANEL, Comments: PATIENT WAS FASTINGPERFORMED BY: LabCoShore Memorial HospitalQateul8756 [facility] [id number] Information: [id number] COMPREHENSIVE (05023) Alkaline Phosphatase, S 63 [iU]/L (Normal) Range: 25-165 ALT (SGPT) 11 [iU]/L (Normal) Range: 0-40 AST (SGOT) 23 [iU]/L (Normal) Range: 0-40 A/G Ratio 2.0 (Normal) Range: 1.1-2.5 Bilirubin, Total 0.8 mg/dL (Normal) Range: 0.0-1.2 Globulin, Total 2.3 g/dL (Normal) Range: 1.5-4.5 Albumin, Serum 4.7 g/dL (Normal) Range: 3.5-4.8 Calcium, Serum 9.2 mg/dL (Normal) Range: 8.6-10.2 Protein, Total, Serum 7.0 g/dL (Normal) Range: 6.0-8.5 Carbon Dioxide, Total 25 mmol/L (Normal) Range: 20-32 Chloride, Serum 105 mmol/L (Normal) Range: 97-108 Potassium, Serum 4.5 mmol/L (Normal) Range: 3.5-5.2 Sodium, Serum 143 mmol/L (Normal) Range: 135-145 BUN/Creatinine Ratio 14 (Normal) Range: 8-27 eGFR >59 mL/min/1.73 (Normal) eGFR AfricanAmerican >59 mL/min/1.73 Comments: Note: Persistent reduction for 3 months or more in an eGFR<60 mL/min/1.73 m2 defines CKD. Patients with eGFR values>/=60 mL/min/1.73 m2 may also have CKD if evidence of persistentproteinuria is (Normal) present. Additional information may be found atwww.kdoqi.org. BUN 13 mg/dL (Normal) Range: 5-26 Creatinine, Serum 0.92 mg/dL (Normal) Range: 0.57-1.00 Glucose, Serum 89 mg/dL (Normal) Range: 65-99 :47 Vitamin D Hydroxy (26418) Comments: PATIENT WAS FASTINGPERFORMED BY: [employer]6370 [facility] [id number] Vitamin D, 25-Hydroxy 42.0 ng/mL (Normal) Range: 32.0-100.0 Comments: Recent studies consider the lower limit of 32.0 ng/mL to be athreshold for optimal health.Mike CABAN. J Nutr. 2004;135(2):317-22. :05 CBC With Differential/Platelet Comments: PATIENT WAS FASTINGPERFORMED BY: [employer]6370 [address] [id number] Baso (Absolute) 0.0 {x10E3/uL} (Normal) Range: 0.0-0.2 Eos (Absolute) 0.1 {x10E3/uL} (Normal) Range: 0.0-0.4 Basos 0 % (Normal) Range: 0-3 Eos 2 % (Normal) Range: 0-7 Lymphs (Absolute) 0.9 {x10E3/uL} (Normal) Range: 0.7-4.5 Monocytes(Absolute) 0.3 {x10E3/uL} (Normal) Range: 0.1-1.0 Neutrophils (Absolute) 2.8 {x10E3/uL} (Normal) Range: 1.8-7.8 Lymphs 23 % (Normal) Range: 14-46 Monocytes 7 % (Normal) Range: 4-13 Neutrophils 68 % (Normal) Range: 40-74 Platelets 175 {x10E3/uL} (Normal) Range: 140-415 MCH 32.3 pg (Normal) Range: 27.0-34.0 MCHC 35.3 g/dL (Normal) Range: 32.0-36.0 MCV 91 fL (Normal) Range: 80-98 RDW 14.2 % (Normal) Range: 11.7-15.0 Hematocrit 36.6 % (Normal) Range: 34.0-44.0 Hemoglobin 12.9 g/dL (Normal) Range: 11.5-15.0 RBC 4.01 {x10E6/uL} (Normal) Range: 3.80-5.10 WBC 4.1 {x10E3/uL} (Normal) Range: 4.0-10.5 69-Lwt-949053:05 Comp. Metabolic Panel (14) Comments: PATIENT WAS FASTINGPERFORMED BY: [facility] Xyeavl9464 [facility] [id number] ALT (SGPT) 10 [iU]/L (Normal) Range: 0-40 AST (SGOT) 26 [iU]/L (Normal) Range: 0-40 A/G Ratio 1.9 (Normal) Range: 1.1-2.5 Albumin, Serum 4.3 g/dL (Normal) Range: 3.5-4.8 Alkaline Phosphatase, S 61 [iU]/L (Normal) Range: 25-165 Bilirubin, Total 0.8 mg/dL (Normal) Range: 0.1-1.2 Globulin, Total 2.3 g/dL (Normal) Range: 1.5-4.5 Calcium, Serum 9.2 mg/dL (Normal) Range: 8.6-10.2 Carbon Dioxide, Total 26 mmol/L (Normal) Range: 20-32 Protein, Total, Serum 6.6 g/dL (Normal) Range: 6.0-8.5 BUN/Creatinine Ratio 18 (Normal) Range: 8-27 Chloride, Serum 106 mmol/L (Normal) Range: 97-108 eGFR AfricanAmerican >59 mL/min/1.73 Comments: Note: Persistent reduction for 3 months or more in an eGFR<60 mL/min/1.73 m2 defines CKD. Patients with eGFR values>/=60 mL/min/1.73 m2 may also have CKD if evidence of persistentproteinuria is (Normal) present. Additional information may be found atwww.kdoqi.org. Potassium, Serum 4.1 mmol/L (Normal) Range: 3.5-5.2 Sodium, Serum 143 mmol/L (Normal) Range: 135-145 eGFR >59 mL/min/1.73 (Normal) Creatinine, Serum 0.76 mg/dL (Normal) Range: 0.57-1.00 BUN 14 mg/dL (Normal) Range: 5-26 Glucose, Serum 90 mg/dL (Normal) Range: 65-99 37-Twr-332488:05 Hepatic Function Panel (7) Comments: PATIENT WAS FASTINGPERFORMED BY: LabSOMNIUM Technologies6370 [facility] [id number] Bilirubin, Direct 0.22 mg/dL (Normal) Range: 0.00-0.40 02-Tfl-739894:05 Lipid Panel With LDL/HDL Comments: PATIENT WAS FASTINGPERFORMED BY: [employer] LabSOMNIUM Technologies6370 [facility] [id number] Ratio LDL Cholesterol Calc 86 mg/dL (Normal) Range: 0-99 LDL/HDL Ratio 1.6 {ratio_units} (Normal) Range: 0.0-3.2 HDL Cholesterol 55 mg/dL (Normal) Comments: According to ATP-III Guidelines, HDL-C >59 mg/dL is considered anegative risk factor for CHD. Triglycerides 65 mg/dL (Normal) Range: 0-149 VLDL Cholesterol Jorge 13 mg/dL (Normal) Range: 5-40 Cholesterol, Total 154 mg/dL (Normal) Range: 100-199 10-Pyp-267249:21 KAZ ARRIAGA DIGITAL & CAD Radiology Report See Note (Normal) Comments: Exam Number: [id number] DIGITAL BILATERAL MAMMOGRAM HISTORYThis is a 74-year-old female patient with history of bilateral annualscreening. Digital oblique and craniocaudal views were obtained . Compariso n ismade with the prior examination dated August 04, 2008.Interpretation was made with the benefit of the CAD system. FINDINGSThere is a moderate degree of fibroglandular tissue. No dominant massles ion is seen. No cluster of microcalcification is present. Theoverlying skin is not thickened. There has been no change since priorexamination. IMPRESSION1. There has been no change since prior examin ation.2. Routine annual mammographic followup is suggested.3. BIRADS Category 1. Negative. A letter regarding the results has been sent to the patient. This interpretation was rendered by a radiologi st certified under theMammography Quality Standards Act of 1992 (MQSA). The mammograms werealso examined with computer-aided detection software (Trooval.). Reported By: HAYDER ELKINS 59-Fap-13137:12 BLANQUITA CULTURE-OTHER (92273) Comments: PATIENT NOT FASTINGClinical Information: SRC:[facility] [id number] PERFORMED BY: APRYL [employer] [facility] [id number] Result 1 CNSS (Normal) Comments: Coagulase negative Staphylococcus species.Scant growthSusceptibility or resistance of staphylococci to oxacillin predictssusceptibility or resistance to (a) other nfon-zftjybbkr-jznqvigvokfu llins such a s cloxacillin and dicloxacillin, (b) combinationsof a penicillin and a beta- lactamase inhibitor, and(c) anti-staphylococcal cephalosporins. Routine testing of otherpenicillins, beta-lactam/beta-lactamas e inhibitor combinations,cephems, and carbapenems is not advised by the CLSI Standards(J184-K21, 2005). S = Susceptible; I = Intermediate; R = Resistant P = Positive; N = Negative MICS are expressed in micrograms per mL Antibiotic RSLT#1 RSLT#2 RSLT#3 RSLT#4Ciprofloxacin SErythromycin RGentamicin SLevofloxacin SOxacillin SPenicillin RTrimethoprim/Sulfa SVancomycin S Upper Respiratory Final report Culture (Normal) 56-Hxn-014761:40 LIPID PANEL (38267) Comments: PATIENT WAS FASTINGPERFORMED BY: [facility]10[facility] Cxclak6813 [facility] [id number] Cholesterol, Total 154 mg/dL (Normal) Range: 100-199 HDL Cholesterol 53 mg/dL (Normal) Comments: According to ATP-III Guidelines, HDL-C >59 mg/dL is considered anegative risk factor for CHD. LDL Cholesterol Calc 88 mg/dL (Normal) Range: 0-99 LDL/HDL Ratio 1.7 {ratio_units} (Normal) Range: 0.0-3.2 Triglycerides 63 mg/dL (Normal) Range: 0-149 VLDL Cholesterol Jorge 13 mg/dL (Normal) Range: 5-40 62-Fjs-779600:40 HEPATIC FUNCTION PANEL Comments: PATIENT WAS FASTINGPERFORMED BY: [employer]70 [facility] [id number] (24367) Bilirubin, Direct 0.22 mg/dL (Normal) Range: 0.00-0.40 :40 Vitamin D Hydroxy (53227) Comments: PATIENT WAS FASTINGPERFORMED BY: [employer] Cpotek6429 [facility] [id number] Vitamin D, 25-Hydroxy 48.7 ng/mL (Normal) Range: 32.0-100.0 Comments: Recent studies consider the lower limit of 32.0 ng/mL to be athreshold for optimal health.Mike CABAN. J Nutr. 2004;135(2):317-22. 78-Qgj-247396:40 METABOLIC PANEL, COMPREHENSIVE Comments: PATIENT WAS FASTINGClinical Information: [id number] PERFORMED BY: Check[employer]10[employer] FateOeghcc1166 [facility] [id number] (69793) A/G Ratio 1.9 (Normal) Range: 1.1-2.5 Albumin, Serum 4.4 g/dL (Normal) Range: 3.5-4.8 Alkaline Phosphatase, S 59 [iU]/L Range: 25-165 (Normal) ALT (SGPT) 6 [iU]/L (Normal) Range: 0-40 AST (SGOT) 19 [iU]/L Range: 0-40 (Normal) Bilirubin, Total 0.8 mg/dL Range: 0.1-1.2 (Normal) BUN 15 mg/dL (Normal) Range: 5-26 BUN/Creatinine Ratio 18 (Normal) Range: 8-27 Calcium, Serum 9.6 mg/dL Range: 8.5-10.6 (Normal) Carbon Dioxide, Total 25 mmol/L Range: 20-32 (Normal) Chloride, Serum 106 mmol/L Range: 97-108 (Normal) Creatinine, Serum 0.85 mg/dL Range: 0.57-1.00 (Normal) eGFR >59 mL/min/1.73 (Normal) eGFR AfricanAmerican >59 mL/min/1.73 Comments: Note: Persistent reduction for 3 months or more in an eGFR<60 mL/min/1.73 m2 defines CKD. Patients with eGFR values>/=60 mL/min/1.73 m2 may also have CKD if evidence of persistentproteinuria is (Normal) present. Additional information may be found atwww.kdoqi.org. Globulin, Total 2.3 g/dL (Normal) Range: 1.5-4.5 Glucose, Serum 82 mg/dL (Normal) Range: 65-99 Potassium, Serum 4.3 mmol/L Range: 3.5-5.2 (Normal) Protein, Total, Serum 6.7 g/dL (Normal) Range: 6.0-8.5 Sodium, Serum 143 mmol/L Range: 135-145 (Normal) C-Reactive Protein, Quant 0.6 mg/L (Normal) Comments: PERFORMED BY: [employer] [facility] [id number] 5:25 Range: 0.0-4.9 5-Kqw-457436:25 CK, Total+Isoenzymes, Serum Comments: PERFORMED BY: [employer] [facility] [id number] CK-BB 0 % (Normal) CK-MB 0 % (Normal) Range: 0-3 CK-MM 100 % (Normal) Range: 97-100 Creatine Kinase,Total,Serum 91 U/L (Normal) Range: 24-173 Macro Type 1 0 % (Normal) Macro Type 2 0 % (Normal) 7-Bkx-540670:58 CBC With Differential/Platelet Comments: PATIENT WAS FASTINGPERFORMED BY: [employer] [facility] [id number] Baso (Absolute) 0.0 {x10E3/uL} (Normal) Range: 0.0-0.2 Basos 0 % (Normal) Range: 0-3 Eos 3 % (Normal) Range: 0-7 Eos (Absolute) 0.2 {x10E3/uL} (Normal) Range: 0.0-0.4 Hematocrit 37.1 % (Normal) Range: 34.0-44.0 Hemoglobin 13.3 g/dL (Normal) Range: 11.5-15.0 Lymphs 20 % (Normal) Range: 14-46 Lymphs (Absolute) 1.1 {x10E3/uL} (Normal) Range: 0.7-4.5 MCH 32.8 pg (Normal) Range: 27.0-34.0 MCHC 35.8 g/dL (Normal) Range: 32.0-36.0 MCV 91 fL (Normal) Range: 80-98 Monocytes 7 % (Normal) Range: 4-13 Monocytes(Absolute) 0.4 {x10E3/uL} (Normal) Range: 0.1-1.0 Neutrophils 70 % (Normal) Range: 40-74 Neutrophils (Absolute) 3.9 {x10E3/uL} (Normal) Range: 1.8-7.8 Platelets 232 {x10E3/uL} (Normal) Range: 140-415 Comments: Please note reference interval change RBC 4.06 {x10E6/uL} (Normal) Range: 3.80-5.10 RDW 15.0 % (Normal) Range: 11.7-15.0 WBC 5.6 {x10E3/uL} (Normal) Range: 4.0-10.5 3-Lzt-950066:58 Comp. Metabolic Panel (14) Comments: PATIENT WAS FASTINGPERFORMED BY: LabCoShore Memorial HospitalRzmllb1686 [facility] [id number] A/G Ratio 1.7 (Normal) Range: 1.1-2.5 Albumin, Serum 4.3 g/dL (Normal) Range: 3.5-4.8 Alkaline Phosphatase, S 71 [iU]/L (Normal) Range: 25-165 ALT (SGPT) 12 [iU]/L (Normal) Range: 0-40 AST (SGOT) 30 [iU]/L (Normal) Range: 0-40 Bilirubin, Total 0.7 mg/dL (Normal) Range: 0.1-1.2 BUN 15 mg/dL (Normal) Range: 5-26 BUN/Creatinine Ratio 18 (Normal) Range: 8-27 Calcium, Serum 9.4 mg/dL (Normal) Range: 8.5-10.6 Carbon Dioxide, Total 25 mmol/L (Normal) Range: 20-32 Chloride, Serum 104 mmol/L (Normal) Range: 97-108 Creatinine, Serum 0.83 mg/dL (Normal) Range: 0.57-1.00 eGFR >59 mL/min/1.73 (Normal) eGFR AfricanAmerican >59 mL/min/1.73 Comments: Note: Persistent reduction for 3 months or more in an eGFR<60 mL/min/1.73 m2 defines CKD. Patients with eGFR values>/=60 mL/min/1.73 m2 may also have CKD if evidence of persistentproteinuria is (Normal) present. Additional information may be found [email or web address].org. Globulin, Total 2.5 g/dL (Normal) Range: 1.5-4.5 Glucose, Serum 81 mg/dL (Normal) Range: 65-99 Potassium, Serum 4.2 mmol/L (Normal) Range: 3.5-5.2 Protein, Total, Serum 6.8 g/dL (Normal) Range: 6.0-8.5 Sodium, Serum 141 mmol/L (Normal) Range: 135-145 [id number] Lipid Panel With LDL/HDL Comments: PATIENT WAS FASTINGPERFORMED BY: [facility] [facility] [id number] Ratio Cholesterol, Total 215 mg/dL (Abnormal) Range: 100-199 Comment SPRCS (Normal) Comments: If initial LDL-cholesterol result is >100 mg/dL, assess forrisk factors. HDL Cholesterol 49 mg/dL (Normal) Comments: According to ATP-III Guidelines, HDL-C >59 mg/dL is considered anegative risk factor for CHD. LDL Cholesterol Calc 151 mg/dL (Abnormal) Range: 0-99 LDL/HDL Ratio 3.1 {ratio_units} Range: 0.0-3.2 (Normal) Triglycerides 75 mg/dL (Normal) Range: 0-149 VLDL Cholesterol Jorge 15 mg/dL (Normal) Range: 5-40 TSH 2.282 {uIU/mL} Comments: PATIENT WAS FASTINGPERFORMED BY: [facility] [facility] [id number] :58 (Normal) Range: 0.450-4.500 Vitamin D, 25-Hydroxy 26.6 ng/mL Comments: PATIENT WAS FASTINGPERFORMED BY: [facility] [facility] [id number] :58 (Abnormal) Range: 32.0-100.0 Comments: Recent studies consider the lower limit of 32.0 ng/mL to be athreshold for optimal health.Mike CABAN. J Nutr. 2004;135(2):317-22. 85-Cit-797626:26 Upper Respiratory Culture Comments: Clinical Information: SRC:TH PERFORMED BY: [facility] [facility] [id number] Result 1 RRF (Normal) Comments: Routine respiratory zuri Upper Respiratory Culture Final report (Normal) 85-Nfd-064831:15 Rapid Strep Test, Office (31153) Rapid Strep Test, Office Negative (Normal) 39-Qka-587920:42 BILAT SCRN DIGITAL & CAD Radiology Report See Note (Normal) Comments: Exam Number: [id number] MAMMOGRAM, BILATERAL SCREENING DIGITAL AND CAD HISTORYRoutine screening. Full field digital images were obtained in mediolateral oblique andcraniocaudal projections. CAD images w ere reviewed. The current study is compared to the examinations of Decemberand June 2006. There is moderately dense fibroglandular parenchyma present. There isno skin thickening or retraction, a rchitectural distortion, or clusterof suspicious microcalcifications. There is no dominant mass orsignificant interval change seen. Followup mammogram in 1 year isrecommended. IMPRESSIONThere is no radiographic evidence of malignancy identified. FINAL ASSESSMENTBenign findings. BIRADS Category 2. A letter regarding these results has been sent to the patient. This interpretation was rendered by a radiologist certified under theMammography Quality Standards Act of 1992 (MQSA). The mammograms werealso examined with computer-aided detection software (Trooval.). Reported By: HINA TURNER M.D. 67-Jyx-109046:42 DEXA BONE DENSITY STUDY (HP) Radiology Report See Note (Normal) Comments: Exam Number: [id number] BONE DENSITOMETRY HISTORYOsteopenia. TECHNIQUE Bone densitometry of the lumbar spine and left hip was performed. Thebest criteria for evaluation of osteoporosis is the T-valu e, whichrepresents the comparison of the patient's bone mass to an expectedpeak bone mass. For most patients, the mean T-value of L1 through L4is used to evaluate the lumbar spine. Based on the newest WorldHealth Organization classifications, the hip is evaluated by utilizingthe lower of the T-value of the total hip or the T-value of thefemoral neck. FINDINGSIn this patient, the mean T-value of L1 through L4 is -1.4. This isin the range of osteopenia. Bone mineral density is measured at 4%less than in 2006. Digital lateral view for evaluation of vertebraldeformity only demonstrates no obvious compression fractures.The T-value of the left femoral neck is -1.7 which is in the range ofosteopenia. The T-value of the total hip is -0.9 which is normal. Bone mineral density is measured at 4.5% less than in 2006. IMPRESSIONThere is osteopenia of the lumbar spine and left hip. Reported By: HINA TURNER M.D. :31 LIPID CHOL 185 mg/dL (Normal) Comments: <200 mg/dL Desirable 200-240 mg/dL Borderline >240 mg/dL High Risk HDL 47 mg/dL (Normal) Comments: Reference Range HDL <40 mg/dL Low HDL Cholesterol HDL >or= 60 mg/dL High HDL Cholesterol LDL 121 mg/dL (Normal) Range: 0-130 TRIG 83 mg/dL (Normal) Comments: Serum Triglycerides Reference Interval Normal <150 mg/dL Borderline high 150 - 199 mg/dL High 200 - 499 mg/dL Very High > or = 500 mg/dL VLDL 17 mg/dL (Normal) Range: 5-40 :55 LIPID CHOL 175 mg/dL (Normal) Comments: <200 mg/dL Desirable 200-240 mg/dL Borderline >240 mg/dL High Risk HDL 44 mg/dL (Normal) Comments: Reference Range HDL <40 mg/dL Low HDL Cholesterol HDL >or= 60 mg/dL High HDL Cholesterol LDL 118 mg/dL (Normal) Range: 0-130 TRIG 63 mg/dL (Normal) Comments: Serum Triglycerides Reference Interval Normal <150 mg/dL Borderline high 150 - 199 mg/dL High 200 - 499 mg/dL Very High > or = 500 mg/dL VLDL 13 mg/dL (Normal) Range: 5-40 :55 LIVER ALB 3.7 g/dL (Normal) Range: 3.4-5.0 ALK P 79 U/L (Normal) Range: 50-136 ALT 27 [iU]/L (Abnormal) Range: 30-65 AST 22 U/L (Normal) Range: 15-37 D BILI 0.11 mg/dL (Normal) Range: 0.00-0.30 T BILI 0.70 mg/dL (Normal) Range: 0.00-1.00 T PROT 6.5 g/dL (Normal) Range: 6.4-8.2 40-Hkz-151666:04 CHEST, PA AND LATERAL Radiology Report See Note (Normal) Comments: Exam Number: [id number] PA AND LATERAL CHEST CLINICAL STATEMENTChest pain. The lungs are clear without vascular congestion. There is no pleuralfluid. The heart, agata and mediastinum are not enlarged. I MPRESSIONNo evidence of acute cardiopulmonary disease. Reported By: NABIL STONE M.D. 23-Ulu-299875:01 LIPID CHOL 157 mg/dL (Normal) Comments: <200 mg/dL Desirable 200-240 mg/dL Borderline >240 mg/dL High Risk HDL 42 mg/dL (Normal) Comments: Reference Range HDL <40 mg/dL Low HDL Cholesterol HDL >or= 60 mg/dL High HDL Cholesterol LDL 101 mg/dL (Normal) Range: 0-130 TRIG 69 mg/dL (Normal) Comments: Serum Triglycerides Reference Interval Normal <150 mg/dL Borderline high 150 - 199 mg/dL High 200 - 499 mg/dL Very High > or = 500 mg/dL VLDL 14 mg/dL (Normal) Range: 5-40 9-Won-760817:08 LIVER ALB 3.9 g/dL (Normal) Range: 3.4-5.0 ALK P 84 U/L (Normal) Range: 50-136 ALT 29 [iU]/L (Abnormal) Range: 30-65 AST 25 U/L (Normal) Range: 15-37 D BILI 0.13 mg/dL (Normal) Range: 0.00-0.30 T BILI 0.84 mg/dL (Normal) Range: 0.00-1.00 T PROT 7.2 g/dL (Normal) Range: 6.4-8.2 7-Wfq-658935:08 PFLIP CHOL 230 mg/dL (Abnormal) Comments: <200 mg/dL Desirable 200-240 mg/dL Borderline >240 mg/dL High Risk HDL 39 mg/dL (Normal) Comments: Reference Range HDL <40 mg/dL Low HDL Cholesterol HDL >or= 60 mg/dL High HDL Cholesterol LDL 178 mg/dL (Abnormal) Range: 0-130 TRIG 66 mg/dL (Normal) Comments: Serum Triglycerides Reference Interval Normal <150 mg/dL Borderline high 150 - 199 mg/dL High 200 - 499 mg/dL Very High > or = 500 mg/dL VLDL 13 mg/dL (Normal) Range: 5-40 :42 LIVER ALB 3.7 g/dL (Normal) Range: 3.4-5.0 ALK P 80 U/L (Normal) Range: 50-136 ALT 34 [iU]/L (Normal) Range: 30-65 AST 21 U/L (Normal) Range: 15-37 D BILI 0.09 mg/dL (Normal) Range: 0.00-0.30 T BILI 0.66 mg/dL (Normal) Range: 0.00-1.00 T PROT 6.8 g/dL (Normal) Range: 6.4-8.2 Plan of Care Name Dates Details Instructions Nonsmoker : Eprescribed prescriptions (G8553) Indication: Nonsmoker Weight loss : Follow up if no improvement or if symptoms worsen Indication: Weight loss Weight loss : Reviewed Diagnostic Tests Indication: Weight loss Weight loss : Reviewed Lab Indication: Weight loss Weight loss : Eprescribed prescriptions (G8553) Indication: Weight loss BMI 20.0-20.9, adult : Follow up in 4 months Indication: BMI 20.0-20.9, adult Benign essential HTN : Eprescribed prescriptions (G8553) Indication: Benign essential HTN Osteopenia : Follow up in 4 months Indication: Osteopenia Abnormal urine : Eprescribed prescriptions (G8553) Indication: Abnormal urine Insomnia : Follow up in 4 months get labs a week beore apt Indication: Insomnia Osteopenia : Follow up in 3 months Indication: Osteopenia Nonsmoker : Eprescribed prescriptions (G8553) Indication: Nonsmoker Benign essential HTN : Follow up in 4 months Indication: Benign essential HTN Benign essential HTN : Eprescribed prescriptions (G8553) Indication: Benign essential HTN Osteopenia : fall reduction handout Indication: Osteopenia Medicare annual wellness visit, initial : advance planning information Indication: Medicare annual wellness visit, initial Medicare annual wellness visit, initial : Self breast exam Indication: Medicare annual wellness visit, initial Medicare annual wellness visit, initial : *Well Female Maintenance (KF) Indication: Medicare annual wellness visit, initial Benign essential HTN : Eprescribed prescriptions (G8553) Indication: Benign essential HTN PVC (premature ventricular contraction) : Eprescribed prescriptions (G8553) Indication: PVC (premature ventricular contraction) PVC (premature ventricular contraction) : Heart Palpitations *: heart palpitations Indication: PVC (premature ventricular contraction) Allergic rhinitis : Eprescribed prescriptions (G8553) Indication: Allergic rhinitis Benign essential HTN : Eprescribed prescriptions (G8553) Indication: Benign essential HTN Hypercholesteremia : Eprescribed prescriptions (G8553) Indication: Hypercholesteremia Osteopenia : *Bisphosphonate Education Indication: Osteopenia Allergic rhinitis : Allergic Rhinitis *: nasal allergies Indication: Allergic rhinitis Benign essential HTN : High Blood Pressure (Essential Hypertension) *: hypertension Indication: Benign essential HTN Asthma : Asthma: asthma Indication: Asthma Hypercholesteremia : *Cholesterol - Medication Side Effects Indication: Hypercholesteremia biopsy site infection : Antibiotic Usage Education - Female Indication: biopsy site infection Hypercholesteremia : Cholesterol - Medication Side Effects Indication: Hypercholesteremia Hypercholesteremia : FOLLOW UP IN 3 MONTHS Indication: Hypercholesteremia Hypercholesteremia : Diet and Exercise Indication: Hypercholesteremia Hypercholesteremia : Cholesterol - Medication Side Effects Indication: Hypercholesteremia Hypercholesteremia : FOLLOW UP IN 3 MONTHS Indication: Hypercholesteremia FOLLOW UP IN 4 MONTHS Well Female Maintenance (KF) Hypercholesteremia : Cholesterol - Nonprescription Treatment Indication: Hypercholesteremia Planned Observations CBC & PLATELETS (AUTO) (88151)Indication: Insomnia On: 88-Uyo-652321:37 Request Metabolic Panel, Comprehensive (59895)Indication: Weight loss On: 65-Pbp-588410:37 Request CALCIFEDIOL (09793)Indication: Vitamin D deficiency, unspecified On: 86-Gsv-796211:44 Request LIPID PANEL (46588)Indication: Hypercholesteremia On: 75-Wvs-443107:44 Request MICROALBUMIN: CREATININE RATIO (89719) AND (83689)Indication: Benign essential HTN On: :00 Request Comments: Jun 2017 URINALYSIS (61002)Indication: Benign essential HTN On: :00 Request Comments: Jun 2017 TSH (65263)Indication: Benign essential HTN On: 14-Mil-839807:00 Request Comments: Jun 2017 Metabolic Panel, Comprehensive (55577)Indication: Benign essential HTN On: :00 Request Comments: Jun 2017 CALCIFEDIOL (79470)Indication: Osteopenia On: 35-Cxk-063060:59 Request Comments: JUN 2017 Vitamin D Hydroxy (74748)Indication: Vitamin D deficiency, unspecified On: :51 Request LIPID PANEL (36903)Indication: Hypercholesteremia On: :51 Request URINALYSIS, W/ MICRO (80624)Indication: Benign essential HTN On: :51 Request CBC W/AUTO DIFF WBC (20435)Indication: Benign essential HTN On: :51 Request METABOLIC PANEL, COMPREHENSIVE (82900)Indication: Benign essential HTN On: :51 Request UPEP (25843)Indication: Osteopenia On: 42-Yme-097870:03 Request SPEP (89530)Indication: Osteopenia On: 73-Sld-943378:03 Request TSH (17814)Indication: Osteopenia On: 76-Ahw-739009:03 Request URINE CALCIUM IVAN TIMED 24 Hour (53030)Indication: Osteopenia On: 22-Elc-391023:02 Request WBC Count with manual diff (88439)Indication: Unspecified Diagnosis On: 46-Tsp-208239:13 Request LIPID PANEL (21719)Indication: Hypercholesteremia On: 71-Upx-634950:34 Request CBC WITH MANUAL DIFF (78093)Indication: Benign essential HTN On: 76-Bcx-096680:37 Request METABOLIC PANEL, COMPREHENSIVE (59598)Indication: Benign essential HTN On: :37 Request HEPATIC FUNCTION PANEL (87312)Indication: Hypercholesteremia On: :37 Request LIPID PANEL (14299)Indication: Hypercholesteremia On: :37 Request C-Reactive Protein (29665)Indication: Elevated blood-pressure reading without diagnosis of hypertension On: :11 Request CPK TOTAL & ISOENZYMES (62599)Indication: Elevated blood-pressure reading without diagnosis of hypertension On: 4-Vjo-088376:11 Request BLANQUITA CULTURE-OTHER (00687)Indication: Pharyngitis, acute On: 83-Gwa-676279:15 Request LIPID PANEL (50594)Indication: Hypercholesteremia On: :29 Request HEPATIC FUNCTION PANEL (83265)Indication: Hypercholesteremia On: :34 Request LIPID PANEL (30358)Indication: Hypercholesteremia On: :34 Request LIPID PANEL (41172)Indication: Hypercholesteremia On: 81-Yrc-913894:08 Request Comments: 3 mos LIPID PANEL (08226)Indication: Hypercholesteremia On: 02-Nhb-919533:25 Request HEPATIC FUNCTION PANEL (33105)Indication: Hypercholesteremia On: :25 Request HEPATIC FUNCTION PANEL (80423)Indication: Hypercholesteremia On: :33 Request LIPID PANEL (27500)Indication: Hypercholesteremia On: :33 Request Comments: 6 mos Planned Procedures MAMMOGRAM BREAST BILATERAL On: 03-Sep-2018 Intent SCREENING DIGITAL (33433)By: Luiza Suggs CNP, CNP, Mary E UPPER GI ENDOSCOPY, DIAGNOSTIC On: 22-May-2018 Intent (61470)By: Luiza Suggs CNP, CNP, Mary E Radiology - ChestBy: Ifeanyi NAIK, On: 02-Jan-2018 Intent Luiza Argueta CNP MAMMOGRAM BREAST BILATERAL On: 27-Aug-2017 Intent SCREENING DIGITAL (18499)By: Luiza Suggs CNP, CNP, Mary E MAMMOGRAM, SCREENING, BOTH BREAST On: 08-Aug-2016 Intent (89551)By: Eugene Vides MD ELECTROCARDIOGRAM, COMPLETE (ECG) On: 18-Jul-2016 Intent (42388)By: Eugene Vides MD Spirometry (51697)By: Peewee RO, On: 18-Jul-2016 Intent Eugene Flu Vaccine (Quadrivalent) 19017Gu: On: 18-Jul-2016 Intent Eugene Vides MD Comments: Lot:[id number]:05/04/17Dose:0.5mLRoute:IMSite:L DltdGiven By:KIRILL signed INJECTION, PROLIA (J0897)By: Anthony On: 26-Jan-2016 Intent DO, Joann A Comments: lot: [id number]: ite/route: L arm/SQamt: prefilled syringeVIS signed when applicableChelsea, INSPECTOR SUBASSEMBLIES Pelvic and Breast, Medicare On: 06-Sep-2015 Intent (G0101)By: Sherry Motley DOa A INJECTION, PROLIA (J0897)By: Anthony On: 30-Jul-2015 Intent DO Joann A Comments: Lot:[id number]:12/23Dose:60mgRoute:sub qSite:l armGiven By:KIRILL signed MAMMOGRAM, SCREENING, BOTH BREAST On: 21-Jul-2015 Intent (01060)By: Joann Motley DO DEXA SCAN AXIAL SKELETON (16419)By: On: 21-Jul-2015 Intent Anthony TORRES Joann A Flu Vaccine (Quadrivalent) 41340Aw: On: 21-Jul-2015 Intent Sherry Motley DOa A Comments: Lot #:[id number] date:04/2016Amount given:0.5mlRoute: IMSite given: left deltoidGiven by: LEYDI Aguayo ADMINISTRATION OF INFLUENZA VIRUS On: 21-Jul-2015 Intent VACCINE (G0008)By: Joann Motley DO Holter Monitor 24 hrsBy: Anthony TORRES, On: 22-Feb-2015 Intent Joann A Echo CompleteBy: Joann Motley DO On: 22-Feb-2015 Intent INJECTION, PROLIA (J0897)By: Anthony On: 27-Jan-2015 Intent DO Joann A Comments: lot:[id number]: 08/21site/route: L arm/SQamt: 60mgVIS signed when applicableChelsea, INSPECTOR SUBASSEMBLIES MAMMOGRAM, SCREENING, BOTH BREAST On: 15-Jan-2015 Intent (66537)By: Joann Motley DO DEXA SCAN AXIAL SKELETON (76162)By: On: 15-Jan-2015 Intent Joann Motley DO Comments: 06/19 due EKG (45426)By: Joann Motley DO On: 15-Jan-2015 Intent Comments: ekg showed normal sinus rhythym, normal axis, no acute st/t wave changes INJECTION, PROLIA (J0897)By: Anthony On: 28-Jul-2014 Intent Joann TORRES Comments: Lot:[id number]:11/2016Dose:1mLRoute:sub q Site: [facility] By:JSERGIO signed Eprescribed prescriptions On: 06-Jan-2014 Intent (G8553)By: Joann Motley DO EKG (56209)By: Myah Warren On: 15-Dec-2013 Intent Comments: ekg showed normal sinus rhythym, normal axis, no acute st/t wave changes Eprescribed prescriptions On: 15-Dec-2013 Intent (G8553)By: Myah Warren Spirometry (03807)By: Anthony TORRES, On: 28-Jul-2013 Intent Joann Peters Comments: good effort and curve mild obst Radiology - Chest- PA and LatBy: On: 28-Jul-2013 Intent Joann Motley DO MAMMOGRAM, SCREENING, BOTH BREASTS On: 28-Jul-2013 Intent (12400)By: Joann Motley DO FLU VAC, SPLIT, >3 YEARS, INTRAMUSC On: 28-Jul-2013 Intent (73848)By: Myah Warren Comments: Lot #:[id number] date:mount given:0.5mlRoute: IMSite given: L dltdVIS and ABN signedGiven by: LEYDI Aguayo ADMINISTRATION OF INFLUENZA VIRUS On: 28-Jul-2013 Intent VACCINE (G0008)By: Myah Warren Eprescribed prescriptions On: 28-Jul-2013 Intent (G8553)By: Myah Warren DXA, BONE DENSITY, AXIAL SKELETON On: 26-Mar-2013 Intent (31688)By: Joann Motley DO EKG (07691)By: Myah Warren On: 20-Nov-2012 Intent Comments: ekg showed normal sinus rhythym, normal axis, no acute st/t wave changes PNEUM VAC ADLT/IMUMNOSPR, SBC/INTRM On: 20-Nov-2012 Intent (19716)By: Myah Warren Comments: Lot #[id number]-left deltoidDose- 0.5mlgiven by: Belinda Blount LPN Eprescribed prescriptions On: 20-Nov-2012 Intent (G8553)By: Myah Warren ADMINISTRATION OF PNEUMOCOCCAL On: 20-Nov-2012 Intent VACCINE (G0009)By: Myah Warren Radiology - Cervical SpineBy: Fast On: 22-Jul-2012 Intent Joann TORRES Spirometry (97202)By: Briana, On: 22-Jul-2012 Intent Myah Comments: good effort and curve mild obst DXA, BONE DENSITY, AXIAL SKELETON On: 22-Jul-2012 Intent (54162)By: Joann Motley DO Comments: september FLU VAC, SPLIT, >3 YEARS, INTRAMUSC On: 22-Jul-2012 Intent (92074)By: Myah Warren Comments: Lot #:[id number] date:mount given:0.5mlRoute: IMSite given:left deltoidGiven by: LEYDI Aguayo ADMINISTRATION OF INFLUENZA VIRUS On: 22-Jul-2012 Intent VACCINE (G0008)By: Myah Warren Breast Screening - BilateralBy: On: 17-Jun-2012 Intent Joann Motley DO MAMMOGRAM, SCREENING, BOTH BREASTS On: 20-Feb-2012 Intent (20568)By: Joann Motley DO Comments: due in april TDAP VACCINE >7 IM (82265)By: Hill On: 20-Feb-2012 Intent Rody DOWELL Comments: [id number] 3/14 L arm, IM prefilled Rody EKG (00905)By: Myah Warren On: 24-Oct-2011 Intent Comments: ekg showed normal sinus rhythym, normal axis, no acute st/t wave changes low voltage no change FLU VAC, SPLIT, >3 YEARS, INTRAMUSC On: 24-Oct-2011 Intent (58042)By: Myah Warren Comments: health department Spirometry (63766)By: Anthony TORRES, On: 15-May-2011 Intent Joann A Comments: good effort and curve mild obst Ultrasound - AortaBy: Anthony TORRES, On: 11-Apr-2011 Intent Joann A Comments: xray showed calcification of abd aorta Radiology - Lumbar SpineBy: Fast On: 20-Feb-2011 Intent DO Joann A MAMMOGRAM, SCREENING, BOTH BREASTS On: 06-Feb-2011 Intent (56780)By: Sherry Motley DOa A FLU VAC, SPLIT, >3 YEARS, INTRAMUSC On: 24-Aug-2010 Intent (16513)By: Myah Warren Comments: Lot #:[id number] date:mount given:0.5mlRoute: IMSite given:left deltoidGiven by: LEYDI Aguayo CT - Abdomen & PelvisBy: Anthony TORRES, On: 24-Aug-2010 Intent Joann A EKG (66102)By: Myah Warren On: 24-Aug-2010 Intent Comments: ekg showed normal sinus rhythym, normal axis, no acute st/t wave changes DXA, BONE DENSITY, AXIAL SKELETON On: 24-Aug-2010 Intent (86296)By: Joann Motley DO ADMINISTRATION OF INFLUENZA VIRUS On: 24-Aug-2010 Intent VACCINE (G0008)By: Myah Warren MAMMOGRAM, SCREENING, BOTH BREASTS On: 23-Aug-2009 Intent (65482)By: Sherry Motley DOa A Echo CompleteBy: Ciesa HEENA Mahsa On: 12-May-2009 Intent Ciesa MANAGER STUDIO Mahsa EKG (52496)By: Tammy Lara On: 12-May-2009 Intent DXA, BONE DENSITY, AXIAL SKELETON On: 11-Dec-2007 Intent (78702)By: Anthony TORRES Joann A MAMMOGRAM, SCREENING, BOTH BREASTS On: 11-Dec-2007 Intent (45423)By: Anthony TORRES Joann A Echo CompleteBy: Anthony TORRES Joann A On: 13-May-2007 Intent Radiology - Chest- PA and LatBy: On: 13-May-2007 Intent Fast DO, Joann A Spirometry (49838)By: Fast DO, On: 13-May-2007 Intent Joann A Comments: good effort and curve- restart pulmicort EKG (54968)By: Myah Warren On: 13-May-2007 Intent Comments: done-jjp Pap Smear, Medicare (Q0091)By: Fast On: 24-Jul-2006 Intent DO, Joann A Pelvic and Breast, Medicare On: 24-Jul-2006 Intent (G0101)By: Fast DO, Joann A Planned Medications INJECTION, PROLIA Ordered: 28-Jul-2014 Pending Fast DO, Joann A INJECTION, PROLIA Ordered: 27-Jan-2015 Pending Fast DO, Joann A INJECTION, PROLIA Ordered: 30-Jul-2015 Pending Fast DO, Joann A INJECTION, PROLIA Ordered: 26-Jan-2016 Pending Fast DO, Joann A Instructions Name Dates Details Nonsmoker : How to access health information online Indication: Nonsmoker Nonsmoker : How to access health information online - Detail Indication: Nonsmoker Nonsmoker : Patient Instructions Indication: Nonsmoker Weight loss : How to access health information online Indication: Weight loss Weight loss : How to access health information online - Detail Indication: Weight loss Weight loss : Patient Instructions Indication: Weight loss Benign essential HTN : How to access health information online Indication: Benign essential HTN Benign essential HTN : How to access health information online - Detail Indication: Benign essential HTN Benign essential HTN : Patient Instructions Indication: Benign essential HTN Abnormal urine : How to access health information online Indication: Abnormal urine Abnormal urine : How to access health information online - Detail Indication: Abnormal urine Abnormal urine : Patient Instructions Indication: Abnormal urine Nonsmoker : Patient Instructions Indication: Nonsmoker Nonsmoker : How to access health information online Indication: Nonsmoker Nonsmoker : How to access health information online - Detail Indication: Nonsmoker Nonsmoker : Patient Instructions Indication: Nonsmoker Benign essential HTN : How to access health information online Indication: Benign essential HTN Benign essential HTN : How to access health information online - Detail Indication: Benign essential HTN Benign essential HTN : Patient Instructions Indication: Benign essential HTN Benign essential HTN : How to access health information online Indication: Benign essential HTN Benign essential HTN : How to access health information online - Detail Indication: Benign essential HTN Benign essential HTN : Patient Instructions Indication: Benign essential HTN Medicare annual wellness visit, initial : How to access health information online Indication: Medicare annual wellness visit, initial Medicare annual wellness visit, initial : How to access health information online - Detail Indication: Medicare annual wellness visit, initial Medicare annual wellness visit, initial : Patient Instructions Indication: Medicare annual wellness visit, initial Benign essential HTN : How to access health information online Indication: Benign essential HTN Benign essential HTN : How to access health information online - Detail Indication: Benign essential HTN Benign essential HTN : Patient Instructions Indication: Benign essential HTN PVC (premature ventricular contraction) : Patient Instructions Indication: PVC (premature ventricular contraction) Allergic rhinitis : Patient Instructions Indication: Allergic rhinitis Benign essential HTN : Patient Instructions Indication: Benign essential HTN Benign essential HTN : How to access health information online Indication: Benign essential HTN Benign essential HTN : How to access health information online - Detail Indication: Benign essential HTN Hypercholesteremia : Patient Instructions Indication: Hypercholesteremia Low back pain potentially associated with radiculopathy : Patient Instructions Indication: Low back pain potentially associated with radiculopathy Benign essential HTN : Patient Instructions Indication: Benign essential HTN Allergic rhinitis : Patient Instructions Indication: Allergic rhinitis Allergic rhinitis : Patient Instructions Indication: Allergic rhinitis Benign essential HTN : Patient Instructions Indication: Benign essential HTN Asthma : Patient Instructions Indication: Asthma Encounters Annotation/Addendum On: 03-Sep-2018 12:46 Encounter Diagnosis: Screening mammogram, encounter for End: 03-Sep-2018 12:47 [facility] Annotation/Addendum On: 12-Jun-2018 12:50 [facility] End: 12-Jun-2018 12:52 Phone Encounter On: 22-May-2018 15:09 Encounter Diagnosis: Weight loss End: 22-May-2018 15:13 [facility] Annotation/Addendum On: 14-May-2018 16:33 [facility] End: 14-May-2018 16:36 Office Visit On: 14-May-2018 14:59 Encounter Reason: Follow up for chronic medical issues - The patient feels well with minor complaints, has good energy level and is sleeping poorly (Taking care of ). Patient has been compliant with instructions. End: 14-May-2018 16:12 Current medication use: compliant with dosing regimen. Patient sleeps 4 (4-5) hours per night. Nutrition: balanced diet, supplemental vitamins and low salt diet. The medical issues the patient is follow ing up for include All identified problems below, asthma, depression, fibromyalgia, gastric reflux, high blood pressure, high cholesterol, osteoarthritis, osteoporosis/osteopenia and other (vitamin d de ficient). Note for Follow up for chronic medical issues: mostly concerned about weight loss. Appetite is good. Loss several pounds. Has not had flu symptoms., [ADDITIONAL REASON] Follow up tests - Diagnostic tests include other (labs). , [ADDITIONAL REASON] Rash - Symptoms include skin blistering. The skin rash is located on the left hand and right hand. Onset was 2 week(s) ago. Note for Rash: started when she was digging around a tree thinks it is poison ragini , [ADDITIONAL REASON] Weight Loss - Note for Weight loss: Has significant wt loss is occupied with and Mariann discussed that pt thought crestor was causing wt loss, but wt loss continues Encounter Diagnosis: Nonsmoker, Body mass index (BMI) of 19.0-19.9 in adult, Weight loss, Hypercholesteremia [facility] Lab Order On: 18-Feb-2018 8:40 Encounter Diagnosis: Hypercholesteremia End: 18-Feb-2018 8:41 [facility] Office Visit On: 02-Jan-2018 14:05 Encounter Reason: Weight Loss - Patient reports weight loss of between 10 and 19 pounds. Symptoms include weight loss. Onset was 10 year(s) ago. The patient describes this as worsening. Note for Weight loss: Worried ab End: 02-Jan-2018 14:40 out the crestor causing wt loss. Some am's waking up achy.Encounter Diagnosis: BMI 20.0-20.9, adult, Nonsmoker, Weight loss, Insomnia [facility] Office Visit On: 26-Dec-2017 10:57 Encounter Reason: Follow up for chronic medical issues - The patient is sleeping poorly (Taking care of ). Patient has been compliant with instructions. Current medication use: compliant with dosing regimen. Patie End: 26-Dec-2017 11:45 nt sleeps 3 hours per night. Nutrition: balanced diet, supplemental vitamins and low salt diet. The medical issues the patient is following up for include All identified problems below, asthma, depressi on, fibromyalgia, gastric reflux, high blood pressure, high cholesterol, osteoarthritis, osteoporosis/osteopenia and other (vitamin d deficient). Note for Follow up for chronic medical issues: mostly concerned about weight loss. Appetite is good. Loss several pounds. Has not had flu symptoms.Encounter Diagnosis: Nonsmoker, BMI 20.0-20.9, adult, Benign essential HTN, Hypercholesteremia, Weight Loss (Renamed from Decreased body weight), Vitamin D deficiency, unspecified [facility] Annotation/Addendum On: 27-Aug-2017 10:58 Encounter Diagnosis: Encounter for screening mammogram for breast cancer (Renamed from Screening mammogram, encounter for) End: 27-Aug-2017 11:07 [facility] Lab Order On: 25-Jun-2017 16:41 Encounter Diagnosis: Benign essential HTN, Vitamin D deficiency, unspecified End: 25-Jun-2017 16:50 [facility] Office Visit On: 25-Jun-2017 12:46 Encounter Reason: Follow up for chronic medical issues - The patient has good energy level and is sleeping poorly (caring for spouse, plus sciatica). Patient has been compliant with instructions. Current medication use: End: 25-Jun-2017 13:49 compliant with dosing regimen. Patient sleeps 3 hours per night. Nutrition: balanced diet, supplemental vitamins and low salt diet. The medical issues the patient is following up for include All identif ied problems below, asthma, depression, fibromyalgia, gastric reflux, high blood pressure, high cholesterol, osteoarthritis, osteoporosis/osteopenia and other (vitamin d deficient). Note for Follow up for chronic medical issues: mostly concerned about weight loss, [ADDITIONAL REASON] Follow up tests - Diagnostic tests include other (labs). , [ADDITIONAL REASON] Sciatica - The cause of the sciatica is unknown. Encounter Diagnosis: Nonsmoker, Abnormal urine, BMI 20.0-20.9, adult, Insomnia, Benign essential HTN, Osteopenia [facility] Office Visit On: 21-Feb-2017 12:51 Encounter Reason: Follow up for chronic medical issues - The patient has good energy level (depending on how sleeping and has had to resort to tylenol pm to sleep) and is sleeping poorly (caring for spouse). Patient has End: 21-Feb-2017 14:09 been compliant with instructions. Current medication use: compliant with dosing regimen. Patient sleeps 5 (5-7 but husbad needs a lot of care so it is broken ) hours per night. Nutrition: balanced diet, supplemental vitamins and low salt diet. The medical issues the patient is following up for include All identified problems below, asthma, depression, fibromyalgia, gastric reflux, high blood pressure, high cholesterol, osteoarthritis, osteoporosis/osteopenia and other (vitamin d deficient)., [ADDITIONAL REASON] Follow up tests - Diagnostic tests include other (labs). Date: (02/13/17). Encounter Diagnosis: Body mass index (BMI) of 20 to 24, Nonsmoker, Benign essential HTN, Cough, Hypercholesteremia, Fibromyalgia (729.1), Osteopenia, Insomnia [facility] Office Visit On: 22-Nov-2016 11:33 Encounter Reason: Follow up for chronic medical issues - The patient has good energy level (depending on how sleeping and has had to resort to tylenol pm to sleep) and is sleeping poorly (caring for spouse). Patient has End: 22-Nov-2016 17:13 been compliant with instructions. Current medication use: experiencing side effects (?? prolia - itching and stiff neckAlso, weight loss?could that be a medication?) and compliant with dosing regime n. Patient sleeps 5 [facility]5-7 but [facility] so it is broken ) hours per night. Nutrition: balanced diet, supplemental vitamins and low salt diet. The medical issues the patient is following up for include All identified problems below, asthma, depression, fibromyalgia, gastric reflux, high blood pressure, high cholesterol, osteoarthritis, osteoporosis/osteopenia and other (vitamin d deficient).Encounter Diagnosis: Nonsmoker, Body mass index (BMI) of 20 to 24, Osteopenia, Depression, Benign essential HTN, Vitamin D deficiency, unspecified, History of tobacco abuse, Asthma, PVC (premature ventricular contraction), Gastroesophageal reflux disease without esophagitis, Hypercholesteremia, Fibromyalgia (729.1), Allergic rhinitis, Osteoarthritis, Skin lesion [facility] Phone Encounter On: 08-Aug-2016 14:46 Encounter Diagnosis: Encounter for screening mammogram for breast cancer (Renamed from Screening mammogram, encounter for) End: 08-Aug-2016 14:50 [facility] Office Visit On: 18-Jul-2016 11:33 Encounter Reason: Follow up tests - Date: (07.05.16)., [ADDITIONAL REASON] Follow up for chronic medical issues - The patient has good energy level and is End: 20-Jul-2016 17:51 sleeping poorly. Patient has been compliant with instructions. Current medication use: experiencing side effects (?? prolia - itching and stiff neckAlso, weight loss?? could that be a medication?) and compliant with dosing regimen. Patient sleeps 6 (usually 6, but last night was 5. ??taking care of who is ill - asked about support system and says her children live in [place]. ??) hours per ni ght. Nutrition: balanced diet, supplemental vitamins and low salt diet. The medical issues the patient is following up for include All identified problems below, asthma, depression, fibromyalgia, gastri c reflux, high blood pressure, high cholesterol, osteoarthritis, osteoporosis/osteopenia and other (vitamin d deficient). blood pressure range : (100's/70's to 120's/70's) and weight : (122). Encounter Diagnosis: Need for prophylactic vaccination and inoculation against influenza (Renamed from Need for immunization against influenza), Asthma, Benign essential HTN, Body mass index (BMI) of 20 to 24, Nonsmoker, Osteopenia, Weight Loss (Renamed from Decreased body weight), Hypercholesteremia, Depression [facility] Office Visit On: 26-Jan-2016 13:40 Encounter Reason: Injections - The medication the patient is here to receive is other (prolia).Encounter Diagnosis: Osteopenia End: 26-Jan-2016 14:40 [facility] Office Visit On: 19-Jan-2016 12:59 Encounter Reason: Follow up for chronic medical issues - The patient feels well with minor complaints (trouble getting weight back on- is eating whey protein and boost again), has good energy level and is sleeping well. End: 19-Jan-2016 13:59 Patient has been compliant with instructions. Current medication use: no side effects and compliant with dosing regimen. Patient sleeps 7 hours per night. Nutrition: balanced diet, supplemental vitamins and low salt diet. The medical issues the patient is following up for include All identified problems below, asthma, depression, fibromyalgia, gastric reflux, high blood pressure, high cholesterol, ost eoarthritis, osteoporosis/osteopenia and other (vitamin d deficient). blood pressure range : (100's/70's to 120's/70's) and weight : (122). Note for Follow up for chronic medical issues: she did have stomach bug this winter and lost weight and thinks this why what happen now- she is eating well and bp is good- dad had thin build- trying to increase protien and bp is good - taking 2800 a day- so will go down to 1800- she tolerated prolia well and they called her yesterday and said they were sending - she doesnt use pulmicort she doesnt feel like needs it rarely uses proair, [ADDITIONAL REASON] Follow up, Laboratory Test Results - Date: (01/2016). Encounter Diagnosis: Benign essential hypertension (401.1), Allergic rhinitis, Vitamin D deficiency, unspecified, Weight Loss (Renamed from Decreased body weight), Gastroesophageal reflux disease without esophagitis, Hypercholesteremia, Asthma [facility] Office Visit On: 06-Sep-2015 13:27 Encounter Reason: Annual Medicare Exam - The patient had reviewed and updated the family history, medication/s, past medical history and social history. Yes the patient did have a mini mental status exam done today. The End: 06-Sep-2015 21:37 activities of daily living the patient needs help with are none. The patient has driven in past 6 months and put area rugs through house, but the patient has not had fecal incontinence, had urinary inco ntinence, missed or ran out of medications to soon, fallen in the past 6 months, gotten lost, has a medalert necklace or bracelet or put handrails in bathroom. The patient has completed the following pr eventative measures: PAP smear (long time ago), mammography (2014) and colonoscopy (2013). The patient does not have durable power of research attorney or living will. The patient has noticed nothing from the ge riatic depression scale. Other providers contributing to the patient's care are other: (Opthmologist- in [place]- Dr. Schmidt). Note for Annual Medicare Exam: we discussedc prevnar and shingles , [ADDITIONAL REASON] Well Women Exam - The patient feels well with no complaints, has good energy level and is sleeping well. Pap smear: date of last pap: (several years ago). Contraceptive history: The patient is not using any method of contraception at this time. Patient exercises a weekly. The patient's libido is absent. The patient reports that she performs monthly self breast exam (some times cantu snt). Calcium intake includes 1200 mg with Vit D daily supplement and 2 serving(s) milk daily. Previous evaluations: cervical treatment (unspecified) (tubal ligation). The patient denies the use of oral contraceptives or hormone replacement therapy. Menstruation: Last menstrual period date: (post-chacorta). Note for Well Women Exam: tasking prolia no side effects and bone density improving we talkeda mary ann ut her dense breasts and needs to do more freq breast exams to check for change she not notice anything Encounter Diagnosis: Medicare annual wellness visit, initial, History of tobacco abuse, Osteopenia (733.90), Benign essential hypertension (401.1) [facility] Office Visit On: 30-Jul-2015 13:11 Encounter Reason: Injections - The medication the patient is here to receive is other (prolia).Encounter Diagnosis: Osteopenia (733.90) End: 30-Jul-2015 13:31 [facility] Office Visit On: 21-Jul-2015 12:52 Encounter Reason: Follow up for chronic medical issues - The patient feels well with no complaints, has good energy level and is sleeping well. Patient has been compliant with instructions. Current medication use: no adelina End: 22-Jul-2015 23:09 e effects and compliant with dosing regimen. Patient sleeps 7 hours per night. Nutrition: balanced diet, supplemental vitamins and low salt diet. The medical issues the patient is following up for inclu de All identified problems below, asthma, depression, fibromyalgia, gastric reflux, high blood pressure, high cholesterol, osteoarthritis, osteoporosis/osteopenia and other (vitamin d deficient). blood pressure range : (100's/70's to 120's/70's) and weight : (122). Note for Follow up for chronic medical issues: she ran out of [employer] protein weight down 3 pounds very active - trying to eat healthy- bp up a little but checks at home and good- breathing is good - no gerd - no palptiastions , [ADDITIONAL REASON] Follow up, Laboratory Test Results - Date: (07/05/15). Encounter Diagnosis: Benign essential hypertension (401.1), Need for prophylactic vaccination and inoculation against influenza (Renamed from Need for immunization against influenza), Osteopenia (733.90), VITAMIN D DEFICIENCY, NOS (268.9), Hypercholesteremia (272.0), screening, GERD (530.81), Weight Loss (Renamed from Decreased body weight) [facility] Refill Request On: 20-Jul-2015 14:05 Encounter Diagnosis: Osteopenia (733.90) End: 20-Jul-2015 14:06 [facility] Phone Encounter On: 02-Jul-2015 15:11 Encounter Diagnosis: VITAMIN D DEFICIENCY, NOS (268.9), Benign essential hypertension (401.1) End: 02-Jul-2015 15:15 [facility] Office Visit On: 16-Mar-2015 13:51 Encounter Reason: Follow up tests - Diagnostic tests include ECHO and other (heart monitor). Date: (03/02/15). Current symptoms include other (palpitations continue off and on). Note for Discuss procedure results: maybe End: 16-Mar-2015 21:19 not as often as before doent take decongestants and has cut back caffeineEncounter Diagnosis: PVC (premature ventricular contraction), Ectopic atrial tachycardia [facility] Office Visit On: 22-Feb-2015 16:57 Encounter Reason: Follow up ER - Reason for hospitalization note: (palpitations/pvc's). Patient has been compliant with instructions. Current medication use: no side effects and compliant with dosing regimen. The patient End: 22-Feb-2015 21:25 feels well with minor complaints (continues to have occasional pvc's), has good energy level and is sleeping well. Patient sleeps 7 hours per night. Note for Follow up ER: - she has felt less since o n toprol- not much caffiene no cp sob dizzy- - no syncope- day went to er had alot in row and said pulse was 40Encounter Diagnosis: Allergic Rhinitis(477.9), PVC (premature ventricular contraction) [facility] Office Visit On: 27-Jan-2015 14:37 Encounter Reason: Injections - The medication the patient is here to receive is other (prolia).Encounter Diagnosis: Osteopenia (733.90) End: 27-Jan-2015 14:49 [facility] Office Visit On: 15-Jan-2015 13:00 Encounter Reason: Follow up for chronic medical issues - The patient feels well with no complaints, has good energy level and is sleeping well. Patient has been compliant with instructions. Current medication use: no adelina End: 17-Jan-2015 18:45 e effects and compliant with dosing regimen. Patient sleeps 7 hours per night. Nutrition: balanced diet, supplemental vitamins and low salt diet. The medical issues the patient is following up for inclu de All identified problems below, asthma, depression, fibromyalgia, gastric reflux, high blood pressure, high cholesterol, osteoarthritis, osteoporosis/osteopenia and other (vitamin d deficient). blood pressure range : (100's/70's to 120's/70's) and weight : (122). Note for Follow up for chronic medical issues: No routine labs done for todays visit.-no gerd no dizzy fatigue- her breathing is better with pulmicort and doesnt have to use rescue inhaler routnely - she is going to get next dose of prolia tolerated wellEncounter Diagnosis: Benign essential hypertension (401.1), VITAMIN D DEFICIENCY, NOS (268.9), Hypercholesteremia (272.0), Asthma (493.11), Osteopenia (733.90), screening [facility] Office Visit On: 28-Jul-2014 14:23 Encounter Reason: Injections - The medication the patient is here to receive is other (prolia). history: Patient is not currently .Encounter Diagnosis: Osteopenia (733.90) End: 28-Jul-2014 21:58 [facility] Office Visit On: 08-Jul-2014 13:24 Encounter Reason: Follow up for chronic medical issues - The patient feels well with minor complaints (concerned about being underweight- hx of weight loss. Wonders about an alternative to the pulmicort, irritated her th End: 08-Jul-2014 14:09 roat.), has good energy level and is sleeping well. Patient has been compliant with instructions. Current medication use: no side effects and compliant with dosing regimen. Patient sleeps 7 hours per ni ght. Nutrition: balanced diet, supplemental vitamins and low salt diet. The medical issues the patient is following up for include All identified problems below, asthma, depression, fibromyalgia, gastri c reflux, high blood pressure, high cholesterol, osteoarthritis, osteoporosis/osteopenia and other (vitamin d deficient). blood pressure range : (100's/70's to 120's/70's) and weight : (122). Note for Follow up for chronic medical issues: NO routine labs done for todays visit.- osteopenia not tolerating orals not due for bone density- but concern she near osteoprosis and worsening and encoruaged rou lacey walkign and is taking calcium and vit d and bp is good- had colonsocopy this year ok no egd - no gerd or trouble swallowing - pateint not wanting spirometry to see numbers going to try pulmicort on ce a day and see if tolerates and is rinsing afterEncounter Diagnosis: Hypercholesteremia (272.0), Osteopenia (733.90), Weight Loss (Renamed from Decreased body weight), VITAMIN D DEFICIENCY, NOS (268.9), GERD (530.81), Benign essential hypertension (401.1), Asthma (493.11) [facility] Office Visit On: 06-Jan-2014 13:45 Encounter Reason: Back pain - The onset of the pain has been sudden and has been occurring in a persistent pattern for 4 days. The course has been constant. The pain is characterized as stabbing. The pain is described as End: 06-Jan-2014 23:34 being located in the lower back. The pain is precipitated by heavy weight lifting (was shoveling snow couple weeks ago and thinks it could be from that). There has been no associated abdominal pain, ch ills, dysuria, fever, hip pain, incontinence of stool, incontinence of urine or leg weakness. Note for Pain: started in between shoulder blades sunday and now its all in lumbar sacral area and into ea ch buttock.- no radicular no weak or numb in leg no loss of bowel or bladder control hurts to sit or put alot of weigth on that sideEncounter Diagnosis: LOW BACK PAIN WITH RADICULOPATHY (724.4) [facility] Office Visit On: 15-Dec-2013 15:38 Encounter Reason: Follow up for chronic medical issues - The patient feels well with minor complaints (wants to talk about how much is too much of vit d to take? Concerned she is taking too much.), has good energy level End: 15-Dec-2013 20:21 and is sleeping well. Patient has been compliant with instructions. Current medication use: experiencing side effects (occasional cramps and aches from crestor) and compliant with dosing regimen. Patien t sleeps 7 hours per night. Nutrition: balanced diet, supplemental vitamins and low salt diet. The medical issues the patient is following up for include All identified problems below, asthma, depressio n, fibromyalgia, gastric reflux, high blood pressure, high cholesterol, osteoarthritis, osteoporosis/osteopenia and other (vitamin d deficient). blood pressure range : (100's/70's to 120's/70's) and barbara ght : (122). Note for Follow up for chronic medical issues: weight ??continues to go down - she feels well- bp is good and labs good and feels she is tolerating crestor ok - appetite good and not cut back - some abdomen cramping no blood in stool- matty paulien dailyin addition tomeals, [ADDITIONAL REASON] Follow up, Laboratory Test Results - Date: (12/03/13). Encounter Diagnosis: Benign essential hypertension (401.1), Osteopenia (733.90), VITAMIN D DEFICIENCY, NOS (268.9), GERD (530.81), Hypercholesteremia (272.0), Weight Loss (Renamed from Decreased body weight) [facility] Phone Encounter On: 04-Aug-2013 16:20 Encounter Diagnosis: Unspecified Diagnosis End: 04-Aug-2013 16:21 [facility] Phone Encounter On: 04-Aug-2013 15:51 Encounter Diagnosis: Unspecified Diagnosis End: 04-Aug-2013 15:54 [facility] Office Visit On: 28-Jul-2013 16:32 Encounter Reason: Follow up for chronic medical issues - The patient feels well with no complaints, has good energy level and is sleeping well. Patient has been compliant with instructions. Current medication use: no adelina End: 28-Jul-2013 20:26 e effects and compliant with dosing regimen. Patient sleeps 7 hours per night. Nutrition: balanced diet, supplemental vitamins and low salt diet. The medical issues the patient is following up for inclu de All identified problems below, asthma, depression, fibromyalgia, gastric reflux, high blood pressure, high cholesterol, osteoarthritis, osteoporosis/osteopenia and other (vitamin d deficient). blood pressure range : (100's/70's to 120's/70's) and weight : (122). Note for Follow up for chronic medical issues: she is checking bps at home 120/70 not usually this high- no gerd - not exercising more t hatn twice a week and not takign calcium- she isnt taking her pulmicort she needs to , [ADDITIONAL REASON] Follow up, Laboratory Test Results - Date: (07/18/13). Encounter Diagnosis: Allergic Rhinitis(477.9), Need for prophylactic vaccination and inoculation against influenza (V04.81), VITAMIN D DEFICIENCY, NOS (268.9), Benign essential hypertension (401.1), GERD (530.81), Asthma (493.11), Osteopenia (733.90), Hypercholesteremia (272.0), screening [facility] Office Visit On: 26-Mar-2013 15:57 Encounter Reason: Follow up for chronic medical issues - The patient feels well with no complaints, has good energy level and is sleeping well. Patient has been compliant with instructions. Current medication use: no adelina End: 27-Mar-2013 21:52 e effects and compliant with dosing regimen. Patient sleeps 7 hours per night. Nutrition: balanced diet, supplemental vitamins and low salt diet. The medical issues the patient is following up for inclu de All identified problems below, asthma, depression, fibromyalgia, gastric reflux, high blood pressure, high cholesterol, osteoarthritis, osteoporosis/osteopenia and other (vitamin d deficient). blood pressure range : (100's/70's to 120's/70's) and weight : (122). Note for Follow up for chronic medical issues: weight is down a few pounds- and bp is good - no gerd- no asthma issues - not needing resucue inhaler chol good and feeling good , [ADDITIONAL REASON] Follow up, Laboratory Test Results - Date: (03/17/13). Encounter Diagnosis: Allergic Rhinitis(477.9), VITAMIN D DEFICIENCY, NOS (268.9), Osteopenia (733.90), GERD (530.81), Asthma (493.11), Hypercholesteremia (272.0), Benign essential hypertension (401.1), Depression (311.) [facility] Office Visit On: 20-Nov-2012 15:45 Encounter Reason: Follow up for chronic medical issues - The patient feels well with minor complaints (should she be using the pulmicort inhaler daily when no problems?? Talk about crestor, causing myalgia), has good beth End: 21-Nov-2012 19:42 rgy level and is sleeping well. Patient has been compliant with instructions. Current medication use: experiencing side effects (crestor causing muscle aches) and compliant with dosing regimen. Patient sleeps 7 hours per night. Nutrition: balanced diet, supplemental vitamins and low salt diet. The medical issues the patient is following up for include All identified problems below, asthma, depression, fibromyalgia, gastric reflux, high blood pressure, high cholesterol, osteoarthritis, osteoporosis/osteopenia and other (vitamin d deficient). blood pressure range : (100's/70's to 120's/70's) and weigh t : (122). Note for Follow up for chronic medical issues: not having rotuine gerd at all pfeeling pretty good checking bps at home pretty good at home- she didnt get bone density or xray- she has had no asthma issues , [ADDITIONAL REASON] Follow up, Laboratory Test Results - Date: (11/11/12). Encounter Diagnosis: Benign essential hypertension (401.1), PREVENTION OF PNEUMONIA (V03.82), Hypercholesteremia (272.0), VITAMIN D DEFICIENCY, NOS (268.9), GERD (530.81), Asthma (493.11), Osteopenia (733.90) [facility] Office Visit On: 22-Jul-2012 14:45 Encounter Reason: Follow up for chronic medical issues - The patient feels well with minor complaints (neck pain/stiffness- associated with sleeping wrong she thinks...could be from OA or fibromyalgia??), has good energy End: 22-Jul-2012 15:31 level and is sleeping well. Patient has been compliant with instructions. Current medication use: no side effects and compliant with dosing regimen. Patient sleeps 7 hours per night. Nutrition: balance d diet, supplemental vitamins and low salt diet. The medical issues the patient is following up for include All identified problems below, asthma, depression, fibromyalgia, gastric reflux, high blood pr essure, high cholesterol, osteoarthritis, osteoporosis/osteopenia and other (vitamin d deficient). blood pressure range : (100's/70's to 120's/70's) and weight : (122). Note for Follow up for chronic m edical issues: she addeed in whey protein - maybe add more protein percent- she is very active weight down 3 pounds- bp is good- no gerd - appetitie is good and eats alot of veggies- and no gi sx, [ADDITIONAL REASON] Follow up, Laboratory Test Results - Date: (07/04/12). Encounter Diagnosis: Asthma (493.11), Need for prophylactic vaccination and inoculation against influenza (V04.81), Benign essential hypertension (401.1), Hypercholesteremia (272.0), GERD (530.81), VITAMIN D DEFICIENCY, NOS (268.9), Osteopenia (733.90), Cervical radiculopathy (723.4) [facility] Phone Encounter On: 17-Jun-2012 15:53 Encounter Diagnosis: Screening for breast cancer (V76.10) End: 17-Jun-2012 15:55 [facility] Office Visit On: 20-Feb-2012 14:54 Encounter Reason: Follow up, Laboratory Test Results - Date: (february 12, 2012)., [ADDITIONAL REASON] Follow up for chronic medical issues - The patient feels well with no complaints End: 20-Feb-2012 21:38 , has good energy level and is sleeping well. Patient has been compliant with instructions. Current medication use: no side effects and compliant with dosing regimen. Patient sleeps 6 hours per night. N utrition: balanced diet, supplemental vitamins and low salt diet. The medical issues the patient is following up for include All identified problems below, asthma, depression, fibromyalgia, gastric refl ux, high blood pressure, high cholesterol, osteoarthritis, osteoporosis/osteopenia and other (vitamin d deficient). blood pressure range : (100's/70's to 120's/70's) and weight : (home- 122). Note for Follow up for chronic medical issues: she doesnt wan to take statin wants to try fish oil and flax seed -- 4gms and 1 tbsp flax seed Encounter Diagnosis: Benign essential hypertension (401.1), GERD (530.81), Hypercholesteremia (272.0), screening , VITAMIN D DEFICIENCY, NOS (268.9), Asthma (493.11) [facility] Phone Encounter On: 15-Nov-2011 16:48 Encounter Diagnosis: Hypercholesteremia (272.0) End: 15-Nov-2011 16:50 [facility] Office Visit On: 24-Oct-2011 14:17 Encounter Reason: Follow up for chronic medical issues - The patient feels well with minor complaints (alot of muscle pain- fibro or simvastatin?), has good energy level and is sleeping well. Patient has been compliant w End: 24-Oct-2011 15:21 ith instructions. Current medication use: experiencing side effects (myalgia from statin? Niacin making her itch really bad) and compliant with dosing regimen. Patient sleeps 6 hours per night. Nutritio n: balanced diet, supplemental vitamins and low salt diet. The medical issues the patient is following up for include All identified problems below, asthma, depression, fibromyalgia, gastric reflux, hig h blood pressure, high cholesterol, osteoarthritis, osteoporosis/osteopenia and other (vitamin d deficient). blood pressure range : (100's/70's to 120's/70's) and weight : (home- 122). Note for Follow up for chronic medical issues: weight stable and bp is good but took a ??long driving trip to [place] and flared her back- she will wake in am and feel achey in shoulders and legs and legs feel not as strong- noissues with the asthma- rarely feels tight- and no gerd- her bone density up to date- mood is stable, [ADDITIONAL REASON] Follow up, Laboratory Test Results - Date: (10/18/11). Encounter Diagnosis: Need for prophylactic vaccination and inoculation against influenza (V04.81), Hypercholesteremia (272.0), Benign essential hypertension (401.1), GERD (530.81), VITAMIN D DEFICIENCY, NOS (268.9), Osteopenia (733.90), LOW BACK PAIN WITH RADICULOPATHY (724.4), Asthma (493.11), Fibromyalgia (729.1), Depression (311.) [facility] Office Visit On: 15-May-2011 16:21 Encounter Reason: Follow up for chronic medical issues - The patient feels well with no complaints, has good energy level and is sleeping well. Patient has been compliant with instructions. Current medication use: no adelina End: 15-May-2011 17:11 e effects and compliant with dosing regimen. Patient sleeps 6 hours per night. Nutrition: balanced diet, supplemental vitamins and low salt diet. The medical issues the patient is following up for inclu de All identified problems below, asthma, depression, fibromyalgia, gastric reflux, high blood pressure, high cholesterol, osteoarthritis, osteoporosis/osteopenia and other (vitamin d deficient). blood pressure range : (100's/70's to 120's/70's) and weight : (home- 122). Note for Follow up for chronic medical issues: back alot better with pt - trying to maintain - it - bp is good- and chol good- vit d level is good- no gerd- breathing doing pretty good- not using proair weekly, [ADDITIONAL REASON] Follow up, Laboratory Test Results - Date: (05/04/11). Encounter Diagnosis: Asthma (493.11), Hypercholesteremia (272.0), VITAMIN D DEFICIENCY, NOS (268.9), GERD (530.81), Osteopenia (733.90), Benign essential hypertension (401.1), LOW BACK PAIN WITH RADICULOPATHY (724.4) [facility] Phone Encounter On: 11-Apr-2011 12:51 Encounter Diagnosis: ABFND, RADIOLOGICAL, ABDOMINAL AREA (793.6) End: 11-Apr-2011 13:01 [facility] Office Visit On: 20-Feb-2011 15:46 Encounter Reason: sciatica - The leg pain began suddenly and has been occurring for 1 week. The symptoms have been occurring in a persistent pattern. The symptoms are described as a burning sensation, piercing pain and s End: 20-Feb-2011 16:18 harp, stabbing pain and are moderate to severe. The symptoms occur during the day. There is involvement of the right lower extremity and buttocks. Precipitating factors include exertion (slipped off be d last week). Aggravating factors include exertion. Relief is provided by rest. There has been no associated chest pain, dizziness, dyspnea, muscle weakness, numbness and tingling in toes, calf swelling , cough, fever or chills. There have been no previous evaluations. Note for sciatica: has had in past with no intervention- but not getting better this time- standing makes worse- not sitting- - pain radiates all the way down right leg- if pain really bad feels weak no numb- no loss f bowel or bladder control- worse to stand then wwalkEncounter Diagnosis: LOW BACK PAIN WITH RADICULOPATHY (724.4) [facility] Office Visit On: 06-Feb-2011 16:51 Encounter Reason: Follow up for chronic medical issues - The patient feels well with minor complaints (had an issue last week with elevated bp during a stressful time and wonders what she is to do to get it back down. ), End: 06-Feb-2011 23:15 has good energy level and is sleeping well. Patient has been compliant with instructions. Current medication use: no side effects and compliant with dosing regimen. Patient sleeps 6 hours per night. Nu trition: balanced diet, supplemental vitamins and low salt diet. The medical issues the patient is following up for include All identified problems below, asthma, depression, fibromyalgia, gastric reflu x, high blood pressure, high cholesterol, osteoarthritis, osteoporosis/osteopenia and other (vitamin d deficient). blood pressure range : (100's/70's to 120's/70's) and weight : (home- 122). Note for Scott oconnor up for chronic medical issues: she is only taking 10 mg of simvisitatin a dasy- higher dose made her ache- but chol up and she is watching diet meticulously- and exercising- but cant get down wi thout meds- no gerd- no issues with fibro and mood is ok, [ADDITIONAL REASON] Follow up, Laboratory Test Results - Date: (12/29/10). Encounter Diagnosis: Asthma (493.11), Hypercholesteremia (272.0), Benign essential hypertension (401.1), GERD (530.81), Osteopenia (733.90), Fibromyalgia (729.1), VITAMIN D DEFICIENCY, NOS (268.9), screening, lesion left cheek [facility] Phone Encounter On: 27-Dec-2010 11:12 Encounter Diagnosis: Unspecified Diagnosis End: 27-Dec-2010 11:18 [facility] Office Visit On: 24-Aug-2010 15:11 Encounter Reason: Follow up for chronic medical issues - The patient feels well with no complaints, has good energy level and is sleeping well. Patient has been compliant with instructions. Current medication use: no adelina End: 24-Aug-2010 22:49 e effects and compliant with dosing regimen. Patient sleeps 6 hours per night. Nutrition: balanced diet, supplemental vitamins and low salt diet. The medical issues the patient is following up for inclu de All identified problems below, asthma, depression, fibromyalgia, gastric reflux, high blood pressure, high cholesterol, osteoarthritis, osteoporosis/osteopenia and other (vitamin d deficient). blood pressure range : (100's/70's to 120's/70's) and weight : (home- 122). Note for Follow up for chronic medical issues: - she feels better cutting simvistatin in half- - her bp at home 120 usually or lo wer- - no gerd- the asthma has been good- not evven using the pulmicort- seems to be dogs that flare- paresthesia is gone , [ADDITIONAL REASON] Follow up, Laboratory Test Results - Date: (05/03/10). Encounter Diagnosis: Hypercholesteremia (272.0), Osteopenia (733.90), Need for prophylactic vaccination and inoculation against influenza (V04.81), Benign essential hypertension (401.1), Asthma (493.11), GERD (530.81), Abdominal Pain,RLQ (789.03) [facility] Historical Summary On: 18-May-2010 15:52 [facility] End: 18-May-2010 15:57 Office Visit On: 05-Jan-2010 15:31 Encounter Reason: Arm pain - The onset of the pain has been gradual and has been occurring in an intermittent pattern for 3 months. The course has been recurrent. The pain is described as mild (electrical feeling). The p End: 06-Jan-2010 21:08 ain is described as being located in the left shoulder ,left humerus ,left forearm and left wrist. The pain is relieved by nothing. Note for Arm pain: starts in shoulder- feels like tingle in arm whic h goes down wrist- not at night- notices most when sitting -no pain-- no weakness in arm-- lasts seconds-- no chest pain or sob- does have some pain in neck on left- hurts certain movements of head, [ADDITIONAL REASON] Follow up for chronic medical issues - The patient feels well with minor complaints (arm pain) ,has good energy level and is sleeping well. Patient has been compliant with instructi ons. Current medication use: no side effects and compliant with dosing regimen. Patient sleeps 7 hours per night. Nutrition: balanced diet ,supplemental vitamins and low salt diet. The medical issues th e patient is following up for include All identified problems below ,asthma ,depression ,fibromyalgia ,gastric reflux ,high blood pressure ,high cholesterol ,osteoarthritis ,osteoporosis/osteopenia and other (vitamin d deficient). blood pressure range : (120's/70's to 130's/80's) and weight :. Note for Follow up for chronic medical issues: sh ehasnt been taking evista- just hasnt renewed- but no adelina e effects on - bx site healed- no issues with the asthma- doesnt use albuterol weekly - rarely uses , [ADDITIONAL REASON] Follow up, Laboratory Test Results - Date: (12/27/09). Encounter Diagnosis: Allergic Rhinitis(477.9), Benign essential hypertension (401.1), Osteopenia (733.90), Hypercholesteremia (272.0), GERD (530.81), Asthma (493.11), Parasthesia (782.0) [facility] Office Visit On: 14-Sep-2009 15:41 Encounter Reason: Skin problems - The onset of the skin problem has been gradual and has been occurring in a persistent pattern for 2 weeks. The course has been constant. The skin problem is described as moderate. Note f End: 14-Sep-2009 23:27 or Skin problems: pt had mole removed on left upper chest and around the site of incision its red and inflamed. No oozing or puss. No fevers. Sore to touch.Encounter Diagnosis: biopsy site infection [facility] Office Visit On: 31-Aug-2009 10:54 Encounter Diagnosis: Lesion(238.2) End: 31-Aug-2009 23:02 [facility] Office Visit On: 23-Aug-2009 16:02 Encounter Reason: Follow up for chronic medical issues - The patient feels well with no complaints ,has good energy level and is sleeping well. Patient has been compliant with instructions. Current medication use: no adelina End: 23-Aug-2009 22:13 e effects and compliant with dosing regimen. Patient sleeps 7 hours per night. Nutrition: balanced diet ,supplemental vitamins and low salt diet. The medical issues the patient is following up for inclu de All identified problems below ,asthma ,depression ,fibromyalgia ,gastric reflux ,high blood pressure ,high cholesterol ,osteoarthritis ,osteoporosis/osteopenia and other (vitamin d deficient). Note f or Follow up for chronic medical issues: her vit d level is good and so is chol with out side effects- no gerd - her bps at home typically running 110-120 - she is doing fair amount caffeine so will s tart working on that- - no change in the fibromyalgia, [ADDITIONAL REASON] Follow up, Laboratory Test Results - Date: (08/18/09). Encounter Diagnosis: Osteopenia (733.90), Benign essential hypertension (401.1), Hypercholesteremia (272.0), Asthma (493.11), screening, Lesion(238.2) [facility] Office Visit On: 17-May-2009 14:35 Encounter Reason: Follow up for chronic medical issues - The patient feels well with no complaints. Patient has been compliant with instructions. Current medication use: no side effects. Patient sleeps 7 hours per night. End: 17-May-2009 15:26 Impact of disease: no overall impact. Nutrition: balanced diet. The medical issues the patient is following up for include All identified problems below ,depression ,high blood pressure ,high cholester ol ,osteoarthritis and other (fibromyalgia). blood pressure range : (05/13/09 7am 138/897/10/13 9:30pm 150/847/10/13 10:15Pm 135/767/18/07 7:20am 138/871/18/07 12:45Pm 138/82). Note for Follow up for chr onic medical issues: mood has been good- we think she shoiuld take something for her bp- she has been managing her mood- she is not having any gerd- --no hot flashes on the evista, [ADDITIONAL REASON] Follow up, Laboratory Test Results - Lab results: other (Lipid, CMP, CBC, TSH, CRP). Date: (05/13). Current symptoms/reason for visit include/s Symptoms include weakness. Encounter Diagnosis: Benign essential hypertension (401.1) , Osteopenia (733.90), GERD (530.81), Fibromyalgia (729.1), Depression (311.), Hypercholesteremia (272.0), Chest pain (786.59), Abdominal Pain,RLQ (789.03), VITAMIN D DEFICIENCY, NOS (268.9) [facility] Office Visit On: 12-May-2009 14:04 Encounter Diagnosis: Elevated Blood Pressure without diagnosis of Hypertension (796.2), Nausea (787.02) End: 12-May-2009 16:46 [facility] Historical Summary On: 10-Nov-2008 13:47 [facility] End: 10-Nov-2008 13:48 Office Visit On: 26-Aug-2008 15:05 Encounter Reason: Follow up for chronic medical issues - The patient feels well with minor complaints (sore throat) ,has good energy level and is sleeping well. Patient has been compliant with instructions. Current medic End: 27-Aug-2008 21:04 ation use: experiencing side effects (muscle aches from zetia) and compliant with dosing regimen. Patient sleeps 6 hours per night. Nutrition: balanced diet ,supplemental vitamins and low salt diet. The medical issues the patient is following up for include All identified problems below ,asthma ,depression ,fibromyalgia ,gastric reflux ,high cholesterol and osteoporosis/osteopenia. Note for Follow up for chronic medical issues: her mood is good-- she is not having much gerd- her - she didnt like actonel gave her gerd- is taking calcium and vitd, [ADDITIONAL REASON] Follow up, Diagnostic Procedure Results - Diagnostic tests include other (bone density). Date: (08/04/08). , [ADDITIONAL REASON] Sore throat - The onset of the sore throat has been gradual and has been occurri ng in an intermittent pattern for months. The course has been unchanged. The symptoms have been associated with difficulty in swallowing ,post-nasal drip and runny nose, while the symptoms have not been associated with change in voice ,chest pain ,chills ,cough ,ear pain ,fever or sinus pain. Note for Sore throat: left tonsil gets sensitive-- comes and goes- sometimes sinus drainage- she hasnt tried anything Encounter Diagnosis: Osteopenia (733.90), ACUTE PHARYNGITIS (462.), GERD (530.81), Depression (311.), Hypercholesteremia (272.0) [facility] Office Visit On: 11-Dec-2007 13:03 Encounter Reason: Follow up for chronic medical issues - The patient feels well with minor complaints ,has good energy level and is sleeping well. Patient has been compliant with instructions. Current medication use: no End: 11-Dec-2007 13:30 side effects. Patient sleeps 7 hours per night. Impact of disease: no overall impact. Nutrition: balanced diet and supplemental vitamins. The medical issues the patient is following up for include All i dentified problems below ,depression ,fibromyalgia ,gastric reflux ,high cholesterol ,osteoarthritis and osteoporosis/osteopenia. blood pressure range : (120- 130/80). Note for Follow up for chronic med ical issues: no issues with the gerd if she watches her diet -- and mood is stable, [ADDITIONAL REASON] Follow up, Laboratory Test Results - Date: (10/25/07). Encounter Diagnosis: Hypercholesteremia (272.0), Depression (311.), Osteopenia (733.90) , GERD (530.81), Fibromyalgia (729.1) [facility] Historical Summary On: 16-Sep-2007 8:25 [facility] End: 16-Sep-2007 8:27 Office Visit On: 17-Jun-2007 14:52 Encounter Reason: Follow up, Diagnostic Procedure Results - Diagnostic tests include chest X-ray (05/30/07- on face sheet) and ECHO (05/20/07- on paper chart). Note for Follow up, Diagnostic Procedure Results: her breath End: 17-Jun-2007 15:41 ing has really improved and chest sx improved and she is happy and no side effects of the medicine-- the echo was essentially normal-- -- we discussed avoidance of triggers-- Encounter Diagnosis: Hypercholesteremia (272.0), Asthma (493.11), Other seborrheic keratosis (702.19) [facility] Office Visit On: 13-May-2007 15:26 Encounter Reason: Follow up for chronic medical issues - The patient feels well with no complaints ,has good energy level and is sleeping well. Patient has been compliant with instructions. Current medication use: experi End: 13-May-2007 16:50 encing side effects (diarreha and fatigue from zetia) and non-compliant with dosing regimen (stopped taking the zetia ). Nutrition: balanced diet ,supplemental vitamins and low salt diet. The medical is sues the patient is following up for include All identified problems below ,asthma ,depression ,gastric reflux ,high cholesterol ,osteoarthritis ,osteoporosis/osteopenia and other (ddd, ibs). blood pres sure range : and weight :. Note for Follow up for chronic medical issues: intermittent diarrhea with the zetia and felt fatigue--- but not feel significant enough to stop and she wants to retry with f iber- she doesnt want anything for mood- she has made no decisions regarding her - this tenseness from her relationship issues does affect her rarely does she use meds for asthma- athough getting chest pressure- sometimes at night - sometimes after a meal- occasionally feels sob- no cough but tickle in throat on occ-- no wheezing- or fever-- feels tight in the chest- , [ADDITIONAL REASON] Follow up, Laboratory Test Results - Date: (05/01/07- on face sheet). Encounter Diagnosis: Hypercholesteremia (272.0), Asthma (493.11), Chest pain (786.59), Depression (311.) [facility] Office Visit On: 26-Dec-2006 14:33 Encounter Reason: Follow up, Laboratory Test Results - Date: (12/11/06- onnface sheet). Note for Follow up, Laboratory Test Results: is monitoring bp at home and tends to run 120- she is restricting for the diet and exercising routinely End: 26-Dec-2006 15:10 Encounter Diagnosis: Hypercholesteremia (272.0) [facility] Office Visit On: 24-Oct-2006 14:27 Encounter Reason: Follow up for chronic medical issues - The patient feels well with no complaints. Patient has been compliant with instructions. Current medication use: no side effects. Patient sleeps 6 hours per night. End: 24-Oct-2006 15:27 Nutrition: balanced diet. The medical issues the patient is following up for include All identified problems below ,high cholesterol ,osteoporosis/osteopenia and other (IBS). Note for Follow up for ch ronic medical issues: notes that she really isnt routinely bothered by the abd pain and therefore doesnt want intervention and there was a lab mix up so chol not done but she is working really hard on the diet and exercsisng routinely Encounter Diagnosis: Hypercholesteremia (272.0) [facility] Historical Summary On: 05-Oct-2006 7:49 [facility] End: 05-Oct-2006 7:52 Office Visit On: 24-Jul-2006 9:19 Encounter Reason: Well Women Exam - The patient feels well with no complaints ,has good energy level and is sleeping well. Pap smear: date of last pap: (2003). Contraceptive history: The current method of contraception i End: 24-Jul-2006 10:07 s condom-male ,diaphragm and oral contraceptives. Patient exercises 3 - 4 times per week. The patient's libido is absent. The patient reports that she performs monthly self breast exam. Calcium intake i ncludes 1200 mg with Vit D daily supplement. The patient denies the use of hormone replacement therapy. Encounter Diagnosis: Abdominal Pain,RLQ (789.03), well female, stool cards [facility] Office Visit On: 06-Jul-2006 7:48 Encounter Reason: Follow up, Diagnostic Procedure Results - Diagnostic tests include mammography (and bone density) and ultrasound (pelvic 05/30/06). Note for Follow up, Diagnostic Procedure Results: We discussed the mary ann End: 09-Jul-2006 20:13 ne density in detail and the risk of future fracture and increased morbidity and mortality, she didnt tolerate the actonel and discussed the other options like Evista and Boniva but at this point she un derstands the risks but doesnt wish to take and meds. We also discussed calcium and Vit D and wt bearing exercise. Mammo normal.Encounter Diagnosis: Hypercholesteremia (272.0), Osteopenia (733.90), Abdominal Pain,RLQ (789.03) [facility] Office Visit On: 05-Jul-2006 15:31 [facility] End: 06-Jul-2006 6:30 Payers Nain Villasenor; krysta guarantor
--- OUTSIDE RECORDS SUMMARY | 2019-01-24 18:03 | XMS RPT_ITS | Continuity of Care Document ---
:1935 Author Organization [facility] Address [address] [place] [address] Phone Care Team Providers Name Role Phone [...] days Quantity: 90 {Tablet} Refills: 3 Ordered:06-Mar-2018 Iefanyi NAIK, Luiza MELVINautumn NAIK, Luiza Centeno Start [...] for 0 days Refills: 0 Ordered:20-Feb-2012 Long LAY OUT DRAFTER, Rody L End : 20-Feb-2012 Inactive CLARINEX, 5MG (Oral Tablet) 1 tab qd,prn for 0 days Refills: 0 Ordered:24-Aug-2010 Myah Warren End : 24-Aug-2010 Inactive ERGOCALCIFEROL, 49314LQEG (Oral Capsule) 1 (one) Capsule q week [...] : 24-Aug-2010 Discontinued Comments:This order discontinued per [facility]. PULMICORT, 0.5MG/2ML (Inhalation Suspension) 2 QD [...] and Lateral Result: Comments: See Note; NOTES: [facility] Imaging Services [address] [place] [address] Chest PA and Lateral MR#: [id number] Acct: [id number] Name: DANNIE VILLASENOR Rep #: [id number] : 1935 F 82 From: Saira Estevez MD PCP: Luiza Suggs NP Status: REG CLI Study: Chest PA and Lateral Date of Exam: 01/02/18 Exam# [id number] Ordering Dr: Luiza Suggs STUDY: X-RAY CHEST [...] , Service support , CC: Luiza Suggs MACHINE GREASER Automotive Engineer: Signed 10-Sep-2017 SCREENING MAMM (CAD), BILAT Result: Comments: See Note; NOTES: [facility] Imaging Services [address] [place] [address] SCREENING MAMM (CAD), BILAT MR#: [id number] Acct: [id number] Name: DANNIE VILLASENOR Rep #: [id number] : 1935 F 81 From: Hayder Elkins MD PCP: Luiza Suggs Status: REG CLI Study: SCREENING MAMM (CAD), BILAT Date of Exam: 09/10/17 Exam# [id number] Ordering Dr: Luiza Suggs MAMM OGRAPHY - [...] delay biopsy of a clinically suspicious abnormality. [id number] Electronically Signed: Hayder Elkins MD at 15:3 3 EST Tel [phone], Service support , CC: Luiza Suggs Automotive Engineer: Signed 14-Aug-2016 Bilat Scrn Digital AND CAD Result: Comments: See Note; NOTES: [facility] Imaging Services [address] [place] [address] Verdana 4d Bilat Scrn Digital AND CAD MR#: [id number] Acct: [id number] Name: MONSERRAT VILLASENOR Rep #: [id number] : 1935 F 80 From: Celena Sierra MD PCP: Eugene Vides Status: REG CLI Study: Bilat Scrn Digital AND CAD Date of Exam: 08/14/16 Exam# [id number] Ordering Dr: Eugene Vides MAMMOGRAPHY - BILATERAL [...] delay biopsy of a clinically suspicious abnormality. [id number] Electronically Signed: Celena Sierra MD at 17:07 EDT Tel , S peggy support [phone], CC: Eugene Vides Automotive Engineer: Signed 10-Aug-2015 Bilat Scrn Digital AND CAD Result: Comments: See Note; NOTES: [facility] Imaging Services [address] [place] [address] Breast Imaging Report MR#: [id number] Acct: [id number] Name: DANNIE VILLASENOR Jere Wagner p #: [id number] : 1935 F 79 From: Hayder Elkins MD PCP: Joann Motley DO Status: REG CLI Study: Bilat Scrn Digital AND CAD Date of Exam: 08/10/15 Exam# [id number] Ordering Dr: Joann Motley DO MAMMOGRAPHY - [...] Hayder Elkins MD at 11:05 EDT Tel [phone], Service support [phone], CC: Joann Motley DO Automotive Engineer: Signed 10-Aug-2015 Dexa Bone Density Study (HP) Result: Comments: See Note; NOTES: [facility] Imaging Services [address] [place] [address] Bone Density Report MR#: [id number] Acct: [id number] Name: DANNIE VILLASENOR Rep #: [id number] : 1935 F 79 From: Hayder Elkins MD PCP: Joann Motley DO Status: [facility] CLI Study: Dexa Bone Density Study (HP) Date of Exam: 08/10/15 Exam# [id number] Ordering Dr: Joann Motley DO STUDY: DUAL [...] Hayder Elkins MD at 11:21 EDT Tel [phone], Service support [phone], CC: Joann Motley DO Automotive Engineer: Signed 02-Mar-2015 Echocardiogram Complete Result: Comments: See Note; NOTES: [facility] Cardiovascular Services [address] [place] [address] Echo Complete 03/02/15 1057 MR#: [id number] Acct: [id number] Name: DANNIE VILLASENOR Rep #: [id number] : 1935 79 From: Neal Lr MD Attending Dr: Joann Motley DO Status: REG CLI Ordering Dr: Joann Motley DO Date: 03/02/15 Location: [facility] Sex: F C Admitted: P [facility] This was a 2D Doppler, Color [...] DO Date Dictated: 03/02/151056 Date Transcribed: 03/02/151837 Automotive Engineer: Signed 15-Feb-2015 12 Lead Electrocardiogram Result: Comments: See Note; NOTES: [facility] Cardiovascular Services [address] [place] [address] 12 Lead EKG 02/12/15 1220 MR#: [id number] Acct: [id number] Name: LEYDI VILLASENOR RGARET C Rep #: [id number] : 1935 79 From: Kyler Carroll MD [...] normal ECG Confirmed by KYLER CARROLL ([id number]), science editor PROSPER QUINONES ([id number]) on 02/15/2015 12 :01:17 PM Referred By: SHERRY Confirmed By:KYLER CARROLL 02/15 1201 Date Kyler Carroll MD CC: Joann DO Date Dictated: 02/12/15 1220 Date Transcribed: 02/12/151219 Automotive Engineer: Signed 15-Feb-2015 12 Lead Electrocardiogram Result: Comments: See Note; NOTES: [facility] Cardiovascular Services [address] [place] [address] 12 Lead EKG 02/12/151203 MR#: [id number] Acct: [id number] Name: LEYDI VILLASENOR RGARET C Rep #: [id number] : 1935 79 From: Kyler Carroll MD [...] Normal ECG Confirmed by KYLER CARROLL ([id number]), science editor PROSPER QUINONES ([id number]) on 02/15/2015 12 :01:27 PM Referred By: SHERRY Confirmed By:KYLER CARROLL 02/15/15 1201 Date Kyler Carroll MD CC: Joann Motley DO Date Dictated: 02/12/15 1204 Date Transcribed: 02/12/15 1204 Automotive Engineer: Signed 13-Feb-2015 Emergency Department Summary Result: Comments: See Note; NOTES: [facility] Medical Records Department [address] [place] [address] Emergency Department Summary MR#: [id number] Acct: [id number] Name: DANNIE BOSTON Rep #: [id number] : 1935 79 From: Joselo Henning MD PCP: Joann Motley DO Status: [facility] ER DATE OF SERVICE: 02/12/2015 METHOD OF [...] C: Joann Motley DO T: NTS JOB: [id number] <Electronically signed by Joselo Henning MD> Date Joselo Henning MD CC: Joann Motley DO Date Dictated: 02/12/15 134 Date Transcribed: 02/12/151340 Automotive Engineer: Signed 12-Feb-2015 Discharge Instruction Result: Comments: See Note; NOTES: [facility] Medical Records Department [address] [place] [address] Discharge Instruction 02/12/151335 MR#: [id number] Acct: [id number] Name: DANNIE VILLASENOR Rep #: [id number] : 1935 79 From: Joselo Henning MD [...] View (Portable) Result: Comments: See Note; NOTES: [facility] Imaging Services [address] [place] [address] Radiology Report MR#: [id number] Acct: [id number] Name: DANNIE VILLASENOR Rep #: [id number] : 1935 F 79 From: Ross Robert DO PCP: Joann Motley DO Status: REG ER Study: Chest 1 View (Portable) Date of Exam: 02/12/15 Exam# [id number] Ordering Dr: Joselo Henning MD STUDY: X- [...] Ross Robert DO at 12:40 EDT Tel [phone], Service support [phone], RAD/Chest 1 View (Portable) IMPRESSION: Question C OPD. There is no acute cardiopulmonary disease or change from the prior study. Electronically Signed: Ross Robert DO at 12:40 EDT Tel [phone], Service support [phone], Fax CC: Joann Motley DO; Joselo Henning MD Automotive Engineer: Signed 27-Nov-2013 Kaz Arriaga Digital & CAD Result: Comments: See Note; NOTES: [facility] Imaging Services [address] [place] [address] Breast Imaging Report MR#: [id number] Acct: [id number] Name: DANNIE VILLASENOR Rep #: [id number] : 1935 F 78 From: Hayder Elkins MD PCP: Joann Motley DO Status: REG CLI Exam# [id number] Ordering Dr: Joann Motley DO MAMMOGRAPHY - [...] 11/28 at 7:55 EST , Service support [phone], CC: Joann Motley DO Automotive Engineer: Signed 14-Aug-2013 Chest PA and Lateral Result: Comments: See Note; NOTES: [facility] Imaging Services [address] [place] [address] Radiology Report MR#: [id number] Acct: [id number] Name: DANNIE VILLASENOR Rep #: [id number] : 1935 F 77 From: Ross Robert DO PCP: Joann Motley DO Status: REG CLI Study: Chest PA and Lateral Date of Exam: 08/14/13 Exam# [id number] Ordering Dr: Joann Motley DO STUDY: X-RAY [...] 14, 2013 at 7: 14:19 PM EDT [phone] Electronically Signed HH/HH If you are the referring physician and would like to consult with the radiologist who provided this interpretation, please contact Ross lilly D.O. at [phone]. If this radiologist is unavailable, you will be directed to another radiologist to assist. If you are a patient with a question regarding this report, please contact your [facility] directly. Professional Interpretation Provided By: [employer], Phone , These documents contain legally protected [...] of these documents. CC: Joann Motley DO Automotive Engineer: Signed Family History Unknown Family Member [...] kg/m2 Body Surface Area Calculated 1.51 m2 55-Neu-035662:15 Temperature 97.5 f Pulse 71 /min Comments: [...] Microscopic Examination Comments: PATIENT NOT FASTINGPERFORMED BY: [facility] [id number] Bacteria Few (Normal) Epithelial Cells (non renal) None seen {/hpf} (Normal) Range: 0 - 10 RBC None seen {/hpf} (Normal) Range: 0 - 2 WBC 0-5 {/hpf} (Normal) Range: 0 - 5 02-Wcb-811621:15 URINALYSIS, W/ MICRO (34460) Comments: PATIENT NOT FASTINGPERFORMED BY: [facility] [id number] Microscopic Examination See below: (Normal) Comments: Microscopic was indicated and was performed. Microscopic Examination MICRON (Normal) Comments: Microscopic follows if indicated. Nitrite, Urine Negative (Normal) Urobilinogen,Semi-Qn 0.2 mg/dL (Normal) Range: 0.2-1.0 Bilirubin Negative (Normal) Occult Blood Negative (Normal) Ketones Negative (Normal) Glucose Negative (Normal) Protein Negative (Normal) WBC Esterase Negative (Normal) Appearance Clear (Normal) Urine-Color Yellow (Normal) pH 7.5 (Normal) Range: 5.0-7.5 Specific [place] 1.007 (Normal) Range: 1.005-1.030 60-Ffz-272446:15 MICROALBUMIN: CREATININE RATIO Comments: PATIENT NOT FASTINGPERFORMED BY: [employer] Paceod0019 [facility] [id number] (99637) AND (75422) Alb/Creat Ratio <19.0 {mg/g_creat} (Normal) Range: 0.0-30.0 Albumin, Urine <3.0 ug/mL (Normal) Creatinine, Urine 15.8 mg/dL (Normal) 29-Hxy-322003:15 T4, FREE (THYROXINE) (87747) Comments: PATIENT NOT FASTINGPERFORMED BY: [employer] viseto [facility] [id number] T4,Free(Direct) 1.12 ng/dL (Normal) Range: 0.82-1.77 89-Tra-676091:15 T3, FREE (TRIDOTHYRONINE) (96722) Comments: PATIENT NOT FASTINGPERFORMED BY: [facility]6370 [facility] [id number] Triiodothyronine (T3), Free 2.7 pg/mL (Normal) Range: 2.0-4.4 20-Adc-324985:15 TSH (THYROID STIMULATING Comments: PATIENT NOT FASTINGPERFORMED BY: [facility] [id number] HORMONE) (75794) TSH 2.650 {uIU/mL} (Normal) Range: 0.450-4.500 48-Nkc-317611:59 FECAL OCCULT- Tubes sent home (51286) FECAL OCCULT HGB ASSAY, QUAL, 1-3 SIMULTANEOU negative (Normal) 1-Khz-276191:10 CBC, Platelet, No Differential Comments: PATIENT WAS FASTINGPERFORMED BY: [facility] [id number] Platelets 218 {x10E3/uL} (Normal) Range: 150-379 RDW 14.0 % (Normal) Range: 12.3-15.4 MCHC 33.3 g/dL (Normal) Range: 31.5-35.7 MCH 29.5 pg (Normal) Range: 26.6-33.0 MCV 89 fL (Normal) Range: 79-97 Hematocrit 36.3 % (Normal) Range: 34.0-46.6 Hemoglobin 12.1 g/dL (Normal) Range: 11.1-15.9 RBC 4.10 {x10E6/uL} (Normal) Range: 3.77-5.28 WBC 5.1 {x10E3/uL} (Normal) Range: 3.4-10.8 7-Ysn-844674:10 LIPID PANEL (81698) Comments: PATIENT WAS FASTINGPERFORMED BY: [facility] [id number] LDL/HDL Ratio 2.2 {ratio} (Normal) Range: 0.0-3.2 Comments: LDL/HDL Ratio Men Women 1/2 Avg.Risk 1.0 1.5 Av g.Risk 3.6 3.2 2X Avg.Risk 6.2 5.0 3X Avg.Risk 8.0 6.1 LDL Cholesterol Calc 114 mg/dL (Abnormal) Range: 0-99 VLDL Cholesterol Jorge 14 mg/dL (Normal) Range: 5-40 HDL Cholesterol 52 mg/dL (Normal) Triglycerides 71 mg/dL (Normal) Range: 0-149 Cholesterol, Total 180 mg/dL (Normal) Range: 100-199 6-Spr-784542:10 METABOLIC PANEL, COMPREHENSIVE Comments: PATIENT WAS FASTINGPERFORMED BY: [facility]CoSt[facility] HospitalDxxbrm2749 [facility] [id number]; OV 05/13 (66531) ALT (SGPT) 14 [iU]/L (Normal) Range: 0-32 [...] 8-27 Glucose 81 mg/dL (Normal) Range: 65-99 98-Gyu-625320:31 CALCIFEDIOL (23996) Comments: PATIENT WAS FASTINGPERFORMED BY: [place]ausesH[facility]6370 [facility] [id number] Vitamin D, 25-Hydroxy 87.7 ng/mL (Normal) Range: 30.0-100.0 Comments: Vitamin D deficiency has been defined by the Eleanor ofUniversity Hospitals Lake West Medical Centercine and an Endocrine Society practice guideline as alevel of serum 25-OH vitamin D less than 20 ng/mL (1,2).The Endocrine Society went on to further define vitamin Dinsufficiency as a level between 21 and 29 ng/mL (2).1. IOM (Eleanor of Medicine). 2010. Dietary reference intakes for calcium and D. [place]: The National Academies Press.2. Maria Isabel MF, [place] MANSFIELD, Fredy TUCKER, et al. Evaluation, treatment, and prevention of vitamin D deficiency: an Endocrine Society clinical practice guideline. JCEM. 2010; 96(7):1911-30. 22-Idm-702310:31 METABOLIC PANEL, COMPREHENSIVE Comments: PATIENT WAS FASTINGPERFORMED BY: [facility] Hospital6370 [facility] [id number] (63426) ALT (SGPT) 9 [iU]/L (Normal) Range: 0-32 [...] Glucose, Serum 87 mg/dL (Normal) Range: 65-99 89-Dvv-684374:31 CBC, PLATELETS & MANUAL DIFF Comments: PATIENT WAS FASTINGPERFORMED BY: LabCoSt. Luke[facility] Warren HospitalSibdvt9150 [facility] [id number] (13986) Immature Grans (Abs) 0.0 {x10E3/uL} (Normal) Range: [...] 3.77-5.28 WBC 5.2 {x10E3/uL} (Normal) Range: 3.4-10.8 08-Lgm-160745:04 Urinalysis, Office (90482) UA - LEUKOCYTE ESTERASE Negative (Normal) UA - NITRITE Negative (Normal) URINE UROBILINGN IVAN TIMED Normal mg/dL (Normal) UA - PROTEIN Negative mg/dL (Normal) UA - PH 6.5 (Normal) UA - BLOOD Negative (Normal) UA - SPECIFIC GRAVITY 1.010 (Normal) UA - KETONES Negative mg/dL (Normal) UA - BILIRUBIN Negative (Normal) UA - GLUCOSE Negative (Normal) 2-Tat-093844:59 Comprehensive Metabolic Profil Comments: [facility] [address] [place], [address] ; OV 06/25 GAP 6 (Normal) Range: [...] 7-18 GLU 82 mg/dL (Normal) Range: 70-110 4-Ooi-172467:59 Microalb:Creat Ratio,Random UR Comments: [facility] [address] [place], [address] MALB:CREAT 6.9 {mg/g_CRE} (Normal) MICROALBUMIN,UR 10.0 mg/L (Normal) UR CREAT 144.00 mg/dL (Normal) 1-Wkm-956833:59 Thyroid Stim Hormone (TSH) Comments: [facility] [address] [place], [address] TSH 2.20 {uIU/mL} (Normal) Range: 0.358-3.74 3-Zdo-041141:59 Urinalysis, Routine (Dipstick) Comments: How was Urine Obtained? CLEAN [facility] [address] [place], [address] LEUK ESTERASE 25 /ul (Abnormal) OCCULT BLOOD-UR 10 /ul (Abnormal) NITRITE UR Negative (Normal) UROBILI Normal mg/dL (Normal) PROT DIPSTX Negative mg/dL (Normal) pH UR 6.0 (Normal) Range: 5.0 - 8.0 SP.GR. DIPSTX 1.020 (Normal) Range: 1.002-1.030 KETONE UR Negative mg/dL (Normal) BILIRUBIN URINE Negative mg/dL (Normal) GLUCOSE, UR Normal mg/dL (Normal) CLARITY Clear (Normal) COLOR Yellow (Normal) 1-Gjr-604779:59 Vitamin D,25 Hydroxy Comments: [facility] [address] [place], [address] Vitamin D 25-OH 55.4 ng/mL (Normal) Comments: Vitamin D 25(OH) Status Range Deficiency <20 ng/mL (50nmol/L) Insuffciency 20 - 30 ng/mL (50 - 75 nmol/L) Sufficiency 30 - 100 ng/mL (75 - 250 nmol/L) Toxicity >100 ng/mL (>250 nmol/L); ADDENDA: OV 13-Feb-201710:33 LIPID PANEL (13540) Comments: PATIENT WAS FASTINGPERFORMED BY: [facility]eneChillZia Health ClinicTovuba5864 [facility] [id number]; fu 4-19 [facility] LDL/HDL Ratio 1.7 {ratio_units} (Normal) Range: 0.0-3.2 Comments: LDL/HDL Ratio Men Women 1/2 Avg.Risk 1.0 1.5 Av g.Risk 3.6 3.2 2X Avg.Risk 6.2 5.0 3X Avg.Risk 8.0 6.1 LDL Cholesterol Calc 96 mg/dL (Normal) Range: 0-99 VLDL Cholesterol Jorge 13 mg/dL (Normal) Range: 5-40 HDL Cholesterol 58 mg/dL (Normal) Triglycerides 67 mg/dL (Normal) Range: 0-149 Cholesterol, Total 167 mg/dL (Normal) Range: 100-199 16-Kux-830927:29 MICROALBUMIN: CREATININE RATIO Comments: PATIENT WAS FASTINGPERFORMED BY: [employer] viseto [facility] [id number] (12529) AND (94941) Microalb/Creat Ratio <11.5 {mg/g_creat} (Normal) Range: 0.0-30.0 Microalbumin, Urine <3.0 ug/mL (Normal) Creatinine, Urine 26.2 mg/dL (Normal) 38-Tgb-232126:29 VITAMIN B12 AND FOLATES Comments: PATIENT WAS FASTINGPERFORMED BY: [employer] Gfbazb3982 [facility] [id number] (46790) Folate (Folic Acid), Serum 14.1 ng/mL (Normal) Comments: A serum folate concentration of less than 3.1 ng/mL isconsidered to represent clinical deficiency. Vitamin B12 610 pg/mL (Normal) Range: 211-946 :29 CALCIFEDIOL (52525) Comments: PATIENT WAS FASTINGPERFORMED BY: [employer] Uaqvtd4002 [facility] [id number] Vitamin D, 25-Hydroxy 78.3 ng/mL (Normal) Range: 30.0-100.0 Comments: Vitamin D deficiency has been defined by the Eleanor ofMedicine and an Endocrine Society practice guideline as alevel of serum 25-OH vitamin D less than 20 ng/mL (1,2).The Endocrine Society went on to further define vitamin Dinsufficiency as a level between 21 and 29 ng/mL (2).1. IOM (Eleanor of Medicine). 2010. Dietary reference intakes for calcium and D. [place]: The National Academies Press.2. Maria Isabel MF, [place] MANSFIELD, Fredy TUCEKR, et al. Evaluation, treatment, and prevention of vitamin D deficiency: an Endocrine Society clinical practice guideline. JCEM. 2010; 96(7):1911-30. 28-Fqr-387845:29 TSH (THYROID STIMULATING Comments: PATIENT WAS FASTINGPERFORMED BY: [employer]6370 [facility] [id number] HORMONE) (89314) TSH 2.630 {uIU/mL} (Normal) Range: 0.450-4.500 :29 METABOLIC PANEL, COMPREHENSIVE Comments: PATIENT WAS FASTINGPERFORMED BY: [employer] [facility]6370 [facility] [id number] (81607) ALT (SGPT) 6 [iU]/L (Normal) Range: 0-32 [...] Glucose, Serum 81 mg/dL (Normal) Range: 65-99 46-Pre-519333:29 CBC, PLATELETS & AUT DIFF Comments: PATIENT WAS FASTINGPERFORMED BY: LabCoSt. Luke's Warren HospitalChzbib6020 [facility] [id number] (19944) Immature Grans (Abs) 0.0 {x10E3/uL} (Normal) Range: [...] Microscopic Examination Comments: PATIENT WAS FASTINGPERFORMED BY: [employer] Zwltnl9739 [facility] [id number] Bacteria Few (Normal) Mucus Threads Present (Normal) Epithelial Cells (non renal) None seen {/hpf} (Normal) Range: 0 - 10 RBC None seen {/hpf} (Normal) Range: 0 - 2 WBC 0-5 {/hpf} (Normal) Range: 0 - 5 :35 TSH (91072) Comments: PATIENT WAS FASTINGPERFORMED BY: [employer] Jsyrxv9910 [facility] [id number] TSH 2.470 {uIU/mL} (Normal) Range: 0.450-4.500 :35 URINALYSIS, W/ MICRO (24213) Comments: PATIENT WAS FASTINGPERFORMED BY: [employer] Yydpyg0779 [facility] [id number] Microscopic Examination See below: (Normal) Comments: Microscopic was indicated and was performed. Microscopic Examination MICRON (Normal) Comments: Microscopic follows if indicated. Nitrite, Urine Negative (Normal) Urobilinogen,Semi-Qn 0.2 mg/dL (Normal) Range: 0.2-1.0 Bilirubin Negative (Normal) Occult Blood Negative (Normal) Ketones Negative (Normal) Glucose Negative (Normal) Protein Negative (Normal) WBC Esterase Negative (Normal) Appearance Clear (Normal) Urine-Color Yellow (Normal) pH 6.5 (Normal) Range: 5.0-7.5 Specific [place] 1.018 (Normal) Range: 1.005-1.030 :35 CBC W/AUTO DIFF WBC (96510) Comments: PATIENT WAS FASTINGPERFORMED BY: BeneChillSt. Luke's Warren HospitalNyfaxu4376 [facility] [id number] Immature Grans (Abs) 0.0 {x10E3/uL} (Normal) Range: [...] 3.77-5.28 WBC 4.6 {x10E3/uL} (Normal) Range: 3.4-10.8 67-Pre-494909:35 METABOLIC PANEL, COMPREHENSIVE Comments: PATIENT WAS FASTINGPERFORMED BY: LabCoSt. Luke's Warren HospitalTussdy7501 [facility] [id number]; non- emergent till apt (46661) ALT (SGPT) 9 [iU]/L (Normal) Range: 0-32 [...] Glucose, Serum 81 mg/dL (Normal) Range: 65-99 50-Kcb-390043:35 LIPID PANEL (37254) Comments: PATIENT WAS FASTINGPERFORMED BY: [place] [id number] LDL/HDL Ratio 1.6 {ratio_units} (Normal) Range: 0.0-3.2 [...] Cholesterol, Total 151 mg/dL (Normal) Range: 100-199 23-Uwk-543807:35 Vitamin D Hydroxy (57911) Comments: PATIENT WAS FASTINGPERFORMED BY: [employer]70 [employer] SoftsystemsAt[facility] [id number] Vitamin D, 25-Hydroxy 80.0 ng/mL (Normal) Range: 30.0-100.0 Comments: Vitamin D deficiency has been defined by the Eleanor ofMedicine and an Endocrine Society practice guideline as alevel of serum 25-OH vitamin D less than 20 ng/mL (1,2).The Endocrine Society went on to further define vitamin Dinsufficiency as a level between 21 and 29 ng/mL (2).1. IOM (Eleanor of Medicine). 2010. Dietary reference intakes for calcium and D. [place]: The National Academies Press.2. Maria Isabel MF, [place] MANSFIELD, Fredy TUCKER, et al. Evaluation, treatment, and prevention of vitamin D deficiency: an Endocrine Society clinical practice guideline. JCEM. 2010; 96(7):1911-30. 9-Pxy-693447:05 CBC W/AUTO DIFF WBC Comments: PATIENT WAS FASTINGPERFORMED BY: [facility] Aivsfv4639 [facility] [id number] Information: [id number] (54698) Immature Grans (Abs) 0.0 {x10E3/uL} (Normal) Range: [...] PANEL, COMPREHENSIVE Comments: PATIENT WAS FASTINGPERFORMED BY: LabCoSt. Luke[facility] Warren HospitalRyluqr2726 [facility] [id number] (47604) ALT (SGPT) 13 [iU]/L (Normal) Range: 0-32 [...] Glucose, Serum 81 mg/dL (Normal) Range: 65-99 5-Icc-104771:05 Vitamin D Hydroxy (21414) Comments: PATIENT WAS FASTINGPERFORMED BY: [employer] [facility] Emlmrv[address] [facility]bl[facility] [place] [id number] Vitamin D, 25-Hydroxy 90.1 ng/mL (Normal) Range: 30.0-100.0 Comments: Vitamin D deficiency has been defined by the Eleanor ofMedicine and an Endocrine Society practice guideline as alevel of serum 25-OH vitamin D less than 20 ng/mL (1,2).The Endocrine Society went on to further define vitamin Dinsufficiency as a level between 21 and 29 ng/mL (2).1. IOM (Eleanor of Medicine). 2010. Dietary reference intakes for calcium and D. [place]: The National Academies Press.2. Maria Isabel MF, [place] MANSFIELD, Fredy TUCKER, et al. Evaluation, treatment, and prevention of vitamin D deficiency: an Endocrine Society clinical practice guideline. JCEM. 2010; 96(7):1911-30. 9-Gdd-648178:05 LIPID PANEL (13336) Comments: PATIENT WAS FASTINGPERFORMED BY: CB [facility] Kurjfu[address] [facility] [place] [id number]; non-emergent till apt LDL/HDL Ratio 1.8 {ratio_units} [...] Cholesterol, Total 171 mg/dL (Normal) Range: 100-199 76-Jwm-604222:23 CALCIFEDIOL (60641) Comments: PATIENT WAS FASTINGPERFORMED BY: [facility] Ukysmw[address] [facility] Hospitalbl[facility] [place] [id number] Vitamin D, 25-Hydroxy 83.0 ng/mL (Normal) Range: 30.0-100.0 Comments: Vitamin D deficiency has been defined by the Eleanor ofMedicine and an Endocrine Society practice guideline as alevel of serum 25-OH vitamin D less than 20 ng/mL (1,2).The Endocrine Society went on to further define vitamin Dinsufficiency as a level between 21 and 29 ng/mL (2).1. IOM (Eleanor of Medicine). 2010. Dietary reference intakes for calcium and D. [place]: The National Academies Press.2. Maria Isabel MF, [place] MANSFIELD, Fredy TUCKER, et al. Evaluation, treatment, and prevention of vitamin D deficiency: an Endocrine Society clinical practice guideline. JCEM. 2010; 96(7):1911-30. 08-Lfq-188034:23 URINALYSIS (85701) Comments: PATIENT WAS FASTINGPERFORMED BY: Kleer [place] [id number] Microscopic Examination MICNIP (Normal) Comments: Microscopic not indicated and not performed. Nitrite, Urine Negative (Normal) Urobilinogen,Semi-Qn 0.2 mg/dL (Normal) Range: 0.0-1.9 Bilirubin Negative (Normal) Occult Blood Negative (Normal) Ketones Negative (Normal) Glucose Negative (Normal) Protein Negative (Normal) WBC Esterase Negative (Normal) Appearance Clear (Normal) Urine-Color Yellow (Normal) pH 7.0 (Normal) Range: 5.0-7.5 Specific [place] 1.009 (Normal) Range: 1.005-1.030 69-Jjz-601428:23 TSH (THYROID STIMULATING Comments: PATIENT WAS FASTINGPERFORMED BY: [facility] [id number] HORMONE) (13994) TSH 2.240 {uIU/mL} (Normal) Range: 0.450-4.500 72-Sho-995601:23 LIPID PANEL (16701) Comments: PATIENT WAS FASTINGPERFORMED BY: [facility] [id number]; non-emergent till apt LDL/HDL Ratio 1.8 {ratio_units} [...] Cholesterol, Total 174 mg/dL (Normal) Range: 100-199 76-Rjq-617228:23 CBC, PLATELETS & MANUAL Comments: PATIENT WAS FASTINGPERFORMED BY: [facility]CoSt[facility] HospitalXuzais2312 [facility] [id number] Information: [id number] DIFF (27730) Immature Grans (Abs) 0.0 {x10E3/uL} (Normal) Range: [...] PANEL, BASIC Comments: PATIENT WAS FASTINGPERFORMED BY: [facility]CoSt. [facility] HospitalPeretj1920 [facility] [id number] (78345) Calcium, Serum 8.9 mg/dL (Normal) Range: 8.7-10.3 [...] Glucose, Serum 82 mg/dL (Normal) Range: 65-99 08-Xjp-808112:30 Basic Metabolic Profile (BMP) Comments: 'TROP' Serial specimen #1, #2, #3, or #4: 1Test performed at:[facility] [address] [place], [place] [id number] GAP 2 (Abnormal) Range: 5-15 CO2 30.0 [...] 7-18 GLU 83 mg/dL (Normal) Range: 70-110 21-Ium-916849:30 CBC W/Diff, Automated Comments: Test performed at:[facility] [address] [place] [address] Absolute Lymph 1.12 {X10_3/ul} (Normal) [...] 4.2-5.4 WBC 8.0 K/mm3 (Normal) Range: 4.4-11.0 62-Orx-322926:30 Thyroid Stim Hormone (TSH) Comments: 'TROP' Serial specimen #1, #2, #3, or #4: 1Test performed at:[facility] Eeeimrpuxb4149 [facility] [place] [address] TSH 2.61 {uIU/mL} (Normal) Range: 0.358-3.74 50-Zqo-394822:30 Troponin-I Comments: 'TROP' Serial specimen #1, #2, #3, or #4: 1Test performed at:[facility] Honkrcfcwb[address] [place], [place] [address] TROPONIN-I < 0.02 ng/mL (Normal) Comments: TROPONIN-I EXPECTED VALUES <0.05 NEGATIVE 0.06 - 0.59 AT RISK OF NM > OR = 0.60 SUGGEST NM 87-Ypy-604817:51 C-REACTIVE PROTEIN (20431) Comments: PATIENT WAS FASTINGPERFORMED BY: [facility] Mtohgx1801 [address] RoadDublin [place] [id number] C-Reactive Protein, Quant 0.8 mg/L (Normal) Range: 0.0-4.9 92-Nkc-403023:51 SED RATE ERYTHROCYTE (85644) Comments: PATIENT WAS FASTINGPERFORMED BY: [facility] Xxotvw5891 [address] RoadDublin [place] [id number] Sedimentation Rate-Westergren 2 mm/h (Normal) Range: 0-40 96-Cxf-314493:51 Vitamin D Hydroxy (35732) Comments: PATIENT WAS FASTINGPERFORMED BY: [facility] Mtivke5230 [address] RoadDublin [place] [id number] Vitamin D, 25-Hydroxy 86.1 ng/mL (Normal) Range: 30.0-100.0 Comments: Vitamin D deficiency has been defined by the Eleanor ofUniversity [facility] Medical Centercine and an Endocrine Society practice guideline as alevel of serum 25-OH vitamin D less than 20 ng/mL (1,2).The Endocrine Society went on to further define vitamin Dinsufficiency as a level between 21 and 29 ng/mL (2).1. IOM (Eleanor of Medicine). 2010. Dietary reference intakes for calcium and D. [place]: The National Academies Press.2. Maria Isabel MF, [place] MANSFIELD, Fredy TUCKER, et al. Evaluation, treatment, and prevention of vitamin D deficiency: an Endocrine Society clinical practice guideline. JCEM. 2010; 96(7):1911-30. 93-Kmd-233063:51 CBC W/AUTO DIFF WBC Comments: PATIENT WAS FASTINGPERFORMED BY: [facility]CoSt. [facility] HospitalIrhdnk5608 [facility] [id number] Information: [id number] (28113) Immature Grans (Abs) 0.0 {x10E3/uL} (Normal) Range: [...] 3.77-5.28 WBC 5.7 {x10E3/uL} (Normal) Range: 3.4-10.8 20-Csr-937355:51 TSH (94103) Comments: PATIENT WAS FASTINGPERFORMED BY: LabCoSt. [facility] HospitalZdupgw8572 [facility] [id number] TSH 3.080 {uIU/mL} (Normal) Range: 0.450-4.500 52-Vzb-234105:51 METABOLIC PANEL, COMPREHENSIVE Comments: PATIENT WAS FASTINGPERFORMED BY: [employer] Fxjnwg5408 [facility] [id number] (07362) ALT (SGPT) 5 [iU]/L (Normal) Range: 0-32 [...] Glucose, Serum 85 mg/dL (Normal) Range: 65-99 43-Dxn-851198:51 LIPID PANEL (25265) Comments: PATIENT WAS FASTINGPERFORMED BY: BeneChillSt. Luke's Warren HospitalEtzmex7022 [facility] [id number] LDL/HDL Ratio 2.0 {ratio_units} (Normal) Range: 0.0-3.2 [...] Cholesterol, Total 192 mg/dL (Normal) Range: 100-199 75-Rco-482826:40 Protein Electro, Random Urine Comments: PATIENT WAS FASTINGPERFORMED BY: [employer]70 [facility] [id number] Please note: SPRCS (Normal) Comments: Protein electrophoresis scan will follow via computer, mail, orcourier delivery. Gamma Globulin, U 16.3 % (Normal) M-Rl, % Not Observed % (Normal) Beta Globulin, U 38.3 % (Normal) Hqbpu-3-Jvtcwnpr, U 1.7 % (Normal) Xmawm-6-Cswktzmd, U 22.2 % (Normal) Albumin, U 21.6 % (Normal) Protein,Total,Urine 4.2 mg/dL (Normal) Range: 0.0-15.0 23-Vjl-626558:40 Protein Electro.,S Comments: PATIENT WAS FASTINGPERFORMED BY: [employer]70 [facility] [id number] Please note: SPRCS (Normal) Comments: Protein electrophoresis scan will follow via computer, mail, orcourier delivery. A/G Ratio 1.9 (Normal) Range: 0.7-2.0 Globulin, Total 2.4 g/dL (Normal) Range: 2.0-4.5 Gamma Globulin 1.0 g/dL (Normal) Range: 0.5-1.6 M-Rl Not Observed g/dL (Normal) Beta Globulin 0.8 g/dL (Normal) Range: 0.6-1.3 Nqvtm-8-Aczaiaqt 0.2 g/dL (Normal) Range: 0.1-0.4 Srnsr-7-Ajmcfvnl 0.4 g/dL (Normal) Range: 0.4-1.2 Albumin 4.5 g/dL (Normal) Range: 3.2-5.6 99-Qkl-433541:37 METABOLIC PANEL, COMPREHENSIVE Comments: PATIENT WAS FASTINGPERFORMED BY: [facility] Idpwtk2721 [facility] [id number] (57627) ALT (SGPT) 8 [iU]/L (Normal) Range: 0-32 [...] Glucose, Serum 88 mg/dL (Normal) Range: 65-99 31-Icv-568459:37 LIPID PANEL (90874) Comments: PATIENT WAS FASTINGPERFORMED BY: [facility] Uytjrn9965 [facility] [id number] LDL/HDL Ratio 1.5 {ratio_units} (Normal) Range: 0.0-3.2 LDL Cholesterol Calc 92 mg/dL (Normal) Range: 0-99 VLDL Cholesterol Jorge 13 mg/dL (Normal) Range: 5-40 Cholesterol, Total 168 mg/dL (Normal) Range: 100-199 HDL Cholesterol 63 mg/dL (Normal) Comments: According to ATP-III Guidelines, HDL-C >59 mg/dL is considered anegative risk factor for CHD. Triglycerides 67 mg/dL (Normal) Range: 0-149 24-Zkx-706998:37 Vitamin D Hydroxy (01093) Comments: PATIENT WAS FASTINGPERFORMED BY: [employer]63Supramed RoadDublin [place] [id number] Vitamin D, 25-Hydroxy 61.8 ng/mL (Normal) Range: 30.0-100.0 Comments: Vitamin D deficiency has been defined by the Eleanor ofMedicine and an Endocrine Society practice guideline as alevel of serum 25-OH vitamin D less than 20 ng/mL (1,2).The Endocrine Society went on to further define vitamin Dinsufficiency as a level between 21 and 29 ng/mL (2).1. IOM (Eleanor of Medicine). 2010. Dietary reference intakes for calcium and D. [place]: The National Academies Press.2. Maria Isabel MF, [place] MANSFIELD, Fredy TUCKER, et al. Evaluation, treatment, and prevention of vitamin D deficiency: an Endocrine Society clinical practice guideline. JCEM. 2010; 96(7):1911-30. 3-Nlk-304660:12 Calcium, 24Hr Urine Comments: PERFORMED BY: [facility]At[facility] [id number] Information: 08/10@720AM 08/11@7AM Calcium, Urine 24hr 159.1 {mg/24_hr} (Normal) Range: 100.0-300.0 Calcium, Urine 7.4 mg/dL (Normal) 39-Wxm-948116:37 PARATHORMONE (69849) Comments: PATIENT WAS FASTINGPERFORMED BY: [employer]bl[address] [place] [id number] PTH, Intact 20 pg/mL (Normal) Range: 15-65 43-Zsn-835015:37 PHOSPHORUS (92830) Comments: PATIENT WAS FASTINGPERFORMED BY: [employer] [place] [id number] Phosphorus, Serum 4.5 mg/dL (Normal) Range: 2.5-4.5 19-Gjj-408633:37 TSH (28008) Comments: PATIENT WAS FASTINGPERFORMED BY: [facility]6370 [facility] [id number] TSH 2.910 {uIU/mL} (Normal) Range: 0.450-4.500 9-Ths-648278:11 DEXA BONE DENSITY STUDY (HP) Radiology Report [...] Elkins M.D.June 10, 2013 at 11:05:54 AM [id number] Signed GP/GP If you are the referring physician and would like to consult with theradiologist who provided this interpretation, please contact Caitlin Schmitz at . If this radiologist is unavailable, youwill be directed to another radiologist to assist. If you are a patient with a question regarding this report, pleasecontactyour referring physician neisha coppola. Professional Interpretation Provided By: [employer], Phone , These documents contain legally protected [...] 06/10/13 1356 Sign by: Hayder Elkins MD 08-Ewv-061069:22 Vitamin D Hydroxy (05916) Comments: PATIENT NOT FASTINGPERFORMED BY: [facility]wy[facility]6370 [facility] [id number] Vitamin D, 25-Hydroxy 47.7 ng/mL (Normal) Range: 30.0-100.0 Comments: Vitamin D deficiency has been defined by the Eleanor ofMedicine and an Endocrine Society practice guideline as alevel of serum 25-OH vitamin D less than 20 ng/mL (1,2).The Endocrine Society went on to further define vitamin Dinsufficiency as a level between 21 and 29 ng/mL (2).1. IOM (Eleanor of Medicine). 2010. Dietary reference intakes for calcium and D. [place]: The National Academies Press.2. Maria Isabel MF, [place], Rufina-Sawyer TUCKER, et al. Evaluation, treatment, and prevention of vitamin D deficiency: an Endocrine Society clinical practice guideline. JCEM. 2010; 96(7):1911-30. 31-Ubc-237570:22 METABOLIC PANEL, Comments: PATIENT NOT FASTINGPERFORMED BY: [facility] Pgybvo1546 [facility] [id number] Information: ADD [id number] AND DRAW FEE 99 3018 COMPREHENSIVE (86471) ALT (SGPT) 10 [iU]/L (Normal) Range: 0-32 [...] Glucose, Serum 82 mg/dL (Normal) Range: 65-99 35-Zyy-108716:22 LIPID PANEL (35793) Comments: PATIENT NOT FASTINGPERFORMED BY: [facility] [id number] LDL/HDL Ratio 1.7 {ratio_units} (Normal) Range: 0.0-3.2 LDL Cholesterol Calc 96 mg/dL (Normal) Range: 0-99 VLDL Cholesterol Jorge 10 mg/dL (Normal) Range: 5-40 HDL Cholesterol 58 mg/dL (Normal) Comments: According to ATP-III Guidelines, HDL-C >59 mg/dL is considered anegative risk factor for CHD. Triglycerides 49 mg/dL (Normal) Range: 0-149 Cholesterol, Total 164 mg/dL (Normal) Range: 100-199 06-Zjd-306222:45 TSH (28180) Comments: PATIENT WAS FASTINGPERFORMED BY: [facility] [id number] TSH 3.910 {uIU/mL} (Normal) Range: 0.450-4.500 15-Wlj-134882:45 Vitamin D Hydroxy (77240) Comments: PATIENT WAS FASTINGPERFORMED BY: [facility] [id number] Vitamin D, 25-Hydroxy 54.3 ng/mL (Normal) Range: 30.0-100.0 Comments: Vitamin D deficiency has been defined by the Eleanor ofMedicine and an Endocrine Society practice guideline as alevel of serum 25-OH vitamin D less than 20 ng/mL (1,2).The Endocrine Society went on to further define vitamin Dinsufficiency as a level between 21 and 29 ng/mL (2).1. IOM (Eleanor of Medicine). 2010. Dietary reference intakes for calcium and D. [place]: The National Academies Press.2. Maria Isabel MF, [place] MANSFIELD, Fredy TUCKER, et al. Evaluation, treatment, and prevention of vitamin D deficiency: an Endocrine Society clinical practice guideline. JCEM. 2010; 96(7):1911-30. 78-Ryh-753423:45 METABOLIC PANEL, Comments: PATIENT WAS FASTINGPERFORMED BY: LabCoSt. [facility] HospitalJxetkr2876 [facility] [id number] Information: [id number] COMPREHENSIVE (94576) ALT (SGPT) 9 [iU]/L (Normal) Range: 0-32 [...] Glucose, Serum 91 mg/dL (Normal) Range: 65-99 31-Vbl-470397:45 LIPID PANEL (45525) Comments: PATIENT WAS FASTINGPERFORMED BY: [employer]70 [facility]Car[facility] [id number] LDL Cholesterol Calc 84 mg/dL (Normal) Range: 0-99 LDL/HDL Ratio 1.4 {ratio_units} (Normal) Range: 0.0-3.2 HDL Cholesterol 61 mg/dL (Normal) Comments: According to ATP-III Guidelines, HDL-C >59 mg/dL is considered anegative risk factor for CHD. VLDL Cholesterol Jorge 8 mg/dL (Normal) Range: 5-40 Cholesterol, Total 153 mg/dL (Normal) Range: 100-199 Triglycerides 40 mg/dL (Normal) Range: 0-149 6-Wdj-277255:06 Vitamin D Hydroxy (87819) Comments: PATIENT WAS FASTINGPERFORMED BY: [employer] [facility] [id number] Vitamin D, 25-Hydroxy 58.0 ng/mL (Normal) Range: 30.0-100.0 Comments: Vitamin D deficiency has been defined by the Eleanor ofMedicine and an Endocrine Society practice guideline as alevel of serum 25-OH vitamin D less than 20 ng/mL (1,2).The Endocrine Society went on to further define vitamin Dinsufficiency as a level between 21 and 29 ng/mL (2).1. IOM (Eleanor of Medicine). 2010. Dietary reference intakes for calcium and D. [place]: The National Academies Press.2. Maria Isabel MF, [place] MANSFIELD, Fredy TUCKER, et al. Evaluation, treatment, and prevention of vitamin D deficiency: an Endocrine Society clinical practice guideline. JCEM. 2010; 96(7):1911-30. 3-Apm-176498:06 LIPID PANEL (61094) Comments: PATIENT WAS FASTINGPERFORMED BY: [employer]6370 [facility] [id number] LDL Cholesterol Calc 99 mg/dL (Normal) Range: 0-99 LDL/HDL Ratio 1.7 {ratio_units} (Normal) Range: 0.0-3.2 HDL Cholesterol 60 mg/dL (Normal) Comments: According to ATP-III Guidelines, HDL-C >59 mg/dL is considered anegative risk factor for CHD. VLDL Cholesterol Jorge 15 mg/dL (Normal) Range: 5-40 Triglycerides 77 mg/dL (Normal) Range: 0-149 Cholesterol, Total 174 mg/dL (Normal) Range: 100-199 3-Gpd-278310:06 METABOLIC PANEL, Comments: PATIENT WAS FASTINGPERFORMED BY: [facility] Qkmgau6926 [facility] [id number] Information: [id number] COMPREHENSIVE (95368) ALT (SGPT) 11 [iU]/L (Normal) Range: 0-32 [...] Glucose, Serum 79 mg/dL (Normal) Range: 65-99 94-Mrh-719092:00 BILAT CHAD DIGITAL & CAD Radiology Report [...] Royal M.D.June 26, 2012 at 8:47:04 AM [id number] Signed MV/MV If you are the referring physician and would like to consult with theradiologist who provided this interpretation, please contact Capri Bean M.D. at . If this radiologist is unavailable, youwillbe directed to another ra diologist to assist. If you are a patient with a question regarding this report, pleasecontactyour referring physician directly. Professional Interpretation Provided By: [employer], Phone [phone], These documents contain legally protected and confidential [...] destructionofthese documents. Dictated on 06/25/121599 by ELVIS ORMARYKhoaDreanscribed on 06/26/12 1629 by ITS IMPORTSign by ELVIS ROMARYKhoa on 06/26/12 1630 Sign by: ELVIS ROMARYPRIETO 05-Sch-87336:14 Vitamin D Hydroxy (03542) Comments: PATIENT WAS FASTINGPERFORMED BY: LabCoSt. Luke's Warren HospitalZlehqy3477 [facility] [id number] Vitamin D, 25-Hydroxy 44.4 ng/mL (Normal) Range: 30.0-100.0 Comments: Vitamin D deficiency has been defined by the Eleanor ofMedicine and an Endocrine Society practice guideline as alevel of serum 25-OH vitamin D less than 20 ng/mL (1,2).The Endocrine Society went on to further define vitamin Dinsufficiency as a level between 21 and 29 ng/mL (2).1. IOM (Eleanor of Medicine). 2010. Dietary reference intakes for calcium and D. [place]: The National Academies Press.2. Maria Isabel MF, [place] MANSFIELD, Fredy TUCKER, et al. Evaluation, treatment, and prevention of vitamin D deficiency: an Endocrine Society clinical practice guideline. JCEM. 2010; 96(7):1911-30. 24-Bmh-79995:14 LIPID PANEL (12442) Comments: PATIENT WAS FASTINGPERFORMED BY: [facility] Hesdcs2966 [facility] [id number] LDL/HDL Ratio 2.4 {ratio_units} (Normal) Range: 0.0-3.2 [...] 189 > 24 years 100 - 199 59-Qfu-81879:14 CBC WITH MANUAL DIFF Comments: PATIENT WAS FASTINGPERFORMED BY: LabCoSt. Luke's Warren HospitalAadiuv6290 [facility] [id number] Information: [id number] (67926) Immature Grans (Abs) 0.0 {x10E3/uL} (Normal) Range: [...] PANEL, COMPREHENSIVE Comments: PATIENT WAS FASTINGPERFORMED BY: BeneChillSt. Luke's Warren HospitalLwtrdz8517 [facility] [id number] (82464) ALT (SGPT) 9 [iU]/L (Normal) Range: 0-40 [...] Glucose, Serum 90 mg/dL (Normal) Range: 65-99 4-Ukz-430477:23 METABOLIC PANEL, COMPREHENSIVE Comments: PATIENT WAS FASTINGPERFORMED BY: BeneChillSt. Luke's Warren HospitalRywfaw5978 [facility] [id number] (21466) ALT (SGPT) 11 [iU]/L (Normal) Range: 0-40 [...] Glucose, Serum 78 mg/dL (Normal) Range: 65-99 3-Bgh-265635:23 CBC WITH MANUAL DIFF Comments: PATIENT WAS FASTINGPERFORMED BY: LabCoSt. Luke[facility] HospitalWvzlwb0082 [facility] [id number] Information: [id number] (36117) Immature Grans (Abs) 0.0 {x10E3/uL} (Normal) Range: [...] 3.80-5.10 WBC 5.3 {x10E3/uL} (Normal) Range: 4.0-10.5 4-Pot-477186:23 TSH (09091) Comments: PATIENT WAS FASTINGPERFORMED BY: [facility] Eiykec2242 [facility] [place] [id number] TSH 2.860 {uIU/mL} (Normal) Range: 0.450-4.500 5-Nlz-819008:23 Vitamin D Hydroxy (01839) Comments: PATIENT WAS FASTINGPERFORMED BY: [facility] Pvwqwf0286 [facility] [place] [id number] Vitamin D, 25-Hydroxy 51.4 ng/mL (Normal) Range: 30.0-100.0 Comments: Vitamin D deficiency has been defined by the Eleanor ofMedicine and an Endocrine Society practice guideline as alevel of serum 25-OH vitamin D less than 20 ng/mL (1,2).The Endocrine Society went on to further define vitamin Dinsufficiency as a level between 21 and 29 ng/mL (2).1. IOM (Eleanor of Medicine). 2010. Dietary reference intakes for calcium and D. [place]: The National AcademDigital Royalty Press.2. Maria Isabel KABA, [place] MANSFIELD, Fredy TUCKER, et al. Evaluation, treatment, and prevention of vitamin D deficiency: an Endocrine Society clinical practice guideline. JCEM. 2010; 96(7):1911-30. 9-Eah-229818:23 LIPID PANEL (72683) Comments: PATIENT WAS FASTINGPERFORMED BY: [employer]70 [employer] [facility] [id number] LDL/HDL Ratio 2.1 {ratio_units} (Normal) Range: 0.0-3.2 LDL Cholesterol Calc 119 mg/dL (Abnormal) Range: 0-99 HDL Cholesterol 56 mg/dL (Normal) Comments: According to ATP-III Guidelines, HDL-C >59 mg/dL is considered anegative risk factor for CHD. VLDL Cholesterol Jorge 15 mg/dL (Normal) Range: 5-40 Cholesterol, Total 190 mg/dL (Normal) Range: 100-199 Triglycerides 73 mg/dL (Normal) Range: 0-149 86-Yzz-485548:01 Vitamin D Hydroxy (33707) Comments: PATIENT WAS FASTINGPERFORMED BY: [employer] [facility] [id number]; appt 10/24/11 Vitamin D, 25-Hydroxy 50.9 ng/mL (Normal) Range: 30.0-100.0 Comments: Vitamin D deficiency has been defined by the Eleanor ofMedicine and an Endocrine Society practice guideline as alevel of serum 25-OH vitamin D less than 20 ng/mL (1,2).The Endocrine Society went on to further define vitamin Dinsufficiency as a level between 21 and 29 ng/mL (2).1. IOM (Eleanor of Medicine). 2010. Dietary reference intakes for calcium and D. [place]: The National AcademDigital Royalty Press.2. [place] Camejo, Fredy TUCKER, et al. Evaluation, treatment, and prevention of vitamin D deficiency: an Endocrine Society clinical practice guideline. JCEM. 2010; 96(7): 1911-30. Please note reference interval change :01 CBC WITH MANUAL DIFF Comments: PATIENT WAS FASTINGPERFORMED BY: [facility] Knrldd1043 [facility] [id number] Information: [id number] (35291) Immature Grans (Abs) 0.0 {x10E3/uL} (Normal) Range: [...] PANEL, COMPREHENSIVE Comments: PATIENT WAS FASTINGPERFORMED BY: [facility]CoSt. Luke's Warren HospitalRbzcfv1072 [facility] [id number] (06721) ALT (SGPT) 15 [iU]/L (Normal) Range: 0-40 [...] Glucose, Serum 78 mg/dL (Normal) Range: 65-99 36-Fbw-809509:01 LIPID PANEL (34677) Comments: PATIENT WAS FASTINGPERFORMED BY: [facility] Olkpeb4218 [address] [facility] [id number] LDL/HDL Ratio 1.3 {ratio_units} (Normal) Range: 0.0-3.2 [...] 05/04/11 0857 Sign by: Hayder Elkins MD 59-Jao-370461:31 L/S SPINE,MIN 4 VIEWS Radiology Report See [...] space narrowing at the L4, L5, and L5-L1kzsklj. 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 There is atherosclerotic calcification of the abdominal aorta. IMPRESSION:Degenerative ch anges of the spine, as detailed above. Dictated on 02/20/11 1640 by Robby RO,MunaeleTranscribed on 02/21/11 1258 by ITS IMPORTSign by Hayder Elkins MD on 02/21/111257 Sign by: Hayder Elkins MD :36 Vitamin D Hydroxy (59242) Comments: PATIENT WAS FASTINGPERFORMED BY: [employer]6370 [facility] [id number] Vitamin D, 25-Hydroxy 48.5 ng/mL (Normal) Range: 32.0-100.0 Comments: Recent studies consider the lower limit of 32.0 ng/mL to be athreshold for optimal health.Mike CABAN. J Nutr. 2004;135(2):317-22. :36 METABOLIC PANEL, Comments: PATIENT WAS FASTINGPERFORMED BY: [employer] [facility] Xuzctz4678 [facility] [id number] Information: ADD [id number] AND DRAW FEE 99 0864 COMPREHENSIVE (55974) Alkaline Phosphatase, S 73 [iU]/L (Normal) Range: [...] Glucose, Serum 94 mg/dL (Normal) Range: 65-99 72-Ofs-75839:36 LIPID PANEL (25534) Comments: PATIENT WAS FASTINGPERFORMED BY: [employer] Eaojbb3376 [facility] [id number] LDL Cholesterol Calc 70 mg/dL (Normal) Range: 0-99 LDL/HDL Ratio 1.0 {ratio_units} (Normal) Range: 0.0-3.2 VLDL Cholesterol Jorge 11 mg/dL (Normal) Range: 5-40 Cholesterol, Total 148 mg/dL (Normal) Range: 100-199 HDL Cholesterol 67 mg/dL (Normal) Comments: According to ATP-III Guidelines, HDL-C >59 mg/dL is considered anegative risk factor for CHD. Triglycerides 57 mg/dL (Normal) Range: 0-149 66-Ntm-196148:11 CBC+Platelet+Hem Review Comments: PATIENT WAS FASTINGPERFORMED BY: [employer]6370 [facility] [id number] Differential Comment RBC's appear normal. (Normal) Baso(Absolute) [...] WAR (Normal) Comments: PATIENT WAS FASTINGPERFORMED BY: [facility]6370 [facility] [id number] 0:11 Comments: Written Authorization Received.Authorization received from DR MOTLEY [phone] by Alda Rosas 47-Ysh-323704:11 CALCIFEDIOL (47007) Comments: PATIENT WAS FASTINGPERFORMED BY: [facility]6370 [facility] [id number] Vitamin D, 25-Hydroxy 54.9 ng/mL (Normal) Range: 32.0-100.0 Comments: Recent studies consider the lower limit of 32.0 ng/mL to be athreshold for optimal health.Mike CABAN. J Nutr. 2004;135(2):317-22. 54-Gxu-274851:11 Metabolic Panel, Comprehensive Comments: PATIENT WAS FASTINGPERFORMED BY: [facility]CoSt. [facility] HospitalCoqrek5749 [facility] [id number] (49383) ALT (SGPT) 9 [iU]/L (Normal) Range: 0-40 [...] Glucose, Serum 94 mg/dL (Normal) Range: 65-99 93-Npo-543523:11 Lipid Panel (79411) Comments: PATIENT WAS FASTINGPERFORMED BY: [facility]CoSt. [facility] HospitalWeyxxy3640 [facility]ievesH[facility] [id number] LDL Cholesterol Calc 136 mg/dL (Abnormal) Range: 0-99 LDL/HDL Ratio 2.2 {ratio_units} (Normal) Range: 0.0-3.2 HDL Cholesterol 63 mg/dL (Normal) Comments: According to ATP-III Guidelines, HDL-C >59 mg/dL is considered anegative risk factor for CHD. VLDL Cholesterol Jorge 13 mg/dL (Normal) Range: 5-40 Triglycerides 66 mg/dL (Normal) Range: 0-149 Cholesterol, Total 212 mg/dL (Abnormal) Range: 100-199 39-Zdo-86029:00 DEXA BONE DENSITY STUDY () Radiology Report [...] on 09/20/10 1732 Sign by: Hayder Elkins 75-Tbr-47351:00 DEXA BONE DENSITY STUDY (HP) Radiology Report See Note (Normal) Comments: CLINICAL:This is a 74-year-old female patient for a postmenopausal screening. EXAMINATION:DUAL ENERGY X-RAY ABSORPTIOMETRY / DEXA. TECHNIQUE:Bone Density Measurements (BMD) of lumbar spine and bilateral hips wereobtained using a [employer] scanner.. COMPARISON:Comparison is made with prior study [...] on 09/23/10 1437 Sign by: Hayder Elkins 43-Ort-051632:27 ABDOMEN/PELVIS WITH CONTRAST Radiology Report See Note (Normal) Comments: Exam Number: [id number] LINICAL:This is a 74-year-old female patient with [...] unchanged. Fibroid uterus. Reported By: HAYDER ELKINS 57-Yya-095464:51 METABOLIC PANEL, Comments: PATIENT NOT FASTINGPERFORMED BY: [employer] [facility] [id number] Information: [id number] COMPREHENSIVE (13973) Alkaline Phosphatase, S 65 [iU]/L (Normal) Range: [...] Glucose, Serum 100 mg/dL (Abnormal) Range: 65-99 41-Lqd-221581:51 Vitamin D Hydroxy (90270) Comments: PATIENT NOT FASTINGPERFORMED BY: [employer] [facility] [id number] Vitamin D, 25-Hydroxy 29.6 ng/mL (Abnormal) Range: 32.0-100.0 Comments: Recent studies consider the lower limit of 32.0 ng/mL to be athreshold for optimal health.Mike CABAN. J Nutr. 2004;135(2):317-22. :47 LIPID PANEL (07709) Comments: PATIENT WAS FASTINGPERFORMED BY: LabCoZia Health ClinicOxfexn0783 [facility] [id number] HDL Cholesterol 55 mg/dL (Normal) Comments: According [...] METABOLIC PANEL, Comments: PATIENT WAS FASTINGPERFORMED BY: LabCoSt. Luke's Warren HospitalCbgcrj6768 [facility] [id number] Information: [id number] COMPREHENSIVE (91631) Alkaline Phosphatase, S 63 [iU]/L (Normal) Range: [...] (Normal) Range: 65-99 :47 Vitamin D Hydroxy (92360) Comments: PATIENT WAS FASTINGPERFORMED BY: [employer]6370 [facility] SoftsystemsAt[facility] [id number] Vitamin D, 25-Hydroxy 42.0 ng/mL (Normal) Range: 32.0-100.0 Comments: Recent studies consider the lower limit of 32.0 ng/mL to be athreshold for optimal health.Mike CABAN. J Nutr. 2004;135(2):317-22. :05 CBC With Differential/Platelet Comments: PATIENT WAS FASTINGPERFORMED BY: [employer] [facility] [id number] Baso (Absolute) 0.0 {x10E3/uL} (Normal) Range: 0.0-0.2 [...] 3.80-5.10 WBC 4.1 {x10E3/uL} (Normal) Range: 4.0-10.5 05-Owa-019716:05 Comp. Metabolic Panel (14) Comments: PATIENT WAS FASTINGPERFORMED BY: LabCo Pfthoy7751 [facility] [id number] ALT (SGPT) 10 [iU]/L (Normal) Range: 0-40 [...] Glucose, Serum 90 mg/dL (Normal) Range: 65-99 91-Llg-096644:05 Hepatic Function Panel (7) Comments: PATIENT WAS FASTINGPERFORMED BY: LabBruder Healthcare6370 [facility] [id number] Bilirubin, Direct 0.22 mg/dL (Normal) Range: 0.00-0.40 17-Grn-242135:05 Lipid Panel With LDL/HDL Comments: PATIENT WAS FASTINGPERFORMED BY: [employer] LabBruder [facility]6370 [facility] [id number] Ratio LDL Cholesterol Calc 86 mg/dL (Normal) Range: 0-99 LDL/HDL Ratio 1.6 {ratio_units} (Normal) Range: 0.0-3.2 HDL Cholesterol 55 mg/dL (Normal) Comments: According to ATP-III Guidelines, HDL-C >59 mg/dL is considered anegative risk factor for CHD. Triglycerides 65 mg/dL (Normal) Range: 0-149 VLDL Cholesterol Jorge 13 mg/dL (Normal) Range: 5-40 Cholesterol, Total 154 mg/dL (Normal) Range: 100-199 83-Nxd-491399:21 KAZ ARRIAGA DIGITAL & CAD Radiology Report See Note (Normal) Comments: Exam Number: [id number] DIGITAL BILATERAL MAMMOGRAM HISTORYThis is a 74-year-old [...] mammograms werealso examined with computer-aided detection software ([employer] Reported By: HAYDER ELKINS 27-Ybk-61411:12 BLANQUITA CULTURE-OTHER (03987) Comments: PATIENT NOT FASTINGClinical Information: [facility] [id number] PERFORMED BY: APRYL BeneChill viseto [facility] [id number] Result 1 CNSS (Normal) Comments: Coagulase negative Staphylococcus species.Scant growthSusceptibility or resistance of staphylococci to oxacillin predictssusceptibility or resistance to (a) other srbm-ogerhfljo-zifwinmjdoxm llins such a s cloxacillin and dicloxacillin, (b) combinationsof a penicillin and a beta- lactamase inhibitor, and(c) anti-staphylococcal cephalosporins. Routine testing of otherpenicillins, beta-lactam/beta-lactamas e inhibitor combinations,cephems, and carbapenems is not advised by the CLSI Standards(W448-X91, 2005). S = Susceptible; I = Intermediate; R = Resistant P = Positive; N = Negative MICS are expressed in micrograms per mL Antibiotic RSLT#1 RSLT#2 RSLT#3 RSLT#4Ciprofloxacin SErythromycin RGentamicin SLevofloxacin SOxacillin SPenicillin RTrimethoprim/Sulfa SVancomycin S Upper Respiratory Final report Culture (Normal) 12-Fsh-043300:40 LIPID PANEL (85689) Comments: PATIENT WAS FASTINGPERFORMED BY: [employer] CausesCarondelet Health Nmtdbn9807 [facility] [id number] Cholesterol, Total 154 mg/dL (Normal) Range: 100-199 HDL Cholesterol 53 mg/dL (Normal) Comments: According to ATP-III Guidelines, HDL-C >59 mg/dL is considered anegative risk factor for CHD. LDL Cholesterol Calc 88 mg/dL (Normal) Range: 0-99 LDL/HDL Ratio 1.7 {ratio_units} (Normal) Range: 0.0-3.2 Triglycerides 63 mg/dL (Normal) Range: 0-149 VLDL Cholesterol Jorge 13 mg/dL (Normal) Range: 5-40 48-Oap-366867:40 HEPATIC FUNCTION PANEL Comments: PATIENT WAS FASTINGPERFORMED BY: [employer] [facility] [id number] (96650) Bilirubin, Direct 0.22 mg/dL (Normal) Range: 0.00-0.40 :40 Vitamin D Hydroxy (28495) Comments: PATIENT WAS FASTINGPERFORMED BY: [employer] Aoikmw4945 [facility] [id number] Vitamin D, 25-Hydroxy 48.7 ng/mL (Normal) Range: 32.0-100.0 Comments: Recent studies consider the lower limit of 32.0 ng/mL to be athreshold for optimal health.Mike CABAN. J Nutr. 2004;135(2):317-22. 84-Vut-325906:40 METABOLIC PANEL, COMPREHENSIVE Comments: PATIENT WAS FASTINGClinical Information: [id number] PERFORMED BY: [employer]ula CausesCoAzimuth SystemsTefocy5944 [facility] [id number] (74687) A/G Ratio 1.9 (Normal) Range: 1.1-2.5 Albumin, [...] Quant 0.6 mg/L (Normal) Comments: PERFORMED BY: [employer] [facility] [id number] 5:25 Range: 0.0-4.9 1-Jfx-344986:25 CK, Total+Isoenzymes, Serum Comments: PERFORMED BY: [employer] [facility] [id number] CK-BB 0 % (Normal) CK-MB 0 % (Normal) Range: 0-3 CK-MM 100 % (Normal) Range: 97-100 Creatine Kinase,Total,Serum 91 U/L (Normal) Range: 24-173 Macro Type 1 0 % (Normal) Macro Type 2 0 % (Normal) 0-Knq-548722:58 CBC With Differential/Platelet Comments: PATIENT WAS FASTINGPERFORMED BY: [employer] [facility] [id number] Baso (Absolute) 0.0 {x10E3/uL} (Normal) Range: 0.0-0.2 [...] 11.7-15.0 WBC 5.6 {x10E3/uL} (Normal) Range: 4.0-10.5 7-Lii-616332:58 Comp. Metabolic Panel (14) Comments: PATIENT WAS FASTINGPERFORMED BY: LabCoSt. Luke's Warren HospitalLzeeaw7279 [facility] [id number] A/G Ratio 1.7 (Normal) Range: 1.1-2.5 Albumin, [...] Sodium, Serum 141 mmol/L (Normal) Range: 135-145 4-Lmv-523898:58 Lipid Panel With LDL/HDL Comments: PATIENT WAS FASTINGPERFORMED BY: LabHavenwyck Hospital6370 [facility] [id number] Ratio Cholesterol, Total 215 mg/dL (Abnormal) Range: [...] 2.282 {uIU/mL} Comments: PATIENT WAS FASTINGPERFORMED BY: [facility]6370 [facility] [id number] :58 (Normal) Range: 0.450-4.500 Vitamin D, 25-Hydroxy 26.6 ng/mL Comments: PATIENT WAS FASTINGPERFORMED BY: [facility]6370 [facility] [id number] :58 (Abnormal) Range: 32.0-100.0 Comments: Recent studies consider the lower limit of 32.0 ng/mL to be athreshold for optimal health.Mike CABAN. J Nutr. 2004;135(2):317-22. 73-Ndq-643533:26 Upper Respiratory Culture Comments: Clinical Information: SRC:TH PERFORMED BY: [facility]6370 [facility] [id number] Result 1 RRF (Normal) Comments: Routine respiratory zuri Upper Respiratory Culture Final report (Normal) 47-Txa-693828:15 Rapid Strep Test, Office (22781) Rapid Strep Test, Office Negative (Normal) 28-Rwa-938175:42 BILAT SCRN DIGITAL & CAD Radiology Report See Note (Normal) Comments: Exam Number: [id number] MAMMOGRAM, BILATERAL SCREENING DIGITAL AND CAD HISTORYRoutine [...] mammograms werealso examined with computer-aided detection software ([employer] Reported By: HINA TURNER M.D. 08-Meg-185548:42 DEXA BONE DENSITY STUDY (HP) Radiology Report See Note (Normal) Comments: Exam Number: [id number] BONE DENSITOMETRY HISTORYOsteopenia. TECHNIQUE Bone densitometry of [...] T PROT 6.5 g/dL (Normal) Range: 6.4-8.2 38-Qum-904534:04 CHEST, PA AND LATERAL Radiology Report See Note (Normal) Comments: Exam Number: [id number] PA AND LATERAL CHEST CLINICAL STATEMENTChest pain. The lungs are clear without vascular congestion. There is no pleuralfluid. The heart, agata and mediastinum are not enlarged. I MPRESSIONNo evidence of acute cardiopulmonary disease. Reported By: NABIL STONE M.D. 25-Xhi-009360:01 LIPID CHOL 157 mg/dL (Normal) Comments: <200 [...] mg/dL VLDL 14 mg/dL (Normal) Range: 5-40 0-Vvw-782742:08 LIVER ALB 3.9 g/dL (Normal) Range: 3.4-5.0 ALK P 84 U/L (Normal) Range: 50-136 ALT 29 [iU]/L (Abnormal) Range: 30-65 AST 25 U/L (Normal) Range: 15-37 D BILI 0.13 mg/dL (Normal) Range: 0.00-0.30 T BILI 0.84 mg/dL (Normal) Range: 0.00-1.00 T PROT 7.2 g/dL (Normal) Range: 6.4-8.2 2-Qlq-997191:08 PFLIP CHOL 230 mg/dL (Abnormal) Comments: <200 [...] Hypercholesteremia Planned Observations CBC & PLATELETS (AUTO) (28252)Indication: Insomnia On: 72-Gbd-672410:37 Request Metabolic Panel, Comprehensive (67001)Indication: Weight loss On: 60-Fce-356367:37 Request CALCIFEDIOL (15654)Indication: Vitamin D deficiency, unspecified On: 76-Oev-223997:44 Request LIPID PANEL (12644)Indication: Hypercholesteremia On: 05-Qgx-482223:44 Request MICROALBUMIN: CREATININE RATIO (47800) AND (64986)Indication: Benign essential HTN On: :00 Request Comments: Jun 2017 URINALYSIS (47965)Indication: Benign essential HTN On: :00 Request Comments: Jun 2017 TSH (05252)Indication: Benign essential HTN On: 64-Jnm-567949:00 Request Comments: Jun 2017 Metabolic Panel, Comprehensive (66957)Indication: Benign essential HTN On: :00 Request Comments: Jun 2017 CALCIFEDIOL (16720)Indication: Osteopenia On: 82-Ztl-089748:59 Request Comments: JUN 2017 Vitamin D Hydroxy (54944)Indication: Vitamin D deficiency, unspecified On: :51 Request LIPID PANEL (16057)Indication: Hypercholesteremia On: :51 Request URINALYSIS, W/ MICRO (54214)Indication: Benign essential HTN On: :51 Request CBC W/AUTO DIFF WBC (62903)Indication: Benign essential HTN On: :51 Request METABOLIC PANEL, COMPREHENSIVE (48945)Indication: Benign essential HTN On: :51 Request UPEP (48797)Indication: Osteopenia On: 19-Thr-021970:03 Request SPEP (13452)Indication: Osteopenia On: 85-Cca-599726:03 Request TSH (85674)Indication: Osteopenia On: 34-Zgf-159567:03 Request URINE CALCIUM IVAN TIMED 24 Hour (32218)Indication: Osteopenia On: 57-Yhm-790351:02 Request WBC Count with manual diff (37008)Indication: Unspecified Diagnosis On: 85-Jij-846559:13 Request LIPID PANEL (08029)Indication: Hypercholesteremia On: 97-Ofs-054570:34 Request CBC WITH MANUAL DIFF (40422)Indication: Benign essential HTN On: 63-Tkf-692312:37 Request METABOLIC PANEL, COMPREHENSIVE (78624)Indication: Benign essential HTN On: :37 Request HEPATIC FUNCTION PANEL (53340)Indication: Hypercholesteremia On: :37 Request LIPID PANEL (51714)Indication: Hypercholesteremia On: :37 Request C-Reactive Protein (73800)Indication: Elevated blood-pressure reading without diagnosis of hypertension On: :11 Request CPK TOTAL & ISOENZYMES (22119)Indication: Elevated blood-pressure reading without diagnosis of hypertension On: 8-Kzw-675699:11 Request BLANQUITA CULTURE-OTHER (60870)Indication: Pharyngitis, acute On: 51-Try-028723:15 Request LIPID PANEL (13505)Indication: Hypercholesteremia On: :29 Request HEPATIC FUNCTION PANEL (79109)Indication: Hypercholesteremia On: :34 Request LIPID PANEL (64079)Indication: Hypercholesteremia On: :34 Request LIPID PANEL (10363)Indication: Hypercholesteremia On: 69-Aqg-934030:08 Request Comments: 3 mos LIPID PANEL (38286)Indication: Hypercholesteremia On: 23-Kac-412693:25 Request HEPATIC FUNCTION PANEL (63409)Indication: Hypercholesteremia On: :25 Request HEPATIC FUNCTION PANEL (67399)Indication: Hypercholesteremia On: :33 Request LIPID PANEL (59780)Indication: Hypercholesteremia On: :33 Request Comments: 6 mos Planned Procedures MAMMOGRAM BREAST BILATERAL On: 03-Sep-2018 Intent SCREENING DIGITAL (72887)By: Luiza Suggs CNP, CNP, Mary E UPPER GI ENDOSCOPY, DIAGNOSTIC On: 22-May-2018 Intent (76351)By: Luiza Suggs CNP, CNP, Mary E Radiology - ChestBy: Ifeanyi NAIK, On: 02-Jan-2018 Intent Luiza Argueta CNP MAMMOGRAM BREAST BILATERAL On: 27-Aug-2017 Intent SCREENING DIGITAL (32600)By: Luiza Suggs CNP, CNP, Mary E MAMMOGRAM, SCREENING, BOTH BREAST On: 08-Aug-2016 Intent (41114)By: Eugene Vides MD ELECTROCARDIOGRAM, COMPLETE (ECG) On: 18-Jul-2016 Intent (09607)By: Eugene Vides MD Spirometry (74020)By: Peewee RO, On: 18-Jul-2016 Intent Eugene Flu Vaccine (Quadrivalent) 54172Il: On: 18-Jul-2016 Intent Eugene Vides MD Comments: Lot:[id number]:05/04/17Dose:0.5mLRoute:IMSite:L DltdGiven By:KIRILL signed INJECTION, PROLIA (J0897)By: Anthony On: 26-Jan-2016 Intent DO, Joann A Comments: lot: [id number]: ite/route: L arm/SQamt: prefilled syringeVIS signed when applicableChelsea, RIVER [employer] CAPTAIN Pelvic and Breast, Medicare On: 06-Sep-2015 Intent (G0101)By: Sherry Motley DOa A INJECTION, PROLIA (J0897)By: Anthony On: 30-Jul-2015 Intent DO Joann A Comments: Lot:[id number]:12/23Dose:60mgRoute:sub qSite:l armGiven By:KIRILL signed MAMMOGRAM, SCREENING, BOTH BREAST On: 21-Jul-2015 Intent (36132)By: Joann Motley DO DEXA SCAN AXIAL SKELETON (58022)By: On: 21-Jul-2015 Intent Anthony TORRES Joann A Flu Vaccine (Quadrivalent) 82055Hl: On: 21-Jul-2015 Intent Sherry Motley DOa A Comments: Lot #:[id number] date:04/2016Amount given:0.5mlRoute: IMSite given: left deltoidGiven by: LEYDI Aguayo ADMINISTRATION OF INFLUENZA VIRUS On: 21-Jul-2015 Intent VACCINE (G0008)By: Joann Motley DO Holter Monitor 24 hrsBy: Anthony TORRES, On: 22-Feb-2015 Intent Joann A Echo CompleteBy: Joann Motley DO On: 22-Feb-2015 Intent INJECTION, PROLIA (J0897)By: Anthony On: 27-Jan-2015 Intent DO Joann A Comments: lot:[id number]: 08/21site/route: L arm/SQamt: 60mgVIS signed when applicableChelsea, [employer] CAPTAIN MAMMOGRAM, SCREENING, BOTH BREAST On: 15-Jan-2015 Intent (39147)By: Joann Motley DO DEXA SCAN AXIAL SKELETON (45600)By: On: 15-Jan-2015 Intent Joann Motley DO Comments: 06/19 due EKG (19667)By: Joann Motley DO On: 15-Jan-2015 Intent Comments: ekg showed normal sinus rhythym, normal axis, no acute st/t wave changes INJECTION, PROLIA (J0897)By: Anthony On: 28-Jul-2014 Intent Joann TORRES Comments: Lot:[id number]:11/2016Dose:1mLRoute:sub q Site: [facility] By:JSERGIO signed Eprescribed prescriptions On: 06-Jan-2014 Intent (G8553)By: Joann Motley DO EKG (05499)By: Myah Warren On: 15-Dec-2013 Intent Comments: ekg showed normal sinus rhythym, normal axis, no acute st/t wave changes Eprescribed prescriptions On: 15-Dec-2013 Intent (G8553)By: Myah Warren Spirometry (37216)By: Anthony TORRES, On: 28-Jul-2013 Intent Joann Peters Comments: good effort and curve mild obst Radiology - Chest- PA and LatBy: On: 28-Jul-2013 Intent Joann Motley DO MAMMOGRAM, SCREENING, BOTH BREASTS On: 28-Jul-2013 Intent (38247)By: Joann Motley DO FLU VAC, SPLIT, >3 YEARS, INTRAMUSC On: 28-Jul-2013 Intent (97137)By: Myah Warren Comments: Lot #:[id number] date:mount given:0.5mlRoute: IMSite given: L dltdVIS and ABN signedGiven by: LEYDI Aguayo ADMINISTRATION OF INFLUENZA VIRUS On: 28-Jul-2013 Intent VACCINE (G0008)By: Myah Warren Eprescribed prescriptions On: 28-Jul-2013 Intent (G8553)By: Myah Warren DXA, BONE DENSITY, AXIAL SKELETON On: 26-Mar-2013 Intent (21769)By: Joann Motley DO EKG (39930)By: Myah Warren On: 20-Nov-2012 Intent Comments: ekg showed normal sinus rhythym, normal axis, no acute st/t wave changes PNEUM VAC ADLT/IMUMNOSPR, SBC/INTRM On: 20-Nov-2012 Intent (41307)By: Myah Warren Comments: Lot #[id number]-6/13Site-left deltoidDose- 0.5mlgiven by: Belinda Blount LPN Eprescribed prescriptions On: 20-Nov-2012 Intent (G8553)By: Myah Warren ADMINISTRATION OF PNEUMOCOCCAL On: 20-Nov-2012 Intent VACCINE (G0009)By: Myah Warren Radiology - Cervical SpineBy: Fast On: 22-Jul-2012 Intent Joann TORRES Spirometry (19993)By: Briana, On: 22-Jul-2012 Intent Myah Comments: good effort and curve mild obst DXA, BONE DENSITY, AXIAL SKELETON On: 22-Jul-2012 Intent (74235)By: Joann Motley DO Comments: september FLU VAC, SPLIT, >3 YEARS, INTRAMUSC On: 22-Jul-2012 Intent (64040)By: Myah Warren Comments: Lot #:[id number] date:mount given:0.5mlRoute: IMSite given:left deltoidGiven by: LEYDI Aguayo ADMINISTRATION OF INFLUENZA VIRUS On: 22-Jul-2012 Intent VACCINE (G0008)By: Myah Warren Breast Screening - BilateralBy: On: 17-Jun-2012 Intent Joann Motley DO MAMMOGRAM, SCREENING, BOTH BREASTS On: 20-Feb-2012 Intent (76039)By: Joann Motley DO Comments: due in april TDAP VACCINE >7 IM (54394)By: Hill On: 20-Feb-2012 Intent Rody DOWELL Comments: [id number] 3/14 L arm, IM prefilled Rody EKG (43881)By: Myah Warren On: 24-Oct-2011 Intent Comments: ekg showed normal sinus rhythym, normal axis, no acute st/t wave changes low voltage no change FLU VAC, SPLIT, >3 YEARS, INTRAMUSC On: 24-Oct-2011 Intent (96102)By: Myah Warren Comments: health department Spirometry (17131)By: Anthony TORRES, On: 15-May-2011 Intent Joann A Comments: good effort and curve mild obst Ultrasound - AortaBy: Anthony TRORES, On: 11-Apr-2011 Intent Joann A Comments: xray showed calcification of abd aorta Radiology - Lumbar SpineBy: Fast On: 20-Feb-2011 Intent DO Joann A MAMMOGRAM, SCREENING, BOTH BREASTS On: 06-Feb-2011 Intent (23454)By: Sherry Motley DOa A FLU VAC, SPLIT, >3 YEARS, INTRAMUSC On: 24-Aug-2010 Intent (02431)By: Myah Warren Comments: Lot #:[id number] date:mount given:0.5mlRoute: IMSite given:left deltoidGiven by: LEYDI Aguayo CT - Abdomen & PelvisBy: Anthony TORRES, On: 24-Aug-2010 Intent Joann A EKG (46003)By: Myah Warren On: 24-Aug-2010 Intent Comments: ekg showed normal sinus rhythym, normal axis, no acute st/t wave changes DXA, BONE DENSITY, AXIAL SKELETON On: 24-Aug-2010 Intent (61878)By: Joann Motley DO ADMINISTRATION OF INFLUENZA VIRUS On: 24-Aug-2010 Intent VACCINE (G0008)By: Myah Warren MAMMOGRAM, SCREENING, BOTH BREASTS On: 23-Aug-2009 Intent (54357)By: Sherry Motley DOa A Echo CompleteBy: Ciesa HEENA Mahsa On: 12-May-2009 Intent Ciesa SEAT PACK INSPECTOR Mahsa EKG (94134)By: Tammy Lara On: 12-May-2009 Intent DXA, BONE DENSITY, AXIAL SKELETON On: 11-Dec-2007 Intent (34120)By: Anthony TORRES Joann A MAMMOGRAM, SCREENING, BOTH BREASTS On: 11-Dec-2007 Intent (37946)By: Anthony TORRES Joann A Echo CompleteBy: Anthony TORRES Joann A On: 13-May-2007 Intent Radiology - Chest- PA and LatBy: On: 13-May-2007 Intent Fast DO, Joann A Spirometry (92216)By: Fast DO, On: 13-May-2007 Intent Joann A Comments: good effort and curve- restart pulmicort EKG (35147)By: Myah Warren On: 13-May-2007 Intent Comments: done-jjp [...] regime n. Patient sleeps 5 (5-7 but [facility] [...] system and says her children live in [place]. ??) hours per ni ght. Nutrition: balanced [...] patient does not have durable power of employee benefits attorney or living will. The patient has noticed nothing from the ge riatic depression scale. Other providers contributing to the patient's care are other: (Opthmologist- in [place]- Dr. Schmidt). Note for Annual Medicare Exam: [...] chronic medical issues: she ran out of [employer] protein weight down 3 pounds very active [...] but took a ??long driving trip to [place] and flared her back- she will wake [...]
--- OUTSIDE RECORDS SUMMARY | 2019-01-24 18:04 | XMS RPT_ITS | Continuity of Care Document ---
:1935 Author Organization [facility] Address [address] [place] [address] Phone Care Team Providers Name Role Phone [...] for 0 days Refills: 0 Ordered:20-Feb-2012 Long PLEAT PATTERNMAKER, Rody L End : 20-Feb-2012 Inactive CLARINEX, 5MG (Oral Tablet) 1 tab qd,prn for 0 days Refills: 0 Ordered:24-Aug-2010 Myah Warren End : 24-Aug-2010 Inactive ERGOCALCIFEROL, 58498ANCL (Oral Capsule) 1 (one) Capsule q week [...] : 24-Aug-2010 Discontinued Comments:This order discontinued per [facility]. PULMICORT, 0.5MG/2ML (Inhalation Suspension) 2 QD [...] and Lateral Result: Comments: See Note; NOTES: [facility] Imaging Services [address] [place] [address] Chest PA and Lateral MR#: [id number] Acct: [id number] Name: DANNIE VILLASENOR Rep #: [id number] : 1935 F 82 From: Saira Estevez MD PCP: Luiza Suggs NP Status: REG CLI Study: Chest PA and Lateral Date of Exam: 01/02/18 Exam# [id number] Ordering Dr: Luiza Suggs STUDY: X-RAY CHEST [...] , Service support , CC: Luiza Suggs YOUTH DEVELOPMENT SPECIALIST Cnc Milling Machine Operator: Signed 10-Sep-2017 SCREENING MAMM (CAD), BILAT Result: Comments: See Note; NOTES: [facility] Imaging Services [address] [place] [address] SCREENING MAMM (CAD), BILAT MR#: [id number] Acct: [id number] Name: DANNIE VILLASENOR Rep #: [id number] : 1935 F 81 From: Hayder Elkins MD PCP: Luiza Suggs Status: REG CLI Study: SCREENING MAMM (CAD), BILAT Date of Exam: 09/10/17 Exam# [id number] Ordering Dr: Luiza Suggs MAMM OGRAPHY - [...] delay biopsy of a clinically suspicious abnormality. [id number] Electronically Signed: Hayder Elkins MD at 15:3 3 EST Tel [phone], Service support , CC: Luiza Suggs Cnc Milling Machine Operator: Signed 14-Aug-2016 Bilat Scrn Digital AND CAD Result: Comments: See Note; NOTES: [facility] Imaging Services [address] [place] [address] Verdana 4d Bilat Scrn Digital AND CAD MR#: [id number] Acct: [id number] Name: MONSERRAT VILLASENOR Rep #: [id number] : 1935 F 80 From: Celena Sierra MD PCP: Eugene Vides Status: REG CLI Study: Bilat Scrn Digital AND CAD Date of Exam: 08/14/16 Exam# [id number] Ordering Dr: Eugene Vides MAMMOGRAPHY - BILATERAL [...] delay biopsy of a clinically suspicious abnormality. [id number] Electronically Signed: Celena Sierra MD at 17:07 EDT Tel , S peggy support [phone], CC: Eugene Vides Cnc Milling Machine Operator: Signed 10-Aug-2015 Bilat Scrn Digital AND CAD Result: Comments: See Note; NOTES: [facility] Imaging Services [address] [place] [address] Breast Imaging Report MR#: [id number] Acct: [id number] Name: DANNIE VILLASENOR Jere Wagner p #: [id number] : 1935 F 79 From: Hayder Elkins MD PCP: Joann Motley DO Status: REG CLI Study: Bilat Scrn Digital AND CAD Date of Exam: 08/10/15 Exam# [id number] Ordering Dr: Joann Motley DO MAMMOGRAPHY - [...] Hayder Elkins MD at 11:05 EDT Tel [phone], Service support [phone], CC: Joann Motley DO Cnc Milling Machine Operator: Signed 10-Aug-2015 Dexa Bone Density Study (HP) Result: Comments: See Note; NOTES: [facility] Imaging Services [address] [place] [address] Bone Density Report MR#: [id number] Acct: [id number] Name: DANNIE VILLASENOR Rep #: [id number] : 1935 F 79 From: Hayder Elkins MD PCP: Joann Motley DO Status: [facility] CLI Study: Dexa Bone Density Study (HP) Date of Exam: 08/10/15 Exam# [id number] Ordering Dr: Joann Motley DO STUDY: DUAL [...] Hayder Elkins MD at 11:21 EDT Tel [phone], Service support [phone], CC: Joann Motley DO Cnc Milling Machine Operator: Signed 02-Mar-2015 Echocardiogram Complete Result: Comments: See Note; NOTES: [facility] Cardiovascular Services [address] [place] [address] Echo Complete 03/02/15 1057 MR#: [id number] Acct: [id number] Name: DANNIE VILLASENOR Rep #: [id number] : 1935 79 From: Neal Lr MD Attending Dr: Joann Motley DO Status: REG CLI Ordering Dr: Joann Motley DO Date: 03/02/15 Location: [facility] Sex: F C Admitted: [facility] This was a 2D Doppler, Color Flow [...] DO Date Dictated: 03/02/151056 Date Transcribed: 03/02/151837 Cnc Milling Machine Operator: Signed 15-Feb-2015 12 Lead Electrocardiogram Result: Comments: See Note; NOTES: [facility] Cardiovascular Services [address] [place] [address] 12 Lead EKG 02/12/15 1220 MR#: [id number] Acct: [id number] Name: LEYDI VILLASENOR RGARET C Rep #: [id number] : 1935 79 From: Kyler Carroll MD [...] normal ECG Confirmed by KYLER CARROLL ([id number]), legal editor PROSPER QUINONES ([id number]) on 02/15/2015 12 :01:17 PM Referred By: SHERRY Confirmed By:KYLER CARROLL 02/15 1201 Date Kyler Carroll MD CC: Joann DO Date Dictated: 02/12/15 1220 Date Transcribed: 02/12/151219 Cnc Milling Machine Operator: Signed 15-Feb-2015 12 Lead Electrocardiogram Result: Comments: See Note; NOTES: [facility] Cardiovascular Services [address] [place] [address] 12 Lead EKG 02/12/151203 MR#: [id number] Acct: [id number] Name: LEYDI VILLASENOR RGARET C Rep #: [id number] : 1935 79 From: Kyler Carroll MD [...] Normal ECG Confirmed by KYLER CARROLL ([id number]), legal editor PROSPER QUINONES ([id number]) on 02/15/2015 12 :01:27 PM Referred By: SHERRY Confirmed By:KYLER CARROLL 02/15/15 1201 Date Kyler Carroll MD CC: Joann Motley DO Date Dictated: 02/12/15 1204 Date Transcribed: 02/12/15 1204 Cnc Milling Machine Operator: Signed 13-Feb-2015 Emergency Department Summary Result: Comments: See Note; NOTES: [facility] Medical Records Department [address] [place] [address] Emergency Department Summary MR#: [id number] Acct: [id number] Name: DANNIE BOSTON Rep #: [id number] : 1935 79 From: Joselo Henning MD PCP: Joann Motley DO Status: [facility] ER DATE OF SERVICE: 02/12/2015 METHOD [...] C: Joann Motley DO T: NTS JOB: [id number] <Electronically signed by Joselo Henning MD> Date Joselo Henning MD CC: Joann Motley DO Date Dictated: 02/12/15 134 Date Transcribed: 02/12/151340 Cnc Milling Machine Operator: Signed 12-Feb-2015 Discharge Instruction Result: Comments: See Note; NOTES: [facility] Medical Records Department [address] [place] [address] Discharge Instruction 02/12/151335 MR#: [id number] Acct: [id number] Name: DANNIE VILLASENOR Rep #: [id number] : 1935 79 From: Joselo Henning MD [...] View (Portable) Result: Comments: See Note; NOTES: [facility] Imaging Services [address] [place] [address] Radiology Report MR#: [id number] Acct: [id number] Name: DANNIE VILLASENOR Rep #: [id number] : 1935 F 79 From: Ross Robert DO PCP: Joann Motley DO Status: REG ER Study: Chest 1 View (Portable) Date of Exam: 02/12/15 Exam# [id number] Ordering Dr: Joselo Henning MD STUDY: X- [...] Ross Robert DO at 12:40 EDT Tel [phone], Service support [phone], RAD/Chest 1 View (Portable) IMPRESSION: Question C OPD. There is no acute cardiopulmonary disease or change from the prior study. Electronically Signed: Ross Robert DO at 12:40 EDT Tel [phone], Service support [phone], Fax CC: Joann Motley DO; Joselo Henning MD Cnc Milling Machine Operator: Signed 27-Nov-2013 Kaz Arriaga Digital & CAD Result: Comments: See Note; NOTES: [facility] Imaging Services [address] [place] [address] Breast Imaging Report MR#: [id number] Acct: [id number] Name: DANNIE VILLASENOR Rep #: [id number] : 1935 F 78 From: Hayder Elkins MD PCP: Joann Motley DO Status: REG CLI Exam# [id number] Ordering Dr: Joann Motley DO MAMMOGRAPHY - [...] 11/28 at 7:55 EST , Service support [phone], CC: Joann Motley DO Cnc Milling Machine Operator: Signed 14-Aug-2013 Chest PA and Lateral Result: Comments: See Note; NOTES: [facility] Imaging Services [address] [place] [address] Radiology Report MR#: [id number] Acct: [id number] Name: DANNIE VILLASENOR Rep #: [id number] : 1935 F 77 From: Ross Robert DO PCP: Joann Motley DO Status: REG CLI Study: Chest PA and Lateral Date of Exam: 08/14/13 Exam# [id number] Ordering Dr: Joann Motley DO STUDY: X-RAY [...] 14, 2013 at 7: 14:19 PM EDT [phone] Electronically Signed HH/HH If you are the referring physician and would like to consult with the radiologist who provided this interpretation, please contact Ross lilly D.O. at [phone]. If this radiologist is unavailable, you will be directed to another radiologist to assist. If you are a patient with a question regarding this report, please contact [facility] directly. Professional Interpretation Provided By: Hobby, Phone , These documents contain legally protected [...] of these documents. CC: Joann Motley DO Cnc Milling Machine Operator: Signed Family History Unknown Family Member Name [...] kg/m2 Body Surface Area Calculated 1.51 m2 51-Ikw-652559:15 Temperature 97.5 f Pulse 71 /min Comments: [...] Microscopic Examination Comments: PATIENT NOT FASTINGPERFORMED BY: [facility] [id number] Bacteria Few (Normal) Epithelial Cells (non renal) None seen {/hpf} (Normal) Range: 0 - 10 RBC None seen {/hpf} (Normal) Range: 0 - 2 WBC 0-5 {/hpf} (Normal) Range: 0 - 5 72-Nqn-941484:15 URINALYSIS, W/ MICRO (35995) Comments: PATIENT NOT FASTINGPERFORMED BY: [facility] [id number] Microscopic Examination See below: (Normal) Comments: Microscopic was indicated and was performed. Microscopic Examination MICRON (Normal) Comments: Microscopic follows if indicated. Nitrite, Urine Negative (Normal) Urobilinogen,Semi-Qn 0.2 mg/dL (Normal) Range: 0.2-1.0 Bilirubin Negative (Normal) Occult Blood Negative (Normal) Ketones Negative (Normal) Glucose Negative (Normal) Protein Negative (Normal) WBC Esterase Negative (Normal) Appearance Clear (Normal) Urine-Color Yellow (Normal) pH 7.5 (Normal) Range: 5.0-7.5 Specific Halliday 1.007 (Normal) Range: 1.005-1.030 38-Xty-141638:15 MICROALBUMIN: CREATININE RATIO Comments: PATIENT NOT FASTINGPERFORMED BY: [employer] Dkaeoy1891 [facility] [id number] (78407) AND (86656) Alb/Creat Ratio <19.0 {mg/g_creat} (Normal) Range: 0.0-30.0 Albumin, Urine <3.0 ug/mL (Normal) Creatinine, Urine 15.8 mg/dL (Normal) 22-Ccr-726953:15 T4, FREE (THYROXINE) (40246) Comments: PATIENT NOT FASTINGPERFORMED BY: [employer] PowerPlan [facility] [id number] T4,Free(Direct) 1.12 ng/dL (Normal) Range: 0.82-1.77 10-Hxy-311725:15 T3, FREE (TRIDOTHYRONINE) (35901) Comments: PATIENT NOT FASTINGPERFORMED BY: [facility]6370 [facility] [id number] Triiodothyronine (T3), Free 2.7 pg/mL (Normal) Range: 2.0-4.4 40-Zpd-587573:15 TSH (THYROID STIMULATING Comments: PATIENT NOT FASTINGPERFORMED BY: [facility] [id number] HORMONE) (45078) TSH 2.650 {uIU/mL} (Normal) Range: 0.450-4.500 40-Pag-013265:59 FECAL OCCULT- Tubes sent home (44299) FECAL OCCULT HGB ASSAY, QUAL, 1-3 SIMULTANEOU negative (Normal) 6-Rwl-314688:10 CBC, Platelet, No Differential Comments: PATIENT WAS FASTINGPERFORMED BY: [facility]6370 [facility] [id number] Platelets 218 {x10E3/uL} (Normal) Range: 150-379 RDW 14.0 % (Normal) Range: 12.3-15.4 MCHC 33.3 g/dL (Normal) Range: 31.5-35.7 MCH 29.5 pg (Normal) Range: 26.6-33.0 MCV 89 fL (Normal) Range: 79-97 Hematocrit 36.3 % (Normal) Range: 34.0-46.6 Hemoglobin 12.1 g/dL (Normal) Range: 11.1-15.9 RBC 4.10 {x10E6/uL} (Normal) Range: 3.77-5.28 WBC 5.1 {x10E3/uL} (Normal) Range: 3.4-10.8 1-Pnh-933619:10 LIPID PANEL (14776) Comments: PATIENT WAS FASTINGPERFORMED BY: [facility]6[address] [facility] [id number] LDL/HDL Ratio 2.2 {ratio} (Normal) Range: 0.0-3.2 Comments: LDL/HDL Ratio Men Women 1/2 Avg.Risk 1.0 1.5 Av g.Risk 3.6 3.2 2X Avg.Risk 6.2 5.0 3X Avg.Risk 8.0 6.1 LDL Cholesterol Calc 114 mg/dL (Abnormal) Range: 0-99 VLDL Cholesterol Jorge 14 mg/dL (Normal) Range: 5-40 HDL Cholesterol 52 mg/dL (Normal) Triglycerides 71 mg/dL (Normal) Range: 0-149 Cholesterol, Total 180 mg/dL (Normal) Range: 100-199 0-Dpw-646364:10 METABOLIC PANEL, COMPREHENSIVE Comments: PATIENT WAS FASTINGPERFORMED BY: [facility]CoBach[facility] for RehabilitationQnvgpo6519 [facility] [id number]; OV 05/13 (32795) ALT (SGPT) 14 [iU]/L (Normal) Range: 0-32 [...] 8-27 Glucose 81 mg/dL (Normal) Range: 65-99 61-Zkw-095748:31 CALCIFEDIOL (46600) Comments: PATIENT WAS FASTINGPERFORMED BY: [facility]6370 [facility] [id number] Vitamin D, 25-Hydroxy 87.7 ng/mL (Normal) Range: 30.0-100.0 Comments: Vitamin D deficiency has been defined by the [place] [facility] and an Endocrine Society practice guideline as alevel of serum 25-OH vitamin D less than 20 ng/mL (1,2).The Endocrine Society went on to further define vitamin Dinsufficiency as a level between 21 and 29 ng/mL (2).1. IOM ([place] of Medicine). 2010. Dietary reference intakes for calcium and D. [place]: The National Academies Press.2. Maria Isabel MF, [place] MANSFIELD, Fredy TUCKER, et al. Evaluation, treatment, and prevention of vitamin D deficiency: an Endocrine Society clinical practice guideline. JCEM. 2010; 96(7):1911-30. 29-Ppb-149454:31 METABOLIC PANEL, COMPREHENSIVE Comments: PATIENT WAS FASTINGPERFORMED BY: [facility]6370 [facility] [id number] (17797) ALT (SGPT) 9 [iU]/L (Normal) Range: 0-32 [...] Glucose, Serum 87 mg/dL (Normal) Range: 65-99 48-Fcw-920645:31 CBC, PLATELETS & MANUAL DIFF Comments: PATIENT WAS FASTINGPERFORMED BY: [facility]CoBacharach Institute for RehabilitationKbseir9539 [facility] [id number] (58466) Immature Grans (Abs) 0.0 {x10E3/uL} (Normal) Range: [...] 3.77-5.28 WBC 5.2 {x10E3/uL} (Normal) Range: 3.4-10.8 56-Kzx-753138:04 Urinalysis, Office (20422) UA - LEUKOCYTE ESTERASE Negative (Normal) UA - NITRITE Negative (Normal) URINE UROBILINGN IVAN TIMED Normal mg/dL (Normal) UA - PROTEIN Negative mg/dL (Normal) UA - PH 6.5 (Normal) UA - BLOOD Negative (Normal) UA - SPECIFIC GRAVITY 1.010 (Normal) UA - KETONES Negative mg/dL (Normal) UA - BILIRUBIN Negative (Normal) UA - GLUCOSE Negative (Normal) 2-Dxt-277533:59 Comprehensive Metabolic Profil Comments: [facility] [address] [place], [address] ; OV 06/25 GAP 6 (Normal) Range: [...] 7-18 GLU 82 mg/dL (Normal) Range: 70-110 2-Bxa-522806:59 Microalb:Creat Ratio,Random UR Comments: [facility] [address] [place], [address] MALB:CREAT 6.9 {mg/g_CRE} (Normal) MICROALBUMIN,UR 10.0 mg/L (Normal) UR CREAT 144.00 mg/dL (Normal) 2-Ymz-362042:59 Thyroid Stim Hormone (TSH) Comments: [facility] [address] [place], [address] TSH 2.20 {uIU/mL} (Normal) Range: 0.358-3.74 4-Ddg-184944:59 Urinalysis, Routine (Dipstick) Comments: How was Urine Obtained? CLEAN [facility] [address] [place], [address] LEUK ESTERASE 25 /ul (Abnormal) OCCULT BLOOD-UR 10 /ul (Abnormal) NITRITE UR Negative (Normal) UROBILI Normal mg/dL (Normal) PROT DIPSTX Negative mg/dL (Normal) pH UR 6.0 (Normal) Range: 5.0 - 8.0 SP.GR. DIPSTX 1.020 (Normal) Range: 1.002-1.030 KETONE UR Negative mg/dL (Normal) BILIRUBIN URINE Negative mg/dL (Normal) GLUCOSE, UR Normal mg/dL (Normal) CLARITY Clear (Normal) COLOR Yellow (Normal) 0-Bsu-027762:59 Vitamin D,25 Hydroxy Comments: [facility] [address] [place], [address] Vitamin D 25-OH 55.4 ng/mL (Normal) Comments: Vitamin D 25(OH) Status Range Deficiency <20 ng/mL (50nmol/L) Insuffciency 20 - 30 ng/mL (50 - 75 nmol/L) Sufficiency 30 - 100 ng/mL (75 - 250 nmol/L) Toxicity >100 ng/mL (>250 nmol/L); ADDENDA: OV 13-Feb-201710:33 LIPID PANEL (67019) Comments: PATIENT WAS FASTINGPERFORMED BY: [employer] CenterUeqwfi8443 [facility] [id number]; fu 4-19 [facility] LDL/HDL Ratio 1.7 {ratio_units} (Normal) Range: 0.0-3.2 Comments: LDL/HDL Ratio Men Women 1/2 Avg.Risk 1.0 1.5 Av g.Risk 3.6 3.2 2X Avg.Risk 6.2 5.0 3X Avg.Risk 8.0 6.1 LDL Cholesterol Calc 96 mg/dL (Normal) Range: 0-99 VLDL Cholesterol Jorge 13 mg/dL (Normal) Range: 5-40 HDL Cholesterol 58 mg/dL (Normal) Triglycerides 67 mg/dL (Normal) Range: 0-149 Cholesterol, Total 167 mg/dL (Normal) Range: 100-199 92-Rrn-086416:29 MICROALBUMIN: CREATININE RATIO Comments: PATIENT WAS FASTINGPERFORMED BY: [employer] [facility] [id number] (23919) AND (46243) Microalb/Creat Ratio <11.5 {mg/g_creat} (Normal) Range: 0.0-30.0 Microalbumin, Urine <3.0 ug/mL (Normal) Creatinine, Urine 26.2 mg/dL (Normal) 94-Rhy-614640:29 VITAMIN B12 AND FOLATES Comments: PATIENT WAS FASTINGPERFORMED BY: [employer] Nedsdm3053 [facility] [id number] (24011) Folate (Folic Acid), Serum 14.1 ng/mL (Normal) Comments: A serum folate concentration of less than 3.1 ng/mL isconsidered to represent clinical deficiency. Vitamin B12 610 pg/mL (Normal) Range: 211-946 :29 CALCIFEDIOL (81383) Comments: PATIENT WAS FASTINGPERFORMED BY: [employer] Lannoe1815 [facility] [id number] Vitamin D, 25-Hydroxy 78.3 ng/mL (Normal) Range: 30.0-100.0 Comments: Vitamin D deficiency has been defined by the [place] of[place]icine and an Endocrine Society practice guideline as alevel of serum 25-OH vitamin D less than 20 ng/mL (1,2).The Endocrine Society went on to further define vitamin Dinsufficiency as a level between 21 and 29 ng/mL (2).1. IOM ([place] of Medicine). 2010. Dietary reference intakes for calcium and D. [place]: The National Academies Press.2. Maria Isabel MF, [place] MANSFIELD, Fredy TUCKER, et al. Evaluation, treatment, and prevention of vitamin D deficiency: an Endocrine Society clinical practice guideline. JCEM. 2010; 96(7):1911-30. 56-Siu-042295:29 TSH (THYROID STIMULATING Comments: PATIENT WAS FASTINGPERFORMED BY: Zzish6370 [facility] [id number] HORMONE) (98811) TSH 2.630 {uIU/mL} (Normal) Range: 0.450-4.500 :29 METABOLIC PANEL, COMPREHENSIVE Comments: PATIENT WAS FASTINGPERFORMED BY: [employer] [facility]6370 [facility] [id number] (14126) ALT (SGPT) 6 [iU]/L (Normal) Range: 0-32 [...] Glucose, Serum 81 mg/dL (Normal) Range: 65-99 90-Tbv-488990:29 CBC, PLATELETS & AUT DIFF Comments: PATIENT WAS FASTINGPERFORMED BY: LabCoBacharach Institute for RehabilitationQuummy1233 [facility] [id number] (20945) Immature Grans (Abs) 0.0 {x10E3/uL} (Normal) Range: [...] Microscopic Examination Comments: PATIENT WAS FASTINGPERFORMED BY: [employer] Vfefwe4667 [facility] [id number] Bacteria Few (Normal) Mucus Threads Present (Normal) Epithelial Cells (non renal) None seen {/hpf} (Normal) Range: 0 - 10 RBC None seen {/hpf} (Normal) Range: 0 - 2 WBC 0-5 {/hpf} (Normal) Range: 0 - 5 :35 TSH (40664) Comments: PATIENT WAS FASTINGPERFORMED BY: [employer] Hkxbgm3274 [facility] [id number] TSH 2.470 {uIU/mL} (Normal) Range: 0.450-4.500 :35 URINALYSIS, W/ MICRO (16394) Comments: PATIENT WAS FASTINGPERFORMED BY: [employer] Xpblio2772 [facility] [id number] Microscopic Examination See below: (Normal) Comments: Microscopic was indicated and was performed. Microscopic Examination MICRON (Normal) Comments: Microscopic follows if indicated. Nitrite, Urine Negative (Normal) Urobilinogen,Semi-Qn 0.2 mg/dL (Normal) Range: 0.2-1.0 Bilirubin Negative (Normal) Occult Blood Negative (Normal) Ketones Negative (Normal) Glucose Negative (Normal) Protein Negative (Normal) WBC Esterase Negative (Normal) Appearance Clear (Normal) Urine-Color Yellow (Normal) pH 6.5 (Normal) Range: 5.0-7.5 Specific Halliday 1.018 (Normal) Range: 1.005-1.030 :35 CBC W/AUTO DIFF WBC (32620) Comments: PATIENT WAS FASTINGPERFORMED BY: [employer] RehabilitationSnvlqk1075 [facility] [id number] Immature Grans (Abs) 0.0 {x10E3/uL} (Normal) Range: [...] 3.77-5.28 WBC 4.6 {x10E3/uL} (Normal) Range: 3.4-10.8 45-Opy-382518:35 METABOLIC PANEL, COMPREHENSIVE Comments: PATIENT WAS FASTINGPERFORMED BY: [facility]CoBachar[facility] Institute for RehabilitationYkvnmq4248 [facility] [id number]; non- emergent till apt (85959) ALT (SGPT) 9 [iU]/L (Normal) Range: 0-32 [...] Glucose, Serum 81 mg/dL (Normal) Range: 65-99 03-Dao-301110:35 LIPID PANEL (73976) Comments: PATIENT WAS FASTINGPERFORMED BY: [employer] [place] [id number] LDL/HDL Ratio 1.6 {ratio_units} (Normal) Range: 0.0-3.2 [...] Cholesterol, Total 151 mg/dL (Normal) Range: 100-199 41-Sel-187378:35 Vitamin D Hydroxy (07847) Comments: PATIENT WAS FASTINGPERFORMED BY: [employer]70 [facility] [id number] Vitamin D, 25-Hydroxy 80.0 ng/mL (Normal) Range: 30.0-100.0 Comments: Vitamin D deficiency has been defined by the [place] of[place]icine and an Endocrine Society practice guideline as alevel of serum 25-OH vitamin D less than 20 ng/mL (1,2).The Endocrine Society went on to further define vitamin Dinsufficiency as a level between 21 and 29 ng/mL (2).1. IOM ([place] of Medicine). 2010. Dietary reference intakes for calcium and D. [place]: The National Academies Press.2. Maria Isabel MF, [place] MANSFIELD, Fredy TUCKER, et al. Evaluation, treatment, and prevention of vitamin D deficiency: an Endocrine Society clinical practice guideline. JCEM. 2010; 96(7):1911-30. 7-Cgm-406748:05 CBC W/AUTO DIFF WBC Comments: PATIENT WAS FASTINGPERFORMED BY: [facility] Hasnkm7978 [facility] [id number] Information: [id number],W59723 (51066) Immature Grans (Abs) 0.0 {x10E3/uL} (Normal) Range: [...] PANEL, COMPREHENSIVE Comments: PATIENT WAS FASTINGPERFORMED BY: [facility]CoB[facility]arach Institute for RehabilitationHvccuv0925 [facility] [id number] (43459) ALT (SGPT) 13 [iU]/L (Normal) Range: 0-32 [...] Glucose, Serum 81 mg/dL (Normal) Range: 65-99 5-Cpn-277725:05 Vitamin D Hydroxy (18518) Comments: PATIENT WAS FASTINGPERFORMED BY: [employer] [facility] B[address]ilsk[address] [facility] [place] [id number] Vitamin D, 25-Hydroxy 90.1 ng/mL (Normal) Range: 30.0-100.0 Comments: Vitamin D deficiency has been defined by the [place] of[place]icine and an Endocrine Society practice guideline as alevel of serum 25-OH vitamin D less than 20 ng/mL (1,2).The Endocrine Society went on to further define vitamin Dinsufficiency as a level between 21 and 29 ng/mL (2).1. IOM ([place] of Medicine). 2010. Dietary reference intakes for calcium and D. [place]: The National Academies Press.2. Maria Isabel MF, [place] MANSFIELD, Fredy TUCKER, et al. Evaluation, treatment, and prevention of vitamin D deficiency: an Endocrine Society clinical practice guideline. JCEM. 2010; 96(7):1911-30. 4-Hun-027162:05 LIPID PANEL (52361) Comments: PATIENT WAS FASTINGPERFORMED BY: CB [facility] Umafqq0338 [facility] [place] [id number]; non-emergent till apt LDL/HDL Ratio 1.8 {ratio_units} [...] Cholesterol, Total 171 mg/dL (Normal) Range: 100-199 96-Bdg-155455:23 CALCIFEDIOL (68590) Comments: PATIENT WAS FASTINGPERFORMED BY: [facility] Hwgwjv[address] [facility] [place] [id number] Vitamin D, 25-Hydroxy 83.0 ng/mL (Normal) Range: 30.0-100.0 Comments: Vitamin D deficiency has been defined by the [place] of[place]icine and an Endocrine Society practice guideline as alevel of serum 25-OH vitamin D less than 20 ng/mL (1,2).The Endocrine Society went on to further define vitamin Dinsufficiency as a level between 21 and 29 ng/mL (2).1. IOM ([place] of [employer]). 2010. Dietary reference intakes for calcium and D. [place]: The National Academies Press.2. Maria Isabel MF, [place] MANSFIELD, Fredy TUCKER, et al. Evaluation, treatment, and prevention of vitamin D deficiency: an Endocrine Society clinical practice guideline. JCEM. 2010; 96(7):1911-30. 96-Cue-872339:23 URINALYSIS (89888) Comments: PATIENT WAS FASTINGPERFORMED BY: [employer] [place] [id number] Microscopic Examination MICNIP (Normal) Comments: Microscopic not indicated and not performed. Nitrite, Urine Negative (Normal) Urobilinogen,Semi-Qn 0.2 mg/dL (Normal) Range: 0.0-1.9 Bilirubin Negative (Normal) Occult Blood Negative (Normal) Ketones Negative (Normal) Glucose Negative (Normal) Protein Negative (Normal) WBC Esterase Negative (Normal) Appearance Clear (Normal) Urine-Color Yellow (Normal) pH 7.0 (Normal) Range: 5.0-7.5 Specific Halliday 1.009 (Normal) Range: 1.005-1.030 09-Pcz-992508:23 TSH (THYROID STIMULATING Comments: PATIENT WAS FASTINGPERFORMED BY: [facility] [id number] HORMONE) (99442) TSH 2.240 {uIU/mL} (Normal) Range: 0.450-4.500 83-Aap-423890:23 LIPID PANEL (92365) Comments: PATIENT WAS FASTINGPERFORMED BY: [facility] [id number]; non-emergent till apt LDL/HDL Ratio 1.8 {ratio_units} [...] Cholesterol, Total 174 mg/dL (Normal) Range: 100-199 09-Wsk-261800:23 CBC, PLATELETS & MANUAL Comments: PATIENT WAS FASTINGPERFORMED BY: [facility]CoBacharach Institute for RehabilitationQtnvad9894 [facility] [id number] Information: [id number] DIFF (27179) Immature Grans (Abs) 0.0 {x10E3/uL} (Normal) Range: [...] PANEL, BASIC Comments: PATIENT WAS FASTINGPERFORMED BY: [facility]CoB[facility]ach Institute for RehabilitationRrqssx2314 [facility] [id number] (50620) Calcium, Serum 8.9 mg/dL (Normal) Range: 8.7-10.3 [...] Glucose, Serum 82 mg/dL (Normal) Range: 65-99 81-Lwn-378858:30 Basic Metabolic Profile (BMP) Comments: 'TROP' Serial specimen #1, #2, #3, or #4: 1Test performed at:[facility] [address] [place], [place] [id number] GAP 2 (Abnormal) Range: 5-15 CO2 30.0 [...] 7-18 GLU 83 mg/dL (Normal) Range: 70-110 72-Fzc-780986:30 CBC W/Diff, Automated Comments: Test performed at:[facility] [address] [place] [address] Absolute Lymph 1.12 {X10_3/ul} (Normal) [...] 4.2-5.4 WBC 8.0 K/mm3 (Normal) Range: 4.4-11.0 15-Vix-865516:30 Thyroid Stim Hormone (TSH) Comments: 'TROP' Serial specimen #1, #2, #3, or #4: 1Test performed at:[facility] [address] [facility] [place] [address] TSH 2.61 {uIU/mL} (Normal) Range: 0.358-3.74 64-Fyj-948063:30 Troponin-I Comments: 'TROP' Serial specimen #1, #2, #3, or #4: 1Test performed at:[facility] [address] [place], [place] [address] TROPONIN-I < 0.02 ng/mL (Normal) Comments: TROPONIN-I EXPECTED VALUES <0.05 NEGATIVE 0.06 - 0.59 AT RISK OF DE > OR = 0.60 SUGGEST DE 95-Zvt-198066:51 C-REACTIVE PROTEIN (00529) Comments: PATIENT WAS FASTINGPERFORMED BY: [facility] [address]quc[address] RoadDublin [place] [id number] C-Reactive Protein, Quant 0.8 mg/L (Normal) Range: 0.0-4.9 55-Xix-924108:51 SED RATE ERYTHROCYTE (81109) Comments: PATIENT WAS FASTINGPERFORMED BY: [facility] Dwzxhe56[address] RoadDublin [place] [id number] Sedimentation Rate-Westergren 2 mm/h (Normal) Range: 0-40 32-Mxv-771128:51 Vitamin D Hydroxy (64139) Comments: PATIENT WAS FASTINGPERFORMED BY: [facility] Jxpxqp7[address] RoadDublin [place] [id number] Vitamin D, 25-Hydroxy 86.1 ng/mL (Normal) Range: 30.0-100.0 Comments: Vitamin D deficiency has been defined by the [place] [facility] and an Endocrine Society practice guideline as alevel of serum 25-OH vitamin D less than 20 ng/mL (1,2).The Endocrine Society went on to further define vitamin Dinsufficiency as a level between 21 and 29 ng/mL (2).1. IOM ([place] [employer]). 2010. Dietary reference intakes for calcium and D. [place]: The National Academies Press.2. Maria Isabel MF, [place] MANSFIELD, Fredy TUCKER, et al. Evaluation, treatment, and prevention of vitamin D deficiency: an Endocrine Society clinical practice guideline. JCEM. 2010; 96(7):1911-30. 52-Zks-079737:51 CBC W/AUTO DIFF WBC Comments: PATIENT WAS FASTINGPERFORMED BY: [facility]CoB[facility] Institute for RehabilitationFewfdw3389 [facility] [id number] Information: [id number] (32621) Immature Grans (Abs) 0.0 {x10E3/uL} (Normal) Range: [...] 3.77-5.28 WBC 5.7 {x10E3/uL} (Normal) Range: 3.4-10.8 63-Tjq-643218:51 TSH (42596) Comments: PATIENT WAS FASTINGPERFORMED BY: [facility]CoBach[facility] Institute for RehabilitationYcwtah8971 [facility] [id number] TSH 3.080 {uIU/mL} (Normal) Range: 0.450-4.500 54-Mxm-444180:51 METABOLIC PANEL, COMPREHENSIVE Comments: PATIENT WAS FASTINGPERFORMED BY: [employer] Nkevjt8803 [facility] [id number] (54988) ALT (SGPT) 5 [iU]/L (Normal) Range: 0-32 [...] Glucose, Serum 85 mg/dL (Normal) Range: 65-99 50-Hdw-494152:51 LIPID PANEL (53513) Comments: PATIENT WAS FASTINGPERFORMED BY: [employer] for RehabilitationIvicgv2527 [facility] [id number] LDL/HDL Ratio 2.0 {ratio_units} (Normal) Range: 0.0-3.2 [...] Cholesterol, Total 192 mg/dL (Normal) Range: 100-199 36-Mti-793338:40 Protein Electro, Random Urine Comments: PATIENT WAS FASTINGPERFORMED BY: PerfectHitch70 [facility] [id number] Please note: SPRCS (Normal) Comments: Protein electrophoresis scan will follow via computer, mail, orcourier delivery. Gamma Globulin, U 16.3 % (Normal) M-Rl, % Not Observed % (Normal) Beta Globulin, U 38.3 % (Normal) Yvmmj-1-Frhpyzph, U 1.7 % (Normal) Cxemg-8-Hwtykbse, U 22.2 % (Normal) Albumin, U 21.6 % (Normal) Protein,Total,Urine 4.2 mg/dL (Normal) Range: 0.0-15.0 13-Hhz-577743:40 Protein Electro.,S Comments: PATIENT WAS FASTINGPERFORMED BY: PerfectHitch70 [facility] [id number] Please note: SPRCS (Normal) Comments: Protein electrophoresis scan will follow via computer, mail, orcourier delivery. A/G Ratio 1.9 (Normal) Range: 0.7-2.0 Globulin, Total 2.4 g/dL (Normal) Range: 2.0-4.5 Gamma Globulin 1.0 g/dL (Normal) Range: 0.5-1.6 M-Rl Not Observed g/dL (Normal) Beta Globulin 0.8 g/dL (Normal) Range: 0.6-1.3 Imihe-9-Yicjxust 0.2 g/dL (Normal) Range: 0.1-0.4 Trreo-9-Veiofqzs 0.4 g/dL (Normal) Range: 0.4-1.2 Albumin 4.5 g/dL (Normal) Range: 3.2-5.6 80-Mhi-230632:37 METABOLIC PANEL, COMPREHENSIVE Comments: PATIENT WAS FASTINGPERFORMED BY: [facility] Dqgcie3809 [facility] [id number] (83625) ALT (SGPT) 8 [iU]/L (Normal) Range: 0-32 [...] Glucose, Serum 88 mg/dL (Normal) Range: 65-99 62-Npb-081475:37 LIPID PANEL (19805) Comments: PATIENT WAS FASTINGPERFORMED BY: [facility] Azaotx7591 [facility] [id number] LDL/HDL Ratio 1.5 {ratio_units} (Normal) Range: 0.0-3.2 LDL Cholesterol Calc 92 mg/dL (Normal) Range: 0-99 VLDL Cholesterol Jorge 13 mg/dL (Normal) Range: 5-40 Cholesterol, Total 168 mg/dL (Normal) Range: 100-199 HDL Cholesterol 63 mg/dL (Normal) Comments: According to ATP-III Guidelines, HDL-C >59 mg/dL is considered anegative risk factor for CHD. Triglycerides 67 mg/dL (Normal) Range: 0-149 61-Liq-697808:37 Vitamin D Hydroxy (98976) Comments: PATIENT WAS FASTINGPERFORMED BY: Zzish63[employer] Manzana RoadDublin [place] [id number] Vitamin D, 25-Hydroxy 61.8 ng/mL (Normal) Range: 30.0-100.0 Comments: Vitamin D deficiency has been defined by the [place] of[place]icine and an Endocrine Society practice guideline as alevel of serum 25-OH vitamin D less than 20 ng/mL (1,2).The Endocrine Society went on to further define vitamin Dinsufficiency as a level between 21 and 29 ng/mL (2).1. IOM ([place] [employer]). 2010. Dietary reference intakes for calcium and D. [place]: The National Academies Press.2. Maria Isabel MF, [place] MANSFIELD, Fredy TUCKER, et al. Evaluation, treatment, and prevention of vitamin D deficiency: an Endocrine Society clinical practice guideline. JCEM. 2010; 96(7):1911-30. 2-Mce-188890:12 Calcium, 24Hr Urine Comments: PERFORMED BY: [facility] [id number] Information: 08/10@720AM 08/11@7AM Calcium, Urine 24hr 159.1 {mg/24_hr} (Normal) Range: 100.0-300.0 Calcium, Urine 7.4 mg/dL (Normal) 36-Lgz-850399:37 PARATHORMONE (56513) Comments: PATIENT WAS FASTINGPERFORMED BY: [address] [place] [id number] PTH, Intact 20 pg/mL (Normal) Range: 15-65 84-Oke-438383:37 PHOSPHORUS (07613) Comments: PATIENT WAS FASTINGPERFORMED BY: [address] [place] [id number] Phosphorus, Serum 4.5 mg/dL (Normal) Range: 2.5-4.5 52-Naz-940887:37 TSH (36770) Comments: PATIENT WAS FASTINGPERFORMED BY: [facility]6370 [facility] [id number] TSH 2.910 {uIU/mL} (Normal) Range: 0.450-4.500 2-Mqy-393702:11 DEXA BONE DENSITY STUDY (HP) Radiology Report [...] Elkins M.D.June 10, 2013 at 11:05:54 AM [id number] Signed GP/GP If you are the referring physician and would like to consult with theradiologist who provided this interpretation, please contact Caitlin Schmitz at . If this radiologist is unavailable, youwill be directed to another radiologist to assist. If you are a patient with a question regarding this report, pleasecontactyour referring physician neisha coppola. Professional Interpretation Provided By: Hobby, Phone , These documents contain legally protected [...] 06/10/13 1356 Sign by: Hayder Elkins MD 83-Kzv-931181:22 Vitamin D Hydroxy (63333) Comments: PATIENT NOT FASTINGPERFORMED BY: [facility]6370 [facility] [id number] Vitamin D, 25-Hydroxy 47.7 ng/mL (Normal) Range: 30.0-100.0 Comments: Vitamin D deficiency has been defined by the [place] of[place]icine and an Endocrine Society practice guideline as alevel of serum 25-OH vitamin D less than 20 ng/mL (1,2).The Endocrine Society went on to further define vitamin Dinsufficiency as a level between 21 and 29 ng/mL (2).1. IOM ([place] [employer]). 2010. Dietary reference intakes for calcium and D. [place]: The National Academies Press.2. Maria Isabel MF, [place], Rufina-Sawyer TUCKER, et al. Evaluation, treatment, and prevention of vitamin D deficiency: an Endocrine Society clinical practice guideline. JCEM. 2010; 96(7):1911-30. 69-Jna-680719:22 METABOLIC PANEL, Comments: PATIENT NOT FASTINGPERFORMED BY: [facility] Hwqzlt8127 [facility] [id number] Information: ADD [id number] AND DRAW FEE 99 0603 COMPREHENSIVE (37914) ALT (SGPT) 10 [iU]/L (Normal) Range: 0-32 [...] Glucose, Serum 82 mg/dL (Normal) Range: 65-99 23-Hqo-090071:22 LIPID PANEL (73984) Comments: PATIENT NOT FASTINGPERFORMED BY: [facility] & DesignsHard[facility] [id number] LDL/HDL Ratio 1.7 {ratio_units} (Normal) Range: 0.0-3.2 LDL Cholesterol Calc 96 mg/dL (Normal) Range: 0-99 VLDL Cholesterol Jorge 10 mg/dL (Normal) Range: 5-40 HDL Cholesterol 58 mg/dL (Normal) Comments: According to ATP-III Guidelines, HDL-C >59 mg/dL is considered anegative risk factor for CHD. Triglycerides 49 mg/dL (Normal) Range: 0-149 Cholesterol, Total 164 mg/dL (Normal) Range: 100-199 36-Ewf-280519:45 TSH (18994) Comments: PATIENT WAS FASTINGPERFORMED BY: [facility] [id number] TSH 3.910 {uIU/mL} (Normal) Range: 0.450-4.500 76-Czj-361332:45 Vitamin D Hydroxy (27684) Comments: PATIENT WAS FASTINGPERFORMED BY: [facility] [id number] Vitamin D, 25-Hydroxy 54.3 ng/mL (Normal) Range: 30.0-100.0 Comments: Vitamin D deficiency has been defined by the [place] of[place]icine and an Endocrine Society practice guideline as alevel of serum 25-OH vitamin D less than 20 ng/mL (1,2).The Endocrine Society went on to further define vitamin Dinsufficiency as a level between 21 and 29 ng/mL (2).1. IOM ([place] [employer]). 2010. Dietary reference intakes for calcium and D. [place]: The National Academies Press.2. Maria Isabel MF, [place] MANSFIELD, Fredy TUCKER, et al. Evaluation, treatment, and prevention of vitamin D deficiency: an Endocrine Society clinical practice guideline. JCEM. 2010; 96(7):1911-30. 46-Ywj-573067:45 METABOLIC PANEL, Comments: PATIENT WAS FASTINGPERFORMED BY: LabCoBacharach Institute for RehabilitationBchbop3532 [facility] [id number] Information: [id number] COMPREHENSIVE (68817) ALT (SGPT) 9 [iU]/L (Normal) Range: 0-32 [...] Glucose, Serum 91 mg/dL (Normal) Range: 65-99 82-Hfb-595448:45 LIPID PANEL (42428) Comments: PATIENT WAS FASTINGPERFORMED BY: PerfectHitch70 [facility]UNC [facility] [id number] LDL Cholesterol Calc 84 mg/dL (Normal) Range: 0-99 LDL/HDL Ratio 1.4 {ratio_units} (Normal) Range: 0.0-3.2 HDL Cholesterol 61 mg/dL (Normal) Comments: According to ATP-III Guidelines, HDL-C >59 mg/dL is considered anegative risk factor for CHD. VLDL Cholesterol Jorge 8 mg/dL (Normal) Range: 5-40 Cholesterol, Total 153 mg/dL (Normal) Range: 100-199 Triglycerides 40 mg/dL (Normal) Range: 0-149 8-Yad-874029:06 Vitamin D Hydroxy (65696) Comments: PATIENT WAS FASTINGPERFORMED BY: Z[address]ish[address] [facility] [id number] Vitamin D, 25-Hydroxy 58.0 ng/mL (Normal) Range: 30.0-100.0 Comments: Vitamin D deficiency has been defined by the [place] of[place]icine and an Endocrine Society practice guideline as alevel of serum 25-OH vitamin D less than 20 ng/mL (1,2).The Endocrine Society went on to further define vitamin Dinsufficiency as a level between 21 and 29 ng/mL (2).1. IOM ([place] [employer]). 2010. Dietary reference intakes for calcium and D. [place]: The National Academies Press.2. Maria Isabel MF, [place] MANSFIELD, Fredy TUCKER, et al. Evaluation, treatment, and prevention of vitamin D deficiency: an Endocrine Society clinical practice guideline. JCEM. 2010; 96(7):1911-30. 0-Qkz-762929:06 LIPID PANEL (23415) Comments: PATIENT WAS FASTINGPERFORMED BY: Zzish6370 [facility] [id number] LDL Cholesterol Calc 99 mg/dL (Normal) Range: 0-99 LDL/HDL Ratio 1.7 {ratio_units} (Normal) Range: 0.0-3.2 HDL Cholesterol 60 mg/dL (Normal) Comments: According to ATP-III Guidelines, HDL-C >59 mg/dL is considered anegative risk factor for CHD. VLDL Cholesterol Jorge 15 mg/dL (Normal) Range: 5-40 Triglycerides 77 mg/dL (Normal) Range: 0-149 Cholesterol, Total 174 mg/dL (Normal) Range: 100-199 6-Xtv-868486:06 METABOLIC PANEL, Comments: PATIENT WAS FASTINGPERFORMED BY: [facility] Eyvjcn6164 [facility] [id number] Information: [id number] COMPREHENSIVE (65977) ALT (SGPT) 11 [iU]/L (Normal) Range: 0-32 [...] Glucose, Serum 79 mg/dL (Normal) Range: 65-99 23-Bhg-956957:00 BILAT CHAD DIGITAL & CAD Radiology Report [...] Royal M.D.June 26, 2012 at 8:47:04 AM [phone] Signed MV/MV If you are the referring physician and would like to consult with theradiologist who provided this interpretation, please contact Capri Bean M.D. at . If this radiologist is unavailable, youwillbe directed to another ra diologist to assist. If you are a patient with a question regarding this report, pleasecontactyour referring physician directly. Professional Interpretation Provided By: Hobby, Phone [phone], These documents contain legally protected and confidential [...] on 06/26/12 1630 Sign by: ELVIS ROMARYPRIETO 30-Mbp-60340:14 Vitamin D Hydroxy (16602) Comments: PATIENT WAS FASTINGPERFORMED BY: LabCoBacharach Institute for RehabilitationCngfeb6136 [facility] [id number] Vitamin D, 25-Hydroxy 44.4 ng/mL (Normal) Range: 30.0-100.0 Comments: Vitamin D deficiency has been defined by the [place] of[place]icine and an Endocrine Society practice guideline as alevel of serum 25-OH vitamin D less than 20 ng/mL (1,2).The Endocrine Society went on to further define vitamin Dinsufficiency as a level between 21 and 29 ng/mL (2).1. IOM ([place]). 2010. Dietary reference intakes for calcium and D. [place]: The National Academies Press.2. Maria Isabel MF, [place] MANSFIELD, Fredy TUCKER, et al. Evaluation, treatment, and prevention of vitamin D deficiency: an Endocrine Society clinical practice guideline. JCEM. 2010; 96(7):1911-30. 21-Pbq-09037:14 LIPID PANEL (82064) Comments: PATIENT WAS FASTINGPERFORMED BY: [facility] Blgzwn2513 [facility] [id number] LDL/HDL Ratio 2.4 {ratio_units} (Normal) Range: 0.0-3.2 [...] 189 > 24 years 100 - 199 80-Kla-99899:14 CBC WITH MANUAL DIFF Comments: PATIENT WAS FASTINGPERFORMED BY: LabCoBacharach Institute for RehabilitationWqlyoa2444 [facility] [id number] Information: [id number] (83929) Immature Grans (Abs) 0.0 {x10E3/uL} (Normal) Range: [...] PANEL, COMPREHENSIVE Comments: PATIENT WAS FASTINGPERFORMED BY: [employer] for RehabilitationXzoonz1043 [facility] [id number] (12959) ALT (SGPT) 9 [iU]/L (Normal) Range: 0-40 [...] Glucose, Serum 90 mg/dL (Normal) Range: 65-99 2-Dzp-339075:23 METABOLIC PANEL, COMPREHENSIVE Comments: PATIENT WAS FASTINGPERFORMED BY: [employer] for RehabilitationHecggh2283 [facility] [id number] (22898) ALT (SGPT) 11 [iU]/L (Normal) Range: 0-40 [...] Glucose, Serum 78 mg/dL (Normal) Range: 65-99 2-Xzv-854281:23 CBC WITH MANUAL DIFF Comments: PATIENT WAS FASTINGPERFORMED BY: LabCoBachar[facility] Institute for RehabilitationZkjzgx7214 [facility] [id number] Information: [id number] (49652) Immature Grans (Abs) 0.0 {x10E3/uL} (Normal) Range: [...] 3.80-5.10 WBC 5.3 {x10E3/uL} (Normal) Range: 4.0-10.5 7-Rcv-158078:23 TSH (20075) Comments: PATIENT WAS FASTINGPERFORMED BY: [facility] Qrjpho2541 [facility] [place] [id number] TSH 2.860 {uIU/mL} (Normal) Range: 0.450-4.500 5-Oft-558006:23 Vitamin D Hydroxy (36873) Comments: PATIENT WAS FASTINGPERFORMED BY: [facility] Hlrete4652 [facility] [place] [id number] Vitamin D, 25-Hydroxy 51.4 ng/mL (Normal) Range: 30.0-100.0 Comments: Vitamin D deficiency has been defined by the [place] of[place]icine and an Endocrine Society practice guideline as alevel of serum 25-OH vitamin D less than 20 ng/mL (1,2).The Endocrine Society went on to further define vitamin Dinsufficiency as a level between 21 and 29 ng/mL (2).1. IOM ([place] of [place]). 2010. Dietary reference intakes for calcium and D. [place]: The National AcademPoundworld Press.2. Maria Isabel KABA, [place] MANSFIELD, Fredy TUCKER, et al. Evaluation, treatment, and prevention of vitamin D deficiency: an Endocrine Society clinical practice guideline. JCEM. 2010; 96(7):1911-30. 7-Hdz-613769:23 LIPID PANEL (22540) Comments: PATIENT WAS FASTINGPERFORMED BY: PerfectHitch70 PermissionTV [facility] [id number] LDL/HDL Ratio 2.1 {ratio_units} (Normal) Range: 0.0-3.2 LDL Cholesterol Calc 119 mg/dL (Abnormal) Range: 0-99 HDL Cholesterol 56 mg/dL (Normal) Comments: According to ATP-III Guidelines, HDL-C >59 mg/dL is considered anegative risk factor for CHD. VLDL Cholesterol Jorge 15 mg/dL (Normal) Range: 5-40 Cholesterol, Total 190 mg/dL (Normal) Range: 100-199 Triglycerides 73 mg/dL (Normal) Range: 0-149 05-Mjz-706814:01 Vitamin D Hydroxy (40788) Comments: PATIENT WAS FASTINGPERFORMED BY: Z[address]ish[address] [facility] [id number]; appt 10/24/11 Vitamin D, 25-Hydroxy 50.9 ng/mL (Normal) Range: 30.0-100.0 Comments: Vitamin D deficiency has been defined by the [place] of[place]icine and an Endocrine Society practice guideline as alevel of serum 25-OH vitamin D less than 20 ng/mL (1,2).The Endocrine Society went on to further define vitamin Dinsufficiency as a level between 21 and 29 ng/mL (2).1. IOM ([place] of [place]). 2010. Dietary reference intakes for calcium and D. [place]: The National AcademPoundworld Press.2. [place] Camejo, Fredy TUCKER, et al. Evaluation, treatment, and prevention of vitamin D deficiency: an Endocrine Society clinical practice guideline. JCEM. 2010; 96(7): 1911-30. Please note reference interval change :01 CBC WITH MANUAL DIFF Comments: PATIENT WAS FASTINGPERFORMED BY: [facility] Uqqgki7380 [facility] [id number] Information: [id number] (44567) Immature Grans (Abs) 0.0 {x10E3/uL} (Normal) Range: [...] PANEL, COMPREHENSIVE Comments: PATIENT WAS FASTINGPERFORMED BY: [facility]CoBacharach Institute for RehabilitationEresvf6170 [facility] [id number] (16726) ALT (SGPT) 15 [iU]/L (Normal) Range: 0-40 [...] Glucose, Serum 78 mg/dL (Normal) Range: 65-99 93-Nnc-216279:01 LIPID PANEL (09998) Comments: PATIENT WAS FASTINGPERFORMED BY: [facility] Ettlmo3908 [address] [facility] [id number] LDL/HDL Ratio 1.3 {ratio_units} (Normal) Range: 0.0-3.2 [...] 05/04/11 0857 Sign by: Hayder Elkins MD 53-Pbp-716912:31 L/S SPINE,MIN 4 VIEWS Radiology Report See [...] space narrowing at the L4, L5, and L5-Y0rsxvhp. 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 There is atherosclerotic calcification of the abdominal aorta. IMPRESSION:Degenerative ch anges of the spine, as detailed above. Dictated on 02/20/11 1640 by Robby RO,MunaeleTranscribed on 02/21/11 1258 by ITS IMPORTSign by Hayder Elkins MD on 02/21/111257 Sign by: Hayder Elkins MD :36 Vitamin D Hydroxy (15817) Comments: PATIENT WAS FASTINGPERFORMED BY: Zzish6370 [facility] [id number] Vitamin D, 25-Hydroxy 48.5 ng/mL (Normal) Range: 32.0-100.0 Comments: Recent studies consider the lower limit of 32.0 ng/mL to be athreshold for optimal health.Mike CABAN. J Nutr. 2004;135(2):317-22. :36 METABOLIC PANEL, Comments: PATIENT WAS FASTINGPERFORMED BY: AlertaPhone [facility] Zibqmp3409 [facility] [id number] Information: ADD [id number] AND DRAW FEE 99 6213 COMPREHENSIVE (56635) Alkaline Phosphatase, S 73 [iU]/L (Normal) Range: [...] Glucose, Serum 94 mg/dL (Normal) Range: 65-99 87-Qhr-45724:36 LIPID PANEL (94945) Comments: PATIENT WAS FASTINGPERFORMED BY: [employer] Tymopt7338 [facility] [id number] LDL Cholesterol Calc 70 mg/dL (Normal) Range: 0-99 LDL/HDL Ratio 1.0 {ratio_units} (Normal) Range: 0.0-3.2 VLDL Cholesterol Jorge 11 mg/dL (Normal) Range: 5-40 Cholesterol, Total 148 mg/dL (Normal) Range: 100-199 HDL Cholesterol 67 mg/dL (Normal) Comments: According to ATP-III Guidelines, HDL-C >59 mg/dL is considered anegative risk factor for CHD. Triglycerides 57 mg/dL (Normal) Range: 0-149 12-Vww-436865:11 CBC+Platelet+Hem Review Comments: PATIENT WAS FASTINGPERFORMED BY: Eventpiglin6370 [facility] [id number] Differential Comment RBC's appear normal. (Normal) Baso(Absolute) [...] WAR (Normal) Comments: PATIENT WAS FASTINGPERFORMED BY: [facility]6370 [facility] [id number] 0:11 Comments: Written Authorization Received.Authorization received from DR MOTLEY [id number] by Alda Rosas 63-Ekh-203904:11 CALCIFEDIOL (26691) Comments: PATIENT WAS FASTINGPERFORMED BY: [facility]6370 [facility] [id number] Vitamin D, 25-Hydroxy 54.9 ng/mL (Normal) Range: 32.0-100.0 Comments: Recent studies consider the lower limit of 32.0 ng/mL to be athreshold for optimal health.Mike CABAN. J Nutr. 2004;135(2):317-22. 97-Ttc-051903:11 Metabolic Panel, Comprehensive Comments: PATIENT WAS FASTINGPERFORMED BY: LabCoBacharach Institute for RehabilitationLdanvm3021 [facility] [id number] (06438) ALT (SGPT) 9 [iU]/L (Normal) Range: 0-40 [...] Glucose, Serum 94 mg/dL (Normal) Range: 65-99 58-Sen-931107:11 Lipid Panel (08502) Comments: PATIENT WAS FASTINGPERFORMED BY: LabCoBach[facility]ach Institute for RehabilitationTcbsqe8049 [facility] [id number] LDL Cholesterol Calc 136 mg/dL (Abnormal) Range: 0-99 LDL/HDL Ratio 2.2 {ratio_units} (Normal) Range: 0.0-3.2 HDL Cholesterol 63 mg/dL (Normal) Comments: According to ATP-III Guidelines, HDL-C >59 mg/dL is considered anegative risk factor for CHD. VLDL Cholesterol Jorge 13 mg/dL (Normal) Range: 5-40 Triglycerides 66 mg/dL (Normal) Range: 0-149 Cholesterol, Total 212 mg/dL (Abnormal) Range: 100-199 23-Imy-68066:00 DEXA BONE DENSITY STUDY () Radiology Report [...] on 09/20/10 1732 Sign by: Hayder Elkins 81-Ejx-69329:00 DEXA BONE DENSITY STUDY (HP) Radiology Report See Note (Normal) Comments: CLINICAL:This is a 74-year-old female patient for a postmenopausal screening. EXAMINATION:DUAL ENERGY X-RAY ABSORPTIOMETRY / DEXA. TECHNIQUE:Bone Density Measurements (BMD) of lumbar spine and bilateral hips wereobtained using a [employer] scanner.. COMPARISON:Comparison is made with prior study [...] on 09/23/10 1437 Sign by: Hayder Elkins 09-Gbk-112011:27 ABDOMEN/PELVIS WITH CONTRAST Radiology Report See Note (Normal) Comments: Exam Number: [id number] LINICAL:This is a 74-year-old female patient with [...] unchanged. Fibroid uterus. Reported By: HAYDER ELKINS 59-Dzn-772091:51 METABOLIC PANEL, Comments: PATIENT NOT FASTINGPERFORMED BY: Zzish6370 Nieves [facility] [id number] Information: [id number] COMPREHENSIVE (11411) Alkaline Phosphatase, S 65 [iU]/L (Normal) Range: [...] Glucose, Serum 100 mg/dL (Abnormal) Range: 65-99 13-Epk-281400:51 Vitamin D Hydroxy (23081) Comments: PATIENT NOT FASTINGPERFORMED BY: Traitify70 [facility] [id number] Vitamin D, 25-Hydroxy 29.6 ng/mL (Abnormal) Range: 32.0-100.0 Comments: Recent studies consider the lower limit of 32.0 ng/mL to be athreshold for optimal health.Mike CABAN. J Nutr. 2004;135(2):317-22. :47 LIPID PANEL (46170) Comments: PATIENT WAS FASTINGPERFORMED BY: LabCoPres[facility] Santa Fe Medical CenterSotpsg9974 [facility] [id number] HDL Cholesterol 55 mg/dL (Normal) Comments: According [...] METABOLIC PANEL, Comments: PATIENT WAS FASTINGPERFORMED BY: LabCoBacharach Institute for RehabilitationKksqgm6306 [facility] [id number] Information: [id number] COMPREHENSIVE (81609) Alkaline Phosphatase, S 63 [iU]/L (Normal) Range: [...] (Normal) Range: 65-99 :47 Vitamin D Hydroxy (20788) Comments: PATIENT WAS FASTINGPERFORMED BY: Zzish6370 [facility] [id number] Vitamin D, 25-Hydroxy 42.0 ng/mL (Normal) Range: 32.0-100.0 Comments: Recent studies consider the lower limit of 32.0 ng/mL to be athreshold for optimal health.Mike CABAN. J Nutr. 2004;135(2):317-22. :05 CBC With Differential/Platelet Comments: PATIENT WAS FASTINGPERFORMED BY: Zzish6370 Nieves [facility] [id number] Baso (Absolute) 0.0 {x10E3/uL} (Normal) Range: 0.0-0.2 [...] 3.80-5.10 WBC 4.1 {x10E3/uL} (Normal) Range: 4.0-10.5 87-Won-634886:05 Comp. Metabolic Panel (14) Comments: PATIENT WAS FASTINGPERFORMED BY: LabCo Xggfzc3245 [facility] [id number] ALT (SGPT) 10 [iU]/L (Normal) Range: 0-40 [...] Glucose, Serum 90 mg/dL (Normal) Range: 65-99 96-Ypp-887035:05 Hepatic Function Panel (7) Comments: PATIENT WAS FASTINGPERFORMED BY: LabCanara6370 [facility] [id number] Bilirubin, Direct 0.22 mg/dL (Normal) Range: 0.00-0.40 17-Njz-013436:05 Lipid Panel With LDL/HDL Comments: PATIENT WAS FASTINGPERFORMED BY: AlertaPhone LabCanara6370 [facility] [id number] Ratio LDL Cholesterol Calc 86 mg/dL (Normal) Range: 0-99 LDL/HDL Ratio 1.6 {ratio_units} (Normal) Range: 0.0-3.2 HDL Cholesterol 55 mg/dL (Normal) Comments: According to ATP-III Guidelines, HDL-C >59 mg/dL is considered anegative risk factor for CHD. Triglycerides 65 mg/dL (Normal) Range: 0-149 VLDL Cholesterol Jorge 13 mg/dL (Normal) Range: 5-40 Cholesterol, Total 154 mg/dL (Normal) Range: 100-199 05-Stg-131865:21 KAZ ARRIAGA DIGITAL & CAD Radiology Report See Note (Normal) Comments: Exam Number: [id number] DIGITAL BILATERAL MAMMOGRAM HISTORYThis is a 74-year-old [...] mammograms werealso examined with computer-aided detection software ([employer].). Reported By: HAYDER ELKINS 30-Nod-42249:12 BLANQUITA CULTURE-OTHER (04349) Comments: PATIENT NOT FASTINGClinical Information: SRC[facility] L63400 PERFORMED BY: APRYL [employer] [facility] [id number] Result 1 CNSS (Normal) Comments: Coagulase negative Staphylococcus species.Scant growthSusceptibility or resistance of staphylococci to oxacillin predictssusceptibility or resistance to (a) other eeqz-ojijgjvwc-jxgscfcdxljw llins such a s cloxacillin and dicloxacillin, (b) combinationsof a penicillin and a beta- lactamase inhibitor, and(c) anti-staphylococcal cephalosporins. Routine testing of otherpenicillins, beta-lactam/beta-lactamas e inhibitor combinations,cephems, and carbapenems is not advised by the CLSI Standards(E238-U38, 2005). S = Susceptible; I = Intermediate; R = Resistant P = Positive; N = Negative MICS are expressed in micrograms per mL Antibiotic RSLT#1 RSLT#2 RSLT#3 RSLT#4Ciprofloxacin SErythromycin RGentamicin SLevofloxacin SOxacillin SPenicillin RTrimethoprim/Sulfa SVancomycin S Upper Respiratory Final report Culture (Normal) 04-Jzv-312225:40 LIPID PANEL (94601) Comments: PATIENT WAS FASTINGPERFORMED BY: [facility] TechnologiesResearch [facility] Center Vbjffx9257 [facility] [id number] Cholesterol, Total 154 mg/dL (Normal) Range: 100-199 HDL Cholesterol 53 mg/dL (Normal) Comments: According to ATP-III Guidelines, HDL-C >59 mg/dL is considered anegative risk factor for CHD. LDL Cholesterol Calc 88 mg/dL (Normal) Range: 0-99 LDL/HDL Ratio 1.7 {ratio_units} (Normal) Range: 0.0-3.2 Triglycerides 63 mg/dL (Normal) Range: 0-149 VLDL Cholesterol Jorge 13 mg/dL (Normal) Range: 5-40 93-Hiz-798677:40 HEPATIC FUNCTION PANEL Comments: PATIENT WAS FASTINGPERFORMED BY: Traitify70 [facility] [id number] (93619) Bilirubin, Direct 0.22 mg/dL (Normal) Range: 0.00-0.40 :40 Vitamin D Hydroxy (22531) Comments: PATIENT WAS FASTINGPERFORMED BY: [employer] TechnologiesCorp Vzcnpf8523 [facility] [id number] Vitamin D, 25-Hydroxy 48.7 ng/mL (Normal) Range: 32.0-100.0 Comments: Recent studies consider the lower limit of 32.0 ng/mL to be athreshold for optimal health.Mike CABAN. J Nutr. 2004;135(2):317-22. 49-Oed-088781:40 METABOLIC PANEL, COMPREHENSIVE Comments: PATIENT WAS FASTINGClinical Information: [id number] PERFORMED BY: Touch of Life TechnologiesCoALKALINE WATERKfsgzk9985 [facility] [id number] (71099) A/G Ratio 1.9 (Normal) Range: 1.1-2.5 Albumin, [...] Quant 0.6 mg/L (Normal) Comments: PERFORMED BY: [employer] [facility] [id number] 5:25 Range: 0.0-4.9 6-Klx-228984:25 CK, Total+Isoenzymes, Serum Comments: PERFORMED BY: [employer] [facility] [id number] CK-BB 0 % (Normal) CK-MB 0 % (Normal) Range: 0-3 CK-MM 100 % (Normal) Range: 97-100 Creatine Kinase,Total,Serum 91 U/L (Normal) Range: 24-173 Macro Type 1 0 % (Normal) Macro Type 2 0 % (Normal) 5-Qfa-764461:58 CBC With Differential/Platelet Comments: PATIENT WAS FASTINGPERFORMED BY: [employer] [facility] [id number] Baso (Absolute) 0.0 {x10E3/uL} (Normal) Range: 0.0-0.2 [...] 11.7-15.0 WBC 5.6 {x10E3/uL} (Normal) Range: 4.0-10.5 8-Kpu-187883:58 Comp. Metabolic Panel (14) Comments: PATIENT WAS FASTINGPERFORMED BY: LabCoBacharach Institute for RehabilitationDdrswo3752 [facility] [id number] A/G Ratio 1.7 (Normal) Range: 1.1-2.5 Albumin, [...] Sodium, Serum 141 mmol/L (Normal) Range: 135-145 1-Xvs-525542:58 Lipid Panel With LDL/HDL Comments: PATIENT WAS FASTINGPERFORMED BY: [facility]6370 [facility] [id number] Ratio Cholesterol, Total 215 mg/dL (Abnormal) Range: [...] 2.282 {uIU/mL} Comments: PATIENT WAS FASTINGPERFORMED BY: [facility]6370 [facility] [id number] :58 (Normal) Range: 0.450-4.500 Vitamin D, 25-Hydroxy 26.6 ng/mL Comments: PATIENT WAS FASTINGPERFORMED BY: [facility]6370 [facility] [id number] :58 (Abnormal) Range: 32.0-100.0 Comments: Recent studies consider the lower limit of 32.0 ng/mL to be athreshold for optimal health.Mike CABAN. J Nutr. 2004;135(2):317-22. 54-Smz-043011:26 Upper Respiratory Culture Comments: Clinical Information: SRC:TH PERFORMED BY: [facility]6370 [facility] [id number] Result 1 RRF (Normal) Comments: Routine respiratory zuri Upper Respiratory Culture Final report (Normal) 04-Src-002322:15 Rapid Strep Test, Office (47699) Rapid Strep Test, Office Negative (Normal) 52-Cum-153979:42 BILAT SCRN DIGITAL & CAD Radiology Report See Note (Normal) Comments: Exam Number: [id number] MAMMOGRAM, BILATERAL SCREENING DIGITAL AND CAD HISTORYRoutine [...] mammograms werealso examined with computer-aided detection software ([employer].). Reported By: HINA TURNER M.D. 09-Goa-917878:42 DEXA BONE DENSITY STUDY (HP) Radiology Report See Note (Normal) Comments: Exam Number: [id number] BONE DENSITOMETRY HISTORYOsteopenia. TECHNIQUE Bone densitometry of [...] T PROT 6.5 g/dL (Normal) Range: 6.4-8.2 34-Gax-421523:04 CHEST, PA AND LATERAL Radiology Report See Note (Normal) Comments: Exam Number: [id number] PA AND LATERAL CHEST CLINICAL STATEMENTChest pain. The lungs are clear without vascular congestion. There is no pleuralfluid. The heart, agata and mediastinum are not enlarged. I MPRESSIONNo evidence of acute cardiopulmonary disease. Reported By: NABIL STONE M.D. 33-Ksq-378096:01 LIPID CHOL 157 mg/dL (Normal) Comments: <200 [...] mg/dL VLDL 14 mg/dL (Normal) Range: 5-40 3-Jnh-355280:08 LIVER ALB 3.9 g/dL (Normal) Range: 3.4-5.0 ALK P 84 U/L (Normal) Range: 50-136 ALT 29 [iU]/L (Abnormal) Range: 30-65 AST 25 U/L (Normal) Range: 15-37 D BILI 0.13 mg/dL (Normal) Range: 0.00-0.30 T BILI 0.84 mg/dL (Normal) Range: 0.00-1.00 T PROT 7.2 g/dL (Normal) Range: 6.4-8.2 5-Ewo-080386:08 PFLIP CHOL 230 mg/dL (Abnormal) Comments: <200 [...] Hypercholesteremia Planned Observations CBC & PLATELETS (AUTO) (14059)Indication: Insomnia On: 22-Sbx-113629:37 Request Metabolic Panel, Comprehensive (06594)Indication: Weight loss On: 36-Lvc-716895:37 Request CALCIFEDIOL (55660)Indication: Vitamin D deficiency, unspecified On: 75-Cpw-664336:44 Request LIPID PANEL (79176)Indication: Hypercholesteremia On: 25-Dvn-386651:44 Request MICROALBUMIN: CREATININE RATIO (16892) AND (53694)Indication: Benign essential HTN On: :00 Request Comments: Jun 2017 URINALYSIS (82164)Indication: Benign essential HTN On: :00 Request Comments: Jun 2017 TSH (34268)Indication: Benign essential HTN On: 73-Zrk-224737:00 Request Comments: Jun 2017 Metabolic Panel, Comprehensive (80923)Indication: Benign essential HTN On: :00 Request Comments: Jun 2017 CALCIFEDIOL (32476)Indication: Osteopenia On: 98-Cnq-196042:59 Request Comments: JUN 2017 Vitamin D Hydroxy (76930)Indication: Vitamin D deficiency, unspecified On: :51 Request LIPID PANEL (23123)Indication: Hypercholesteremia On: :51 Request URINALYSIS, W/ MICRO (66142)Indication: Benign essential HTN On: :51 Request CBC W/AUTO DIFF WBC (76032)Indication: Benign essential HTN On: :51 Request METABOLIC PANEL, COMPREHENSIVE (12009)Indication: Benign essential HTN On: :51 Request UPEP (65397)Indication: Osteopenia On: 14-Pim-970015:03 Request SPEP (21284)Indication: Osteopenia On: 15-Gsy-965068:03 Request TSH (20258)Indication: Osteopenia On: 29-Fvb-569340:03 Request URINE CALCIUM IVAN TIMED 24 Hour (99303)Indication: Osteopenia On: 17-Goo-158740:02 Request WBC Count with manual diff (40124)Indication: Unspecified Diagnosis On: 44-God-212337:13 Request LIPID PANEL (52403)Indication: Hypercholesteremia On: 16-Duj-690504:34 Request CBC WITH MANUAL DIFF (77316)Indication: Benign essential HTN On: 28-Dhs-076466:37 Request METABOLIC PANEL, COMPREHENSIVE (30514)Indication: Benign essential HTN On: :37 Request HEPATIC FUNCTION PANEL (81129)Indication: Hypercholesteremia On: :37 Request LIPID PANEL (31760)Indication: Hypercholesteremia On: :37 Request C-Reactive Protein (81734)Indication: Elevated blood-pressure reading without diagnosis of hypertension On: :11 Request CPK TOTAL & ISOENZYMES (65869)Indication: Elevated blood-pressure reading without diagnosis of hypertension On: 5-Gkb-920427:11 Request BLANQUITA CULTURE-OTHER (63998)Indication: Pharyngitis, acute On: 69-Hiv-463540:15 Request LIPID PANEL (72434)Indication: Hypercholesteremia On: :29 Request HEPATIC FUNCTION PANEL (44267)Indication: Hypercholesteremia On: :34 Request LIPID PANEL (73429)Indication: Hypercholesteremia On: :34 Request LIPID PANEL (55346)Indication: Hypercholesteremia On: 35-Qbf-946800:08 Request Comments: 3 mos LIPID PANEL (82935)Indication: Hypercholesteremia On: 22-Ojp-713345:25 Request HEPATIC FUNCTION PANEL (12957)Indication: Hypercholesteremia On: :25 Request HEPATIC FUNCTION PANEL (67525)Indication: Hypercholesteremia On: :33 Request LIPID PANEL (72314)Indication: Hypercholesteremia On: :33 Request Comments: 6 mos Planned Procedures MAMMOGRAM BREAST BILATERAL On: 03-Sep-2018 Intent SCREENING DIGITAL (32845)By: Luiza Suggs CNP, CNP, Mary E UPPER GI ENDOSCOPY, DIAGNOSTIC On: 22-May-2018 Intent (64896)By: Luiza Suggs CNP, CNP, Mary E Radiology - ChestBy: Ifeanyi NAIK, On: 02-Jan-2018 Intent Luiza Argueta CNP MAMMOGRAM BREAST BILATERAL On: 27-Aug-2017 Intent SCREENING DIGITAL (64749)By: Luiza Suggs CNP, CNP, Mary E MAMMOGRAM, SCREENING, BOTH BREAST On: 08-Aug-2016 Intent (66084)By: Eugene Vides MD ELECTROCARDIOGRAM, COMPLETE (ECG) On: 18-Jul-2016 Intent (60082)By: Eugene Vides MD Spirometry (29721)By: Peewee RO, On: 18-Jul-2016 Intent Eugene Flu Vaccine (Quadrivalent) 92385Jz: On: 18-Jul-2016 Intent Eugene Vides MD Comments: Lot:[id number]:05/04/17Dose:0.5mLRoute:IMSite:L DltdGiven By:KIRILL signed INJECTION, PROLIA (J0897)By: Anthony On: 26-Jan-2016 Intent DO, Joann A Comments: lot: [id number]: ite/route: L arm/SQamt: prefilled syringeVIS signed when applicableChelsea, OCCUPATIONAL HEALTH AND SAFETY MANAGER Pelvic and Breast, Medicare On: 06-Sep-2015 Intent (G0101)By: Sherry Motley DOa A INJECTION, PROLIA (J0897)By: Anthony On: 30-Jul-2015 Intent DO Joann A Comments: Lot:[id number]:12/23Dose:60mgRoute:sub qSite:l armGiven By:KIRILL signed MAMMOGRAM, SCREENING, BOTH BREAST On: 21-Jul-2015 Intent (33033)By: Joann Motley DO DEXA SCAN AXIAL SKELETON (26458)By: On: 21-Jul-2015 Intent Anthony TORRES Joann A Flu Vaccine (Quadrivalent) 59166Mx: On: 21-Jul-2015 Intent Sherry Motley DOa A Comments: Lot #:[id number] date:04/2016Amount given:0.5mlRoute: IMSite given: left deltoidGiven by: LEYDI Aguayo ADMINISTRATION OF INFLUENZA VIRUS On: 21-Jul-2015 Intent VACCINE (G0008)By: Joann Motley DO Holter Monitor 24 hrsBy: Anthony TORRES, On: 22-Feb-2015 Intent Joann A Echo CompleteBy: Joann Motley DO On: 22-Feb-2015 Intent INJECTION, PROLIA (J0897)By: Anthony On: 27-Jan-2015 Intent DO Joann A Comments: lot:[id number]: 08/21site/route: L arm/SQamt: 60mgVIS signed when applicableChelsea, OCCUPATIONAL HEALTH AND SAFETY MANAGER MAMMOGRAM, SCREENING, BOTH BREAST On: 15-Jan-2015 Intent (81192)By: Joann Motley DO DEXA SCAN AXIAL SKELETON (48572)By: On: 15-Jan-2015 Intent Joann Motley DO Comments: 06/19 due EKG (99055)By: Joann Motley DO On: 15-Jan-2015 Intent Comments: ekg showed normal sinus rhythym, normal axis, no acute st/t wave changes INJECTION, PROLIA (J0897)By: Anthony On: 28-Jul-2014 Intent Joann TORRES Comments: Lot:[id number]:11/2016Dose:1mLRoute:sub q [facility] By:JSERGIO signed Eprescribed prescriptions On: 06-Jan-2014 Intent (G8553)By: Joann Motley DO EKG (51315)By: Myah Warren On: 15-Dec-2013 Intent Comments: ekg showed normal sinus rhythym, normal axis, no acute st/t wave changes Eprescribed prescriptions On: 15-Dec-2013 Intent (G8553)By: Myah Warren Spirometry (18631)By: Anthony TORRES, On: 28-Jul-2013 Intent Joann Peters Comments: good effort and curve mild obst Radiology - Chest- PA and LatBy: On: 28-Jul-2013 Intent Joann Motley DO MAMMOGRAM, SCREENING, BOTH BREASTS On: 28-Jul-2013 Intent (80059)By: Joann Motley DO FLU VAC, SPLIT, >3 YEARS, INTRAMUSC On: 28-Jul-2013 Intent (21877)By: Myah Warren Comments: Lot #:[id number] date:mount given:0.5mlRoute: IMSite given: L dltdVIS and ABN signedGiven by: LEYDI Aguayo ADMINISTRATION OF INFLUENZA VIRUS On: 28-Jul-2013 Intent VACCINE (G0008)By: Myah Warren Eprescribed prescriptions On: 28-Jul-2013 Intent (G8553)By: Myah Warren DXA, BONE DENSITY, AXIAL SKELETON On: 26-Mar-2013 Intent (96907)By: Joann Motley DO EKG (74914)By: Myah Warren On: 20-Nov-2012 Intent Comments: ekg showed normal sinus rhythym, normal axis, no acute st/t wave changes PNEUM VAC ADLT/IMUMNOSPR, SBC/INTRM On: 20-Nov-2012 Intent (86755)By: Myah Warren Comments: Lot #[id number]-left deltoidDose- 0.5mlgiven by: Belinda Blount LPN Eprescribed prescriptions On: 20-Nov-2012 Intent (G8553)By: Myah Warren ADMINISTRATION OF PNEUMOCOCCAL On: 20-Nov-2012 Intent VACCINE (G0009)By: Myah Warren Radiology - Cervical SpineBy: Fast On: 22-Jul-2012 Intent Joann TORRES Spirometry (22065)By: Briana, On: 22-Jul-2012 Intent Myah Comments: good effort and curve mild obst DXA, BONE DENSITY, AXIAL SKELETON On: 22-Jul-2012 Intent (89603)By: Joann Motley DO Comments: september FLU VAC, SPLIT, >3 YEARS, INTRAMUSC On: 22-Jul-2012 Intent (68305)By: Myha Warren Comments: Lot #:[id number] date:mount given:0.5mlRoute: IMSite given:left deltoidGiven by: LEYDI Aguayo ADMINISTRATION OF INFLUENZA VIRUS On: 22-Jul-2012 Intent VACCINE (G0008)By: Myah Warren Breast Screening - BilateralBy: On: 17-Jun-2012 Intent Joann Motley DO MAMMOGRAM, SCREENING, BOTH BREASTS On: 20-Feb-2012 Intent (53317)By: Joann Motley DO Comments: due in april TDAP VACCINE >7 IM (03838)By: Hill On: 20-Feb-2012 Intent Rody DOWELL Comments: [id number] 3/14 L arm, IM prefilled Rody EKG (41947)By: Myah Warren On: 24-Oct-2011 Intent Comments: ekg showed normal sinus rhythym, normal axis, no acute st/t wave changes low voltage no change FLU VAC, SPLIT, >3 YEARS, INTRAMUSC On: 24-Oct-2011 Intent (48503)By: Myah Warren Comments: health department Spirometry (04580)By: Anthony TORRES, On: 15-May-2011 Intent Joann A Comments: good effort and curve mild obst Ultrasound - AortaBy: Anthony TORRES, On: 11-Apr-2011 Intent Joann A Comments: xray showed calcification of abd aorta Radiology - Lumbar SpineBy: Fast On: 20-Feb-2011 Intent DO Joann A MAMMOGRAM, SCREENING, BOTH BREASTS On: 06-Feb-2011 Intent (02185)By: Sherry Motley DOa A FLU VAC, SPLIT, >3 YEARS, INTRAMUSC On: 24-Aug-2010 Intent (98882)By: Myah Warren Comments: Lot #:[id number] date:mount given:0.5mlRoute: IMSite given:left deltoidGiven by: LEYDI Aguayo CT - Abdomen & PelvisBy: Anthony TORRES, On: 24-Aug-2010 Intent Joann A EKG (63202)By: Myah Warren On: 24-Aug-2010 Intent Comments: ekg showed normal sinus rhythym, normal axis, no acute st/t wave changes DXA, BONE DENSITY, AXIAL SKELETON On: 24-Aug-2010 Intent (20051)By: Joann Motley DO ADMINISTRATION OF INFLUENZA VIRUS On: 24-Aug-2010 Intent VACCINE (G0008)By: Myah Warren MAMMOGRAM, SCREENING, BOTH BREASTS On: 23-Aug-2009 Intent (46922)By: Sherry Motley DOa A Echo CompleteBy: Ciesa HEENA Mahsa On: 12-May-2009 Intent Ciesa [employer]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 Patient sleeps 5 (5-7 but [facility] so [facility] [...] system and says her children live in [place]. ??) hours per ni ght. Nutrition: balanced [...] patient does not have durable power of contract attorney or living will. The patient has noticed nothing from the ge riatic depression scale. Other providers contributing to the patient's care are other: (Opthmologist- in [place]- Dr. cShmidt). Note for Annual Medicare Exam: we discussedc [...] chronic medical issues: she ran out of [employer] protein weight down 3 pounds very active [...] but took a ??long driving trip to [place] and flared her back- she will wake [...]
--- OUTSIDE RECORDS SUMMARY | 2019-01-24 18:05 | XMS RPT_ITS ---
:1935 Author Organization OHIP Care Team Providers Name Role Phone Luiza Suggs Attending Unavailable Luiza Suggs Primary Care Unavailable Luiza Suggs Attending Unavailable Luiza Suggs Primary Care Unavailable PROBLEMS PROBLEMS No Problem Records FoundPROCEDURES PROCEDURES No Procedure Records FoundRESULTS RESULTS SCREEN MAMM (CAD) Observed: 10/23/2018 Status: F Source: [place] W/JAE BILAT 1:01 PM [facility] [place], [place] REPOSITORY [facility] Imaging Services [address] [place] [id number] SCREEN MAMM (CAD) W/JAE BILAT MR#: [id number] Acct: [id number] Name: DANNIE VILLASENOR Rep #: [id number] : 1935 F 83 From: Hayder Bustamante MD PCP: Luiza Suggs NP Status: REG CLI Study: SCREEN MAMM (CAD) W/JAE BILAT Date of Exam: 10/23/18 Exam# [id number] Ordering Dr: Luiza Suggs MAMMOGRAPHY - BILATERAL SCREENING REASON FOR EXAM: Female, 83 years old. Routine annual screening examination. PERTINENT HISTORY: Non-contributory. TECHNIQUE: Digital bilateral breast jae (3D mammographic acquisition) in the CC and MLO projections. 2-D mediolateral oblique (MLO) and craniocaudad (CC) views of both breasts were obtained. CAD: Full Field Digital Mammography with Computer Added Detection was performed. COMPARISON: Comparison is made with prior study dated September 10, 2017 and August 14, 2016. FINDINGS: Breast Composition: The breasts are heterogeneously dense, which may obscure small masses. There are no dominant masses or suspicious calcifications. No other significant abnormalities are identified. There has been no significant change since the prior study. BI/SCREEN MAMM (CAD) W/JAE BILAT IMPRESSION: Stable bilateral screening mammogram. Yearly follow-up mammogram recommended. (A) ASSESSMENT CATEGORY: BIRADS Category 1: Negative. A letter regarding these results will be sent to the patient by the facility within 30 days. Approximately 10% of breast cancers are not detected by mammography. A normal mammogram should not delay biopsy of a clinically suspicious abnormality. [id number] Electronically Signed: Hayder Bustamante MD at 14:28 EST Tel [phone], Service support , CC: Luiza Suggs NP Heating Fixture Tender: Signed CHEST PA AND LATERAL Observed: 01/02/2018 Status: F Source: [place] 2:54 PM [facility] [place] [place] REPOSITORY [facility] Imaging Services [address] [place] [id number] Chest PA and Lateral MR#: [id number] Acct: [id number] Name: DANNIE VILLASENOR Rep #: [id number] : 1935 F 82 From: Saira Estevez MD PCP: Luiza Suggs NP Status: REG CLI Study: Chest PA and Lateral Date of Exam: 01/02/18 Exam# [id number] Ordering Dr: Luiza Suggs STUDY: X-RAY CHEST REASON FOR EXAM: Female, 82 years old. Weight loss. TECHNIQUE: 2 views COMPARISON: Prior PA and lateral chest August 14, 2013. FINDINGS: Pectus excavatum. The lung gray are mildly to moderately hyperexpanded without consolidation, focal atelectasis or a substantial pleural effusion. Negative for pulmonary mass or nodules. Normal size heart. Normal mediastinum and agata. Normal visualized pulmonary arteries. There is atherosclerotic calcification of the aortic arch with tortuosity. There are diffuse degenerative changes of the visualized thoracic spine with demineralized osseous structures. Normal visualized ribs, clavicles, and shoulders. There is no demonstrated abnormality of the visualized soft tissue structures of the upper abdomen. RAD/Chest PA and Lateral IMPRESSION: Mild to moderate hyperexpansion without other acute findings or changes. Negative for major consolidation, focal atelectasis or a substantial pleural effusion. Negative for pulmonary masses or nodules. Normal cardiac size. Atherosclerosis. Demineralized osseous structures with mild degenerative changes. Electronically Signed: Saira Estevez MD at 16:42 EST , Service support , CC: Luiza Suggs NP Heating Fixture Tender: Signed ALLERGIES ALLERGIES No Allergies Records FoundENCOUNTERS ENCOUNTERS ADMIT/DISCHARGE ACCOUNT ADMITTING ENCOUNTER LOCATION SOURCE NUMBER CLASS 10/23/[id number] ing:OPBI Repository 01/02/[id number] ing:HPRAD Repository PAYERS PAYERS ENCOUNTER GUARANTOR PAYER SUBSCRIBER SOURCE 10/23/2018 NINO Oquendo [place] [id number] Insurance:ADELINE STOKES: [facility] [id number] Number: Repository [address]Omt: [phone] [id number] [phone] () Date:1912-07-45IN [address] [address]PQ: 10/23/2018 Secondary NOT GIVENUNK [place] Insurance:SELF PAY [facility] Number: Effective Repository Date:2018-09-04 01/02/2018 Nino Henning [place] Insurance:ADELINE DAVISB: [facility] [address] HEALTH PLAN [id number] [address]Ssn: [address] Number: Repository [phone] () [id number] Date:[id number] [address] [address]UV: 01/02/2018 Secondary NOT GIVENUNK [place] Insurance:SELF PAY [facility] Number: Effective Repository Date:2018-01-02
== END ==
PROVIDERS: Family Provider Nurse Practitioner; PCP Nurse Practitioner; Visit Provider Nurse Practitioner
DX: Z12.31 Encounter for screening mammogram for malignant neoplasm of breast (principal)
CPT/HCPCS: 77063; 77067

== ENCOUNTER → 2020-04-07 10:07 | Outpatient (CLI) | payer MEDICARE, SELFPAY ==
--- NOTE | 2020-04-07 10:10 | BI_ITS ---
MAMMOGRAPHY - BILATERAL SCREENING REASON FOR EXAM: Female, 84 years old. Routine annual screening examination. PERTINENT HISTORY: Non-contributory. TECHNIQUE: Digital bilateral breast jae (3D mammographic acquisition) in the CC and MLO projections. 2-D mediolateral oblique (MLO) and craniocaudad (CC) views of both breasts were obtained. CAD: Full Field Digital Mammography with Computer Added Detection was performed. COMPARISON: Comparison is made with prior examination dated October 23, 2018 and September 10, 2017. FINDINGS: Breast Composition: The breasts are extremely dense, which lowers the sensitivity of mammography. There are no dominant masses or suspicious calcifications. No other significant abnormalities are identified. There has been no significant change since the prior study. BI/SCREEN MAMM (CAD) W/JAE BILAT IMPRESSION: Stable bilateral screening mammogram. Yearly follow-up mammogram recommended. (A) ASSESSMENT CATEGORY: BIRADS Category 1: Negative. A letter regarding these results will be sent to the patient by the facility within 30 days. Approximately 10% of breast cancers are not detected by mammography. A normal mammogram should not delay biopsy of a clinically suspicious abnormality. [id number] Electronically Signed: Hayder Bustamante, at 11:10 EDT , Service support ,
--- NOTE | 2020-04-07 10:32 | BD_ITS ---
STUDY: DUAL ENERGY X-RAY ABSORPTIOMETRY / DXA REASON FOR EXAM: Female, 84 years old. 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 COMPARISON: Comparison is made with prior examination dated August 10, 2015. FINDINGS: Lumbar Spine (L1-L4): g/cm2 (0.955) / T-score (-1.9) / Z-score (0.0) Findings are suggestive of osteopenia with a moderate fracture risk. Left Femur Total: g/cm2 (0.714) / T-score (-2.3) / Z-score (-0.2) Left Femoral Neck: g/cm2 (0.685) / T-score (-2.5) / Z-score (-0.3) Right Femur Total: g/cm2 (0.690) / T-score (-2.5) / Z-score (-0.4) Right Femoral Neck: g/cm2 (0.656) / T-score (-2.8) / Z-score (-0.5) The T-Scores on the most recent prior examination were: Lumbar Spine (L1-L4): There has been worsening of bone density since the previous examination. Left Femur Total: which represents a worsening of 15.1%. Right Femur Total: which represents a worsening of 9.7%. BD/Dexa Bone Density Study IMPRESSION: The patient is considered osteoporotic as outlined below according to World Edwin Organization (WHO) criteria with a high fracture risk. There has been worsening of bone density since the previous examination. Reference Information: The T-score is the number of standard deviations above or below the standard which is normal for young adults at their peak bone mineral density. The World Health Organization (WHO) interprets the T-scores as follows: Above -1 Normal bone density Between -1 and -2.5 Osteopenia Equal to / or below -2.5 Osteoporosis As a practical clinical guideline, osteopenia may be graded as follows: Mild -1 through -1.5 Moderate -1.6 through -2.0 Severe -2.1 through -2.4 The Z-score is the number of standard deviations above or below age-matched controls. A Z-score of less than -1.5 would be considered abnormal. References: 1. NIH Osteoporosis and Related Bone Diseases http://www.osteo.org 2. International Society for Clinical Densitometry http://www.iscd.org 3. National Osteoporosis Foundation http://www.nof.org Electronically Signed: Hayder Bustamante, at 8:02 EDT , Service support ,
== END ==
PROVIDERS: PCP Nurse Practitioner; Referring Provider Nurse Practitioner; Visit Provider Nurse Practitioner
DX: Z12.31 Encounter for screening mammogram for malignant neoplasm of breast (principal); M81.0 Age-related osteoporosis without current pathological fracture; Z78.0 Asymptomatic menopausal state
CPT/HCPCS: 77063; 77067; 77080

== ENCOUNTER → 2021-05-24 12:52 | Outpatient (CLI) | payer MEDICARE, SELFPAY ==
[2021-03-24 12:29] VITALS: BMI 20.3
--- NOTE | 2021-05-24 12:55 | BI_ITS ---
MAMMOGRAPHY - BILATERAL SCREENING REASON FOR EXAM: Female, 85 years old. Routine annual screening examination. PERTINENT HISTORY: Non-contributory. TECHNIQUE: Digital bilateral breast jae (3D mammographic acquisition) in the CC and MLO projections. 2-D mediolateral oblique (MLO) and craniocaudad (CC) views of both breasts were obtained. CAD: Full Field Digital Mammography with Computer Added Detection was performed. COMPARISON: Comparison is made with prior study dated 04/07/2020 and 10/23/2018. FINDINGS: Breast Composition: The breasts are extremely dense, which lowers the sensitivity of mammography. There are no dominant masses or suspicious calcifications. No other significant abnormalities are identified. There has been no significant change since the prior study. BI/SCRN MAMM (CAD)W/JAE BILAT IMPRESSION: Stable bilateral screening mammogram. Yearly follow-up mammogram recommended. (A) ASSESSMENT CATEGORY: BIRADS Category 1: Negative. A letter regarding these results will be sent to the patient by the facility within 30 days. Approximately 10% of breast cancers are not detected by mammography. A normal mammogram should not delay biopsy of a clinically suspicious abnormality. [id number] Electronically Signed: Hayder Bustamante MD at 13:58 EDT , Service support ,
== END ==
PROVIDERS: PCP Nurse Practitioner; Referring Provider Nurse Practitioner; Visit Provider Nurse Practitioner
DX: Z12.31 Encounter for screening mammogram for malignant neoplasm of breast (principal)
CPT/HCPCS: 77063; 77067

== ENCOUNTER → 2022-06-08 | Outpatient (CLI) | payer MEDICARE, SELFPAY ==
--- NOTE | 2022-06-08 15:21 | BI_ITS ---
MAMMOGRAPHY - BILATERAL SCREENING 3-D TOMOSYNTHESIS REASON FOR EXAM: Female, 86 years old. Routine screening PERTINENT HISTORY: No significant family history. TECHNIQUE: 2-D mammograms and 3-D Tomosynthesis of the breast (s) were performed. CAD was performed. COMPARISON: 05/24/2021 FINDINGS: The breast composition is heterogeneously dense that can obscure small breast masses. Scattered benign calcifications are seen. No dense spiculated masses or suspicious microcalcifications are identified. No architectural distortion is identified. There is no skin thickening or retraction. There has been no significant change since the prior study. BI/SCRN MAMM (CAD)W/JAE BILAT IMPRESSION: No mammographic signs of malignancy. Routine yearly mammograms recommended. ASSESSMENT CATEGORY: BIRADS Category 2: Benign. A letter regarding these results will be sent to the patient by the facility within 30 days. FOLLOW UP RECOMMENDATION: Yearly follow up mammogram recommended. (A) Approximately 10% of breast cancers are not detected by mammography. A normal mammogram should not delay biopsy of a clinically suspicious abnormality. Electronically Signed: Vince Burgess MD at 15:58 EDT ,
--- NOTE | 2022-06-08 15:35 | BD_ITS ---
STUDY: DUAL ENERGY X-RAY ABSORPTIOMETRY / DXA REASON FOR EXAM: Female, 86 years old. 627.8Menopausal postmenopausalBONE DENSITY REASON FOR EXAM TECHNIQUE: Bone Mineral Density (BMD) measurements of lumbar spine and bilateral hips were obtained. COMPARISON: Comparison is made with prior study dated 04/07/2020. FINDINGS: Lumbar Spine (L1-L4): g/cm2 (0.804) / T-score (-1.9) / Z-score (0.8) Findings are suggestive of osteopenia with a moderate fracture risk. Left Femur Total: g/cm2 (0.648) / T-score (-2.4) / Z-score (-0.1) Left Femoral Neck: g/cm2 (0.591) / T-score (-2.3) / Z-score (0.2) Right Femur Total: g/cm2 (0.651) / T-score (-2.4) / Z-score (-0.1) Right Femoral Neck: g/cm2 (0.533) / T-score (-2.8) / Z-score (-0.3) The T-Scores on the most recent prior examination were: Lumbar Spine (L1-L4): There has been improvement of bone density since the previous examination. Left Femur Total: which represents a worsening of 1.4%. Right Femur Total: which represents an improvement of 2.8%. BD/Dexa Bone Density Study IMPRESSION: The patient is considered osteoporotic as outlined below according to World Edwin Organization (WHO) criteria with a high fracture risk. There has been improvement of bone density since the previous examination. Reference Information: The T-score is the number of standard deviations above or below the standard which is normal for young adults at their peak bone mineral density. The World Health Organization (WHO) interprets the T-scores as follows: Above -1 Normal bone density Between -1 and -2.5 Osteopenia Equal to / or below -2.5 Osteoporosis As a practical clinical guideline, osteopenia may be graded as follows: Mild -1 through -1.5 Moderate -1.6 through -2.0 Severe -2.1 through -2.4 The Z-score is the number of standard deviations above or below age-matched controls. A Z-score of less than -1.5 would be considered abnormal. References: 1. NIH Osteoporosis and Related Bone Diseases www osteo.org 2. International Society for Clinical Densitometry www iscd.org 3. National Osteoporosis Foundation www nof.org Electronically Signed: Hayder Bustamante MD at 14:25 EDT ,
== END | disposition home or self-care (01) ==
LOC: OPBD 15:19
PROVIDERS: PCP Nurse Practitioner Family; Referring Provider Nurse Practitioner Family; Visit Provider Nurse Practitioner Family
DX: Z13.820 Encounter for screening for osteoporosis (principal); Z78.0 Asymptomatic menopausal state; Z12.31 Encounter for screening mammogram for malignant neoplasm of breast
CPT/HCPCS: 77063; 77067; 77080

== ENCOUNTER → 2023-07-04 | Outpatient (CLI) | payer MEDICARE, SELFPAY ==
--- NOTE | 2023-07-04 08:53 | BI_ITS ---
MAMMOGRAPHY - BILATERAL SCREENING REASON FOR EXAM: Female, 87 years old. Routine annual screening examination. PERTINENT HISTORY: Non-contributory. TECHNIQUE: Digital bilateral breast jae (3D mammographic acquisition) in the CC and MLO projections. 2-D mediolateral oblique (MLO) and craniocaudad (CC) views of both breasts were obtained. CAD: Full Field Digital Mammography with Computer Added Detection was performed. COMPARISON: Comparison is made with prior study dated June 08, 2022 and May 24, 2021. FINDINGS: Breast Composition: The breasts are heterogeneously dense, which may obscure small masses. There are no dominant masses or suspicious calcifications. No other significant abnormalities are identified. There has been no significant change since the prior study. BI/SCRN MAMM (CAD)W/JAE BILAT IMPRESSION: Stable bilateral screening mammogram. Yearly follow-up mammogram recommended. (A) ASSESSMENT CATEGORY: BIRADS Category 1: Negative. A letter regarding these results will be sent to the patient by the facility within 30 days. Approximately 10% of breast cancers are not detected by mammography. A normal mammogram should not delay biopsy of a clinically suspicious abnormality. [id number] Electronically Signed: Hayder Bustamante MD at 11:49 EDT ,
== END | disposition home or self-care (01) ==
LOC: OPBI 08:52
PROVIDERS: PCP Nurse Practitioner Family; Referring Provider Nurse Practitioner Family; Visit Provider Nurse Practitioner Family
DX: Z12.31 Encounter for screening mammogram for malignant neoplasm of breast (principal)
CPT/HCPCS: 77063; 77067

== ENCOUNTER → 2024-07-10 | Outpatient (CLI) | payer MEDICARE, SELFPAY ==
--- NOTE | 2024-07-10 10:26 | BI_ITS ---
MAMMOGRAPHY - BILATERAL SCREENING REASON FOR EXAM: Female, 88 years old. Routine annual screening examination. PERTINENT HISTORY: Non-contributory. TECHNIQUE: Digital bilateral breast jae (3D mammographic acquisition) in the CC and MLO projections. 2-D mediolateral oblique (MLO) and craniocaudad (CC) views of both breasts were obtained. CAD: Full Field Digital Mammography with Computer Added Detection was performed. COMPARISON: Comparison is made with prior study July 04, 2023 and June 08, 2022. FINDINGS: Breast Composition: The breasts are heterogeneously dense, which may obscure small masses. There are no dominant masses or suspicious calcifications. No other significant abnormalities are identified. There has been no significant change since the prior study. BI/SCRN MAMM (CAD)W/JAE BILAT IMPRESSION: Stable bilateral screening mammogram. Yearly follow-up mammogram recommended. (A) ASSESSMENT CATEGORY: BIRADS Category 1: Negative. A letter regarding these results will be sent to the patient by the facility within 30 days. Approximately 10% of breast cancers are not detected by mammography. A normal mammogram should not delay biopsy of a clinically suspicious abnormality. [id number] Electronically Signed: Hayder Bustamante MD at 12:02 EDT ,
== END | disposition home or self-care (01) ==
LOC: OPBI 10:25
PROVIDERS: PCP Nurse Practitioner Family; Referring Provider Nurse Practitioner Family; Visit Provider Nurse Practitioner Family
DX: Z12.31 Encounter for screening mammogram for malignant neoplasm of breast (principal)
CPT/HCPCS: 77063; 77067

== ENCOUNTER → 2024-12-16 | Outpatient (CLI) | payer MEDICARE, SELFPAY ==
--- NOTE | 2024-12-16 13:31 | CDU_ITS ---
Reason For Study Reason For Study: DIZZINESS Rt. Velocities/BP Lt. Velocities/BP Prox CCA 50.9/15.0 cm/sec. Prox CCA 61.0/18.2 cm/sec. Mid CCA 50.0/14.1 cm/sec. Mid CCA 47.0/13.9 cm/sec. Dist CCA 39.6/15.0 cm/sec. Dist CCA 47.0/17.4 cm/sec. Prox ICA 53.8/19.7 cm/sec. Prox ICA 54.9/20.0 cm/sec. Mid ICA 61.3/22.0 cm/sec. Mid ICA 60.0/20.8 cm/sec. Dist ICA 58.2/20.9 cm/sec. Dist ICA 62.6/24.3 cm/sec. Rt. ICA/CCA = 1.2. Lt. ICA/CCA = 1.3. Prox ECA 40.5/5.6 cm/sec. Prox ECA 42.8/7.6 cm/sec. Rt. Vert. 38.4/13.1 cm/sec. Lt. Vert. 30.5/8.5 cm/sec. Right Extracranial There is intimal thickening but no significant atherosclerotic plaque noted in the right common carotid artery. There is heterogeneous, irregular atherosclerotic plaque noted in the right internal carotid artery. There is heterogeneous, irregular atherosclerotic plaque noted in the right external carotid artery. Antegrade flow is noted in the right vertebral artery. Left Extracranial There is intimal thickening but no significant atherosclerotic plaque noted in the left common carotid artery. There is heterogeneous, irregular atherosclerotic plaque noted in the left internal carotid artery. There is heterogeneous, irregular atherosclerotic plaque noted in the left external carotid artery. Antegrade flow is noted in the left vertebral artery. Procedure Carotid Duplex [id number]. This is a Carotid Duplex examination using B-mode, color flow and specral Doppler. The exam was diagnostic. Exam performed in department. VL/Carotid Duplex Ultrasound Interpretation Summary Mild (<50%) stenosis right extracranial internal carotid. Mild (<50%) stenosis left extracranial internal carotid. Patent and antegrade vertebrals bilaterally. Ordering Physician: Kelley Tan Referring Physician: Kelley Tan Performed By: Max Ibarra RVT
== END | disposition home or self-care (01) ==
LOC: CVS 13:27
PROVIDERS: PCP Nurse Practitioner Family; Referring Provider Nurse Practitioner Family; Visit Provider Nurse Practitioner Family
DX: R42 Dizziness and giddiness (principal)
CPT/HCPCS: 93880

== ENCOUNTER → 2025-02-16 | Outpatient (CLI) | payer MEDICARE, SELFPAY ==
--- NOTE | 2025-02-16 12:42 | CT_ITS ---
PROCEDURE: BRAIN/HEAD WITHOUT CONTRAST 02/16/2025 REASON FOR EXAM: PROGRESSIVE MEMORY LOSS, DIZZINESS TECHNIQUE: Head CT without intravenous contrast. Coronal and Sagittal reconstruction series were provided. One or more dose reduction techniques were used (e.g., Automated exposure control, adjustment of the mA and/or kV according to patient size, use of iterative reconstruction technique. RADIATION DOSE SUMMARY: CTDlvol: 44.99 mGy DLP: 779.24 mGycm COMPARISON: None FINDINGS: Brain: Within normal limits for age CSF Spaces: Mild generalized cerebral atrophy Sinuses/Mastoids: Partial opacification of the ethmoid sinuses. Bones: Unremarkable CT/Brain/Head without Contrast IMPRESSION: NO ACUTE FINDINGS Partial opacification of the ethmoid sinuses. Reading Location: [place] [address]
== END | disposition home or self-care (01) ==
LOC: CT 12:33
PROVIDERS: PCP Nurse Practitioner Family; Referring Provider Nurse Practitioner Family; Visit Provider Nurse Practitioner Family
DX: R41.3 Other amnesia (principal)
CPT/HCPCS: 70450